=== PATIENT | female | born 1940 | race Caucasian/White ===

== ENCOUNTER 2017-10-05 14:47 | Emergency (ER) | payer MEDICARE, OTHER, SELFPAY ==
[2017-10-05 14:49] VITALS: BP 158/69; PULSE 89; PULSE 90; RESP 17; TEMP 36.7; O2SAT 95; O2SAT 97; BMI 35.1
--- NOTE | 2017-10-05 14:56 | RAD_ITS ---
STUDY: X-RAY CHEST REASON FOR EXAM: Female, 76 years old. Pain following a fall. TECHNIQUE: Single AP portable view of the chest. COMPARISON: Comparison is made with prior study dated July 02, 2010. FINDINGS: EKG electrodes are seen. Hyperinflation. The lungs are clear. There is no demonstrated pleural abnormality. Normal size heart. Normal mediastinum and wilfredo. Normal visualized pulmonary arteries. There is atherosclerotic tortuosity of the aortic arch and descending thoracic aorta. There are diffuse degenerative changes of the visualized thoracic spine. Normal visualized ribs, clavicles, and shoulders. There is no demonstrated abnormality of the visualized soft tissue structures of the upper abdomen. RAD/Chest 1 View (Portable) IMPRESSION: No acute abnormality is seen. Electronically Signed: Tigre Asif MD at 15:57 EDT Tel [phone], Service support ,
--- NOTE | 2017-10-05 14:56 | EKG12_ITS ---
Test Reason : FALL Blood Pressure : / mmHG Vent. Rate : 081 BPM Atrial Rate : 081 BPM P-R Int : 122 ms QRS Dur : 070 ms QT Int : 358 ms P-R-T Axes : 064 -27 041 degrees QTc Int : 415 ms Normal sinus rhythm Low voltage QRS Borderline ECG Confirmed by MEETA STOUT, LJ ([id number]), desk editor MERCEDEZ GREER ([id number]) on 10/07/2017 3:31:22 PM Referred By: AYANNA Confirmed By:LJ TIM MD
--- NOTE | 2017-10-05 14:56 | CT_ITS ---
STUDY: CT BRAIN WITHOUT CONTRAST REASON FOR EXAM: Female, 76 years old. Contusion overlying the right frontal bone following a fall. RADIATION DOSAGE (If Supplied By Facility): CTDIvol = ( 44.99 ) mGy, DLP = ( 812.98 ) mGycm TECHNIQUE: Transaxial CT imaging of the brain was performed without administration of intravenous contrast material. Individualized dose optimization techniques were used for this CT. COMPARISON: None. FINDINGS: Scalp hematoma overlying the right frontal bone. Normal calvarium. There is mild cerebral atrophy with widening of the extra-axial spaces and ventricular dilatation. There are areas of decreased attenuation within the white matter tracts of the supratentorial brain, consistent with microvascular disease changes. Focal area of decreased attenuation in the deep portion of the left parieto-occipital lobe adjacent to the left lateral ventricle. This may represent an area of prior ischemic change. Normal basal ganglia and thalami. Normal brainstem. Normal cerebellum. There is no intracranial hemorrhage. There are no findings of an acute ischemic infarction. Mucosal thickening of the ethmoid sinuses bilaterally. CT/Brain/Head without Contrast IMPRESSION: Chronic involutional changes of the brain. Scalp hematoma overlying the right frontal bone. Electronically Signed: Tigre Asif MD at 15:49 EDT Tel [phone], Service support ,
--- NOTE | 2017-10-05 14:57 | CT_ITS ---
STUDY: CT CERVICAL SPINE WITHOUT CONTRAST REASON FOR EXAM: Female, 76 years old. History of fall. Contusion to the [place]. RADIATION DOSAGE (If Supplied By Facility): CTDIvol = ( 19.34 ) mGy, DLP = ( 353.67 ) mGycm TECHNIQUE: High resolution transaxial imaging was performed without contrast material. Sagittal and coronal images were reconstructed. Individualized dose optimization techniques were used for this CT. COMPARISON: None FINDINGS: Normal craniovertebral junction. There are degenerative changes of the anterior atlantoaxial articulation. Normal odontoid process. Normal cervical lordosis. Normal vertebral bodies and posterior osseous elements. C2-3: Disc space narrowing. Facet joint osteoarthritis and hypertrophy worse on the right side with right neural foraminal stenosis. C3-4: Moderate degree of disc space narrowing. Minimal anterior listhesis of C3 on C4 most likely secondary to the facet joint osteoarthritis and hypertrophy with bilateral neural foraminal stenosis. C4-5: Mild degree of disc space narrowing. Minimal anterior listhesis of C4 on C5 most likely secondary to the facet joint osteoarthritis and hypertrophy. Uncovertebral arthrosis. Bilateral neural foraminal stenosis. C5-6: Moderate degree of disc space narrowing. Spondylosis. Facet joint osteoarthritis and hypertrophy. Narrowing of the left intervertebral foramen. C6-7: Moderate degree of disc space narrowing. Spondylosis. Facet joint osteoarthritis and hypertrophy. Normal visualized soft tissue structures. CT/Spine Cervical without Contras IMPRESSION: Multilevel degenerative changes, as described above. Electronically Signed: Tigre Asif MD at 15:52 EDT Tel [phone], Service support ,
[2017-10-05] MEDS: Diphth,Pertuss(Acell),Tet Vac 0.5 ML Vial IM (15:09)
[2017-10-05] MEDS: Acetaminophen 500 MG Tablet 1000 MG PO (15:10)
[2017-10-05 15:14] VITALS: O2SAT 96
[2017-10-05 15:15] LABS: Absolute Lymphocyte Count 0.75 X10^3/ul (0.83-4.51); Absolute Neutrophil Count 6.3 X10^3/uL (2.0-7.7); Hematocrit 41.3 % (37-47); Hemoglobin 13.5 g/dl (12.0-15.0); Lymphocyte # 0.75 X10^3/ul (4.0); Lymphocyte % 10.4 % (19-41); Mean Corp Hgb Conc 32.7 g/gl (32-36); Mean Corpuscular Hgb 29.9 pg (27.0-32.0); Mean Corpuscular Volume 91.6 fL (81-99); Monocyte# 0.13 X10^3/uL; Monocyte% 1.8 % (0-10); Neutrophil # 6.29 X10^3/uL (2.7-7.7); Neutrophil % 87.7 % (47-70); Platelet Count 225 K/mm3 (150-450); RBC Distribution Width CV 13.1 % (11.6-14.6); RBC Distribution Width SD 43.3 fl (35.1-43.9); Red Blood Count 4.51 M/mm3 (4.2-5.4); White Blood Count 7.2 K/mm3 (4.4-11.0)
[2017-10-05 15:16] LABS: POSITIVE COUNT NO; POSITIVE DIFFERENTIAL NO; POSITIVE MORPHOLOGY NO
--- NOTE | 2017-10-05 15:19 | ED.VISSUMM ---
- ER Visit Summary Date of Service: 10/05/17 Chief Complaint: Facial injury History of Present Illness: The patient is a 76 F presents to the emergency department after a fall. Patient was outside. Her grandson was cutting her grass. She states that she was lifting up a cable that needed to be buried. He states that the next thing she knew, she woke up on the ground. She did strike her face. She is amnestic to the event. She cannot recall tripping or falling. She was not syndrome prior to that. She denies any fevers or chills. She states that today she has been in normal state of health. Her only current current complaint is of a mild headache. She is on baby aspirin but no other anticoagulants. She is unsure of her last tetanus. She has no history of coronary vascular disease and prior syncope. Physical Examination: Vital signs reviewed General: Well-nourished, well-developed Head: Normocephalic, and hematoma above right eye Eyes: Pupils equal and reactive, extraocular muscles intact NT: Abrasion over nose. No nasal septal hematoma. No hemotympanum. Laceration in the upper right lip. Does not involve the vermilion border. Neck, supple, no lymphadenopathy Heart: Regular rate and rhythm Respiratory: No distress, clear bilaterally Abdomen: Soft, nontender, nondistended, no peritoneal signs Back: Nontender Extremities: Nontender, no edema, no cords Skin: Normal color no rash Neuro: Alert and oriented, no focal or lateralizing deficits Test Results: [] Emergency Department Course and Treatment: The patient only wanted Tylenol for pain. Her tetanus is updated. I did obtain images including head CT, CT C-spine, chest x-ray, and humerus x-ray. These are unremarkable. EKG is obtained which is unremarkable. There is no acute ischemic change. Screening labs are also unremarkable. My suspicion is that the patient likely fell and is amnestic because of her head injury. I really do not suspect cardiogenic syncope. Her lip laceration was irrigated and repaired with 3 gut suture. She will be placed on amoxicillin as this was caused by teeth. Patient also given a short course of analgesics and antiemetics. Patient is comfortable plan for discharge. She will be discharged home. Treatment Plan: [] Disposition: Discharge Impression:. Lip laceration status post fall 2. Facial contusion 3. Concussion This note was generated with Dragon dictation software. It may contain incorrect words, spelling, and punctuation that were not noted in review of the chart prior to signing ED Disposition - Plan for ED Patient: Chief Complaint: Fall Instructions: ED Mechanical Fall, ED Laceration All Prescriptions: Hydrocodone Bitart/Apap 5-325 [[place] 5MG-325MG] 1 tab PO Q6H PRN PRN 3 Days #10 tab PRN Reason: Pain Ondansetron [Zofran Odt] 4 mg PO Q8H PRN PRN #10 tab PRN Reason: Nausea Amoxicillin 500 mg PO TID #21 tab Referrals: Octaviano Dunham MD [Primary Care Provider] -
--- NOTE | 2017-10-05 15:26 | RAD_ITS ---
STUDY: X-RAY - RIGHT HUMERUS REASON FOR EXAM: Female, 76 years old. History of fall. Pain. TECHNIQUE: 2 view(s) of the humerus. COMPARISON: None. FINDINGS: Normal visualized humerus. There is no demonstrated fracture or osseous destructive process. There is no demonstrated soft tissue abnormality. RAD/Humerus min 2 Views IMPRESSION: Normal x-ray examination of the humerus. Electronically Signed: Tigre Asif MD at 15:57 EDT Tel [phone], Service support ,
[2017-10-05 15:35] LABS: ALB/GLOB Ratio 1.3 RATIO (0.9-2.4); AST(SGOT) 18 U/L (15-37); Alanine Aminotransfer ALT/SGPT 22 U/L (13-56); Albumin, Serum 3.8 g/dL (3.2-5.0); Alkaline Phosphatase 69 U/L (45-117); Anion Gap 6 (5-15); BUN 20 mg/dL (7-18); BUN/Creat Ratio 21.7 RATIO (10-20); Calcium,Total 8.7 mg/dL (8.5-10.1); Chloride 106 mmol/L (98-107); Creatinine, Serum 0.92 mg/dL (0.55-1.02); EST Glomerular Filtration Rate 63 mL/min (>60); Est Glom Filt Rate - Afr Amer 76 mL/min (>60); Estimated Creatinine Clearance 37.37 ml/min; Glucose 172 mg/dL (74-106); Protein, Total 6.8 g/dL (6.4-8.2); Sodium Level 139 mmol/L (136-145)
[2017-10-05] MEDS: Ondansetron ODT 4 MG Tablet PO (16:33)
[2017-10-05 16:34] VITALS: BP 130/69; PULSE 83; RESP 14; O2SAT 95
--- NOTE | 2017-10-05 16:36 | ED.VISSUMM ---
- ER Visit Summary Date of Service: 10/05/17 Chief Complaint: [] History of Present Illness: The patient is a 76 F [] Physical Examination: [] Test Results: [] Emergency Department Course and Treatment: [] Treatment Plan: [] Disposition: [] Impression: [] This note was generated with [employer] dictation software. It may contain incorrect words, spelling, and punctuation that were not noted in review of the chart prior to signing ED Disposition - Plan for ED Patient: Chief Complaint: Fall Instructions: ED Mechanical Fall, ED Laceration All Prescriptions: Hydrocodone Bitart/Apap 5-325 [[place] 5MG-325MG] 1 tab PO Q6H PRN PRN 3 Days #10 tab PRN Reason: Pain Ondansetron [Zofran Odt] 4 mg PO Q8H PRN PRN #10 tab PRN Reason: Nausea Ondansetron [Zofran Odt] 4 mg PO Q8H PRN PRN #10 tab PRN Reason: Nausea Amoxicillin 500 mg PO TID #21 tab Referrals: Octaviano Dunham MD [Primary Care Provider] -
== END 2017-10-05 16:41 | disposition home or self-care (01) ==
PROVIDERS: Emergency Provider Emergency Medicine; Family Provider Family Medicine; PCP Family Medicine
DX: S06.0X9A Concussion with loss of consciousness of unspecified duration, initial encounter (principal); S01.511A Laceration without foreign body of lip, initial encounter; S00.11XA Contusion of right eyelid and periocular area, initial encounter; I10 Essential (primary) hypertension; E78.00 Pure hypercholesterolemia, unspecified; M06.9 Rheumatoid arthritis, unspecified; Z79.52 Long term (current) use of systemic steroids; Z79.82 Long term (current) use of aspirin; Z79.899 Other long term (current) drug therapy; W18.30XA Fall on same level, unspecified, initial encounter; Y93.89 Activity, other specified; Y92.007 Garden or yard of unspecified non-institutional (private) residence as the place of occurrence of the external cause; Y99.8 Other external cause status
CPT/HCPCS: 12011; 70450; 71045; 72125; 73060; 80053; 85025; 90471; 90715; 93005; 99285

== ENCOUNTER → 2017-10-09 12:15 | Outpatient (CLI) | payer MEDICARE, OTHER, SELFPAY ==
--- NOTE | 2017-10-09 12:21 | RAD_ITS ---
STUDY: X-RAY - RIGHT SHOULDER REASON FOR EXAM: Female, 76 years old. Right shoulder pain following a recent fall. TECHNIQUE: 4 view(s) of the shoulder. COMPARISON: None. FINDINGS: Normal glenohumeral articulation. There is degenerative arthrosis of the acromioclavicular joint without inferior osseous spur formation. Normal acromion. Normal humeral head and visualized proximal humerus. There is periarticular soft tissue calcification consistent with a calcific tendinitis. Normal visualized pulmonary apex. RAD/Shoulder min 2 Views IMPRESSION: Degenerative changes of the right acromioclavicular joint. Findings suggestive of a calcific tendinitis. Electronically Signed: Tigre Asif MD at 12:47 EDT Tel [phone], Service support ,
== END ==
PROVIDERS: Family Provider Family Medicine; PCP Family Medicine; Visit Provider Family Medicine
DX: S40.011A Contusion of right shoulder, initial encounter (principal)
CPT/HCPCS: 73030

== ENCOUNTER → 2017-12-04 17:45 | Outpatient (CLI) | payer MEDICARE, OTHER, SELFPAY | PROVIDERS: Family Provider Family Medicine; PCP Family Medicine; Visit Provider Family Medicine | DX: S46.001S Unspecified injury of muscle(s) and tendon(s) of the rotator cuff of right shoulder, sequela (principal) | CPT/HCPCS: 73221 ==

== ENCOUNTER → 2018-08-20 | Outpatient (CLI) | payer MEDICARE, OTHER, SELFPAY ==
[2018-08-20 10:36] LABS: Absolute Lymphocyte Count 1.83 X10^3/ul (0.83-4.51); Absolute Neutrophil Count 4.9 X10^3/uL (2.0-7.7); Basophil# 0.02 X10^3/uL; Basophil% 0.3 % (0-1); Eosinophil# 0.19 X10^3/uL; Eosinophils% 2.6 % (0-5); Hematocrit 42.7 % (37-47); Hemoglobin 14.3 g/dl (12.0-15.0); Lymphocyte # 1.83 X10^3/ul (4.0); Lymphocyte % 25.1 % (19-41); Mean Corp Hgb Conc 33.5 g/gl (32-36); Mean Corpuscular Hgb 30.4 pg (27.0-32.0); Mean Corpuscular Volume 90.9 fL (81-99); Mean Platelet Vol. 9.3 fl (6.2-12.0); Monocyte# 0.32 X10^3/uL; Monocyte% 4.4 % (0-10); Neutrophil # 4.92 X10^3/uL (2.7-7.7); Neutrophil % 67.5 % (47-70); Platelet Count 302 K/mm3 (150-450); RBC Distribution Width CV 13.3 % (11.6-14.6); White Blood Count 7.3 K/mm3 (4.4-11.0)
[2018-08-20 10:37] LABS: POSITIVE COUNT NO; POSITIVE DIFFERENTIAL NO; POSITIVE MORPHOLOGY NO
[2018-08-20 11:14] LABS: Anion Gap 4 (5-15); BUN 18 mg/dL (7-18); BUN/Creat Ratio 23.7 RATIO (10-20); Calcium,Total 8.8 mg/dL (8.5-10.1); Chloride 103 mmol/L (98-107); Cholesterol 222 mg/dL (200); Creatinine, Serum 0.76 mg/dL (0.55-1.02); EST Glomerular Filtration Rate 78 mL/min (>60); Est Glom Filt Rate - Afr Amer 95 mL/min (>60); Glucose 100 mg/dL (74-106); High Density Lipoprotein 58 mg/dL; Sodium Level 137 mmol/L (136-145); Triglycerides 192 mg/dL; Very Low Density Lipoprotein 38 mg/dL (5-40)
[2018-08-21 08:39] LABS: Carcinoembryonic Antigen 1.5 ng/mL (0.0-4.7)
== END | disposition home or self-care (01) ==
LOC: MFPLAB 09:11
PROVIDERS: Family Provider Family Medicine; PCP Family Medicine; Referring Provider Family Medicine; Visit Provider Family Medicine
DX: E78.00 Pure hypercholesterolemia, unspecified (principal); C18.9 Malignant neoplasm of colon, unspecified; R53.83 Other fatigue; I10 Essential (primary) hypertension
CPT/HCPCS: 36415; 80048; 80061; 82306; 82378; 84443; 85025

== ENCOUNTER → 2018-11-23 | Outpatient (CLI) | payer MEDICARE, OTHER, SELFPAY | END | disposition home or self-care (01) | PROVIDERS: Family Provider Family Medicine; PCP Family Medicine; Referring Provider Nurse Practitioner Family; Visit Provider Nurse Practitioner Family | DX: N39.0 Urinary tract infection, site not specified (principal) | CPT/HCPCS: 87086; 87088; 87186 ==

== ENCOUNTER → 2019-02-02 | Outpatient (CLI) | payer MEDICARE, OTHER, SELFPAY ==
--- NOTE | 2019-02-02 11:42 | RAD_ITS ---
STUDY: X-RAY - LEFT SHOULDER REASON FOR EXAM: Left upper arm pain, reaching injury yesterday. TECHNIQUE: 4 view(s) of the shoulder. COMPARISON: None. FINDINGS: Normal glenohumeral articulation. There is calcification of the superior acromioclavicular joint capsule. Normal acromion. Normal humeral head and visualized proximal humerus. There is subtle calcific tendinitis. Normal visualized pulmonary apex. RAD/Shoulder min 2 Views IMPRESSION: Subtle calcific tendinitis. Calcification in the superior acromioclavicular joint capsule. Electronically Signed: Shahid Dhaliwal MD at 12:12 EDT Tel , Service support ,
== END | disposition home or self-care (01) ==
LOC: MTRAD 11:41
PROVIDERS: Family Provider Family Medicine; PCP Family Medicine; Referring Provider Family Medicine; Visit Provider Family Medicine
DX: M25.512 Pain in left shoulder (principal)
CPT/HCPCS: 73030

== ENCOUNTER → 2019-03-27 14:03 | Outpatient (CLI) | payer MEDICARE, OTHER, SELFPAY ==
[2019-03-27 10:05] VITALS: BMI 35.1
[2019-03-27 14:06] LABS: Mucous, Urine 0 SEEN /hpf (<or=2+); Squamous Epithelial Cells - UA 0 SEEN /hpf (5-10)
[2019-03-27 14:15] LABS: Color, Urine Yellow (Yellow); Glucose, Dipstick Normal (Normal); Ketone-Dipstick 5 mg/dl (Negative); Leukocyte Esterase-Dipstick 100 /ul (Negative); Nitrite-Dipstick Positive (Negative); Occult Blood-Urine 10 /ul (Negative); Protein-Dipstick 15 mg/dl (Negative); Urine Bilirubin Dipstick Negative (Negative); Urine Clarity Sl. Cloudy (Clear); Urine Urobilinogen Normal (Normal)
[2019-03-27 14:24] LABS: Bacteria 3+ /hpf (None Seen); Red Blood Cells-Urine 0-5 SEEN /hpf (0-5); White Blood Cells 10-25 SEEN /hpf (0-5)
== END ==
PROVIDERS: Family Provider Family Medicine; PCP Family Medicine; Referring Provider Physician Assistant; Visit Provider Physician Assistant
DX: R68.83 Chills (without fever) (principal)
CPT/HCPCS: 81001; 87086; 87088; 87186

== ENCOUNTER 2019-05-16 18:18 | Inpatient (IN) | payer MEDICARE, OTHER, SELFPAY ==
[2019-05-04 13:56] VITALS: BMI 35.1
[2019-05-16] VITALS (9 sets, daily range): BP systolic 122–139; BP diastolic 59–71; PULSE 98–117; RESP 14–17; TEMP 36.9–37.6; O2SAT 88–93; BMI 33.8; BMI 33.0; BMI 33.1
--- NOTE | 2019-05-16 18:40 | ED.DCSUM_ITS ---
- ER Visit Summary Date of Service: 05/16/19 Chief Complaint: Chills History of Present Illness: The patient is a 78 F with a history of colon cancer status post colon resection. History of shoulder surgery and hypertension. Presents with chills for the past hour. Patient had cold symptoms starting 3 days ago. She has congestion and a dry cough. She had one episode of vomiting which she attributes to coughing after eating an orange. No other GI symptoms. No urinary symptoms. She had similar symptoms in the past with a UTI. Denies any history of sepsis. Physical Examination: Afebrile and vital signs unremarkable except for heart rate of 117. Pulse ox 92% on room air. Patient appears nontoxic and in no acute distress. Alert and oriented. HEENT exam shows normal inspection. Heart tachycardic but regular. Lungs clear. Abdomen soft and nontender. Extremities nontender with no edema. Skin appears normal. Test Results: Influenza test, chest x-ray, and urinalysis pending. Emergency Department Course and Treatment: Patient likely has an upper respiratory infection with chills. Family is concerned for UTI. She does not meet sepsis criteria. She appears well. She had one episode of vomiting. There is no indication for IV fluids or blood testing after 1 hour of chills. Will check an x-ray, influenza test, and urinalysis and reassess. Influenza negative. Chest x-ray unremarkable. Urinalysis showed signs of UTI. Cultures pending. Patient was treated with Rocephin. Patient was hypoxic with ambulation. She has no history of this. No shortness of breath. No history of heart failure, DVT, or PE. I did obtain an EKG that showed sinus rhythm at a rate of 114. No sign of ischemia or infarction pattern. Troponin normal. D-dimer is negative when adjusted for age. Patient met criteria for sepsis. Lactate and blood cultures pending. Treated with Rocephin. Hospitalist was contacted for admission. Treatment Plan: As above Disposition: Admission Impression: 1. Sepsis 2. UTI 3. Hypoxia This note was generated with [employer] software. It may contain incorrect words, spelling, and punctuation that were not noted in review of the chart prior to signing ED Disposition - Plan for ED Patient: Referrals: Octaviano Almodovar MD [Primary Care Provider] -
--- NOTE | 2019-05-16 18:54 | EKG12_ITS ---
Test Reason : GEN ILL Blood Pressure : / mmHG Vent. Rate : 114 BPM Atrial Rate : 114 BPM P-R Int : 118 ms QRS Dur : 064 ms QT Int : 306 ms P-R-T Axes : 049 -38 047 degrees QTc Int : 421 ms Sinus tachycardia Left axis deviation Low voltage QRS Inferior infarct , age undetermined Abnormal ECG Confirmed by FRAN STOUT, ARUNA ([id number]), editor magazine [employer]ES ([id number]) on 05/20/2019 1:22:05 PM Referred By: DC Confirmed By:ROOSEVELT PETERS MD
[2019-05-16 19:27] LABS: Mucous, Urine 0 SEEN /hpf (<or=2+); Red Blood Cells-Urine 0 SEEN /hpf (0-5); Squamous Epithelial Cells - UA 0 SEEN /hpf (5-10)
--- NOTE | 2019-05-16 19:35 | RAD_ITS ---
STUDY: X-RAY CHEST REASON FOR EXAM: Female, 78 years old. PATIENT HAVING COLD SX, CHILLS, FEVER TECHNIQUE: PA and lateral COMPARISON: None. FINDINGS: Lungs are mildly hyperinflated but clear.. Tiny calcified granuloma in left lower lobe There is no demonstrated pleural abnormality. Normal size heart. Normal mediastinum and wilfredo. Normal visualized pulmonary arteries. Normal visualized aortic arch and descending thoracic aorta. Dorsal spine demonstrates degenerative changes. Normal visualized ribs, and clavicles. There are degenerative changes of left shoulder and prosthesis on the right There is no demonstrated abnormality of the visualized soft tissue structures of the upper abdomen. RAD/Chest PA and Lateral IMPRESSION: No acute cardiopulmonary pathology. Electronically Signed: Sharath Taylor MD at 20:03 EST , Service support ,
[2019-05-16 19:38] LABS: Color, Urine Yellow (Yellow); Glucose, Dipstick Normal (Normal); Ketone-Dipstick Negative (Negative); Leukocyte Esterase-Dipstick 500 /ul (Negative); Nitrite-Dipstick Positive (Negative); Occult Blood-Urine Negative /ul (Negative); Protein-Dipstick Negative (Negative); Urine Bilirubin Dipstick Negative (Negative); Urine Clarity Clear (Clear); Urine Urobilinogen Normal (Normal)
[2019-05-16 19:49] LABS: Anion Gap 6 (5-15); BUN 16 mg/dL (7-18); BUN/Creat Ratio 17.4 RATIO (10-20); Calcium,Total 8.5 mg/dL (8.5-10.1); Chloride 106 mmol/L (98-107); Creatinine, Serum 0.92 mg/dL (0.55-1.02); EST Glomerular Filtration Rate 63 mL/min (>60); Est Glom Filt Rate - Afr Amer 76 mL/min (>60); Glucose 117 mg/dL (74-106); Potassium 3.8 mmol/L (3.5-5.1); Sodium Level 139 mmol/L (136-145)
[2019-05-16 19:58] LABS: Absolute Lymphocyte Count 0.57 X10^3/uL (0.83-4.51); Absolute Neutrophil Count 13.9 X10^3/uL (2.0-7.7); Basophil# 0.03 X10^3/uL; Basophil% 0.2 % (0-1); Eosinophil# 0.19 X10^3/uL; Eosinophils% 1.3 % (0-5); Hematocrit 41.7 % (37-47); Hemoglobin 13.5 g/dL (12.0-15.0); Lymphocyte # 0.57 X10^3/ul (4.0); Lymphocyte % 3.8 % (19-41); Mean Corp Hgb Conc 32.4 g/dL (32-36); Mean Corpuscular Hgb 30.5 pg (27.0-32.0); Mean Corpuscular Volume 94.1 fL (81-99); Mean Platelet Vol. 9.4 fl (6.2-12.0); Monocyte# 0.25 X10^3/uL; Monocyte% 1.7 % (0-10); NRBC Flagged by Analyzer 0 % (0-5); Neutrophil % 92.6 % (47-70); POSITIVE DIFFERENTIAL YES; Platelet Count 197 K/mm3 (150-450); RBC Distribution Width SD 44.7 fl (35.1-43.9); Red Blood Count 4.43 M/mm3 (4.2-5.4)
[2019-05-16 20:26] LABS: Differential Indicated SCAN CRITERIA MET
[2019-05-16 20:38] LABS: D-Dimer Quantitative (DVT/PE) 0.59 FEU/ug/m (0.27-0.49)
[2019-05-16 20:40] LABS: Bacteria 1+ /hpf (None Seen); White Blood Cells 10-25 SEEN /hpf (0-5)
[2019-05-16 20:52] LABS: Anisocytosis RARE; Macrocytosis RARE; Platelet Estimate ADEQUATE (ADEQ); Red Cell Morphology N CHROM NORMAL (NORM C&C)
[2019-05-16] MEDS: 0.9% Normal Saline 1,000 ML 999 ML IV (21:12)
[2019-05-16] MEDS: Ceftriaxone 1 GM/50 ML BAG IV (21:12)
--- NOTE | 2019-05-16 21:13 | PCM.HP.STD ---
Problem List (1) Urinary tract infection Status: Acute (2) Hypoxia Status: Acute (3) Rash and nonspecific skin eruption Status: Chronic History of Present Illness Date of Admission: 05/16/19 Chief Complaint: fever and chills The patient is a 78 year old female patient with a past medical history of colon resection due to colon cancer she presents to the emergency room with fever and chills initially complaining of 3 days of upper respiratory symptoms. Her daughter ,a nurse realized that in the past when she presented this way she had also had a urinary tract infection. Coincidentally, the patient has an ongoing rash of unknown cause for which she has been receiving prednisone for the past several days. She acknowledges feeling more agitated over the past several days concomitant with her prednisone use and she does not feel dysuria or urgency. She presents with fever, tachycardia, increased white blood cell count of 15,000 and urinalysis is positive for leukocytes and nitrites. The patient is to receive Rocephin and IV hydration. Without oxygen her pulse ox drops to the high 80% range and therefore she will be admitted for further management of her urinary tract infection with sepsis and hypoxia. Past Medical History Past Medical History (Chronic Problems): Chronic Problems (Last Reviewed 05/04/19 @ 13:56 by Caesar Pulido) Rash and nonspecific skin eruption (Chronic) Medical History: Medical History (Last Reviewed 05/04/19 @ 13:56 by Caesar Pulido) Arthritis M19.90 Colon cancer C18.9 Incontinence R32 Limb weakness R29.898 Shoulder pain M25.519 HTN (hypertension) I10 Allergies codeine Adverse Reaction (Verified 05/16/19 18:20) Nausea Home Medications: Ambulatory Orders Medication Instructions Recorded Metoprolol(XL)Succ [Toprol Xl 25 mg PO DAILY 05/01/14 ([place] [place])] Multivit-Min/FA/Lycopene/Lut 1 ea PO DAILY 05/01/14 [Centrum Silver Tablet] Oxybutynin [Ditropan] 10 mg PO DAILY 05/01/14 diphenoxylate-atropine 2.5 1 tab PO BID PRN tab 03/27/19 mg-0.025 mg tablet fexofenadine 180 mg tablet 180 mg PO DAILY 03/27/19 Celecoxib 200 mg PO DAILY 05/16/19 Surgical History: Surgical History (Last Reviewed 05/04/19 @ 13:56 by Caesar Pulido) History of colon resection Z90.49 History of shoulder replacement Z96.619 Smoking Status: Never smoker - *Family History Maternal Family History: Family History (Last Reviewed 05/04/19 @ 13:56 by Caesar Pulido) Other Arthritis History Items: No pertinent history Review of Systems Constitutional: Reports: Chills, Fever, Fatigue. Denies: Weight Change HEENT: Denies: Head Aches, Sinus Congestion, Sinus Drainage Cardiovascular: Denies: Chest Pain, Palpitations Respiratory: Denies: Cough, Shortness of breath at rest, Sputum production Gastrointestinal: Denies: Abdominal Pain, Nausea, Vomiting Genitourinary: Denies: Dysuria Musculoskeletal: Denies: Joint Pain, Joint Tenderness Skin: Denies: Rash, Wounds Neurological: Denies: Numbness, Tingling, Focal weakness Psychiatric: Denies: Anxiety, Depression, Homicidal Ideations, Suicidal Ideations Hematologic/ Lymphatic: Denies: Easy Bruising, Easy Bleeding VTE Information - Inpt Only VTE Present on Admission: No VTE Mechan Device Prophylaxis: None VTE Pharm Prophylaxis ordered?: Yes Patient Problems: Active and Suspected Problems (Last Reviewed 05/04/19 @ 13:56 by Caesar Pulido) Urinary tract infection (Acute) Hypoxia (Acute) - Physical Exam Vitals/I&O's: Vital Signs Temp Pulse Resp BP Pulse Ox 99.6 F H 117 H 17 133/71 H 90 05/16/19 18:31 05/16/19 18:31 05/16/19 18:31 05/16/19 18:31 05/16/19 19:26 Oxygen Delivery Method Room Air Weight: 173 lb 8.061 oz Body Mass Index (BMI) 33.8 General: Alert, Oriented x3, Cooperative HEENT: Atraumatic, Normocephalic Neck: Supple Lungs: Clear to auscultation, Normal air movement Cardiovascular: Regular rate, Normal S1, Normal S2, No murmurs, Tachycardic Abdomen: Bowel Sounds Present, Soft, Non Tender, - - no cva tenderness Extremities: No edema Skin: No rashes, No breakdown Musculoskeletal: No Tenderness to Palpation of Joints or Extremities Neurological: Neuro grossly intact Psych/Mental Status: Normal Affect, Appropriate Microbiology Past 72 Hours 05/16/19 18:45 Mucosa - Nasopharyngeal Influenza Types A,B Direct FA (KAZ) - Final Laboratory Results 05/16/19 19:15: WBC 15.0 H, RBC 4.43, Hgb 13.5, Hct 41.7, MCV 94.1, MCH 30.5, MCHC 32.4, RDW Std Deviation 44.7 H, RDW Coeff of [place]ultana 13.0, Plt Count 197, MPV 9.4, Immature Gran % (Auto) 0.400, Neut % (Auto) 92.6 H, Lymph % (Auto) 3.8 L, Andrews % (Auto) 1.7, Eos % (Auto) 1.3, Baso % (Auto) 0.2, Absolute Neuts (auto) 13.9 H, Absolute Lymphs (auto) 0.57 L, Nucleated RBC % 0, Differential Comment SEE COMMENT, Platelet Estimate ADEQUATE, RBC Morphology N CHROM, Anisocytosis RARE, Macrocytosis RARE 05/16/19 19:15: D-Dimer Quant (PE/DVT) 0.59 H* 05/16/19 19:15: Sodium 139, Potassium 3.8, Chloride 106, Carbon Dioxide 27.0, Anion Gap 6, BUN 16, Creatinine 0.92, Estim Creat Clear Calc 36.20, Est GFR (MDRD) Af Amer 76, Est GFR (MDRD) Non-Af 63, BUN/Creatinine Ratio 17.4, Glucose 117 H, Calcium 8.5, Troponin I < 0.015 05/16/19 19:15: B-Natriuretic Peptide Pending 05/16/19 19:20: Urine Color Yellow, Urine Clarity Clear, Urine pH 5.0, Ur Specific [place] 1.020, Urine Protein Negative, Urine Glucose (UA) Normal, Urine Ketones Negative, Urine Occult Blood Negative, Urine Nitrite Positive H, Urine Bilirubin Negative, Urine Urobilinogen Normal, Ur Leukocyte Esterase 500 H, Urine RBC 0 SEEN, Urine WBC 10-25 SEEN, Ur Squamous Epith Cells 0 SEEN, Urine Bacteria 1+, Urine Mucus 0 SEEN Current Medications Sodium Chloride () 1,000 mls @ 999 mls/hr IV .Q1H1M ONE Stop: 05/16/19 21:50 Ceftriaxone Sodium (Rocephin) 1 gm in 50 mls @ 100 mls/hr IV X1 ONE Stop: 05/16/19 21:19 Assessment/Plan All Active Problems (Last Reviewed 05/04/19 @ 13:56 by Caesar Pulido) Urinary tract infection (Acute) Hypoxia (Acute) Chronic Problems (Last Reviewed 05/04/19 @ 13:56 by Caesar Pulido) Rash and nonspecific skin eruption (Chronic) Plan 1. Urinary tract infection?sepsis?initiate IV hydration therapy, IV Rocephin 1 g IV every 24 hours, CBC BMP in the morning 2. Hypoxia?continue O2 per protocol wean off as tolerated tomorrow 3. DVT prophylaxis?low molecular weight heparin 4. Rash?discontinue prednisone Code Visit Inpatient E&M: 01142 Init Hosp L3
[2019-05-16 22:15] LABS: Lactic Acid 1.3 mmol/L (0.4-1.9)
[2019-05-16] MEDS: Diphenoxylate/Atrop 1 Tablet PO (22:24)
[2019-05-16] MEDS: 0.9% Normal Saline 1,000 ML 150 ML IV (22:24)
[2019-05-16] MEDS: Diphenoxylate/Atrop 1 Tablet 2 TABLET PO (23:03)
[2019-05-17] VITALS (11 sets, daily range): BP systolic 106–127; BP diastolic 59–66; PULSE 77–97; RESP 17–18; TEMP 36.7–36.8; O2SAT 92–95
[2019-05-17] MEDS: 0.9% Normal Saline 1,000 ML 150 ML IV ×3 (04:22→17:24)
[2019-05-17 06:18] LABS: Absolute Lymphocyte Count 1.48 X10^3/uL (0.83-4.51); Absolute Neutrophil Count 5.1 X10^3/uL (2.0-7.7); Basophil# 0.03 X10^3/uL; Basophil% 0.4 % (0-1); Eosinophil# 0.25 X10^3/uL; Eosinophils% 3.4 % (0-5); Hematocrit 39.4 % (37-47); Hemoglobin 12.5 g/dL (12.0-15.0); Lymphocyte # 1.48 X10^3/ul (4.0); Lymphocyte % 19.9 % (19-41); Mean Corp Hgb Conc 31.7 g/dL (32-36); Mean Corpuscular Hgb 30.9 pg (27.0-32.0); Mean Corpuscular Volume 97.3 fL (81-99); Mean Platelet Vol. 9.2 fl (6.2-12.0); Monocyte# 0.53 X10^3/uL; Monocyte% 7.1 % (0-10); NRBC Flagged by Analyzer 0 % (0-5); Neutrophil # 5.11 X10^3/uL (2.7-7.7); Neutrophil % 68.9 % (47-70); Platelet Count 185 K/mm3 (150-450); RBC Distribution Width CV 13.1 % (11.6-14.6); Red Blood Count 4.05 M/mm3 (4.2-5.4); White Blood Count 7.4 K/mm3 (4.4-11.0)
[2019-05-17 06:41] LABS: Anion Gap 3 (5-15); BUN 10 mg/dL (7-18); Calcium,Total 7.9 mg/dL (8.5-10.1); Chloride 112 mmol/L (98-107); Creatinine, Serum 0.83 mg/dL (0.55-1.02); EST Glomerular Filtration Rate 70 mL/min (>60); Est Glom Filt Rate - Afr Amer 85 mL/min (>60); Estimated Creatinine Clearance 67.37 ml/min; Glucose 90 mg/dL (74-106); Potassium 3.7 mmol/L (3.5-5.1); Sodium Level 145 mmol/L (136-145)
[2019-05-17] MEDS: Acetaminophen 325 MG Tablet 650 MG PO ×2 (09:56→17:23)
[2019-05-17] MEDS: Loratadine 10 MG Tablet PO (10:02)
[2019-05-17] MEDS: Tolterodine Tartrate 2 MG CAP.SA PO (10:02)
[2019-05-17] MEDS: Celecoxib 200 MG Capsule PO (10:02)
[2019-05-17] MEDS: Metoprolol(XL)Succ 25 MG Tablet PO (10:02)
[2019-05-17] MEDS: Enoxaparin 40 MG/0.4 ML Syringe SC (10:03)
[2019-05-17] MEDS: Ceftriaxone 1 GM/50 ML BAG IV (10:04)
--- NOTE | 2019-05-17 12:19 | PCM.PN.HOSP ---
Patient Problems: Active and Suspected Problems (Last Reviewed 05/04/19 @ 13:56 by Caesar Pulido) Urinary tract infection (Acute) Hypoxia (Acute) Subjective: Patient seen and examined. She was admitted with a complaint of fever and chills and 3 days of upper respiratory symptoms. She did not have any dysuria or urgency. However on admission, she was febrile and tachycardic with increased white cell count of 15,000 and a UA was positive for leukocytes and nitrites. She was admitted to be managed for urinary tract infection and started on Rocephin and IV fluids. Her saturation was noted to drop to the high 80s on room air and so she required supplemental oxygen. Initial d-dimer was 0.59 but this was negative corrected for age and she had no risk factors for DVT or PE symptoms long distance travel or chest pain respiratory lifestyle. Patient has no complaints this morning. She denies any chills and fever has resolved. She denies any shortness of breath or chest pain but does admit to respiratory congestion as well as a nonproductive cough. Review of systems otherwise negative. Labs and vitals reviewed. Vitals are stable and chemistry was unremarkable. WBC has trended down to 7.4. Vitals/I&O's: Vital Signs Temp Pulse Resp BP Pulse Ox 98.3 F 80 17 106/59 L 93 05/17/19 09:53 05/17/19 10:02 05/17/19 09:53 05/17/19 10:02 05/17/19 09:53 Oxygen Flow Rate (L/min) 1 Oxygen Delivery Method Room Air Weight: 168 lb 6.931 oz Body Mass Index (BMI) 33.0 Intake and Output for Last 24 Hours 05/15/19 05/16/19 05/17/19 23:59 23:59 23:59 Intake Total 1410 / 1410 2565 / 2565 Balance 1410 / 1410 2565 / 2565 General: Alert, Oriented x3, Cooperative, No apparent distress HEENT: Atraumatic, PERRLA, EOMI, Normocephalic Oral: Moist Mucosa Neck: Supple, No JVD, Negative Carotid Bruits Lungs: Clear to auscultation, Normal air movement, No rhonchi, No wheeze, No rales Cardiovascular: Regular rate, Regular Rhythm, Normal S1, Normal S2, No murmurs Abdomen: Bowel Sounds Present, Soft, Non Tender Extremities: No clubbing, No cyanosis, No edema, Capillary Refill Less than 3 Seconds Skin: No rashes, No breakdown Musculoskeletal: No Tenderness to Palpation of Joints or Extremities Lymphatic: No Cervical, Supraclavicular, or Inguinal Adenopathy Neurological: Cranial nerves II-XII grossly intact, Neuro grossly intact, Motor Exam 5/5 strength throughout Psych/Mental Status: Normal Affect, Appropriate, Alert and oriented to time, place, person, mood and affect Microbiology Past 72 Hours 05/16/19 18:45 Mucosa - Nasopharyngeal Influenza Types A,B [place] [place] - Final Laboratory Results 05/16/19 19:15: WBC 15.0 H, RBC 4.43, Hgb 13.5, Hct 41.7, MCV 94.1, MCH 30.5, MCHC 32.4, RDW Std Deviation 44.7 H, RDW Coeff of Sultana 13.0, Plt Count 197, MPV 9.4, Immature Gran % (Auto) 0.400, Neut % (Auto) 92.6 H, Lymph % (Auto) 3.8 L, [place] % (Auto) 1.7, Eos % (Auto) 1.3, Baso % (Auto) 0.2, Absolute Neuts (auto) 13.9 H, Absolute Lymphs (auto) 0.57 L, Nucleated RBC % 0, Differential Comment SEE COMMENT, Platelet Estimate ADEQUATE, RBC Morphology N CHROM, Anisocytosis RARE, Macrocytosis RARE 05/16/19 19:15: D-Dimer Quant (PE/DVT) 0.59 H* 05/16/19 19:15: Sodium 139, Potassium 3.8, Chloride 106, Carbon Dioxide 27.0, Anion Gap 6, BUN 16, Creatinine 0.92, Estim Creat Clear Calc 36.20, Est GFR (MDRD) Af Amer 76, Est GFR (MDRD) Non-Af 63, BUN/Creatinine Ratio 17.4, Glucose 117 H, Calcium 8.5, Troponin I < 0.015 05/16/19 19:15: B-Natriuretic Peptide 14.0 05/16/19 19:20: Urine Color Yellow, Urine Clarity Clear, Urine pH 5.0, Ur Specific [place] 1.020, Urine Protein Negative, Urine Glucose (UA) Normal, Urine Ketones Negative, Urine Occult Blood Negative, Urine Nitrite Positive H, Urine Bilirubin Negative, Urine Urobilinogen Normal, Ur Leukocyte Esterase 500 H, Urine RBC 0 SEEN, Urine WBC 10-25 SEEN, Ur Squamous Epith Cells 0 SEEN, Urine Bacteria 1+, Urine Mucus 0 SEEN 05/16/19 21:40: Lactic Acid 1.3 05/17/19 06:00: WBC 7.4, RBC 4.05 L, Hgb 12.5, Hct 39.4, MCV 97.3, MCH 30.9, MCHC 31.7 L, RDW Std Deviation 47.0 H, RDW Coeff of Sultana 13.1, Plt Count 185, MPV 9.2, Immature Gran % (Auto) 0.300, Neut % (Auto) 68.9, Lymph % (Auto) 19.9, [place] % (Auto) 7.1, Eos % (Auto) 3.4, Baso % (Auto) 0.4, Absolute Neuts (auto) 5.1, Absolute Lymphs (auto) 1.48, Nucleated RBC % 0 05/17/19 06:00: Sodium 145, Potassium 3.7, Chloride 112 H, Carbon Dioxide 30.0, Anion Gap 3 L, BUN 10, Creatinine 0.83, Estim Creat Clear Calc 67.37, Est GFR (MDRD) Af Amer 85, Est GFR (MDRD) Non-Af 70, BUN/Creatinine Ratio 12.0, Glucose 90, Calcium 7.9 L Diagnostic Data Chest X-Ray 05/16/19 19:35 IMPRESSION: No acute cardiopulmonary pathology. Electronically Signed: Sharath Taylor MD at 20:03 EST , Service support , Current Medications Acetaminophen (Tylenol) 650 mg PO Q4H PRN PRN PRN Reason: Pain or Fever Last Admin: 05/17/19 09:56 Dose: 650 mg Documented by: Celecoxib (Celebrex) 200 mg PO DAILY [facility] Last Admin: 05/17/19 10:02 Dose: 200 mg Documented by: Diphenoxylate HCl/Atropine (Lomotil) 2 tablet PO TID PRN PRN PRN Reason: Diarrhea Last Admin: 05/16/19 23:03 Dose: 1 tablet Documented by: Enoxaparin Sodium (Lovenox) 40 mg SC DAILY [facility] Last Admin: 05/17/19 10:03 Dose: 40 mg Documented by: Sodium Chloride () 1,000 mls @ 150 mls/hr IV .Q6H40M [facility] Last Admin: 05/17/19 10:54 Dose: 150 mls/hr Documented by: Ceftriaxone Sodium (Rocephin) 1 gm in 50 mls @ 100 mls/hr IV Q24 [facility] Last Infusion: 05/17/19 10:37 Dose: Infused Documented by: Sodium Chloride () 250 mls @ 15 mls/hr IV .[id number] PRN PRN Reason: Saline Flush Sodium Chloride () 250 mls @ 15 mls/hr IV .[id number] PRN PRN Reason: Additional IVPB Infusion Loratadine (Claritin) 10 mg PO DAILY [facility] Last Admin: 05/17/19 10:02 Dose: 10 mg Documented by: Metoprolol Succinate (Toprol Xl (Beta Linda)) 25 mg PO DAILY [facility] Last Admin: 05/17/19 10:02 Dose: 25 mg Documented by: Sodium Chloride () 10 - 40 ml IV UD PRN PRN Reason: SALINE FLUSH Tolterodine Tartrate (Detrol La) 2 mg PO DAILY [facility] Last Admin: 05/17/19 10:02 Dose: 2 mg Documented by: STROKE Vital Signs/Narrative: Vital Signs Temp Pulse Resp BP Pulse Ox 05/17/19 10:02 80 106/59 L 05/17/19 09:53 98.3 F 80 17 106/59 L 93 Medical Necessity - Tobacco Use Smoking Status: Never smoker Assessment/Plan All Active Problems (Last Reviewed 05/04/19 @ 13:56 by Caesar Pulido) Urinary tract infection (Acute) Hypoxia (Acute) 1. Sepsis due to UTI SIRS criteria is now 0/4 wbc is down to 7.4, from 15 on admission blood and urine cultures pending on IV rocephin will adjust antibiotics as needed once urine culture results are back 2. Hypoxia Had mild hypoxia on admission which is now resolved. Patient still however has upper respiratory congestion. Rapid influenza screen was negative. Will check respiratory panel. breathing treatments with bronchodilators as needed 3. Hypertension: On metoprolol 25 mg daily. DVT prophylaxis: lovenox Code Visit Inpatient E&M: 21098 Subs Hosp L2
--- NOTE | 2019-05-17 12:22 | CASEMGMT ---
RN CM Assessment Introduced role of RN CM to patient.? Patient is alert, oriented and able?to participate in RN CM Assessment. ?Care providers, pharmacy, and demographics verified. Presentation: Fever, Chills, x3 days upper Resp symptoms. H/o Colon resection d/t Colon CA. Admit Dx: UTI, Sepsis, Hypoxia Re-Admit: No Barriers/Issues: None, has a good family and friends support system, Dtkay Williamson works here at [facility] PCP: Octaviano Almodovar Specialists: None Preferred Pharmacy: [facility] Insurance: [employer], [employer] Commercial Rx Benefit:?Yes, [employer] ?LNOK: Lukasz Brenner LW/HPOA: [facility] has both, aware this marine underwriter did not see on file and if brought in will place a copy on file. HPOA- Lukasz Brenner. Alt Agent Dtkay Williamson. Living Arrangements:? Lives with in a H, no steps to enter home. ADL?s: Independent with ambulation and ADLs Transportation: Patient drives and denies any transportation issues DME: None HHC: None SNF: None Goal: Home and does not think will have any needs. DME list provided and if Home O2 required at time of DC, patient preference is [employer]. Denies any questions, concerns, issues, or needs with DC planning at this time. Aware CM remains available for any emerging needs. DC PLAN: Home with possible Home O2. YAYA Velazquez
[2019-05-18] VITALS (7 sets, daily range): BP systolic 132–139; BP diastolic 64–71; PULSE 75–105; RESP 16–18; TEMP 36.9; O2SAT 90–95
[2019-05-18] MEDS: 0.9% Normal Saline 1,000 ML 150 ML IV ×2 (00:07→05:31)
[2019-05-18] MEDS: Acetaminophen 325 MG Tablet 650 MG PO (03:22)
[2019-05-18] MEDS: 0.9% Saline Lock 10 ML Syringe IV (07:50)
[2019-05-18] MEDS: Enoxaparin 40 MG/0.4 ML Syringe SC (09:15)
[2019-05-18] MEDS: Ceftriaxone 1 GM/50 ML BAG IV (09:15)
[2019-05-18] MEDS: Metoprolol(XL)Succ 25 MG Tablet PO (09:16)
[2019-05-18] MEDS: Tolterodine Tartrate 2 MG CAP.SA PO (09:16)
[2019-05-18] MEDS: Celecoxib 200 MG Capsule PO (09:16)
[2019-05-18] MEDS: Loratadine 10 MG Tablet PO (09:16)
--- NOTE | 2019-05-18 09:27 | DCINST_ITS ---
- Discharge Diagnoses Current Active Problems: Current Active and Chronic Problems (Last Reviewed 05/04/19 @ 13:56 by Caesar Pulido) Urinary tract infection (Acute) Hypoxia (Acute) You will use the following diet at home:: Cardiac Your food should be the consistency of: Regular Your liquids should be the consistency of: Regular/Thin Discharge Activity: Return to Normal Activity Weight Bearing Status: Weight bearing as tolerated Call your doctor if you observe: Fever of 101 or Higher, Shortness of breath, Dizziness, - - burning with urination and frequent urination Instructions: Understanding Urinary Tract Infections (UTIs) Allergies/Adverse Reactions: Allergies codeine Adverse Reaction (Verified 05/16/19 18:20) Nausea Medications to take at Discharge Metoprolol(XL)Succ [Toprol Xl (Beta Linda)] 25 mg PO DAILY 05/01/14 Multivit-Min/FA/Lycopene/Lut [Centrum Silver Tablet] 1 ea PO DAILY 05/01/14 Oxybutynin [Ditropan] 10 mg PO DAILY 05/01/14 diphenoxylate-atropine 2.5 mg-0.025 mg tablet 2 tab PO TID tab 03/27/19 fexofenadine 180 mg tablet 180 mg PO DAILY 03/27/19 Biotin 300 mcg PO DAILY 05/16/19 Celecoxib 200 mg PO DAILY 05/16/19 Cefdinir [Omnicef [equiv]] 300 mg PO Q12H #10 cap 05/18/19 The following prescriptions were given: Cefdinir [Omnicef [equiv]] 300 mg PO Q12H #10 cap Transmission Status: Pending to [facility] Primary Care Physician: Octaviano Almodovar MD [Primary Care Provider] - Please follow up with your Primary Care Physician in: one week Test Results: Test results from this visit will be discussed in further detail at your follow- up appointment, if applicable. Please Follow Up With: Octaviano Almodovar MD Proposed Discharge Date: 05/18/19
--- NOTE | 2019-05-18 09:29 | DS.PCM_ITS ---
Discharge Date and Diagnosis Date of Admission: 05/16/19 Date of Discharge: 05/18/19 - Primary Discharge Diagnosis Active and Suspected Problems (Last Reviewed 05/04/19 @ 13:56 by Caesar Pulido) Urinary tract infection (Acute) Hypoxia (Acute) sepsis due to UTI - Secondary Discharge Diagnosis Chronic Problems (Last Reviewed 05/04/19 @ 13:56 by Caesar Pulido) Rash and nonspecific skin eruption (Chronic) Hospital Course and Treatment Imaging Results: Diagnostic Data Chest X-Ray 05/16/19 19:35 IMPRESSION: No acute cardiopulmonary pathology. Electronically Signed: Sharath Taylor MD at 20:03 EST , Service support , Operations: None Procedures: None Summary of Care Provided: The patient is a 78 year old F with a PMH as listed who was admitted via the ED on 05/16/2019 with a complaint of fever and chills and 3 days of upper respiratory symptoms. She did not have any dysuria or urgency. However on admission, she was febrile and tachycardic with increased white cell count of 15,000 and a UA was positive for leukocytes and nitrites. She was admitted to be managed for sepsis due to urinary tract infection and started on Rocephin and IV fluids. Her saturation was noted to drop to the high 80s on room air and so she required supplemental oxygen. This hypoxia was thought to be due to the upper respiratory infection that she had in the subsequently resolved on admission with patient being transitioned to room air. She did not have any risk factors for PE. D-dimer was 0.59 which was negative corrected for her age. Patient's urine culture E. coli. White cell count trended down and patient remained stable. She was discharged home on 05/18/2019 with a prescription for p.o. Omnicef to complete a 5-day course. She is to follow-up with her primary care doctor within 1 week. Patient seen and examined prior to discharge. She felt well and denied any fever, chills, nausea vomiting, chest pain, shortness of breath, abdominal pain, diarrhea vomiting. Review of symptoms otherwise negative. Labs and vitals reviewed. Home medication reviewed and reconciled. o/e: Vital Signs Height 4 ft 11.84 in Weight: 168 lb 6.931 oz Weight in Pounds 168.4 lbs Pulse Ox [AMBULATING on Room 90 Air] Pulse Ox 95 Temperature 98.5 F Pulse Rate 95 Respiratory Rate 16 Blood Pressure 132/71 Blood Pressure Position Sitting General: Alert, Oriented x3, Cooperative, No apparent distress HEENT: Atraumatic, PERRLA, EOMI, Normocephalic Oral: Moist Mucosa Neck: Supple, No JVD, Negative Carotid Bruits Lungs: Clear to auscultation, Normal air movement, No rhonchi, No wheeze, No rales Cardiovascular: Regular rate, Regular Rhythm, Normal S1, Normal S2, No murmurs Abdomen: Bowel Sounds Present, Soft, Non Tender Extremities: No clubbing, No cyanosis, No edema, Capillary Refill Less than 3 Seconds Skin: No rashes, No breakdown Musculoskeletal: No Tenderness to Palpation of Joints or Extremities Lymphatic: No Cervical, Supraclavicular, or Inguinal Adenopathy Neurological: Cranial nerves II-XII grossly intact, Neuro grossly intact, Motor Exam 5/5 strength throughout Psych/Mental Status: Normal Affect, Appropriate, Alert and oriented to time, place, person, mood and affect Plan is to dc home on PO omnicef 300mg bid for 5 days. - Physical Exam Vitals/I&O's: Vital Signs Temp Pulse Resp BP Pulse Ox 98.5 F 95 16 132/71 H 95 05/18/19 09:15 05/18/19 09:16 05/18/19 09:15 05/18/19 09:15 05/18/19 09:15 Oxygen Flow Rate (L/min) 1 Oxygen Delivery Method Room Air Weight: 168 lb 6.931 oz Body Mass Index (BMI) 33.0 Intake and Output for Last 24 Hours 05/16/19 05/17/19 05/18/19 23:59 23:59 23:59 Intake Total 1410 / 1410 6287.5 / 6287.5 1487.5 / 1487.5 Balance 1410 / 1410 6287.5 / 6287.5 1487.5 / 1487.5 Microbiology Past 72 Hours 05/16/19 19:20 Urine, Clean Catch Urine Culture - Final Presumptive E. coli 05/17/19 13:30 Mucosa - Nasopharyngeal Respiratory Panel (PCR) - Final 01/27/20 18:45 Mucosa - Nasopharyngeal Influenza Types A,B Direct FA ([facility]) - Final Current Medications Acetaminophen (Tylenol) 650 mg PO Q4H PRN PRN PRN Reason: Pain or Fever Last Admin: 05/18/19 03:22 Dose: 650 mg Documented by: Celecoxib (Celebrex) 200 mg PO DAILY [facility] Last Admin: 05/18/19 09:16 Dose: 200 mg Documented by: Diphenoxylate HCl/Atropine (Lomotil) 2 tablet PO TID PRN PRN PRN Reason: Diarrhea Last Admin: 05/16/19 23:03 Dose: 1 tablet Documented by: Enoxaparin Sodium (Lovenox) 40 mg SC DAILY [facility] Last Admin: 05/18/19 09:15 Dose: 40 mg Documented by: Sodium Chloride () 1,000 mls @ 150 mls/hr IV .Q6H40M [facility] Last Infusion: 05/18/19 09:17 Dose: 0 mls/hr Documented by: Ceftriaxone Sodium (Rocephin) 1 gm in 50 mls @ 100 mls/hr IV Q24 [facility] Last Admin: 05/18/19 09:15 Dose: 100 mls/hr Documented by: Sodium Chloride () 250 mls @ 15 mls/hr IV .[id number] PRN PRN Reason: Saline Flush Sodium Chloride () 250 mls @ 15 mls/hr IV .[id number] PRN PRN Reason: Additional IVPB Infusion Loratadine (Claritin) 10 mg PO DAILY [facility] Last Admin: 05/18/19 09:16 Dose: 10 mg Documented by: Metoprolol Succinate (Toprol Xl (Beta Linda)) 25 mg PO DAILY [facility] Last Admin: 05/18/19 09:16 Dose: 25 mg Documented by: Sodium Chloride () 10 - 40 ml IV UD PRN PRN Reason: SALINE FLUSH Last Admin: 05/18/19 07:50 Dose: 10 ml Documented by: Tolterodine Tartrate (Detrol La) 2 mg PO DAILY [facility] Last Admin: 05/18/19 09:16 Dose: 2 mg Documented by: Discharge Diet: Low fat/ Low Cholesterol Discharge Activity: Return to Normal Activity Weight Bearing Status: Weight bearing as tolerated Call your doctor if you observe: Fever of 101 or Higher, Shortness of breath, Dizziness, - - burning with urination and frequent urination Home Medications: Medications to take at Discharge Metoprolol(XL)Succ [Toprol Xl (Beta Linda)] 25 mg PO DAILY 05/01/14 Multivit-Min/FA/Lycopene/Lut [Centrum Silver Tablet] 1 ea PO DAILY 05/01/14 Oxybutynin [Ditropan] 10 mg PO DAILY 05/01/14 diphenoxylate-atropine 2.5 mg-0.025 mg tablet 2 tab PO TID tab 03/27/19 fexofenadine 180 mg tablet 180 mg PO DAILY 03/27/19 Biotin 300 mcg PO DAILY 05/16/19 Celecoxib 200 mg PO DAILY 05/16/19 Cefdinir [Omnicef [equiv]] 300 mg PO Q12H #10 cap 05/18/19 Following Prescrptions Were Given to Patient: Cefdinir [Omnicef [equiv]] 300 mg PO Q12H #10 cap Transmission Status: Received by [facility] Primary Care Physician: Octaviano Almodovar MD [Primary Care Provider] - Please follow up with your Primary Care Physician in: one week Please Follow Up With: Octaviano Almodovar MD Patient Instructions: Understanding Urinary Tract Infections (UTIs) Disposition: Home Minutes spent on discharge:: 35 Patient Condition:: Stable Medical Necessity - Tobacco Use Smoking Status: Never smoker Meaningful Use Info Meaningful Use Diagnoses (Choose all that apply): None applicable Code Visit Inpatient E&M: 01017 Disch Hosp
--- NOTE | 2019-05-18 09:43 | PHA.DC.MC ---
Pharmacy Service has performed discharge medication reconciliation and counseling for this patient. 1. CEFDINIR 300MG PO Q12H X 5 DAYS The patient's discharge medication list was reviewed for discrepancies and discrepancies were resolved. Home Medications Metoprolol(XL)Succ [Toprol Xl (Beta Linda)] 25 mg PO DAILY 05/01/14 Multivit-Min/FA/Lycopene/Lut [Centrum Silver Tablet] 1 ea PO DAILY 05/01/14 Oxybutynin [Ditropan] 10 mg PO DAILY 05/01/14 diphenoxylate-atropine 2.5 mg-0.025 mg tablet 2 tab PO TID tab 03/27/19 fexofenadine 180 mg tablet 180 mg PO DAILY 03/27/19 Biotin 300 mcg PO DAILY 05/16/19 Celecoxib 200 mg PO DAILY 05/16/19 Cefdinir [Omnicef [equiv]] 300 mg PO Q12H #10 cap 05/18/19 The patient was counseled on the following discharge medications and changes in medications for homegoing were reviewed. The Reason for Use, instructions for use, and potential side effects were reviewed for all new medications. The patient's questions regarding all of their medications were answered. The patient was able to verbally demonstrate an understanding of their discharge medications.
--- NOTE | 2019-05-18 10:06 | CASEMGMT ---
Per Gilda COCHRAN, pt has been up independent in room with no concerns and pt does not qualify for home oxygen at this time. Pt ready for discharge at this time. Karley COCHRAN CM
--- NOTE | 2019-05-19 11:51 | CASEMGMT ---
SAMMIE WHITE DC PHONE CALL DC DATE: 05.19.2019 DC Disposition: Home Diagnosis on Discharge: UTI/Sepsis LACE/STRATA: 01/20 Intro role of CM to patient via phone. Pt states she is doing well, no questions re: f/u (appt on 05/24/2019 with PCP), medications (has antibiotic and is taking consistently) or instructions. No care improvement suggestions were given. SAMMIE WHITE thanked pt for using [facility]. Augustin TOMASN RN ACM
--- NOTE | 2019-05-19 12:03 | CASEMGMT ---
SAMMIE WHITE DC PHONE CALL DC DATE: 05.18.2019 DC Disposition: Home Diagnosis on Discharge: UTI/Sepsis LACE/STRATA: 01/20 Intro role of CM to patient via phone. Pt states she is doing well, no questions re: f/u (appt on 05/24/2019 with PCP), medications (has antibiotic and is taking consistently) or instructions. No care improvement suggestions were given. SAMMIE WHITE thanked pt for using [facility]. Augustin TOMASN RN ACM
== END 2019-05-18 10:18 | disposition home or self-care (01) | DRG 872 ==
LOC: ED 18:58 → PCU 21:28
PROVIDERS: Admitting Provider Family Medicine; Emergency Provider Emergency Medicine; PCP Family Medicine; Visit Provider Student in an Organized Health Care Education/Training Program
DX: A41.9 Sepsis, unspecified organism (principal); N39.0 Urinary tract infection, site not specified; R09.02 Hypoxemia; B96.20 Unspecified Escherichia coli [E. coli] as the cause of diseases classified elsewhere; Z90.49 Acquired absence of other specified parts of digestive tract; Z85.038 Personal history of other malignant neoplasm of large intestine; I10 Essential (primary) hypertension; R21 Rash and other nonspecific skin eruption; Z79.52 Long term (current) use of systemic steroids; M19.90 Unspecified osteoarthritis, unspecified site; Z79.899 Other long term (current) drug therapy
CPT/HCPCS: 36415; 71046; 80048; 81001; 83605; 83880; 84484; 85025; 85379; 87040; 87086; 87088; 87186; 87633; 87804; 93005; 99285; J7030; J7050; A4216

== ENCOUNTER → 2019-08-18 | Outpatient (CLI) | payer MEDICARE, OTHER, SELFPAY ==
[2019-05-16 21:57] VITALS: BMI 33.0
[2019-08-18 14:25] LABS: Absolute Lymphocyte Count 1.78 X10^3/uL (0.83-4.51); Absolute Neutrophil Count 6.4 X10^3/uL (2.0-7.7); Basophil# 0.04 X10^3/uL; Basophil% 0.4 % (0-1); Eosinophil# 0.36 X10^3/uL; Eosinophils% 3.9 % (0-5); Hematocrit 42.8 % (37-47); Hemoglobin 13.7 g/dL (12.0-15.0); Lymphocyte # 1.78 X10^3/ul (4.0); Lymphocyte % 19.5 % (19-41); Mean Corpuscular Hgb 29.7 pg (27.0-32.0); Mean Corpuscular Volume 92.6 fL (81-99); Monocyte# 0.55 X10^3/uL; NRBC Flagged by Analyzer 0 % (0-5); Neutrophil # 6.39 X10^3/uL (2.7-7.7); Platelet Count 244 K/mm3 (150-450); RBC Distribution Width SD 43.9 fl (35.1-43.9); Red Blood Count 4.62 M/mm3 (4.2-5.4); White Blood Count 9.1 K/mm3 (4.4-11.0)
[2019-08-18 14:45] LABS: ALB/GLOB Ratio 0.9 RATIO (0.9-2.4); AST(SGOT) 17 U/L (15-37); Alanine Aminotransfer ALT/SGPT 13 U/L (13-56); Albumin, Serum 3.5 g/dL (3.2-5.0); Alkaline Phosphatase 70 U/L (45-117); Anion Gap 7 (5-15); BUN 18 mg/dL (7-18); BUN/Creat Ratio 19.8 RATIO (10-20); Calcium,Total 8.8 mg/dL (8.5-10.1); Chloride 106 mmol/L (98-107); Cholesterol 191 mg/dL (200); Creatinine, Serum 0.91 mg/dL (0.55-1.02); EST Glomerular Filtration Rate 64 mL/min (>60); Est Glom Filt Rate - Afr Amer 77 mL/min (>60); Globulin 3.7 g/dL (2.2-4.2); Glucose 105 mg/dL (74-106); High Density Lipoprotein 55 mg/dL; Potassium 4.1 mmol/L (3.5-5.1); Protein, Total 7.2 g/dL (6.4-8.2); Sodium Level 139 mmol/L (136-145); Triglycerides 146 mg/dL; Very Low Density Lipoprotein 29 mg/dL (5-40)
== END | disposition home or self-care (01) ==
LOC: PAVLAB 13:52
PROVIDERS: PCP Family Medicine; Referring Provider Family Medicine; Visit Provider Family Medicine
DX: I10 Essential (primary) hypertension (principal); C18.9 Malignant neoplasm of colon, unspecified
CPT/HCPCS: 36415; 80053; 80061; 82378; 85025

== ENCOUNTER 2020-04-10 07:26 | Day surgery (SDC) | payer MEDICARE, OTHER, SELFPAY ==
[2020-03-27 13:26] VITALS: BMI 33.5
--- NOTE | 2020-04-10 06:13 | HP_ITS ---
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 Is patient in pain?: No Allergies codeine Adverse Reaction (Verified 03/27/20 13:26) Nausea Medications Metoprolol(XL)Succ [Toprol Xl (Beta [place])] 25 mg PO DAILY 05/01/14 [History Confirmed 03/27/20] Multivit-Min/FA/Lycopene/Lut [Centrum Silver Tablet] 1 ea PO DAILY 05/01/14 [History Confirmed 03/27/20] Oxybutynin [Ditropan] 10 mg PO DAILY 05/01/14 [History Confirmed 03/27/20] diphenoxylate-atropine 2.5 mg-0.025 mg tablet 2 tab PO TID tab 03/27/19 [History Confirmed 03/27/20] fexofenadine 180 mg tablet 180 mg PO DAILY 03/27/19 [History Confirmed 03/27/20] Celecoxib 200 mg PO DAILY 05/16/19 [History Confirmed 03/27/20] estradiol 1 mg tablet 1 mg PO DAILY 03/27/20 [History Confirmed 03/27/20] montelukast 10 mg tablet 10 mg PO DAILY 03/27/20 [History Confirmed 03/27/20] omeprazole 40 mg capsule,delayed release 40 mg PO DAILY 03/27/20 [History Confirmed 03/27/20] [facility] Medical History (Updated 05/16/19 @ 21:[address] Raul Lopez MD) Arthritis (Acute) Colon cancer (Acute) Incontinence (Acute) Limb weakness (Acute) Shoulder pain (Acute) HTN (hypertension) (Chronic) Surgical History (Updated 05/16/19 @ 21:[address] Raul Lopez MD) History of colon resection (Acute) History of shoulder replacement (Acute) Family History Other Arthritis Social History (Updated 03/27/20 @ 13:[address] Michael Corcoran MD) Smoking Status: Never smoker HPI HPI Chief Complaint: c-scope Details: Patient was informed that this visit will be billed to patient. This visit was conducted during - pandemic. KIARA ROJAS, is a 79 F who was contacted by phone today for history of colon cancer. The patient's last colonoscopy was 5 years ago and was normal. The patient had right colon cancer in 2006 and had right hemicolectomy. She had no polyps on her last colonoscopy. She is not having any abdominal pain or blood in her stool. She has no other abnormal bowel habits. ROS Const Constitutional: No anorexia, excessive sweating, headache(s) or abnormal sleep pattern ENT ENT: No headache(s) Cardio Cardiology: No chest pain at rest or excessive sweating Gastro GI: Positive for loose stools; no abdominal pain, constipation or cramping Musc Musculoskeletal: No abnormal walking or joint pain Skin Skin: No change in hair Neuro Neurology: No abnormal walking or headache(s) Psych Psychiatric: No abnormal sleep pattern Endo Endocrine: No excessive sweating Exam Const General: cooperative, comfortable Nutritional Appearance: average body habitus Orientation: alert, oriented x3 Chest Chest palpation & inspection: normal inspection of the chest Resp Effort & Inspection: normal respiratory effort Cardio Rate: regular rate Rhythm: regular rhythm GI Inspection: normal to inspection, non-distended Auscultation: normal bowel sounds Palpation: soft, nontender Details: Details:: Exam was limited due to phone visit with no video. Quality Reporting Medication Reconciliation ([facility] 68) celecoxib 200 mg PO DAILY diphenoxylate-atropine 2.5-0.025 mg (Lomotil) 2 tabs PO TID estradiol (Estrace) 1 mg PO DAILY fexofenadine 180 mg PO DAILY metoprolol succinate ER 25 mg PO DAILY montelukast (Singulair) 10 mg PO DAILY qznomgtq-hjo-XW-lycopen-lutein 0.4-300-250 mg-mcg-mcg 1 ea PO DAILY omeprazole 40 mg PO DAILY oxybutynin chloride 10 mg PO DAILY Tobacco Screening ([facility] 138) Smoking Status: Never smoker Assessment & Plan Problems 1. History of colon cancer Z85.038 Plan The patient has a history of colon cancer and requires surveillance colonoscopy. Her last colonoscopy was 5 years ago. I explained endoscopy in detail to the patient. I explained the risks including but not limited to stroke or heart attack with anesthesia, perforation of the GI tract, bleeding, infection. I explained that any of these could necessitate further emergency surgery. The patient understands and all questions were answered sufficiently. The patient wishes to proceed with procedure. Michael Corcoran MD Pager: [facility] [address] [place] [address], [address] [place] [address] Office: Orders Orders: Colonoscopy Today Z85.038 Diagnoses History of colon cancer Z85.038 I have re-examined the patient. There are no clinical changes since date of exam.
[2020-04-10 07:47] VITALS: BP 150/69; PULSE 94; RESP 14; TEMP 36.3; O2SAT 97; BMI 33.3
[2020-04-10] MEDS: Lactated Ringers 1,000 ML 100 ML IV (08:03)
--- NOTE | 2020-04-10 08:30 | COLBX_PTH ---
PATIENT: KIARA ROJAS LOC: EN U#:[id number] AGE/SX: 79/F ROOM: RE04/10/[address]: Dr. Michael Corcoran MD : 1940 BED: DIS: 04/10/2020 SPEC #: [id number] RECD: 04/10/20 10:59 STATUS: LOCO REAyaan #: [id number] REINA: 04/10/20 08:[address]: Michael Corcoran DEPT: SURGICAL PATHOLOGY RECD BY: Eva Lamar ENTERED: 04/10/20 11:52 SP TYPE: COLON BX OTHR DR: Dr. Octaviano Almodovar MD Tissues: Transverse colon Procedures: Surgery Specimen Level IV HEADER OPERATION: Colonoscopy (MAC) PRE-OP DIAGNOSIS: Colon cancer TISSUE SUBMITTED: Transverse colon polyp MICROSCOPIC DIAGNOSIS Transverse colon polyp, biopsy: Tubular adenoma. SJ:hi 04/11/20 MICROSCOPIC DESCRIPTION Slides are reviewed. GROSS DESCRIPTION Received in fixative is one container labeled with the patient's name and designated transverse colon polyp. The specimen consists of one irregular fragment of light larkin soft tissue that measures 0.3 x 0.3 x 0.1 cm. The specimen is totally submitted in one cassette. / SJ:hi 04/10/20 TC:1 CPT: 51352
--- NOTE | 2020-04-10 08:41 | OP.COLON_ITS ---
Patient Name: Gracia Brenner Procedure Date: 04/10/2020 8:16 AM Date of : 1940 Age: 79 Procedure: Colonoscopy Indications: High risk colon cancer surveillance: Personal history of colon cancer Providers: Michael Corcoran MD Referring MD: Michael Corcoran MD Medicines: Monitored Anesthesia Care Patient Profile: This is a 79 year old female. Refer to note in patient chart for documentation of history and physical. Last Colonoscopy: 5 years ago. Complications: No immediate complications. Procedure: Pre-Anesthesia Assessment: - Prior to the procedure, a History and Physical was performed, and patient medications and allergies were reviewed. The patient's tolerance of previous anesthesia was also reviewed. The risks and benefits of the procedure and the sedation options and risks were discussed with the patient. All questions were answered, and informed consent was obtained. Prior Anticoagulants: The patient has taken no previous anticoagulant or antiplatelet agents. After reviewing the risks and benefits, the patient was deemed in satisfactory condition to undergo the procedure. After I obtained informed consent, the scope was passed under direct vision. Throughout the procedure, the patient's blood pressure, pulse, and oxygen saturations were monitored continuously. The pediatric colonoscope was introduced through the anus and advanced to the ileocolonic anastomosis. The colonoscopy was performed without difficulty. The patient tolerated the procedure well. The quality of the bowel preparation was good. Scope In: 8:26:45 AM Scope Withdrawal Time 0 hours 5 minutes 41 seconds Scope Out: 8:37:23 AM Total Procedure Duration Time 0 hours 10 minutes 38 seconds Findings: A small polyp was found in the transverse colon. The polyp was removed with a hot snare. Resection and retrieval were complete. The exam was otherwise without abnormality on direct and retroflexion views. Anastomosis normal. Impression: - One small polyp in the transverse colon, removed with a hot snare. Resected and retrieved. - The examination was otherwise normal on direct and retroflexion views. Recommendation: - Discharge patient to home. - Resume previous diet. - Continue present medications. - Await pathology results. - Repeat colonoscopy in 5 years for surveillance. Procedure Code(s): --- Professional --- 51061, Colonoscopy, flexible; with removal of tumor(s), polyp(s), or other lesion(s) by snare technique Diagnosis Code(s): --- Professional --- Z85.038, Personal history of other malignant neoplasm of large intestine D12.3, Benign neoplasm of transverse colon (hepatic flexure or splenic flexure) CPT copyright 2017 [employer]. All rights reserved. The codes documented in this report are preliminary and upon manager reading review may be revised to meet current compliance requirements. Michael Corcoran MD 04/10/2020 8:41:23 AM This report has been signed electronically. Number of Addenda: 0 Note Initiated On: 04/10/2020 8:16 AM
[2020-04-10 08:42] VITALS: BP 117/58; BP 150/69; PULSE 95; RESP 18; TEMP 36.9; O2SAT 98
--- NOTE | 2020-04-10 08:42 | OP.CCLET_ITS ---
04/10/2020 Octaviano Almodovar Md Re : Colonoscopy procedure for Gracia Brenner Dear [place] This procedure was performed on Friday, April 10, 2020. My impressions and recommendations are as follows: Impressions : - One small polyp in the transverse colon, removed with a hot snare. Resected and retrieved. - The examination was otherwise normal on direct and retroflexion views. Recommendations : - Discharge patient to home. - Resume previous diet. - Continue present medications. - Await pathology results. - Repeat colonoscopy in 5 years for surveillance. My findings are described in the full procedure note, which is enclosed. If I can be of further assistance, please feel free to contact me at Doctor phone number(s): , Work: . Sincerely, Michael Corcoran MD 04/10/2020 8:41:23 AM This report has been signed electronically.
[2020-04-10 08:45] VITALS: BP 116/66; BP 150/69; PULSE 92; RESP 18; O2SAT 96
[2020-04-10 08:50] VITALS: BP 133/75; BP 150/69; PULSE 90; RESP 18; O2SAT 96
[2020-04-10 08:53] VITALS: BP 126/70; BP 150/69; PULSE 84; RESP 18; TEMP 36.9; O2SAT 96
[2020-04-10 09:06] VITALS: BP 150/69
== END 2020-04-10 09:21 | disposition home or self-care (01) ==
LOC: EN 07:26 → AC 07:27
PROVIDERS: PCP Family Medicine; Referring Provider Surgery; Visit Provider Surgery
PROC: 0DJD8ZZ Inspection of Lower Intestinal Tract, Via Natural or Artificial Opening Endoscopic (ICD-10-PCS; CPT 45378; principal; 2020-04-10 08:25)
DX: D12.3 Benign neoplasm of transverse colon (principal); Z85.038 Personal history of other malignant neoplasm of large intestine; M19.90 Unspecified osteoarthritis, unspecified site; I10 Essential (primary) hypertension; K21.9 Gastro-esophageal reflux disease without esophagitis; Z90.49 Acquired absence of other specified parts of digestive tract; Z20.828 Contact with and (suspected) exposure to other viral communicable diseases; Z79.899 Other long term (current) drug therapy
CPT/HCPCS: 45380; 87426; 88305; C9803; J7120; J2405

== ENCOUNTER 2020-05-10 09:00 | Outpatient (RCR) | payer MEDICARE, OTHER, SELFPAY | END 2020-05-10 23:59 | LOC: IMMUN 09:00 | PROVIDERS: PCP Family Medicine; Visit Provider Family Medicine | DX: Z23 Encounter for immunization (principal) | CPT/HCPCS: 0011A; 0012A; 91301 ==

== ENCOUNTER 2020-08-23 03:52 | Inpatient (IN) | payer MEDICARE, OTHER, SELFPAY ==
[2020-08-23] VITALS (13 sets, daily range): BP systolic 126–162; BP diastolic 63–88; PULSE 87–108; RESP 17–20; TEMP 36.1–37.6; O2SAT 93–97; BMI 34.9; BMI 32.9
--- NOTE | 2020-08-23 04:13 | EKG12_ITS ---
Test Reason : Blood Pressure : / mmHG Vent. Rate : 098 BPM Atrial Rate : 098 BPM P-R Int : 120 ms QRS Dur : 064 ms QT Int : 334 ms P-R-T Axes : 044 -39 042 degrees QTc Int : 426 ms Normal sinus rhythm Left axis deviation Low voltage QRS Abnormal ECG Confirmed by MEETA STOUT, LJ ([id number]), research editor EM SILVA ([id number]) on 08/27/2020 12:28:36 PM Referred By: BERTIN Confirmed By:LJ TIM MD
--- NOTE | 2020-08-23 04:14 | EX.ED.DYSGE1 ---
HPI History of Present Illness Chief Complaint: Complaint Informant: patient Narrative Narrative: Patient presents with chills, nausea and not feeling well. She states she woke up tonight with chills and could not get warm. She was also feeling nauseous. She tried to cover up with a blanket but still felt cold. She called her daughter who brought her in. She does have a history of UTIs and was concerned about this. She denies any significant cough. She did have a temperature of 99 ?F at home. She did have some nausea and had vomited once this evening. She denies any abdominal pain currently. No dysuria or hematuria. She denies any back pain. [facility] Medical History Arthritis Colon cancer HTN (hypertension) Incontinence Limb weakness Shoulder pain Home Medications metoprolol succinate 25 mg PO DAILY 05/01/14 [History Last Taken 04/10/20 06:30 25 MG] rtcjwsrs-hdn-TE-lycopen-lutein 1 ea PO DAILY 05/01/14 [History Last Taken 05/16/19] oxybutynin chloride 10 mg PO DAILY 05/01/14 [History Last Taken 05/16/19] fexofenadine 180 mg tablet 180 mg PO DAILY 03/27/19 [History Last Taken 05/16/19] celecoxib 200 mg PO DAILY 05/16/19 [History Last Taken 05/16/19] montelukast 10 mg tablet 10 mg PO DAILY 03/27/20 [History Last Taken Unknown] omeprazole 40 mg capsule,delayed release 40 mg PO DAILY 03/27/20 [History Last Taken 04/10/20 06:30 40 MG] estradiol 1 dose VAGINAL FR 04/06/20 [History Last Taken Unknown] Allergy/AdvReac Type Severity Reaction Status Date / Time codeine AdvReac Nausea Verified 08/23/20 03:58 Family History Other Arthritis Surgical History History of colon resection History of knee joint replacement History of shoulder replacement Social History Smoking Status: Never smoker ROS ROS ED Constitutional Constitutional ED: Reports chills Eyes Eyes: Denies blurry vision, change in vision, diplopia or loss of vision ENT ENT ED: Reports other; Denies ear pain, rhinorrhea or sore throat Cardiovascular Cardiovascular: Denies chest pain, palpitations or racing heartbeat Respiratory/Chest Respiratory/Chest: Denies cough, dyspnea, dyspnea on exertion or sputum Gastrointestinal Gastrointestinal: Reports nausea and vomiting Genitourinary Genitourinary ED: Denies dysuria, hematuria or urinary frequency Musculoskeletal Musculoskeletal: Denies back pain, myalgias or neck pain Integumentary Denies abscess or rash Neurologic Neurologic: Denies headache(s) or weakness Psychiatric Psychiatric: Denies anxiety or depression Endocrine Endocrinology: Denies polydipsia or polyuria Hematologic/Lymphatic Hematologic/Lymphatic: Denies easy bleeding or easy bruising Allergic/Immunologic Allergic/Immunologic ED: Denies urticaria EXAM Physical Exam Const Vital Signs: 08/23/20 03:53 08/23/20 04:37 Temperature 99.6 F H Temperature Source Oral Pulse Rate 108 H Respiratory Effort Normal Non-Labored Respiratory Pattern Normal Blood Pressure 162/88 H Blood Pressure Mean 112 Pulse Ox 97 Oxygen Delivery Method Room Air Positive well nourished and well developed General Appearance ED: well developed and NAD HEENT Reports normocephalic, head/scalp atraumatic and moist mucous membranes normocephalic and atraumatic; Negative for tenderness Eyes PERRL and EOMs intact bilaterally General Eye ED: Negative for scleral icterus Neck supple and no JVD Chest Wall palpation of chest normal Chest: Negative for tenderness Resp normal respiratory effort and clear to auscultation bilaterally Effort and Inspection: Negative for respiratory distress Cardio regular rhythm and no murmurs Rate: tachycardic GI soft to palpation, non-tender and non-distended Palpation: soft Back/Spine no CVA tenderness and no thoracic nor lumbar tenderness Cervical Spine: Negative for cervical spine tenderness Extremity normal to inspection General Extremety ED: Negative for tenderness Neuro oriented x3, CN's II-XII intact bilaterally and no sensory deficits noted Sensorium / Orientation: awake and alert Motor Exam: strength 5/5 throughout Psych mental status grossly normal Skin no rashes or lesions noted MDM MDM MDM Narrative Medical decision making narrative: Patient was given IV fluids. Her white blood cell count was 13,000. Hemoglobin is normal. Urinalysis does show evidence of infection. Electrolytes are unremarkable suffer a lactate of 2.4 and glucose of 127. Patient does meet severe sepsis criteria. She was given a dose of IV Rocephin. I discussed with hospitalist for admission to the hospital. We elected to admit her to PCU as she is stable even though she does meet severe sepsis criteria. Her repeat heart rate is now down to 90 and her blood pressure is 124 systolic. Lab Data Attestation: I reviewed the patient's lab results. Labs: Laboratory Results - last 24 hr 08/23/20 08/23/20 08/23/20 04:20 04:20 04:20 WBC 13.0 H RBC 4.37 Hgb 13.5 Hct 40.6 MCV 92.9 MCH 30.9 MCHC 33.3 RDW Std Deviation 42.5 RDW Coeff of [place] 12.4 Plt Count 174 MPV 9.2 Immature Gran % (Auto) 0.400 Neut % (Auto) 88.6 H Lymph % (Auto) 5.2 L [place] % (Auto) 4.5 Eos % (Auto) 1.1 Baso % (Auto) 0.2 Absolute Neuts (auto) 11.5 H Absolute Lymphs (auto) 0.67 L Nucleated RBC % 0 PT 12.3 INR 1.0 APTT 26.0 Sodium Potassium Chloride Carbon Dioxide Anion Gap BUN Creatinine Estim Creat Clear Calc Est GFR (MDRD) Af Amer Est GFR (MDRD) Non-Af BUN/Creatinine Ratio Glucose Lactic Acid Calcium Total Bilirubin AST ALT Alkaline Phosphatase Total Protein Albumin Globulin Albumin/Globulin Ratio Urine Color Yellow Urine Clarity Clear Urine pH 6.0 Ur Specific [place] 1.010 Urine Protein 30 H Urine Glucose (UA) Normal Urine Ketones Negative Urine Occult Blood 25 H Urine Nitrite Positive H Urine Bilirubin Negative Urine Urobilinogen Normal Ur Leukocyte Esterase 100 H Urine RBC 5-10 SEEN Urine WBC 10-25 SEEN Ur Squamous Epith Cells 0-5 SEEN Ur Transition Epith Cell 0-5 SEEN Urine Bacteria 2+ Urine Mucus 0 SEEN 08/23/20 08/23/20 04:20 04:20 WBC RBC Hgb Hct MCV MCH MCHC RDW Std Deviation RDW Coeff of [place] Plt Count MPV Immature Gran % (Auto) Neut % (Auto) Lymph % (Auto) [place] % (Auto) Eos % (Auto) Baso % (Auto) Absolute Neuts (auto) Absolute Lymphs (auto) Nucleated RBC % PT INR APTT Sodium 137 Potassium 3.9 Chloride 103 Carbon Dioxide 27.0 Anion Gap 7 BUN 14 Creatinine 0.93 Estim Creat Clear Calc 35.23 Est GFR (MDRD) Af Amer 75 Est GFR (MDRD) Non-Af 62 BUN/Creatinine Ratio 15.1 Glucose 127 H Lactic Acid 2.4 H* Calcium 8.5 Total Bilirubin 0.80 AST 13 L ALT 21 Alkaline Phosphatase 91 Total Protein 6.8 Albumin 3.6 Globulin 3.2 Albumin/Globulin Ratio 1.1 Urine Color Urine Clarity Urine pH Ur Specific [place] Urine Protein Urine Glucose (UA) Urine Ketones Urine Occult Blood Urine Nitrite Urine Bilirubin Urine Urobilinogen Ur Leukocyte Esterase Urine RBC Urine WBC Ur Squamous Epith Cells Ur Transition Epith Cell Urine Bacteria Urine Mucus Radiography Diagnostic Testing: Radiology Impression Chest X-Ray 08/23/20 04:33 IMPRESSION: No acute cardiopulmonary disease perceived. at 0449 Reported and signed by: Samm Sadler MD Electronically Signed: Samm Sadler MD at 4:48 EDT Tel , Service support , Discharge Plan Triage Chief Complaint: Complaint ED Provider: Harpal Watters Dx/Rx/DC Orders Clinical Impression: Severe sepsis, Urinary tract infection Prescriptions: No Action omeprazole 40 mg capsule,delayed release(DR/EC) 40 mg PO DAILY RF: 0 montelukast [Singulair] 10 mg tablet 10 mg PO DAILY RF: 0 metoprolol succinate 25 MG tablet 25 mg PO DAILY RF: 0 oxybutynin chloride 5 MG tablet 10 mg PO DAILY RF: 0 jbxwngry-igo-JY-lycopen-lutein 1 EACH tablet 1 ea PO DAILY RF: 0 fexofenadine 180 mg tablet 180 mg PO DAILY RF: 0 celecoxib 200 MG capsule 200 mg PO DAILY RF: 0 estradiol 42.5 GM cream 1 dose VAGINAL FR RF: 0 Primary Care Provider: Octaviano Almodovar Referrals: Octaviano Almodovar MD [Primary Care Provider] - Disposition Disposition: Acute Care [facility]
[2020-08-23 04:30] LABS: Mucous, Urine 0 SEEN /hpf (<or=2+)
[2020-08-23 04:32] LABS: Absolute Lymphocyte Count 0.67 X10^3/uL (0.83-4.51); Absolute Neutrophil Count 11.5 X10^3/uL (2.0-7.7); Basophil# 0.03 X10^3/uL; Basophil% 0.2 % (0-1); Eosinophil# 0.14 X10^3/uL; Eosinophils% 1.1 % (0-5); Hematocrit 40.6 % (37-47); Hemoglobin 13.5 g/dL (12.0-15.0); Lymphocyte # 0.67 X10^3/ul (0.83-4.51); Lymphocyte % 5.2 % (19-41); Mean Corp Hgb Conc 33.3 g/dL (32-36); Mean Corpuscular Hgb 30.9 pg (27.0-32.0); Mean Corpuscular Volume 92.9 fL (81-99); Mean Platelet Vol. 9.2 fl (6.2-12.0); Monocyte# 0.58 X10^3/uL; Monocyte% 4.5 % (0-10); NRBC Flagged by Analyzer 0 % (0-5); Neutrophil # 11.48 X10^3/uL (2.7-7.7); Neutrophil % 88.6 % (47-70); Platelet Count 174 K/mm3 (150-450); RBC Distribution Width CV 12.4 % (11.6-14.6); RBC Distribution Width SD 42.5 fl (35.1-43.9); Red Blood Count 4.37 M/mm3 (4.2-5.4)
--- NOTE | 2020-08-23 04:33 | RAD_ITS ---
HISTORY: cough and chills tonight. EXAM: XR Chest 1 View: COMPARISON: May 16, 2019 FINDINGS: # of images incl. paperwork: 1 Left lower lobe calcified benign granuloma persists. Lungs are clear. Heart is not enlarged. No acute osseous pathology perceived. No change right shoulder arthroplasty. Pulmonary vascularity is distinct. No effusions. RAD/Chest 1 View (Portable) IMPRESSION: No acute cardiopulmonary disease perceived. at 7108 Reported and signed by: Samm Sadler MD Electronically Signed: Samm Sadler MD at 4:48 EDT Tel , Service support ,
[2020-08-23 04:34] LABS: Color, Urine Yellow (Yellow); Glucose, Dipstick Normal (Normal); Ketone-Dipstick Negative (Negative); Leukocyte Esterase-Dipstick 100 /ul (Negative); Nitrite-Dipstick Positive (Negative); Occult Blood-Urine 25 /ul (Negative); Protein-Dipstick 30 mg/dl (Negative); Urine Bilirubin Dipstick Negative (Negative); Urine Clarity Clear (Clear); Urine Urobilinogen Normal (Normal)
[2020-08-23 04:43] LABS: Bacteria 2+ /hpf (None Seen); Red Blood Cells-Urine 5-10 SEEN /hpf (0-5); Squamous Epithelial Cells - UA 0-5 SEEN /hpf (5-10); Transitional Epithelial - Ur 0-5 SEEN /hpf (0-5); White Blood Cells 10-25 SEEN /hpf (0-5)
[2020-08-23 04:48] LABS: ALB/GLOB Ratio 1.1 RATIO (0.9-2.4); AST(SGOT) 13 U/L (15-37); Alanine Aminotransfer ALT/SGPT 21 U/L (13-56); Albumin, Serum 3.6 g/dL (3.2-5.0); Alkaline Phosphatase 91 U/L (45-117); Anion Gap 7 (5-15); BUN 14 mg/dL (7-18); BUN/Creat Ratio 15.1 RATIO (10-20); Calcium,Total 8.5 mg/dL (8.5-10.1); Chloride 103 mmol/L (98-107); Creatinine, Serum 0.93 mg/dL (0.55-1.02); EST Glomerular Filtration Rate 62 mL/min (>60); Est Glom Filt Rate - Afr Amer 75 mL/min (>60); Estimated Creatinine Clearance 35.23 ml/min; Globulin 3.2 g/dL (2.2-4.2); Glucose 127 mg/dL (74-106); Potassium 3.9 mmol/L (3.5-5.1); Protein, Total 6.8 g/dL (6.4-8.2); Sodium Level 137 mmol/L (136-145)
[2020-08-23 04:52] LABS: Prothrombin Time (Protime)PT. 12.3 SECONDS (11.7-14.9)
[2020-08-23 05:03] LABS: Lactic Acid 2.4 mmol/L (0.4-1.9)
--- NOTE | 2020-08-23 05:41 | HP.PCM.HOS_ITS ---
HPI - General General Date of Admission: 08/23/20 Chief Complaint: Chills HPI Narrative KIARA ROJAS, is a 79 F with a significant history of colon cancer status post colon resection; hypertension; urinary incontinence who presents with chills that started few hours before presentation. Associated with his symptoms is nausea and bilious vomiting. Reportedly she has had malaise for a few days. Further she has had a change in her taste sensation. The patient's her symptoms are reminiscent of previous UTI. She denies anorexia. Her daughter who is a nurse and works at the hospital took her temperature at home. Patient temperature at home was 99.2. [facility] Medical History (Updated 08/23/20 @ 06:[address] Logan Coburn MD) Arthritis Colon cancer HTN (hypertension) Incontinence Limb weakness Rash and nonspecific skin eruption Shoulder pain Home Medications metoprolol succinate 25 mg PO DAILY 05/01/14 [History Last Taken 04/10/20 06:30 25 MG] nxoqwlyb-xrn-FY-lycopen-lutein 1 ea PO DAILY 05/01/14 [History Last Taken 05/16/19] oxybutynin chloride 10 mg PO DAILY 05/01/14 [History Last Taken 05/16/19] fexofenadine 180 mg tablet 180 mg PO DAILY 03/27/19 [History Last Taken 05/16/19] celecoxib 200 mg PO DAILY 05/16/19 [History Last Taken 05/16/19] montelukast 10 mg tablet 10 mg PO DAILY 03/27/20 [History Last Taken Unknown] omeprazole 40 mg capsule,delayed release 40 mg PO DAILY 03/27/20 [History Last Taken 04/10/20 06:30 40 MG] estradiol 1 dose VAGINAL FR 04/06/20 [History Last Taken Unknown] Allergy/AdvReac Type Severity Reaction Status Date / Time codeine AdvReac Nausea Verified 08/23/20 03:58 Family History (Updated 08/23/20 @ 06:[address] Logan Coburn MD) Mother Arthritis Surgical History History of colon resection History of knee joint replacement History of shoulder replacement Social History Smoking Status: Never smoker ROS ROS Narrative 12 point review of system is negative except as stated in HPI. Vital Signs Vital Signs Vital Signs: 08/23/20 03:53 08/23/20 04:37 Temperature 99.6 F H Temperature Source Oral Pulse Rate 108 H Respiratory Effort Normal Non-Labored Respiratory Pattern Normal Blood Pressure 162/88 H Blood Pressure Mean 112 Pulse Ox 97 Oxygen Delivery Method Room Air Physical Exam Narrative Alert and oriented x3 Nontraumatic; normocephalic Lung clear to auscultate Heart sounds S1-S2. No murmur, gallop or rubs. Abdomen bowel sounds present soft, nontender nondistended Extremity without edema cyanosis or clubbing. Lab / Micro Data Result Diagrams: 08/23/20 04:20 08/23/20 04:20 Labs: Laboratory Results - last 24 hr 08/23/20 08/23/20 08/23/20 04:20 04:20 04:20 WBC 13.0 H RBC 4.37 Hgb 13.5 Hct 40.6 MCV 92.9 MCH 30.9 MCHC 33.3 RDW Std Deviation 42.5 RDW Coeff of Sultana 12.4 Plt Count 174 MPV 9.2 Immature Gran % (Auto) 0.400 Neut % (Auto) 88.6 H Lymph % (Auto) 5.2 L Lucas % (Auto) 4.5 Eos % (Auto) 1.1 Baso % (Auto) 0.2 Absolute Neuts (auto) 11.5 H Absolute Lymphs (auto) 0.67 L Nucleated RBC % 0 PT 12.3 INR 1.0 APTT 26.0 Sodium Potassium Chloride Carbon Dioxide Anion Gap BUN Creatinine Estim Creat Clear Calc Est GFR (MDRD) Af Amer Est GFR (MDRD) Non-Af BUN/Creatinine Ratio Glucose Lactic Acid Calcium Total Bilirubin AST ALT Alkaline Phosphatase Total Protein Albumin Globulin Albumin/Globulin Ratio Urine Color Yellow Urine Clarity Clear Urine pH 6.0 Ur Specific Homer 1.010 Urine Protein 30 H Urine Glucose (UA) Normal Urine Ketones Negative Urine Occult Blood 25 H Urine Nitrite Positive H Urine Bilirubin Negative Urine Urobilinogen Normal Ur Leukocyte Esterase 100 H Urine RBC 5-10 SEEN Urine WBC 10-25 SEEN Ur Squamous Epith Cells 0-5 SEEN Ur Transition Epith Cell 0-5 SEEN Urine Bacteria 2+ Urine Mucus 0 SEEN 08/23/20 08/23/20 04:20 04:20 WBC RBC Hgb Hct MCV MCH MCHC RDW Std Deviation RDW Coeff of Sultana Plt Count MPV Immature Gran % (Auto) Neut % (Auto) Lymph % (Auto) Lucas % (Auto) Eos % (Auto) Baso % (Auto) Absolute Neuts (auto) Absolute Lymphs (auto) Nucleated RBC % PT INR APTT Sodium 137 Potassium 3.9 Chloride 103 Carbon Dioxide 27.0 Anion Gap 7 BUN 14 Creatinine 0.93 Estim Creat Clear Calc 35.23 Est GFR (MDRD) Af Amer 75 Est GFR (MDRD) Non-Af 62 BUN/Creatinine Ratio 15.1 Glucose 127 H Lactic Acid 2.4 H* Calcium 8.5 Total Bilirubin 0.80 AST 13 L ALT 21 Alkaline Phosphatase 91 Total Protein 6.8 Albumin 3.6 Globulin 3.2 Albumin/Globulin Ratio 1.1 Urine Color Urine Clarity Urine pH Ur Specific Homer Urine Protein Urine Glucose (UA) Urine Ketones Urine Occult Blood Urine Nitrite Urine Bilirubin Urine Urobilinogen Ur Leukocyte Esterase Urine RBC Urine WBC Ur Squamous Epith Cells Ur Transition Epith Cell Urine Bacteria Urine Mucus Micro: Microbiology 08/23/20 04:45 SARS-CoV-2 Antigen (Rapid) - Final Nasal Secretion Radiology Impression Chest X-Ray 08/23/20 04:33 IMPRESSION: No acute cardiopulmonary disease perceived. at 0449 Reported and signed by: Samm Sadler MD Electronically Signed: Samm Sadler MD at 4:48 EDT Tel , Service support , Assessment & Plan Assessment/Plan (1) Severe sepsis: PLAN: SIRS criteria: Tachycardia with leukocytosis. Emergency department labs were reviewed. Emergency department labs showed abnormal urinalysis. Rapid Covid antigen negative. Impression of chest x-ray by radiologist: No acute cardiopulmonary disease perceived. Acute chest x-ray image was independently interpreted. I agree with radiologist interpretation. Urine culture and blood culture were ordered emergency department; follow. Lactic acid was more than 2; trended Trend CBC and BMP. (2) Pyonephrosis: PLAN: Same as above (3) HTN (hypertension): QUALIFIERS: Hypertension type: essential hypertension Qualified Code(s): I10 - Essential (primary) hypertension PLAN: Blood pressure is stable in regard to her age. Metoprolol continued. Blood pressure parameters placed in the setting of severe sepsis. Trend blood pressure and adjust blood pressure medications. Visit Charges Inpatient E&M: 78296 Init Hosp L3
[2020-08-23] MEDS: 0.9% Normal Saline 1,000 ML 999 ML IV (06:05)
[2020-08-23] MEDS: Ceftriaxone 1 GM/50 ML BAG IV ×2 (06:05→17:20)
[2020-08-23] MEDS: 0.9% Normal Saline 1,000 ML 100 ML IV ×2 (07:41→17:20)
[2020-08-23 08:28] LABS: Reflex Lactate? Y
[2020-08-23] MEDS: Multivitamins,Ther W-Minerals Tablet 1 TABLET PO (09:01)
[2020-08-23] MEDS: Pantoprazole Sodium 40 MG Tablet PO (09:02)
[2020-08-23] MEDS: Tolterodine Tartrate 2 MG CAP.SA PO (09:02)
[2020-08-23] MEDS: Metoprolol(XL)Succ 25 MG Tablet PO (09:02)
[2020-08-23] MEDS: Enoxaparin 40 MG/0.4 ML Syringe SC (09:02)
[2020-08-23] MEDS: Loratadine 10 MG Tablet PO (09:02)
[2020-08-23] MEDS: Celecoxib 200 MG Capsule PO (09:02)
[2020-08-23] MEDS: Montelukast 10 MG Tablet PO (09:02)
[2020-08-23 09:42] LABS: Lactic Acid 1.1 mmol/L (0.4-1.9)
--- NOTE | 2020-08-23 11:40 | CASEMGMT ---
SAMMIE WHITE assessment: Face to Face with patient for initial transition planning/care coordination assessment. SAMMIE WHITE introduced self and role at [facility], pt voices understanding and consents to assessment. Pt is sitting up in chair in no distress. Pt is A/Ox4 and answers all questions appropriately. Care providers, pharmacy, and demographics verified. Presentation: Pt awoke this am with chills/nausea and bile emesis x1 Admitting dx: Severe sepsis PCP: [facility] Specialists: Jacques automobile upholsterer Preferred Pharmacy: [facility] Insurance: MCR A/B, [employer] Prescription Benefit: [employer] Living Will/HPOA: Pt has LW/HPOA and is aware that it's on file at [facility]. Pt's daughters, Tamar Paris and Teri Jones, are HPOA's. LNOK: Teri Jones, daughter/HPOA; Tamar Paris, daughter/HPOA Living Arrangements: Pt lives alone in 1 story home with no steps in and states no concerns at home. Pt states is independent with ADL's. Transportation: Pt states drives self and states no transportation concerns. DME/HHC: Pt states has the following DME but does not use: W/C, walker, multiple grab bars in bathroom, and tub bench. Pt states no hx of HHC or SNF. Pt states no concerns with going home at time of discharge. Pt is retired. Pt does not smoke cigarettes or drink ETOH. Pt states no further concerns/needs. CM to follow for any further discharge planning/needs. Advised pt to ask for CM if any further questions/concerns/needs arise, voices understanding. Pt Goal: Home Plan: [place] SAMMIE WHITE
--- NOTE | 2020-08-23 14:34 | CHAPLAIN ---
Type of Pastoral Visit _x__ Initial Visit ___ Follow-up Visit ___ On-call Visit ___ General Patient Visit ___ Spiritual Assessment ___ Family Conference ___ Bereavement ___ Rapid Response ___ Code Blue ___ Other (describe below) Pastoral Care Referral From _x__ Patient ___ Family ___ Nurse ___ Physician ___ Doll Wigs Hackler ___ Lbd Teacher ___ Other (describe below) Sacrament/Intervention _x__ Active listening ___ Anointing ___ Yarsani ___ Bereavement ___ Communion ___ Jocelynn exploration ___ _x__ Life review _x__ Prayer ___ Reconciliation ___ Sacrament of Sick ___ Supportive presence ___ Wedding ___ Other (describe below) Pastoral Comments patient gave review of why she was admitted and she reports that she is feeling better and relieved that they are pretty sure she will recover quickly; pt speaks of of her last September and bereavement care is given to access how pt is coping; prayer welcomed
--- NOTE | 2020-08-23 14:54 | PCM.HOSP.N ---
Hospitalist Note No fever or chills. T-max was 99.6. Patient has history of colon cancer status post colectomy and as per patient's history she has short bowel syndrome and normally has loose bowel movement and takes Imodium. She also denies burning micturition, increased frequency or urgency or retention but has chronic urinary incontinence. UA is positive of pyuria and nitrite positive. Empirically patient started on IV ceftriaxone IV fluid rehydration. Patient's vomiting and nausea has almost resolved. Follow urine culture. Possible discharge tomorrow.
[2020-08-23] MEDS: Acetaminophen 325 MG Tablet 650 MG PO (17:25)
[2020-08-24] VITALS (8 sets, daily range): BP systolic 147–153; BP diastolic 73–99; PULSE 80–97; RESP 18; TEMP 36.4–36.7; O2SAT 95–96
[2020-08-24] MEDS: 0.9% Normal Saline 1,000 ML 100 ML IV (03:56)
[2020-08-24] MEDS: Acetaminophen 325 MG Tablet 650 MG PO (04:03)
[2020-08-24] MEDS: Loperamide 2 MG Capsule PO (06:00)
[2020-08-24 06:55] LABS: Absolute Neutrophil Count 4.6 X10^3/uL (2.0-7.7); Basophil# 0.01 X10^3/uL; Basophil% 0.2 % (0-1); Eosinophils% 1.6 % (0-5); Hematocrit 37.7 % (37-47); Hemoglobin 12.4 g/dL (12.0-15.0); Lymphocyte % 16.2 % (19-41); Mean Corp Hgb Conc 32.9 g/dL (32-36); Mean Corpuscular Hgb 31.2 pg (27.0-32.0); Mean Corpuscular Volume 94.7 fL (81-99); Mean Platelet Vol. 9.6 fl (6.2-12.0); Monocyte# 0.47 X10^3/uL; Monocyte% 7.6 % (0-10); NRBC Flagged by Analyzer 0 % (0-5); Neutrophil # 4.58 X10^3/uL (2.7-7.7); Neutrophil % 74.2 % (47-70); Platelet Count 165 K/mm3 (150-450); RBC Distribution Width CV 12.5 % (11.6-14.6); RBC Distribution Width SD 43.6 fl (35.1-43.9); Red Blood Count 3.98 M/mm3 (4.2-5.4); White Blood Count 6.2 K/mm3 (4.4-11.0)
[2020-08-24 07:20] LABS: Anion Gap 6 (5-15); BUN 11 mg/dL (7-18); BUN/Creat Ratio 13.6 RATIO (10-20); Calcium,Total 8.2 mg/dL (8.5-10.1); Chloride 110 mmol/L (98-107); Creatinine, Serum 0.81 mg/dL (0.55-1.02); EST Glomerular Filtration Rate 73 mL/min (>60); Est Glom Filt Rate - Afr Amer 88 mL/min (>60); Estimated Creatinine Clearance 40.45 ml/min; Glucose 108 mg/dL (74-106); Potassium 3.8 mmol/L (3.5-5.1); Sodium Level 143 mmol/L (136-145)
[2020-08-24] MEDS: Multivitamins,Ther W-Minerals Tablet 1 TABLET PO (09:15)
[2020-08-24] MEDS: Tolterodine Tartrate 2 MG CAP.SA PO (09:15)
[2020-08-24] MEDS: Celecoxib 200 MG Capsule PO (09:15)
[2020-08-24] MEDS: Enoxaparin 40 MG/0.4 ML Syringe SC (09:15)
[2020-08-24] MEDS: Loratadine 10 MG Tablet PO (09:15)
[2020-08-24] MEDS: Montelukast 10 MG Tablet PO (09:16)
[2020-08-24] MEDS: Metoprolol(XL)Succ 25 MG Tablet PO (09:16)
[2020-08-24] MEDS: Pantoprazole Sodium 40 MG Tablet PO (09:16)
--- NOTE | 2020-08-24 13:31 | PCM.DC ---
Discharge Instructions Diet Discharge Diet: 2000 mg Sodium Diet Activity Discharge Activity: Return to Normal Activity and May Not Drive (For 2 to 3 days) Dressing / Incision Call your doctor if you observe: Fever of 101 or Higher, Coldness, Increased Pain, Numbness or Tingling, Change in Color, Inability to urinate, Inability to have a bowel movement, Using more than one pad per hour, Shortness of breath, Dizziness, Fainting spells, Swelling in the ankles, Chest pain, Prolonged hiccupping, Increased palpitations (irregular heartbeat), Calf discomfort and Uncontrolled pain Follow Up Care Test Results: Test results from this visit will be discussed in further detail at your follow-up appointment, if applicable. Discharge Plan Admission Admit Date/Time: 08/23/20 05:40 Primary Reason for Your Visit: Dehydration, lactic acidosis, UTI Attending Provider: Doc Carranza Primary Care Provider: Octaviano Almodovar Instructions Patient Instructions: When to Use Antibiotics Additional Instructions / Restrictions: Advised adequate oral intake and perineal hygiene, regular bladder emptying to prevent UTI Discharge Orders/Prescriptions Prescriptions: New nitrofurantoin monohyd/m-cryst [Macrobid] 100 mg capsule 100 mg PO BID Qty: 8 RF: 0 Continued omeprazole 40 mg capsule,delayed release(DR/EC) 40 mg PO DAILY RF: 0 montelukast [Singulair] 10 mg tablet 10 mg PO DAILY RF: 0 metoprolol succinate 25 MG tablet 25 mg PO DAILY RF: 0 oxybutynin chloride 5 MG tablet 10 mg PO DAILY RF: 0 hfeymdge-epi-UK-lycopen-lutein 1 EACH tablet 1 ea PO DAILY RF: 0 fexofenadine 180 mg tablet 180 mg PO DAILY RF: 0 celecoxib 200 MG capsule 200 mg PO DAILY RF: 0 estradiol 42.5 GM cream 1 dose VAGINAL FR RF: 0 Referrals / Follow Up: Octaviano Almodovar MD [Primary Care Provider] - Disposition Disposition (needs filled in before D/C Order can be placed): Home, self care
--- NOTE | 2020-08-24 13:44 | DS.PCM_ITS ---
Providers Date of Admission: 08/23/20 Primary Care Physician: Dr. Octaviano Almodovar MD Reason For Visit: SEVERE SEPSIS Diagnosis Discharge Diagnosis (1) Severe sepsis: Status: Acute Code(s): A41.9 - Sepsis, unspecified organism; R65.20 - Severe sepsis without septic shoc k (2) Pyonephrosis: Status: Acute Code(s): N13.6 - Pyonephrosis (3) HTN (hypertension): Status: Chronic Code(s): I10 - Essential (primary) hypertension Qualifiers: Hypertension type: essential hypertension Qualified Code(s): I10 - Essential (primary) hypertension Medications at Discharge Home Medications metoprolol succinate 25 mg PO DAILY 05/01/14 gbonvise-myd-CN-lycopen-lutein 1 ea PO DAILY 05/01/14 oxybutynin chloride 10 mg PO DAILY 05/01/14 fexofenadine 180 mg tablet 180 mg PO DAILY 03/27/19 celecoxib 200 mg PO DAILY 05/16/19 montelukast 10 mg tablet 10 mg PO DAILY 03/27/20 omeprazole 40 mg capsule,delayed release 40 mg PO DAILY 03/27/20 estradiol 1 dose VAGINAL FR 04/06/20 nitrofurantoin monohyd/m-cryst [Macrobid] 100 mg PO BID #8 cap 08/24/20 Hospital Course Summary of Care Provided Hospital Course: This 29-year-old female with history of colon cancer status post colectomy with history of short bowel syndrome and urine incontinence came to ER with nausea and bilious vomiting and malaise. UA was positive of nitrite and pyuria suggestive of UTI. Temperature at home was 99.2 Fahrenheit. Patient was admitted on PCU. Lactic acidosis due to hypovolemia therefore patient was vigorously hydrated. Chest x-ray did not show acute cardiopulmonary disease. Patient diagnosis severe sepsis due to complicated cystitis/UTI. Leukocytosis and lactic acidosis resolved. Blood cultures x2 are negative so far. Urine culture is growing gram-negative lactose full time staff interpreter initially most likely E. coli after discussion with advanced manufacturing technician. Based on the previous urine culture in April 2020, patient is sent on 4 more days of nitrofurantoin after 2 days of ceftriaxone. Her other comorbidities hypertension and short-bowel syndrome taken care of and is stable. Discharge medication reconciliation done. Discharge follow-up instructions comp leted. Discharge process discussed with the patient and all questions were answered to patient's satisfaction. Discharge plan discussed with the patient's daughter, Teri RobertSAMMIE and she agrees. Total time spent, exact 35 minutes on discharge meds reconciliation, examination, coordination of care with nurses and ancillary staff, review of imaging and blood test and discussion with the patient on follow-up instructions Diagnosis severe sepsis due to acute on recurrent E. coli UTI/cystitis Physical Exam Narrative Patient does not have shortness of breath or chest pain. Denies any burning micturition or increased frequency. Patient is well hydrated Physical exam. General: Alert, Oriented x3, Cooperative HEENT: Atraumatic, PERRLA, EOMI, Normocephalic Oral: No Gingival or Mucosal Lesions/ Ulcerations Neck: Supple, No JVD, Negative Carotid Bruits Lungs: Air entry diminished in bilateral lung bases. No crepitation/rhonchi Cardiovascular: Regular rate, Regular Rhythm, Normal S1, Normal S2, No murmurs Abdomen: Bowel Sounds Present, Soft, Non Tender, Non-Distended : No renal angle tenderness. No suprapubic tenderness. Extremities: No edema, Capillary Refill Less than 3 Seconds Skin: No rashes, No breakdown Musculoskeletal: No Tenderness to Palpation of Joints or Extremities Neurological: Cranial nerves II-XII grossly intact, Deep Tendon Reflexes 2+/4 and Symmetrical, Neuro grossly intact Psych/Mental Status: Normal Affect, Appropriate. ABG / Lab / Microbiology Data Result Diagrams: 08/24/20 06:26 08/24/20 06:26 Laboratory: Laboratory Results - last 24 hr 08/23/20 08/24/20 08/24/20 04:20 06:26 06:26 WBC 6.2 RBC 3.98 L Hgb 12.4 Hct 37.7 MCV 94.7 MCH 31.2 MCHC 32.9 RDW Std Deviation 43.6 RDW Coeff of Sultana 12.5 Plt Count 165 MPV 9.6 Immature Gran % (Auto) 0.200 Neut % (Auto) 74.2 H Lymph % (Auto) 16.2 L [place] % (Auto) 7.6 Eos % (Auto) 1.6 Baso % (Auto) 0.2 Absolute Neuts (auto) 4.6 Absolute Lymphs (auto) 1.00 Nucleated RBC % 0 Sodium 143 Potassium 3.8 Chloride 110 H Carbon Dioxide 27.0 Anion Gap 6 BUN 11 Creatinine 0.81 Estim Creat Clear Calc 40.45 Est GFR (MDRD) Af Amer 88 Est GFR (MDRD) Non-Af 73 BUN/Creatinine Ratio 13.6 Glucose 108 H Lactic Acid 2.4 H* Calcium 8.2 L Microbiology: Microbiology 08/23/20 04:20 Urine Culture - Preliminary Urine, Clean Catch GNR lactose full time staff interpreter Microbiology 08/23/20 04:20 Urine, Clean Catch Urine Culture - Preliminary GNR lactose full time staff interpreter 08/23/20 04:45 Nasal Secretion SARS-CoV-2 Antigen (Rapid) - Final D/C Instructions Discharge Diet: 2000 mg Sodium Diet Discharge Activity: Return to Normal Activity and May Not Drive (For 2 to 3 days) Call your doctor if you observe: Fever of 101 or Higher, Coldness, Increased Pain, Numbness or Tingling, Change in Color, Inability to urinate, Inability to have a bowel movement, Using more than one pad per hour, Shortness of breath, Dizziness, Fainting spells, Swelling in the ankles, Chest pain, Prolonged hiccu pping, Increased palpitations (irregular heartbeat), Calf discomfort and Uncontrolled pain Meaningful Use Info Meaningful Use Diagnoses (Choose all that apply): None applicable Discharge Plan Admission Admit Date/Time: 08/23/20 05:40 Primary Reason for Your Visit: Dehydration, lactic acidosis, UTI Attending Provider: Doc Carranza Primary Care Provider: Octaviano Almodovar Instructions Patient Instructions: When to Use Antibiotics Additional Instructions / Restrictions: Advised adequate oral intake and perineal hygiene, regular bladder emptying to prevent UTI Discharge Orders/Prescriptions Prescriptions: New nitrofurantoin monohyd/m-cryst [Macrobid] 100 mg capsule 100 mg PO BID Qty: 8 RF: 0 Continued omeprazole 40 mg capsule,delayed release(DR/EC) 40 mg PO DAILY RF: 0 montelukast [Singulair] 10 mg tablet 10 mg PO DAILY RF: 0 metoprolol succinate 25 MG tablet 25 mg PO DAILY RF: 0 oxybutynin chloride 5 MG tablet 10 mg PO DAILY RF: 0 jvdfzqbq-osl-HO-lycopen-lutein 1 EACH tablet 1 ea PO DAILY RF: 0 fexofenadine 180 mg tablet 180 mg PO DAILY RF: 0 celecoxib 200 MG capsule 200 mg PO DAILY RF: 0 estradiol 42.5 GM cream 1 dose VAGINAL FR RF: 0 Referrals / Follow Up: Octaviano Almodovar MD [Primary Care Provider] - Disposition Disposition (needs filled in before D/C Order can be placed): Home, self care Visit Charges Inpatient E&M: 44858 Disch Hosp
[2020-08-24] MEDS: Ceftriaxone 1 GM/50 ML BAG IV (14:58)
--- NOTE | 2020-08-24 15:06 | PHA.DC.MC ---
Pharmacy Service has performed discharge medication reconciliation and counseling for this patient. The patient was counseled on the following discharge medications and changes in medications for homegoing were reviewed. 1. MACROBID The Reason for Use, instructions for use, and potential side effects were reviewed for all new medications. The patient's questions regarding all of their medications were answered. The patient was able to verbally demonstrate an understanding of their discharge medications. Home Medications metoprolol succinate 25 mg PO DAILY 05/01/14 yytwwcib-fqc-YR-lycopen-lutein 1 ea PO DAILY 05/01/14 oxybutynin chloride 10 mg PO DAILY 05/01/14 fexofenadine 180 mg tablet 180 mg PO DAILY 03/27/19 celecoxib 200 mg PO DAILY 05/16/19 montelukast 10 mg tablet 10 mg PO DAILY 03/27/20 omeprazole 40 mg capsule,delayed release 40 mg PO DAILY 03/27/20 estradiol 1 dose VAGINAL FR 04/06/20 nitrofurantoin monohyd/m-cryst [Macrobid] 100 mg PO BID #8 cap 08/24/20 The patient's discharge medication list was reviewed for discrepancies and discrepancies were resolved.
== END 2020-08-24 15:48 | disposition home or self-care (01) | DRG 872 ==
LOC: ED 05:40 → PCU 06:04
PROVIDERS: Admitting Provider Hospitalist; Emergency Provider Emergency Medicine; PCP Family Medicine; Visit Provider Internal Medicine
DX: A41.9 Sepsis, unspecified organism (principal); N30.90 Cystitis, unspecified without hematuria; B96.20 Unspecified Escherichia coli [E. coli] as the cause of diseases classified elsewhere; R65.20 Severe sepsis without septic shock; Z85.038 Personal history of other malignant neoplasm of large intestine; Z90.49 Acquired absence of other specified parts of digestive tract; I10 Essential (primary) hypertension; Z79.899 Other long term (current) drug therapy
CPT/HCPCS: 36415; 71045; 80048; 80053; 81001; 83605; 85025; 85610; 85730; 87040; 87077; 87086; 87088; 87186; 87426; 93005; 94762; 99285; J7030; J7040; A4216

== ENCOUNTER → 2020-10-01 10:20 | Outpatient (CLI) | payer MEDICARE, OTHER, SELFPAY ==
[2020-08-23 06:23] VITALS: BMI 32.9
--- NOTE | 2020-10-01 10:35 | US_ITS ---
STUDY: RENAL ULTRASOUND - COMPLETE REASON FOR EXAM: Female, 79 years old. UTIs TECHNIQUE: Ultrasound evaluation of the kidneys was performed with real-time and static zamora-scale imaging. COMPARISON: None. FINDINGS: RIGHT KIDNEY: Normal location of the right kidney, which is normal in size. The right kidney measures 11.1 cm x 5.2cm x 4.4 cm. There is a normal cortex of the right kidney. The renal cortex measures 1.2 cm. There is no right renal mass or cyst. There are no right renal calculi. There is no right hydronephrosis. DISTAL RIGHT URETER: There is non-visualization of the distal right ureter. There is no demonstrated right ureterovesical junction calculus. There is a visualized right ureteral jet. LEFT KIDNEY: Normal location of the left kidney, which is normal in size. The left kidney measures 10.8 cm x 4.3 cm x 5.4 cm. There is a normal cortex of the left kidney. The renal cortex measures 1.2 cm. There is no left renal mass or cyst. There are no left renal calculi. There is no left hydronephrosis. DISTAL LEFT URETER: There is non-visualization of the distal left ureter. There is no demonstrated left ureterovesical junction calculus. There is a visualized left ureteral jet. BLADDER: The distended urinary bladder has a volume of 394.3 ml. The empty urinary bladder has a volume of 53.2 ml. There is a normal wall thickness of the distended urinary bladder. There is no demonstrated mass within the urinary bladder. There are no demonstrated bladder calculi. US/Kidney and Bladder IMPRESSION: Normal ultrasound of the kidneys and urinary bladder. Electronically Signed: Tigre Asif MD at 13:31 EDT , Service support ,
== END ==
PROVIDERS: PCP Family Medicine; Referring Provider Urology; Visit Provider Urology
DX: N39.0 Urinary tract infection, site not specified (principal)
CPT/HCPCS: 76770

== ENCOUNTER → 2020-11-23 14:10 | Outpatient (CLI) | payer MEDICARE, OTHER, SELFPAY ==
[2020-08-23 06:23] VITALS: BMI 32.9
[2020-11-23 16:41] LABS: Absolute Lymphocyte Count 2.62 X10^3/uL (0.83-4.51); Absolute Neutrophil Count 5.6 X10^3/uL (2.0-7.7); Basophil# 0.04 X10^3/uL; Basophil% 0.4 % (0-1); Eosinophil# 0.17 X10^3/uL; Eosinophils% 1.9 % (0-5); Hematocrit 41.4 % (37-47); Hemoglobin 13.6 g/dL (12.0-15.0); Lymphocyte # 2.62 X10^3/ul (0.83-4.51); Lymphocyte % 29.4 % (19-41); Mean Corp Hgb Conc 32.9 g/dL (32-36); Mean Corpuscular Hgb 30.5 pg (27.0-32.0); Mean Corpuscular Volume 92.8 fL (81-99); Mean Platelet Vol. 9.1 fl (6.2-12.0); Monocyte# 0.42 X10^3/uL; Monocyte% 4.7 % (0-10); NRBC Flagged by Analyzer 0 % (0-5); Neutrophil # 5.64 X10^3/uL (2.7-7.7); Neutrophil % 63.4 % (47-70); Platelet Count 356 K/mm3 (150-450); RBC Distribution Width CV 12.3 % (11.6-14.6); RBC Distribution Width SD 42.1 fl (35.1-43.9); Red Blood Count 4.46 M/mm3 (4.2-5.4); White Blood Count 8.9 K/mm3 (4.4-11.0)
[2020-11-23 17:32] LABS: ALB/GLOB Ratio 1.1 RATIO (0.9-2.4); AST(SGOT) 18 U/L (15-37); Alanine Aminotransfer ALT/SGPT 27 U/L (13-56); Albumin, Serum 3.8 g/dL (3.2-5.0); Alkaline Phosphatase 89 U/L (45-117); Anion Gap 9 (5-15); BUN 17 mg/dL (7-18); BUN/Creat Ratio 16.8 RATIO (10-20); Calcium,Total 8.9 mg/dL (8.5-10.1); Chloride 102 mmol/L (98-107); Cholesterol 195 mg/dL (200); Creatinine, Serum 1.01 mg/dL (0.55-1.02); EST Glomerular Filtration Rate 56 mL/min (>60); Est Glom Filt Rate - Afr Amer 68 mL/min (>60); Globulin 3.4 g/dL (2.2-4.2); Glucose 137 mg/dL (74-106); High Density Lipoprotein 55 mg/dL; Potassium 4.3 mmol/L (3.5-5.1); Protein, Total 7.2 g/dL (6.4-8.2); Sodium Level 138 mmol/L (136-145); Triglycerides 220 mg/dL; Very Low Density Lipoprotein 44 mg/dL (5-40)
[2020-11-25 08:56] LABS: Carcinoembryonic Antigen 0.8 ng/mL (0.0-4.7)
== END ==
PROVIDERS: PCP Family Medicine; Visit Provider Family Medicine
DX: I10 Essential (primary) hypertension (principal); Z85.038 Personal history of other malignant neoplasm of large intestine
CPT/HCPCS: 36415; 80053; 80061; 82378; 85025

== ENCOUNTER 2021-04-05 14:26 | Emergency (ER) | payer MEDICARE, OTHER, SELFPAY ==
[2021-04-05 14:27] VITALS: BP 183/86; PULSE 90; RESP 18; TEMP 36.2; O2SAT 97; BMI 33.2
--- NOTE | 2021-04-05 15:03 | CT_ITS ---
STUDY: CT BRAIN WITHOUT CONTRAST REASON FOR EXAM: Female, 80 years old. Head injury due to a fall. RADIATION DOSAGE (If Supplied By Facility): CTDIvol = ( 44.99 ) mGy, DLP = ( 829.85 ) mGycm TECHNIQUE: Transaxial CT imaging of the brain was performed without administration of intravenous contrast material. Individualized dose optimization techniques were used for this CT. COMPARISON: No relevant priors. FINDINGS: Normal soft tissue structures. Normal calvarium. There is mild cerebral atrophy with widening of the extra-axial spaces and ventricular dilatation. There are areas of decreased attenuation within the white matter tracts of the supratentorial brain, consistent with microvascular disease changes. Normal basal ganglia and thalami. Normal brainstem. Normal cerebellum. There is thickening of the cerebral falx suggestive of subdural hematoma of the cerebral falx. There are no findings of an acute ischemic infarction. Normal visualized paranasal sinuses. CT/Brain/Head without Contrast IMPRESSION: Chronic involutional changes of the brain. Findings suggestive of a subdural hematoma of the cerebral falx. N.B. : The above Results were Read Back by Tigre Asif MD to Bacilio Hodge DO, and understanding confirmed on 04/05/2021 15:44:49 (ET). Electronically Signed: Tigre Asif MD at 15:46 EST , Service support ,
--- NOTE | 2021-04-05 15:03 | CT_ITS ---
STUDY: CT CERVICAL SPINE WITHOUT CONTRAST REASON FOR EXAM: Female, 80 years old. Fall injury RADIATION DOSAGE (If Supplied By Facility): CTDIvol = ( 18.65 ) mGy, DLP = ( 417.94 ) mGycm TECHNIQUE: High resolution transaxial imaging was performed without contrast material. Sagittal and coronal images were reconstructed. Individualized dose optimization techniques were used for this CT. COMPARISON: CT of the cervical spine dated OCTOBER 05, 2017 FINDINGS: Normal craniovertebral junction. There are degenerative changes of the anterior atlantoaxial articulation. There are erosions of the tip of the odontoid process. There is straightening of the normal cervical lordosis. Mild to moderate multilevel degenerative changes are present. No significant central canal stenosis is seen. No visualized acute fracture or compression deformity. Normal visualized soft tissue structures. CT/Spine Cervical without Contras IMPRESSION: Multilevel degenerative changes, as described above. Electronically Signed: Olvin Conley MD at 17:09 EST , Service support ,
--- NOTE | 2021-04-05 15:05 | RAD_ITS ---
STUDY: X-RAY - RIGHT HAND REASON FOR EXAM: Female, 80 years old. 5th mcp PT FELL IN THE PARKING LOT INJURING HER FOREHEAD LIP AND NOSE. NO LOC TECHNIQUE: 3 view(s) of the hand. COMPARISON: None. FINDINGS: Moderate MCP and severe IP joint space narrowing noted throughout the hand. Mild soft tissue swelling is present throughout the hand. The bony structures are demineralized. Additional scattered degenerative changes are present. No visualized acute fracture. Normal radiocarpal articulation. Normal distal radioulnar joint. Normal visualized carpal bones. Normal carpal articulations Normal carpometacarpal articulation of the thumb. Normal second through fifth carpometacarpal joints. Normal metacarpi. The soft tissue structures are unremarkable. RAD/Hand Min 3 Views IMPRESSION: Degenerative joint disease of the hand, as described above. Electronically Signed: Olvin Conley MD at 17:02 EST , Service support ,
--- NOTE | 2021-04-05 15:05 | ED.VIS.FALL ---
HPI HPI - Fall History of Present Illness Chief Complaint: Fall Narrative Narrative: 80-year-old female presenting for evaluation after she had a mechanical fall in the parking lot. 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 She does not believe she hurt her knees. He does have some pain in the right hand adjacent to her right fifth MCP. He states he did not get knocked out. She is able to stand and walk. She has a superficial abrasion to the left side of her lip and an internal laceration to her lip as well. She has bruising and abrasion on her nose. She states she initially had some epistaxis but this resolved. She complains of a headache which is mild. No dizziness, lightheadedness, unstable gait. No nausea or vomiting. [facility] Medical History Arthritis Asthma Cancer Colon cancer GERD (gastroesophageal reflux disease) HTN (hypertension) Incontinence Limb weakness Rash and nonspecific skin eruption Shoulder pain Sleep apnea Home Medications metoprolol succinate 25 mg PO DAILY 05/01/14 [History Last Taken 04/10/20 06:30 25 MG] fnlhrgum-fkv-PX-lycopen-lutein 1 ea PO DAILY 05/01/14 [History Last Taken 05/16/19] fexofenadine 180 mg tablet 180 mg PO DAILY 03/27/19 [History Last Taken 05/16/19] celecoxib 200 mg PO DAILY 05/16/19 [History Last Taken 05/16/19] montelukast 10 mg tablet 10 mg PO DAILY 03/27/20 [History Last Taken Unknown] omeprazole 40 mg capsule,delayed release 40 mg PO DAILY 03/27/20 [History Last Taken 04/10/20 06:30 40 MG] estradiol 1 dose VAGINAL FR 04/06/20 [History Last Taken Unknown] Probiotic 1 tab PO/SL DAILY 04/05/21 [History Last Taken Unknown] solifenacin 10 mg PO DAILY 04/05/21 [History Last Taken Unknown] Allergy/AdvReac Type Severity Reaction Status Date / Time codeine AdvReac Nausea Verified 04/05/21 14:29 Family History Mother Arthritis Surgical History History of colon resection History of knee joint replacement History of shoulder replacement Social History Smoking Status: Never smoker ROS ROS ED Constitutional Constitutional ED: Denies chills or fever(s) Eyes Eyes: Denies blurry vision or change in vision ENT ENT ED: Reports other Details: Epistaxis resolved ; Denies rhinorrhea or sore throat Cardiovascular Cardiovascular: Denies chest pain or palpitations Respiratory/Chest Respiratory/Chest: Denies cough or dyspnea Gastrointestinal Gastrointestinal: Denies abdominal pain or nausea Genitourinary Genitourinary ED: Denies dysuria or hematuria Musculoskeletal Musculoskeletal: Reports other Details: Right hand pain Integumentary Reports Abrasions and other Details: Internal lip laceration ; Denies rash Neurologic Neurologic: Reports headache(s); Denies paresthesias or weakness EXAM Physical Exam Const Vital Signs: 04/05/21 14:27 04/05/21 14:47 04/05/21 16:28 Temperature 97.2 F L Temperature Source Temporal Pulse Rate 90 80 Respiratory Rate 18 16 Respiratory Effort Normal Respiratory Depth Normal Respiratory Pattern Normal Blood Pressure 183/86 H 156/98 H Blood Pressure Mean 118 117 Pulse Ox 97 99 Oxygen Delivery Method Room Air Room Air Room Air Positive well nourished General Appearance ED: NAD HEENT Reports normocephalic and TM's clear HEENT Narrative: Superficial abrasion over the bridge of the nose. Nasal bone is midline. Nasal septum is midline. No nasal septal hematoma. No epistaxis. Patient does have pain over the forehead and the bridge of her nose. No pain in the cheeks. No jaw malocclusion. No tongue injury. Dentition intact. Negative for hematoma Tympanic Membrane ED: Yes TM's clear Eyes PERRL and EOMs intact bilaterally Resp normal respiratory effort and clear to auscultation bilaterally Cardio regular rate and regular rhythm Back/Spine Back/Spine Narrative: No midline cervical spinal tenderness, deformity, step-off. Extremity Extremity Narrative: Tenderness to palpation right fifth MCP with some localized swelling. No deformity. Right hand neurovascular intact prescription for all 5 fingers. Neuro oriented x3, CN's II-XII intact bilaterally, moves all extremities and no focal motor deficits Sensorium / Orientation: alert Psych mental status grossly normal and thought process normal Skin Skin Narrative: Superficial abrasion to the left side of the chin. Internal lip laceration approximately 1 cm. MDM MDM MDM Narrative Medical decision making narrative: Patient presenting after clinical fall. She tripped and fell from some steps after missing a step. She is not on blood thinners and she has no LOC. She has a mild headache. She has a facial contusion and a lip laceration on the internal side of the left lip. I obtained a CT of the brain which showed concern for subdural hematoma in the cerebral falx. CT cervical spine showed degenerative changes without acute fracture. Facial bones were normal. Right hand x-ray is negative for acute fracture on my interpretation. Radiologist does agree. Attempted to call [employer] however they are on diversion. I then called [employer] and they are also on diversion. At this point I called [facility] who accepted the patient. Patient has remained medically stable here. She is transported in stable condition. Impression: 1. Mechanical fall 2. Subdural hematoma 3. Patient contusions 4. Facial abrasions 5. Internal lip laceration Lab Data Attestation: I reviewed the patient's lab results. Radiography Diagnostic Testing: Clinical Impression(s) from Imaging Studies Brain CT 04/05/21 15:03 IMPRESSION: Chronic involutional changes of the brain. Findings suggestive of a subdural hematoma of the cerebral falx. N.B. : The above Results were Read Back by Tigre Asif MD to Bacilio Hodge DO, and understanding confirmed on 04/05/2021 15:44:49 (ET). Electronically Signed: Tigre Asif MD at 15:46 EST , Service support , ADDENDUM: 04/05/21 1552 IMPRESSION: Chronic involutional changes of the brain. Findings suggestive of a subdural hematoma of the cerebral falx. N.B. : The above Results were Read Back by Tigre Asif MD to Bacilio Hodge DO, and understanding confirmed on 04/05/2021 15:44:49 (ET). Electronically Signed: Tigre Asif MD at 15:46 EST , Service support , Cervical Spine CT 04/05/21 15:03 IMPRESSION: Multilevel degenerative changes, as described above. Electronically Signed: Olvin Conley MD at 17:09 EST , Service support , Hand X-Ray 04/05/21 15:05 IMPRESSION: Degenerative joint disease of the hand, as described above. Electronically Signed: Olvin Conley MD at 17:02 EST , Service support , Facial Bones X-Ray 04/05/21 15:36 IMPRESSION: No visualized acute process Electronically Signed: Olvin Conley MD at 16:58 EST , Service support , Discharge Plan Triage Chief Complaint: Fall ED Provider: Bacilio Hodge Dx/Rx/DC Orders Prescriptions: No Action omeprazole 40 mg capsule,delayed release(DR/EC) 40 mg PO DAILY RF: 0 montelukast [Singulair] 10 mg tablet 10 mg PO DAILY RF: 0 metoprolol succinate 25 MG tablet 25 mg PO DAILY RF: 0 qkkcddmv-lbx-RB-lycopen-lutein 1 EACH tablet 1 ea PO DAILY RF: 0 fexofenadine 180 mg tablet 180 mg PO DAILY RF: 0 celecoxib 200 MG capsule 200 mg PO DAILY RF: 0 estradiol 42.5 GM cream 1 dose VAGINAL FR RF: 0 solifenacin 10 mg tablet 10 mg PO DAILY RF: 0 Probiotic 1 tab PO/SL DAILY RF: 0 Primary Care Provider: Care Physician,No Primary
--- NOTE | 2021-04-05 15:36 | RAD_ITS ---
STUDY: X-RAY - FACIAL BONES REASON FOR STUDY: Female, 80 years old. facial injury TECHNIQUE: 4 view(s) of the facial bones. COMPARISON: None. FINDINGS: Normal bilateral frontozygomatic and zygomatic-temporal arches. Normal bilateral medial and inferior orbital bañuelos. Normal bilateral orbits. Normal visualized nasal bones. Normal anterior nasal spine. The remaining visualized osseous structures are normal. There is no demonstrated fracture. Normal visualized paranasal sinuses. Dental hardware is present. RAD/Facial Bones min 3 Views IMPRESSION: No visualized acute process Electronically Signed: Olvin Conley MD at 16:58 EST , Service support ,
--- NOTE | 2021-04-05 15:50 | ED.RN ---
[facility] is not accepting transfers
--- NOTE | 2021-04-05 15:51 | ED.RN ---
[facility] NOT ACCEPTING TRANSFERS
[2021-04-05 16:28] VITALS: BP 156/98; PULSE 80; RESP 16; O2SAT 99
== END 2021-04-05 17:18 | disposition short-term general hospital (02) ==
PROVIDERS: Emergency Provider Student in an Organized Health Care Education/Training Program
DX: S06.5X0A Traumatic subdural hemorrhage without loss of consciousness, initial encounter (principal); S00.31XA Abrasion of nose, initial encounter; S01.511A Laceration without foreign body of lip, initial encounter; M79.641 Pain in right hand; W10.9XXA Fall (on) (from) unspecified stairs and steps, initial encounter; Y93.9 Activity, unspecified; Y92.481 Parking lot as the place of occurrence of the external cause; I10 Essential (primary) hypertension; M19.041 Primary osteoarthritis, right hand; G47.30 Sleep apnea, unspecified; J45.909 Unspecified asthma, uncomplicated; K21.9 Gastro-esophageal reflux disease without esophagitis; Z85.038 Personal history of other malignant neoplasm of large intestine; Z79.899 Other long term (current) drug therapy
CPT/HCPCS: 70150; 70450; 72125; 73130; 99285

== ENCOUNTER → 2021-04-17 08:43 | Outpatient (CLI) | payer MEDICARE, OTHER, SELFPAY ==
--- NOTE | 2021-04-17 08:47 | ECHOCS_ITS ---
Reason For Study: Abnormal EKG Procedure This was a 2D Doppler, Color Flow transthoracic echocardiogram. The study was technically difficult. Contrast injection was performed. Exam performed in department. Left Ventricle Normal LV size. Left ventricular systolic function is normal. The estimated ejection fraction is 75 %. Stage 1 diastolic dysfunction. No regional wall motion abnormalities noted. Right Ventricle Normal RV size. Normal systolic function. Atria Normal left atrium. Normal right atrium. Mitral Valve Normal mitral valve. Tricuspid Valve Normal tricuspid valve. Mild (1+) tricuspid valve insufficiency. Pulmonary artery systolic pressure is 30 mmHg. Aortic Valve The aortic valve is not well visualized. Pulmonic Valve The pulmonic valve is not well visualized. Great Vessels Normal aortic root. Pericardium/Pleural No pericardial effusion. Medication 22 gauge I.V. with prn adaptor inserted into right arm. Diluted definity 2.5ml given slow IV push to enhance endocardial definition. MMode/2D Measurements & Calculations LVIDd: 4.1 cm IVSd: 1.1 cm LA dimension: 3.0 cm LVIDs: 2.3 cm LVPWd: 0.89 cm FS: 42.9 % LAV(MOD-bp): 23.0 ml LA A4 area: 10.9 cm2 RA A4 area: 10.6 cm2 LAV(MOD-bp) Indexed: 13.2 ml/m2 LAV(MOD-sp2): 25.6 ml LAV(MOD-sp4): 20.5 ml Time Measurements MV dec time: 0.17 sec Doppler Measurements & Calculations MV E max preston: 68.4 cm/sec Lat Peak E' Preston: 5.9 cm/sec Med Peak E' Preston: 7.4 cm/sec MV A max preston: 137.9 cm/sec E/E' lat: 11.6 E/E' med: 9.3 MV E/A: 0.50 MV V2 max: 137.1 cm/sec MV P1/2t max preston: 68.2 cm/sec Ao V2 max: 122.1 cm/sec MV max P.5 mmHg MV P1/2t: 62.4 msec Ao max P.0 mmHg MV V2 mean: 72.5 cm/sec MV dec slope: 320.1 cm/sec2 MV mean P.5 mmHg MV V2 VTI: 19.1 cm MVA(P1/2t): 3.5 cm2 LV V1 max: 104.8 cm/sec PA V2 max: 92.1 cm/sec TR max preston: 253.0 cm/sec LV V1 max P.4 mmHg TR max P.6 mmHg ECHO/Echo Complete W/ Contrast Interpretation Summary Normal LV size. Left ventricular systolic function is normal. The estimated ejection fraction is 75 %. Stage 1 diastolic dysfunction. Pulmonary artery systolic pressure is 30 mmHg. Contrast injection was performed. Ordering Physician: Karthikeyan Chavez Referring Physician: Raul Lopez Performed By: Abhinav Magana RCS
--- NOTE | 2021-04-17 08:47 | CDU_ITS ---
Reason For Study: DIZZINESS Rt. Velocities/BP Lt. Velocities/BP Prox CCA 62.5/15.5 cm/sec. Prox CCA 72.1/18.2 cm/sec. Mid CCA 59.9/15.5 cm/sec. Mid CCA 70.2/20.1 cm/sec. Dist CCA 59.9/18.1 cm/sec. Dist CCA 74.0/17.3 cm/sec. Prox ICA 36.1/7.7 cm/sec. Prox ICA 50.5/11.3 cm/sec. Mid ICA 53.1/14.4 cm/sec. Mid ICA 74.7/24.1 cm/sec. Dist ICA 106.9/25.6 cm/sec. Dist ICA 72.9/18.8 cm/sec. Rt. ICA/CCA = 106.9/59.9=1.8. Lt. ICA/CCA = 74.7/70.2=1.1. Prox ECA 93.8/12.9 cm/sec. Prox ECA 86.3/11.6 cm/sec. Rt. Vert. 41.7/9.7 cm/sec. Lt. Vert. 33.2/8.5 cm/sec. Right Extracranial There is intimal thickening but no significant atherosclerotic plaque noted in the right common carotid artery. There is heterogeneous, smooth atherosclerotic plaque noted in the right internal carotid artery. The tortuous nature of the right internal carotid artery may result in flow velocities overestimating the degree of stenosis. There is heterogeneous, irregular atherosclerotic plaque noted in the right external carotid artery. Antegrade flow is noted in the right vertebral artery. Left Extracranial There is heterogeneous, smooth atherosclerotic plaque noted in the left common carotid artery. There is heterogeneous, smooth atherosclerotic plaque noted in the left internal carotid artery. There is intimal thickening but no significant atherosclerotic plaque noted in the left external carotid artery. Antegrade flow is noted in the left vertebral artery. VL/Carotid Duplex Ultrasound Interpretation Summary Smooth plaque at the proximal right internal carotid artery with significant to rtuosity noted. Less than 50% stenosis right internal carotid artery Less than 50% stenosis right external carotid artery Smooth plaque at the proximal left internal carotid artery with less than 50% s tenosis Less than 50% stenosis left external carotid artery Patent and antegrade vertebral arteries bilaterally Ordering Physician: Karthikeyan Chavez Referring Physician: Raul Lopez Performed By: Milly Greer RDCS, RVT
== END ==
PROVIDERS: PCP Family Medicine; Referring Provider Internal Medicine Cardiovascular Disease; Visit Provider Internal Medicine Cardiovascular Disease
DX: R42 Dizziness and giddiness (principal); R94.31 Abnormal electrocardiogram [ECG] [EKG]; I10 Essential (primary) hypertension; S06.5X9A Traumatic subdural hemorrhage with loss of consciousness of unspecified duration, initial encounter
CPT/HCPCS: 93306; 93880; Q9957; A4216; C8929

== ENCOUNTER → 2021-05-03 13:15 | Outpatient (CLI) | payer MEDICARE, OTHER, SELFPAY ==
--- NOTE | 2021-05-03 13:24 | CT_ITS ---
STUDY: CT BRAIN WITHOUT CONTRAST REASON FOR EXAM: Female, 80 years old. Follow-up of a subdural hematoma. RADIATION DOSAGE (If Supplied By Facility): CTDIvol = ( 47.06 ) mGy, DLP = ( 872.68 ) mGycm TECHNIQUE: Transaxial CT imaging of the brain was performed without administration of intravenous contrast material. Individualized dose optimization techniques were used for this CT. COMPARISON: Comparison is made with prior study dated 04/05/2021. FINDINGS: Normal soft tissue structures. Normal calvarium. There is mild cerebral atrophy with widening of the extra-axial spaces and ventricular dilatation. There are areas of decreased attenuation within the white matter tracts of the supratentorial brain, consistent with microvascular disease changes. Normal basal ganglia and thalami. Normal brainstem. Normal cerebellum. There is no intracranial hemorrhage. There are no findings of an acute ischemic infarction. Atherosclerotic calcification of the vertebral arteries and cavernous portions of the internal carotid arteries bilaterally. Normal visualized paranasal sinuses. CT/Brain/Head without Contrast IMPRESSION: Chronic involutional changes of the brain. Electronically Signed: Tigre Asif MD at 13:50 EST , Service support ,
== END ==
PROVIDERS: PCP Family Medicine
DX: S06.5X9A Traumatic subdural hemorrhage with loss of consciousness of unspecified duration, initial encounter (principal)
CPT/HCPCS: 70450

== ENCOUNTER → 2021-05-17 11:38 | Outpatient (CLI) | payer MEDICARE, OTHER, SELFPAY | PROVIDERS: PCP Family Medicine | DX: N39.0 Urinary tract infection, site not specified (principal) | CPT/HCPCS: 87077; 87086; 87088; 87186 ==

== ENCOUNTER 2021-06-10 10:50 | Outpatient (CLI) | payer MEDICARE, OTHER, SELFPAY ==
--- NOTE | 2021-06-10 10:57 | RAD_ITS ---
STUDY: XR Knee Complete 4 Views or More 06/11/2021 3:21 PM REASON FOR EXAM: Female, 80 years old. PAIN TECHNIQUE: XR Knee Complete 4 Views or More COMPARISON: None. FINDINGS: Normal visualized distal femur. Normal visualized proximal tibia and fibula. Normal proximal tibiofibular articulation. There are atherosclerotic vascular calcifications. There is mild degenerative arthrosis of the medial femorotibial compartment. There is mild degenerative arthrosis of the lateral femorotibial compartment. There is mild degenerative arthrosis of the patellofemoral articulation. There is a soft tissue prominence in the suprapatellar region suggesting a small volume joint effusion. 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 RAD/Knee 4 or More Views IMPRESSION: Degenerative arthrosis. There is a soft tissue prominence in the suprapatellar region suggesting a small volume joint effusion. Electronically Signed: Selvin Luz MD at 15:22 EST ,
== END 2021-06-10 23:59 | disposition home or self-care (01) ==
LOC: MTRAD 10:54
PROVIDERS: PCP Family Medicine; Referring Provider Nurse Practitioner Family; Visit Provider Nurse Practitioner Family
DX: M25.562 Pain in left knee (principal)
CPT/HCPCS: 73564

== ENCOUNTER → 2021-10-13 | Outpatient (CLI) | payer MEDICARE, OTHER, SELFPAY ==
[2021-10-13 14:29] LABS: Bacteria 0 SEEN /hpf (None Seen); Mucous, Urine 0 SEEN /hpf (<or=2+); Red Blood Cells-Urine 0 SEEN /hpf (0-5); Squamous Epithelial Cells - UA 0 SEEN /hpf (5-10)
[2021-10-13 14:36] LABS: Color, Urine Yellow (Yellow); Glucose, Dipstick Normal (Normal); Ketone-Dipstick Negative (Negative); Leukocyte Esterase-Dipstick 500 /ul (Negative); Nitrite-Dipstick Negative (Negative); Occult Blood-Urine Negative /ul (Negative); Protein-Dipstick Negative (Negative); Urine Bilirubin Dipstick Negative (Negative); Urine Clarity Clear (Clear); Urine Urobilinogen Normal (Normal)
[2021-10-13 14:47] LABS: White Blood Cells 5-10 SEEN /hpf (0-5)
== END | disposition home or self-care (01) ==
PROVIDERS: PCP Family Medicine; Visit Provider Physician Assistant
DX: R30.9 Painful micturition, unspecified (principal)
CPT/HCPCS: 81001; 87086; 87088; 87186

== ENCOUNTER → 2021-12-30 | Outpatient (CLI) | payer MEDICARE, OTHER, SELFPAY ==
--- NOTE | 2021-12-30 10:35 | RAD_ITS ---
STUDY: X-RAY - CERVICAL SPINE REASON FOR EXAM: Female, 81 years old. NECK PAIN TECHNIQUE: XR Spine Cervical 4 or 5 Views COMPARISON: 07/04/2013 FINDINGS: Normal anterior atlantoaxial articulation. The odontoid process is obscured by the overlying hard palate on the open mouth view. Therefore, it is not fully evaluated by plain film. There is straightening of the normal cervical lordosis. There is multi-level endplate spondylosis. There is multi-level degenerative disc disease with multilevel disc space narrowing. There is multi-level osseous foraminal stenosis. The soft tissue structures are unremarkable. RAD/Cerv Spine 4 or 5 Views IMPRESSION: There are degenerative changes as noted above. The odontoid process is obscured by the overlying hard palate on the open mouth view. Therefore, it is not fully evaluated by plain film. Electronically Signed: Selvin Luz MD at 14:07 EDT ,
== END | disposition home or self-care (01) ==
LOC: MTRAD 10:34
PROVIDERS: PCP Family Medicine; Referring Provider Family Medicine; Visit Provider Family Medicine
DX: M54.2 Cervicalgia (principal)
CPT/HCPCS: 72050

== ENCOUNTER → 2022-02-18 | Outpatient (CLI) | payer MEDICARE, OTHER, SELFPAY ==
[2022-02-18 10:20] LABS: Absolute Lymphocyte Count 1.67 X10^3/uL (0.83-4.51); Absolute Neutrophil Count 4.6 X10^3/uL (2.0-7.7); Basophil# 0.04 X10^3/uL; Basophil% 0.6 % (0-1); Eosinophil# 0.22 X10^3/uL; Eosinophils% 3.2 % (0-5); Hematocrit 42.5 % (37-47); Hemoglobin 14.3 g/dL (12.0-15.0); Lymphocyte # 1.67 X10^3/ul (0.83-4.51); Lymphocyte % 24.3 % (19-41); Mean Corp Hgb Conc 33.6 g/dL (32-36); Mean Corpuscular Hgb 31.2 pg (27.0-32.0); Mean Corpuscular Volume 92.6 fL (81-99); Mean Platelet Vol. 9.4 fl (6.2-12.0); Monocyte# 0.31 X10^3/uL; Monocyte% 4.5 % (0-10); NRBC Flagged by Analyzer 0 % (0-5); Neutrophil # 4.61 X10^3/uL (2.7-7.7); Neutrophil % 67.1 % (47-70); Platelet Count 226 K/mm3 (150-450); RBC Distribution Width CV 12.7 % (11.6-14.6); Red Blood Count 4.59 M/mm3 (4.2-5.4); White Blood Count 6.9 K/mm3 (4.4-11.0)
[2022-02-18 10:37] LABS: Hemoglobin A1c 6.2 % (3.8-5.6)
[2022-02-18 10:47] LABS: ALB/GLOB Ratio 1.2 RATIO (0.9-2.4); AST(SGOT) 17 U/L (15-37); Alanine Aminotransfer ALT/SGPT 22 U/L (13-56); Albumin, Serum 3.8 g/dL (3.2-5.0); Alkaline Phosphatase 64 U/L (45-117); Anion Gap 7 (5-15); BUN 17 mg/dL (7-18); BUN/Creat Ratio 20.4 RATIO (10-20); Calcium,Total 9.1 mg/dL (8.5-10.1); Chloride 106 mmol/L (98-107); Cholesterol 220 mg/dL (200); Creatinine, Serum 0.84 mg/dL (0.55-1.02); EST Glomerular Filtration Rate 70 mL/min (>60); Est Glom Filt Rate - Afr Amer 84 mL/min (>60); Globulin 3.3 g/dL (2.2-4.2); Glucose 117 mg/dL (74-106); High Density Lipoprotein 62 mg/dL; Potassium 4.2 mmol/L (3.5-5.1); Protein, Total 7.1 g/dL (6.4-8.2); Sodium Level 140 mmol/L (136-145); Triglycerides 128 mg/dL; Very Low Density Lipoprotein 26 mg/dL (5-40)
[2022-02-18 11:11] LABS: Microalbumin,Random Urine < 5.0 mg/L (NO RANGE EST.)
== END | disposition home or self-care (01) ==
LOC: MTLAB 08:43
PROVIDERS: PCP Family Medicine; Referring Provider Family Medicine; Visit Provider Family Medicine
DX: I10 Essential (primary) hypertension (principal); R73.01 Impaired fasting glucose; E78.00 Pure hypercholesterolemia, unspecified
CPT/HCPCS: 36415; 80053; 80061; 82043; 82570; 83036; 85025

== ENCOUNTER → 2023-05-19 | Outpatient (CLI) | payer MEDICARE, OTHER, SELFPAY ==
--- NOTE | 2023-05-19 12:49 | RAD_ITS ---
STUDY: X-RAY - LEFT ANKLE REASON FOR EXAM: Female, 82 years old. Left ankle injury. Pain. TECHNIQUE: 3 view(s) of the ankle. COMPARISON: None. FINDINGS: Osteopenia. Moderate arthrosis of the tibiotalar joint. Mild arthrosis of the subtalar joint. Inferior calcaneal spur. Mild arthrosis of the midfoot. Mild arthrosis of the TMT joints. Ossification of the distal Achilles tendon. RAD/Ankle min 3 Views IMPRESSION: Osteopenia with osteoarthritic changes, inferior calcaneal spur and ossification of the distal Achilles tendon. Electronically Signed: Chun Woods MD at 15:22 EST ,
--- NOTE | 2023-05-19 12:50 | RAD_ITS ---
STUDY: X-RAY - LEFT FOOT CLINICAL: Female, 82 years old. Left foot injury. Pain. TECHNIQUE: 3 view(s) of the foot. COMPARISON: None. FINDINGS: Osteopenia. Moderate arthrosis of the tibiotalar joint. Inferior calcaneal spur. Mild arthrosis of the midfoot. Mild arthrosis of the TMT joints. Moderate to marked arthrosis of the first MTP joint. Mild arthrosis of the second through fifth MTP joints, IP joint of the first digit and IP joints of the second through fifth digits. Ossification of the distal Achilles tendon.. RAD/Foot min 3 Views IMPRESSION: Osteopenia with calcaneal spur, osteoarthrosis and ossification of the distal Achilles tendon. Electronically Signed: Chun Woods MD at 15:21 EST ,
== END | disposition home or self-care (01) ==
LOC: MTRAD 12:42
PROVIDERS: PCP Family Medicine; Referring Provider Family Medicine; Visit Provider Family Medicine
DX: M25.572 Pain in left ankle and joints of left foot (principal)
CPT/HCPCS: 73610; 73630

== ENCOUNTER 2023-08-11 15:06 | Outpatient (CLI) | payer MEDICARE, OTHER, SELFPAY ==
--- NOTE | 2023-08-11 15:07 | RAD_ITS ---
STUDY: X-RAY - LEFT KNEE REASON FOR EXAM: Female, 82 years old. Left knee pain. TECHNIQUE: 4 views of the left knee. COMPARISON: None. FINDINGS: Normal visualized distal femur. Normal visualized proximal tibia and fibula. Normal proximal tibiofibular articulation. There is no demonstrated fracture. There is moderate degenerative arthrosis of the medial femorotibial compartment with moderate joint space narrowing. There is moderate degenerative arthrosis of the lateral femorotibial compartment with moderate joint space narrowing. There is mild degenerative arthrosis of the patellofemoral articulation. There is a small joint effusion. There are atherosclerotic calcifications. RAD/Knee 4 or More Views IMPRESSION: Tricompartment degenerative arthrosis, most pronounced in the medial and lateral femorotibial compartments. Small joint effusion. No demonstrated fracture. Electronically Signed: Jermaine Prescott MD at 15:57 EDT ,
[2023-08-11 17:35] LABS: Absolute Lymphocyte Count 2.74 X10^3/uL (0.83-4.51); Absolute Neutrophil Count 4.3 X10^3/uL (2.0-7.7); Basophil# 0.03 X10^3/uL; Basophil% 0.4 % (0-1); Eosinophil# 0.22 X10^3/uL; Eosinophils% 2.8 % (0-5); Hematocrit 42.3 % (37-47); Hemoglobin 14.2 g/dL (12.0-15.0); Lymphocyte # 2.74 X10^3/ul (0.83-4.51); Lymphocyte % 35.3 % (19-41); Mean Corp Hgb Conc 33.6 g/dL (32-36); Mean Corpuscular Hgb 31.5 pg (27.0-32.0); Mean Corpuscular Volume 93.8 fL (81-99); Mean Platelet Vol. 9.5 fl (6.2-12.0); Monocyte# 0.46 X10^3/uL; Monocyte% 5.9 % (0-10); NRBC Flagged by Analyzer 0 % (0-5); Neutrophil # 4.31 X10^3/uL (2.7-7.7); Neutrophil % 55.5 % (47-70); Platelet Count 233 K/mm3 (150-450); RBC Distribution Width CV 12.9 % (11.6-14.6); RBC Distribution Width SD 44.5 fl (35.1-43.9); Red Blood Count 4.51 M/mm3 (4.2-5.4); White Blood Count 7.8 K/mm3 (4.4-11.0)
[2023-08-11 18:09] LABS: Vitamin D,25 Hydroxy 41.3 ng/mL
[2023-08-11 19:19] LABS: ALB/GLOB Ratio 1.3 RATIO (0.9-2.4); AST(SGOT) 15 U/L (15-37); Alanine Aminotransfer ALT/SGPT 21 U/L (13-56); Albumin, Serum 3.7 g/dL (3.2-5.0); Alkaline Phosphatase 61 U/L (45-117); Anion Gap 6 (5-15); BUN 25 mg/dL (7-18); BUN/Creat Ratio 16.4 RATIO (10-20); Calcium,Total 8.7 mg/dL (8.5-10.1); Chloride 108 mmol/L (98-107); Cholesterol 205 mg/dL (200); Creatinine, Serum 1.52 mg/dL (0.55-1.02); EST Glomerular Filtration Rate 35 mL/min (>60); Est Glom Filt Rate - Afr Amer 42 mL/min (>60); Globulin 2.9 g/dL (2.2-4.2); Glucose 129 mg/dL (74-106); High Density Lipoprotein 49 mg/dL; Potassium 4.5 mmol/L (3.5-5.1); Protein, Total 6.6 g/dL (6.4-8.2); Sodium Level 140 mmol/L (136-145); Thyroid Stim Hormone (TSH) 1.34 uIU/mL (0.358-3.74); Triglycerides 204 mg/dL; Very Low Density Lipoprotein 41 mg/dL (5-40)
[2023-08-11 20:02] LABS: Hemoglobin A1c 5.9 % (3.8-5.6)
== END 2023-08-11 23:59 | disposition home or self-care (01) ==
LOC: MTLAB 15:07
PROVIDERS: PCP Family Medicine; Referring Provider Family Medicine; Visit Provider Family Medicine
DX: I10 Essential (primary) hypertension (principal); E78.00 Pure hypercholesterolemia, unspecified; R73.01 Impaired fasting glucose; M19.90 Unspecified osteoarthritis, unspecified site; M25.562 Pain in left knee
CPT/HCPCS: 36415; 73564; 80053; 80061; 82306; 83036; 84443; 85025

== ENCOUNTER → 2024-01-04 | Outpatient (CLI) | payer MEDICARE, OTHER, SELFPAY ==
--- NOTE | 2024-01-04 10:58 | RAD_ITS ---
STUDY: X-RAY - LEFT KNEE REASON FOR EXAM: Female, 83 years old. Pain and swelling. TECHNIQUE: 4 views of the left knee. COMPARISON: None. FINDINGS: Normal visualized distal femur. Normal visualized proximal tibia and fibula. Normal proximal tibiofibular articulation. There is no demonstrated fracture. There is moderate degenerative arthrosis of the medial femorotibial compartment with moderate joint space narrowing. There is severe degenerative arthrosis of the lateral femorotibial compartment with severe joint space narrowing. There is mild degenerative arthrosis of the patellofemoral articulation. There is a moderate volume joint effusion. There are mild atherosclerotic calcifications. RAD/Knee 4 or More Views IMPRESSION: Tricompartment degenerative arthrosis, most severe in the lateral femorotibial compartment. Moderate joint effusion. No demonstrated fracture. Electronically Signed: Jermaine Prescott MD at 13:34 EDT ,
== END | disposition home or self-care (01) ==
PROVIDERS: PCP Family Medicine; Referring Provider Family Medicine; Visit Provider Family Medicine
DX: M25.562 Pain in left knee (principal)
CPT/HCPCS: 73564

== ENCOUNTER → 2024-08-25 | Outpatient (CLI) | payer MEDICARE, OTHER, SELFPAY ==
[2024-08-25 11:16] LABS: Absolute Lymphocyte Count 2.03 X10^3/uL (0.83-4.51); Absolute Neutrophil Count 4.1 X10^3/uL (2.0-7.7); Basophil# 0.04 X10^3/uL; Basophil% 0.6 % (0-1); Hemoglobin 14.3 g/dL (12.0-15.0); Lymphocyte # 2.03 X10^3/ul (0.83-4.51); Lymphocyte % 30.1 % (19-41); Mean Corp Hgb Conc 33.3 g/dL (32-36); Mean Corpuscular Hgb 31.5 pg (27.0-32.0); Mean Corpuscular Volume 94.7 fL (81-99); Mean Platelet Vol. 9.6 fl (6.2-12.0); Monocyte# 0.35 X10^3/uL; Monocyte% 5.2 % (0-10); NRBC Flagged by Analyzer 0 % (0-5); Neutrophil # 4.11 X10^3/uL (2.7-7.7); Platelet Count 201 K/mm3 (150-450); RBC Distribution Width CV 12.5 % (11.6-14.6); RBC Distribution Width SD 43.3 fl (35.1-43.9); Red Blood Count 4.54 M/mm3 (4.2-5.4); White Blood Count 6.7 K/mm3 (4.4-11.0)
[2024-08-25 12:17] LABS: ALB/GLOB Ratio 1.7 RATIO (0.9-2.4); AST(SGOT) 21 U/L (<=31); Alanine Aminotransfer ALT/SGPT 14 U/L (<=34); Albumin, Serum 4.2 g/dL (3.4-4.8); Alkaline Phosphatase 60 U/L (35-104); BUN 16 mg/dL (4-19); BUN/Creat Ratio 18.2 RATIO (10-20); Calcium,Total 9.1 mg/dL (7.6-11.0); Creatinine, Serum 0.86 mg/dL (0.70-1.20); EST Glomerular Filtration Rate 67 (>60); Globulin 2.5 g/dL (2.2-4.2); Glucose 110 mg/dL (70-99); Protein, Total 6.7 g/dL (5.9-8.4); Total Bilirubin 0.47 mg/dL (0.00-1.30)
[2024-08-25 12:18] LABS: Anion Gap 12 (5-15); Carbon Dioxide 25.6 mmol/L (21.0-32.0); Chloride 103 mmol/L (98-108); Cholesterol 212 mg/dL (<=200); High Density Lipoprotein 55 mg/dL; Low Density Lipoprotein Calc. 134 mg/dL; Potassium 4.9 mmol/L (3.3-5.1); Sodium Level 140 mmol/L (133-145); Triglycerides 115 mg/dL; Very Low Density Lipoprotein 23 mg/dL (5-40); Vitamin D,25 Hydroxy 39.8 ng/mL (30-100); cholesterol:hdl ratio screen 3.83
== END | disposition home or self-care (01) ==
LOC: MTLAB 07:39
PROVIDERS: PCP Family Medicine; Referring Provider Family Medicine; Visit Provider Family Medicine
DX: E78.00 Pure hypercholesterolemia, unspecified (principal)
CPT/HCPCS: 36415; 80053; 80061; 82306; 84443; 85025

== ENCOUNTER → 2024-08-30 | Outpatient (CLI) | payer MEDICARE, OTHER, SELFPAY ==
[2024-08-30 12:46] LABS: Hemoglobin A1c 6.3 % (<=5.6)
== END | disposition home or self-care (01) ==
LOC: MTLAB 10:45
PROVIDERS: PCP Family Medicine; Referring Provider Family Medicine; Visit Provider Family Medicine
DX: R73.01 Impaired fasting glucose (principal)
CPT/HCPCS: 36415; 83036

== ENCOUNTER → 2024-09-27 | Outpatient (CLI) | payer MEDICARE, OTHER, SELFPAY ==
--- OUTSIDE RECORDS SUMMARY | 2024-09-27 07:11 | XMS RPT_ITS | CCD ---
Author Organization [facility] Care Team Providers Care Office Machine Inspector Name Role Phone Octaviano Almodovar DO Primary Care Provider Talya Brown MD Primary Care Provider POLY RED Admitting Unavailable POLY RED Attending Unavailable CONSULT, SURGERY - NEURO Consulting Unavail JOSÉ MANUEL Gonzalez JR. Referring UnavailLOI Ochoa Attending Unavailable ROGE COON Referring Unavailable Dr. Raul Lopez Primary Care Provider Dr. Raul Lopez Referring Provider CELESTE Dias Attending Provider Talya Brown MD Primary Care Provider Talya Brown MD Primary Care Provider Talya Brown MD Primary Care Provider Talya Brown MD Primary Care Provider Talya Brown MD Primary Care Provider ANA LAURA BANKS Attending Unavailable TALYA BROWN Referring UnavailTALYA Bhat Primary Care UnavailANA LAURA Lock Attending Unavailable TALYA BROWN Primary Care UnavailANA LAURA Lock Attending Unavailable TALYA BROWN Referring Unavailabl TALYA Cortes Primary Care UnavailTalya Bhat MD Primary Care Provider ANA LAURA BANKS Attending Unavailable TALYA BROWN Primary Care UnavailANA LAURA Lock Referring Unavailable TALYA BROWN Primary Care UnavailANA LAURA Lock Referring Unavailable TALYA BROWN Primary Care Unavailabl e Armin STOUT, Lety Primary Care Provider Armin STOUT, Lety Referring Provider Dr. Logan Wright DO Attending Provider Kathy STOUT, Dr. Napier Attending Provider Armin STOUT, Lety Attending Provider [phone] Shaila Albrecht Attending Provider Armin, Chalon Primary Care Unavailable Shaila Cruz Attending Unavailable Armin, Chalon Referring Unavailable Armin, Chalon Primary Care Unavailable Kathy, Karthikeyan Attending Unavailable Armin, Chalon Referring Unavailable Borruso, Logan Attending Unavailable Armin, Chalon Primary Care Unavailable Kathy, Karthikeyan Attending Unavailable Armin, Chalon Primary Care Unavailable Borruchely, Logan Attending Unavailable Armin, Chalon Primary Care Unavailable Armin, Chalon Referring Unavailable Armin, Chalon Primary Care Unavailable Kathy, Karthikeyan Attending Unavailable Jolliff, Keli S Attending Unavailable Jolliff, Keli S Referring Unavailable Armin, Chalon Primary Care Unavailable Armin, Chalon Primary Care Unavailable Armin, Chalon Attending Unavailable Armin, Chalon Referring Unavailable Armin, Chalon Primary Care Unavailable Nancy, Shaila Attending Unavailable Anncy, Shaila Referring Unavailable Armin, Chalon Primary Care Unavailable Armin, Chalon Attending Unavailable Armin, Chalon Referring Unavailable Allergies Allergy Classification Reported Allergen(s) Allergy Type Date of Onset Reaction(s) Facility (20 sources) Codeine; Translations: [CODEINE] Drug Allergy 04-30-2005 GI Upset [facility] (1 source) Codeine Drug Allergy 04-05-2021 [facility] Medications Current Medications Medication Drug Class(es) Dates Sig (Normalized) Sig (Original) acetaminophen 325 mg oral capsule (4 sources) Start: 01-18-2024 take 1 capsule by mouth once as needed Acetaminophen (Tylenol) 325 mg capsule Active 325 mg PO ONCE as needed January 18, 2024 12:00am ascorbic acid 1000 mg oral tablet (20 sources) Vitamin C Start: 01-18-2024 take 2 g by mouth every six hours Ascorbic Acid (Vitamin C) 1,000 mg tablet Active 2 g PO EVERY 6 HOURS January 18, 2024 12:00am take 1 capsule by mouth once gucci ly Ascorbic Acid 500 mg cpER Take 1 capsule by mouth once daily. Active Comment on above: Take 1 capsule by [facility] once daily. Biotin (20 sources) Start: 01-18-2024 Biotin 10,000 mcg tablet,chewable Active ug PO January 18, 2024 12:00am Start: 05-16-2019 End: 03-27-2020 take 1 tablet by mouth once daily Biotin 300 MCG tablet Discontinued 300 ug PO DAILY May 16, 2019 1:00am March 27, 2020 2:27pm Start: 05-16-2019 End: 03-27-2020 take 300 ug by mouth once daily Biotin Discontinued 30 0 MCG PO DAILY May 16, 2019 1:00am March 27, 2020 2:27pm Start: 05-16-2019 End: 03-27-2020 take 300 ug by mouth once daily Biotin Discontinued 30 0 MCG PO DAILY May 16, 2019 12:00am March 27, 2020 1:27pm Start: 05-16-2019 End: 03-27-2020 take 300 ug by mouth once daily Biotin Discontinued 30 0 MCG PO DAILY May 16, 2019 1:00am March 27, 2020 2:27pm take 1 capsule by [facility] once daily Biotin 10,000 mcg cap Take 1 capsule by mouth once daily. Active Comment on above: Take 1 capsule by [facility] once daily. celecoxib 200 mg oral capsule (20 sources) Nonsteroidal Anti-inflammatory Drug Start: 05-16-2019 take 1 capsule by mouth once daily Celecoxib 200 MG capsule Active 200 mg PO DAILY May 16, 2019 1:00am Start: 10-05-2017 End: 03-27-2019 take 1 capsule by mouth once daily Celecoxib 200 MG capsule Discontinued 200 mg PO DAILY October 05, 2017 12:00am March 27, 2019 10:58am Comment on above: Take 200 mg by mouth once daily. cephalexin 500 mg oral capsule (7 sources) Cephalosporin Antibacterial Start: 2 End: 2 take 1 capsule by mouth three times daily cephALEXin (KEFLEX) 500 mg capsule Take 1 capsule by mouth three times daily for 7 days. 21 capsule 0 01/02/2022 01/09/2022 Active Start: 12-14-2021 End: 12-19-2021 take 1 capsule by mouth three times daily cephALEXin (KEFLEX) 500 mg capsule Take 1 capsule by mouth three times daily for 5 days. 15 capsule 0 12/14/2021 12/19/2021 Active Start: 08-22-2021 End: 08-29-2021 take 1 capsule by mouth three times daily cephALEXin (KEFLEX) 500 mg capsule Take 1 capsule by mouth three times daily for 7 days. 21 capsule 0 08/22/2021 08/29/2021 Active Start: 08-09-2021 End: 08-09-2021 cephALEXin 500 mg cap(s) (KE FLEX) Comment on above: Take 1 capsule by mo uth three times daily for 7 days. Take 1 capsule by mo uth three times daily for 5 days. cholecalciferol 0.025 mg oral capsule (20 sources) Vitamin D Start: 01-18-20 take 1 capsule by mouth once daily Cholecalciferol (Vitamin D3) 25 mcg (1,000 unit) capsule Active 25 ug PO daily January 18, 2024 12:00am take 1 tablet by mouth once patsy y cholecalciferol (VITAMIN D3) 5,000 unit tab Take 5,000 Units by mouth once daily. Active Comment on above: Take 5,000 Units by mouth once daily. ciprofloxacin 500 mg oral tablet (1 source) Quinolone Antimicrobial Start: 01-31-20 End: 02-07-20 22 take 1 tablet by mouth twice daily ciprofloxacin HCl (CIPRO) 500 mg tablet Take 1 tablet by mouth twice daily for 7 days. 14 tablet 0 01/30/2022 02/06/2022 Active Comment on above: Take 1 tablet by jovanny th twice daily for 7 days. estrogens, conjugated (correction) 0.625 mg/ml vaginal cream (20 sources) Estrogen Start: 04-01-20 End: 04-28-19 23 conjugated estrogens (PREMARIN) vaginal cream Use 1 g vaginally three times a week. 30 g 3 04/28/2022 Active Comment on above: Use 1 g vaginally th ree times a week. fexofenadine hydrochloride 180 mg oral tablet (20 sources) Histamine-1 Receptor Antagonist Start: 08-02-19 take 1 tablet by mouth every twenty-four hours Fexofenadine 180 mg tablet Active 180 mg PO Q24H August 01, 2024 12:00am Start: 01-11-2021 fexofenadine 6 0 mg ORAL tablet Take by mouth once daily. 0 01/11/2021 Active Start: 05-01-2014 End: 01-18-2024 take 1 tablet by mouth once daily Fexofenadine 180 mg tablet Discontinued 180 mg PO DAILY March 27, 2019 10:58am January 18, 2024 10:18am Comment on above: Take by mouth once d aily. folic acid 1 mg / vitamin b12 0.5 mg oral tablet (4 sources) Vitamin B12 Start: 08-01-2024 Vitamin V15-Bivcd Acid 0.5-1 mg tablet Active 1 {tbl} PO daily August 01, 2024 12:00am Lactobac no.41/Bifidobact no.7 (PROBIOTIC-10 ORAL) (20 sources) take 1 tablet by mouth once daily Lactobac no.41/Bifidobact no.7 (PROBIOTIC-10 ORAL) Take 1 tablet by mouth once daily. Active take 1 tablet by mouth once patsy y Lactobac no.41/Bifidobact no.7 (PROBIOTIC-10 ORAL) Take 1 tablet by mouth once daily. 0 Active Comment on above: Take 1 tablet by jovanny once daily. methocarbamol 500 mg oral tablet (1 source) Muscle Relaxant Start: 09-14-19 25 take 1 tablet by mouth three times daily as needed for pain Methocarbamol 500 mg tablet Active 500 mg PO THREE TIMES A DAY as needed for pain/spasms September 13, 2024 12:00am 24 hr metoprolol succinate 25 mg extended release oral tablet (20 sources) beta-Adrenergic Linda Start: 05-01-19 15 take 1 tablet by mouth once daily Metoprolol Succinate 25 MG tablet Active 25 mg PO DAILY May 01, 2014 1:00am Comment on above: Take 25 mg by mouth once daily. montelukast 10 mg oral tablet (20 sources) Leukotriene Receptor Antagonist Start: 03-27-20 20 take 1 tablet by mouth once daily Montelukast (Singulair) 10 mg tablet Active 10 mg PO DAILY March 27, 2020 1:00am Comment on above: Take 10 mg by mouth once daily. Eaywpvjs-Obo-Gn-Lycope n-Lutein (3 sources) Start: 05-01-19 15 Hridhbnx-Abs-Yr-Lycop en-Lutein Active 1 EACH PO DAILY May 01, 2014 12:00am Start: 05-01-2014 Inoskyph-Fgi-C q-Dkmwraz-Qwnkhf Active 1 EACH PO DAILY May 01, 2014 1:00am Umbotcfr-Cfu-Qx-Lycopen-Lute in 1 EACH tablet (4 sources) Start: 05-01-2014 Szjwaifo-Gji-Fg-Lycopen-Lute in 1 EACH tablet Active 1 NMA PO DAILY May 01, 2014 1:00am wx-un-LW-vit F-xxvgy-ktn-coQ 10 (DAILY MULTIVITAMIN) 200-100-500 mcg cap (20 sources) Start: 12-08-2017 il-uo-OS-vit N-rxczi-yhl-coQ 10 (DAILY MULTIVITAMIN) 200-100-500 mcg cap Take by mouth. 12/08/2017 Active Start: 12-08-2017 fv-cv-ON-vit K -piuni-vvq-ozQ50 (DAILY MULTIVITAMIN) 200-100-500 mcg cap Take by mouth. 0 12/08/2017 Active Comment on above: Take by mouth. omeprazole 40 mg delayed release oral capsule (20 sources) Proton Pump Inhibitor Start: 03-27-2020 take 1 capsule by mouth once daily Omeprazole 40 mg capsule,delayed release(DR/EC) Active 40 mg PO DAILY March 27, 2020 1:00am Comment on above: Take by mouth once d aily. Probiotic (7 sources) Start: 04-05-2021 Probiotic Active 1 {tbl} SL/PO DAILY April 05, 2021 1:00am Start: 04-05-2021 take 1 tablet by jovanny th once daily Probiotic Active 1 TABLET SL/PO DAILY April 05, 2021 12:00am Start: 04-05-2021 take 1 tablet by jovanny th once daily Probiotic Active 1 TABLET SL/PO DAILY April 05, 2021 1:00am solifenacin succinate 10 mg oral tablet (20 sources) Cholinergic Muscarinic Antagonist Start: 03-19-2021 End: 07-05-2024 take 1 tablet by mouth once daily Solifenacin 10 mg tablet Active 10 mg PO DAILY April 05, 2021 1:00am Comment on above: Take 1 tablet by jovanny th once daily. traMADol hydrochloride 50 mg oral tablet (4 sources) Opioid Agonist Start: 01-18-2024 take 1 tablet by mouth twice daily as needed Tramadol 50 mg tablet Active 50 mg PO TWICE A DAY as needed January 18, 2024 12:00am vibegron (GEMTESA) 75 mg tablet (4 sources) Start: 07-19-2024 take 1 tablet by mouth once daily vibegron (GEMTESA) 75 mg tablet Take 1 tablet by mouth once daily. 30 tablet 11 07/19/2024 Active Start: 07-05-2024 End: 07-19-2024 take 1 tablet by mouth once daily vibegron (GEMTESA) 75 mg tablet Take 1 tablet by mouth once daily. 30 tablet 11 07/05/2024 07/19/2024 Discontinued Start: 07-05-2024 take 1 tablet by jovanny th once daily vibegron (GEMTESA) 75 mg tablet Take 1 tablet by mouth once daily. 30 tablet 11 07/05/2024 Active Completed/Discontinued Medications Medication Drug Class(es) Dates Sig (Normalized) Sig (Original) acetaminophen 325 mg / HYDROcodone bitartrate 5 mg oral tablet (7 sources) Opioid Agonist Start: 10-05-2017 End: 03-27-2019 Hydrocodone-Acetami nophen 1 TABLET tablet Discontinued 1 {tbl} PO EVERY 6 HOURS NEEDED as needed for Pain 10 October 05, 2017 12:00am March 27, 2019 10:58am Start: 10-05-2017 End: 03-27-2019 take 1 tablet by mouth every six hours as needed Hydrocodone-Acetaminophen Discontinued 1 TABLET PO EVERY 6 HOURS NEEDED 10 October 05, 2017 12:00am March 27, 2019 10:58am amoxicillin 500 mg oral tablet (7 sources) Penicillin-class Antibacterial Start: 10-05-2017 End: 03-27-2019 take 1 tablet by mouth three times daily Amoxicillin 500 MG tablet Discontinued 500 mg PO THREE TIMES A DAY October 05, 2017 12:00am March 27, 2019 10:58am aspirin 81 mg chewable tablet (7 sources) Platelet Aggregation Inhibitor, Nonsteroidal Anti-inflammatory Drug Start: 05-01-2014 End: 03-27-2019 take 1 tablet by mouth once daily Aspirin 81 MG tablet,chewable Discontinued 81 mg PO DAILY@0800 May 01, 2014 1:00am March 27, 2019 10:58am onabotulinumtoxina 100 unt injection (1 source) Acetylcholine Release Inhibitor Start: 08-09-2021 End: 08-09-2021 onabotulinum toxin type A 100 Units injection (BOTOX) Start: 08-09-2021 End: 08-09-2021 onabotulinum toxin type A 10 0 Units injection (BOTOX) calcium carbonate 1500 mg / cholecalciferol 800 unt oral tablet (7 sources) Vitamin D Start: 05-01-2014 End: 03-27-2019 Calcium Carbonate-Vitamin D3 1 TAB tablet Discontinued 1 {tbl} DAILY May 01, 2014 1:00am March 27, 2019 10:58am Start: 05-01-2014 End: 03-27-2019 Calcium Carbonate-Vitamin D3 Discontinued 1 TABLET DAILY May 01, 2014 1:00am March 27, 2019 10:58am cefdinir 300 mg oral capsule (7 sources) Cephalosporin Antibacterial Start: 05-18-2019 End: 03-27-2020 take 1 capsule by mouth every twelve hours Cefdinir 300 MG capsule Discontinued 300 mg PO Q12H May 18, 2019 1:00am March 27, 2020 2:27pm D-MANNOSE ORAL (20 sources) End: 07-05-2024 D-MANNOSE ORAL Take by mouth. 07/05/2024 Discontinued (Course of therapy completed) D-MANNOSE ORAL T lenora by mouth. Active D-MANNOSE ORAL T lenora by mouth. 0 Active Comment on above: Take by mouth. estradiol 0.1 mg/ml vaginal cream (7 sources) Estrogen Start: 04-06-2020 End: 01-18-2024 Estradiol 42.5 GM cream Discontinued 1 NMA VAGINAL FR April 06, 2020 1:00am January 18, 2024 10:18am Start: 04-06-2020 Estradiol Acti ve 1 DOSE VAGINAL FR April 06, 2020 1:00am fosfomycin 3000 mg powder for oral solution (15 sources) Start: 10-12-2021 End: 01-18-2024 take 3 g by mouth once Fosfomycin Tromethamine 3 gram packet Discontinued 3 g PO ONCE 1 October 12, 2021 12:00am January 18, 2024 10:18am Start: 09-02-2021 fosfomycin (MO NUROL) 3 g pack Take 1 Packet by mouth every 72 hours. 3 Packet 0 09/02/2021 Active Comment on above: Take 1 Packet by jovanny th every 72 hours. lidocaine hydrochloride 0.02 mg/mg topical gel (2 sources) Antiarrhythmic, Amide Local Anesthetic Start: 08-09-2021 End: 08-09-2021 lidocaine urojet 2 % 11 mL topical gel (XYLOCAINE, GLYDO) Start: 08-09-2021 End: 08-09-2021 lidocaine 20 mg/mL (2 %) 2,0 00 mg injection (XYLOCAINE) methenamine hippurate 1000 mg oral tablet (13 sources) Start: 01-09-2022 End: 07-05-2024 take 1 tablet by mouth twice daily Methenamine Hippurate (HIPREX) 1 gram tablet Take 1 tablet by mouth two times a day. 60 tablet 11 02/26/2023 07/05/2024 Discontinued (Course of therapy completed) Comment on above: Take 1 tablet by [facility] twice daily. Take 1 tablet by [facility] two times a day. 24 hr mirabegron 50 mg extended release oral tablet (20 sources) beta3-Adrenergic Agonist Start: 05-07-2021 End: 04-28-2022 take 1 tablet by mouth once daily mirabegron (MYRBETRIQ) 50 mg Tb24 Take 1 tablet by mouth once daily. 30 tablet 11 04/28/2022 Active Comment on above: Take 1 tablet by [facility] once daily. nitrofurantoin, macrocrystals 25 mg / nitrofurantoin, monohydrate 75 mg oral capsule (20 sources) Nitrofuran Antibacterial Start: 07-26-2021 End: 10-21-2021 take 1 capsule by mouth twice daily nitrofurantoin monohydrate and macrocrystal (MACROBID) 100 mg capsule Take 1 capsule by mouth twice daily. 14 capsule 0 07/26/2021 Active Start: 03-27-2019 End: 04-04-2019 take 1 capsule by mouth every twelve hours at mealtime Nitrofurantoin Monohyd/M-Cryst 100 mg capsule Discontinued 1 NMA PO Q12H 14 7 March 27, 2019 1:00am April 02, 2019 1:00am April 04, 2019 1:09am administer with a meal/food; swallow whole; do not open, crush, dissolve , or chew Comment on above: Take 1 capsule by [facility] twice daily. Take 1 capsule by [facility] twice daily for 7 days. FOR 7 DAYS. ondansetron 4 mg disintegrating oral tablet (14 sources) Serotonin-3 Receptor Antagonist Start: 8 End: 9 take 1 tablet by mouth every eight hours as needed for nausea Ondansetron 4 MG tablet Discontinued 4 mg PO EVERY 8 HOURS NEEDED as needed for Nausea October 05, 2017 12:00am March 27, 2019 10:57am predniSONE 10 mg oral tablet (14 sources) Start: 0 End: 0 Prednisone 10 mg tablet Discontinued 10 mg PO daily 30 May 04, 2019 1:00am May 15, 2019 1:00am May 16, 2019 1:07am Take 4 tabs once daily days 1-3 3 tabs once daily days 4-6 2 tabs once daily days 7-9 and 1 tab once daily days 10-12. Start: 10-05-2017 End: 03-27-2019 take 1 tablet by mouth once daily Prednisone 20 MG tablet Discontinued 20 mg PO DAILY October 05, 2017 12:00am March 27, 2019 10:57am simvastatin 40 mg oral tablet (7 sources) HMG-CoA Reductase Inhibitor Start: 10-05-2017 End: 03-27-2019 take 1 tablet by mouth once daily Simvastatin 40 MG tablet Discontinued 40 mg PO DAILY October 05, 2017 12:00am March 27, 2019 10:57am Problems Active Problems Problem Classification Problem Date Documented Date Episodic/Chronic Cancer of colon (20 sources) Malignant tumor of colon; Translations: [Malignant neoplasm of colon, unspecified] Onset: 09-25-2005 09-25-2005 Chronic Conditions associated with dizziness or vertigo (7 sources) Dizziness; Translations: [Dizziness and giddiness] 04-08-2021 Episodic Diabetes mellitus without complication (1 source) Impaired fasting glucose; Translations: [Impaired fasting glucose] Onset: 09-06-2024 Episodic Disorders of lipid metabolism (1 source) Pure hypercholesterolemia, unspecified; Translations: [Pure hypercholesterolemia, unspecified] Onset: 08-30-2024 Chronic Diverticulosis and diverticulitis (20 sources) Diverticulosis of colon; Translations: [Diverticulosis of large intestine without perforation or abscess without bleeding] Onset: 09-25-2005 09-25-2005 Chronic Essential hypertension (7 sources) Essential hypertension; Translations: [Essential (primary) hypertension] 04-08-2021 Chronic Genitourinary symptoms and ill-defined conditions (20 sources) Female stress incontinence; Translations: [Stress incontinence (female) (male)] Onset: 08-11-2005 08-11-2005 Chronic Osteoarthritis (4 sources) Osteoarthritis of left knee joint; Translations: [Unilateral primary osteoarthritis, left knee] 01-18-2024 Chronic Other acquired deformities (1 source) Lumbar spondylolisthesis; Translations: [Spondylolisthesis, lumbar region] 09-13-2024 Episodic Other acquired deformities (1 source) Spondylolisthesis, lumbar region; Translations: [Spondylolisthesis, lumbar region] Onset: 09-26-2024 Episodic Other connective tissue disease (8 sources) Trochanteric bursitis; Translations: [Trochanteric bursitis, right hip] 08-01-2024 Episodic Other non-traumatic joint disorders (1 source) Pain in right hip; Translations: [Pain in right hip] Onset: 08-01-2024 Episodic Other skin disorders (7 sources) Eruption; Translations: [Rash and other nonspecific skin eruption] 08-23-2020 Episodic Septicemia (except in labor) (7 sources) Sepsis; Translations: [Sepsis, unspecified organism] 04-08-2021 Episodic Spondylosis; intervertebral disc disorders; other back problems (9 sources) Degeneration of lumbar intervertebral disc; Translations: [Degeneration of intervertebral disc of lumbar region] 08-01-2024 Chronic Spondylosis; intervertebral disc disorders; other back problems (2 sources) Spinal stenosis of lumbar region; Translations: [Spinal stenosis, lumbar region without neurogenic claudication] Onset: 09-26-2024 09-13-2024 Episodic Unclassified (7 sources) Greater trochanteric bursitis of right hip; Translations: [M70.61 - Trochanteric bursitis, right hip] Unclassified (1 source) M51.369 - Other intervertebral disc degeneration, lumbar region without mention of lumbar back pain or lower extremity pain Unclassified (1 source) M51.362 - Other intervertebral disc degeneration, lumbar region with discogenic back pain and lower extremity pain,M48.061 - Spinal stenosis, lumbar region without neurogenic claudication,M43.16 - Spondylolisthesis, lumbar region Unclassified (1 source) Other intervertebral disc degeneration, lumbar region with discogenic back pain and lower extremity pain; Translations: [Other intervertebral disc degeneration, lumbar region with discogenic back pain and lower extremity pain] Onset: 09-26-2024 Unclassified (1 source) Other intervertebral disc degeneration, lumbar region without mention of lumbar back pain or lower extremity pain; Translations: [Other intervertebral disc degeneration, lumbar region without mention of lumbar back pain or lower extremity pain] Onset: 09-13-2024 Unclassified (1 source) Low back pain, unspecified; Translations: [Low back pain, unspecified] Onset: 04-22-2024 Urinary tract infections (20 sources) Urinary tract infectious disease; Translations: [Urinary tract infection, site not specified] Onset: 05-07-2021 05-07-2021 Episodic Past or Other Problems Problem Classification Problem Date Documented Date Episodic/Chronic Biliary tract disease (20 sources) Chronic cholecystitis; Translations: [Chronic cholecystitis] Onset: 06-04-2010 06-04-2010 Episodic Cancer of colon (20 sources) History of malignant neoplasm of colon; Translations: [Personal history of other malignant neoplasm of large intestine] Onset: 09-03-2007 09-03-2007 Episodic Gastritis and duodenitis (20 sources) Acute gastritis; Translations: [Acute gastritis without bleeding] Onset: 08-27-2010 08-27-2010 Episodic Genitourinary symptoms and ill-defined conditions (20 sources) Urgent desire to urinate; Translations: [Urgency of urination] Onset: 03-19-2021 03-19-2021 Episodic Intracranial injury (7 sources) Traumatic hematoma of subdural space of neuraxis; Translations: [Traumatic subdural hemorrhage with loss of consciousness of unspecified duration, initial encounter] Onset: 04-05-2021 04-08-2021 Episodic Comment on above: Stable subdural rosemary perla along the falx cerebri. No mass effect or midline shift.Sequela of chronic microvascular ischemic disease. No acute fractures CT 04/05/21 Other non-traumatic joint disorders (1 source) Pain in left knee; Translations: [Pain in left knee] Onset: 02-01-2024 Episodic Results Test Name Value Interpretation Reference Range Facility L/S Spine Bending Flex/[place] 09-13-2024 L/S Spine Bending Flex/Ext [facility] [address] [place] [address] [id number] L/S Spine Bending Flex/Ext MR#: [id number] Acct: [id number] Name: KIARA BRENNER Rep #: [id number] : 1940 F 83 From: Reinaldo Olivas MD PCP: Dr. Lety Funez MD Status: DEP AMB Study: L/S Spine Bending Flex/Ext Date of Exam: 09/13 Exam# [id number] Ordering Dr: Shaila Cruz PROCEDURE: L/S SPINE BENDING FLEX/EXT 09/13/2024 REASON FOR EXAM: CHRONIC PAIN, PAIN IN RIGHT HIP TECHNIQUE: Two views, flexion-extension COMPARISON: None available FINDINGS: No neutral images for baseline. There appears to be 5 xvs-kih-qkbcvwr lumbar vertebral type bodies. No fracture identified. L1-2 severe disc space narrowing with gulo-sd-glaz appearing contact and degenerative endplate changes. L2-3 mild retrolisthesis L2 on L3 with severe disc space narrowing, oqwn-zw-pyho contact and degenerative endplate changes with anterior osteophyte formation. Likely bilateral foraminal narrowing L3-4 mild retrolisthesis L3 on 4 with severe disc space narrowing, diffuse apgh-ax-jquz contact possible osseous fusion and degenerative endplate changes. Likely bilateral foraminal narrowing. L4-5 moderate disc space narrowing with degenerative endplate changes and mild anterolisthesis L4 on 5 L5-S1 spondylosis/discogenic change with likely bilateral foraminal narrowing No definite instability identified. RAD/L/S Spine Bending Flex/Ext IMPRESSION: No neutral image for baseline. No evidence of instability between the flexion and extension views. Multilevel spondylosis/discogenic change and spondylolisthesis as above. Reading Location: [id number] CC: CELESTE Gonzalez; Dr. Lety Funez MD Geography Instructor: Signed Normal [facility] Orthopedic Visit Reporton Orthopedic Visit Report [facility] [address] [place] [address] [place], [place] [address] OFFICE VISIT Date of Service: 09/13/24 MR#: [id number] Acct: [id number] Name: KIARA BRENNER Rep #: [id number] 1 : 1940 Provider: CELESTE Gonzalez Age/Sex: 83/F [place] [facility] [place] Status: Signed Intake Vital Signs 08/01/24 14:55 09/13/24 13:50 Height 5 ft 5 ft Weight: 171 lb BMI 33.4 Intake Visit Reasons: LUMBAR SPINE Chief Complaint: Lumbar Spine Pain Accompanied by: Daughter Is patient in pain?: Yes Pain scale (1-10): 4 Allergies No Known Allergies Allergy (Unverified 09/13/24 13:50) Medications ???Medication ???Instructions ???Recorded ???Confirmed ???Type metoprolol succinate 25 mg 25 mg PO DAILY bp 05/01/14 5 History tablet,extended release 24 hr ybtxvstw-cor-przaa acid 0.4 1 ea PO DAILY vitamin 05/01/14 History mg-lycopene 300 mcg-lutein 250 mcg tablet celecoxib 200 mg capsule 200 mg PO DAILY arthritis 05/16/19 09/13/24 History montelukast 10 mg tablet 10 mg PO DAILY allergies 03/27/20 09/13/24 History (Singulair) omeprazole 40 mg capsule,delayed 40 mg PO DAILY reflux 03/27/20 History release Probiotic 1 tab PO/SL DAILY 04/05/21 5 History solifenacin 10 mg tablet 10 mg PO DAILY 04/05/21 09/13/24 H istory acetaminophen 325 mg capsule 325 mg PO ONCE PRN 01/18/24 History (Tylenol) ascorbic acid (vitamin C) 1,000 mg 2 g PO Q6H 01/18/24 09/13/24 His tory tablet biotin 10,000 mcg chewable tablet mcg PO 01/18/24 09/13/24 History cholecalciferol (vitamin D3) 25 25 mcg PO QDAY 01/18/24 09/13/24 H istory mcg (1,000 unit) capsule tramadol 50 mg tablet 50 mg PO BID PRN 01/18/24 09/13/24 History fexofenadine 180 mg tablet 180 mg PO Q24H 08/01/24 09/13/24 H istory vitamin B12 0.5 mg-folic acid 1 mg 1 tab PO QDAY 08/01/24 09/13/24 History tablet methocarbamol 500 mg tablet 500 mg PO TID PRN pain/spasms #30 09/13/24 09/13/24 Rx tabs Have you fallen in the past year?: No PFSH Medical History Essential hypertension Cancer GERD (gastroesophageal reflux disease) Sleep apnea Asthma Pyonephrosis Rash and nonspecific skin eruption Incontinence Limb weakness Shoulder pain Colon cancer Arthritis Surgical History History of knee joint replacement History of shoulder replacement History of colon resection Family History Mother Arthritis Social History Smoking Status: Never smoker HPI LUMBAR SPINE Details: This documentation accurately reflects the service provided and the decisions made by me, CELESTE Gonzalez 09/13/24 0102. Part of today???s visit was documented by Neeru Tian [employer], acting as scribe. KIARA BRENNER is a 83 year old F here today for lumbar spine pain. Patient states the back has been bothering her off and on for quite a while but in the last 6 weeks the back has worsened. She was seen here in the office by Dr. Wright for her right hip 08/01/2024 and she got an injection and it has gotten better but thinks the back has worsened. She states the pain is mostly across the whole lumbar spine but the last couple of days it has mainly been bothering her on the left lumbar spine. The patient says that her low back pain worsens when she is standing or walking for greater than 15 to 30 minutes. Says that after standing this length of time she has to sit down and her back pain improves. She denies any worsening pain in her legs while standing. Says that she relies on leaning on a cart when at the grocery store. She denies any radiating pain in the legs. She states she gets some numbness/tingling in the lower right leg occasionally in the front of her sesay. She did physical therapy in the past for the back and she has continued to do exercises and stretches on her own. She is currently in PT right now for the hip and they have added on some basic back exercises for now until she was evaluated with plans for further physical therapy. She denies any injections to the lumbar spine. She denies any surgery. She does take Tylenol and Aleve for the pain which only give her some mild relief. She also has used some ice and says that it feels like she is constantly sitting on an ice pack to give her temporary relief. No diabetes, no heart or lung issues, no blood thinners. History of abdominal colectomy surgery, a laparoscopic gall bladder surgery, and a hysterectomy. Ortho Exam General General: Yes no acute distress Neurologic: Yes alert and Yes oriented x3 Spine SPINE TESTING CERVICAL THORACIC LUMBAR (more content not included)... Normal [facility] Hemoglobin A1con 08-30-2024 HbA1c (Bld) [Mass fraction] 6.3 % High <=5.6 [facility] Comment on above: Result Comment: Norm al < 5.7 % Prediabetic 5.7 - 6.4 % Diabetic >or= 6.5 % Please note range changes. Performed By: #### L 501.9985 ####[facility] [address] [place], [address] Hemoglobin A1c percentageOrd ered By: Lety Funez on 08-30-2024 HbA1c (Bld) [Mass fraction] 6.3 % High <5.7 [facility] Comment on above: Normal < 5.7 % Predi abetic 5.7 - 6.4 % Diabetic >or= 6.5 % Please note range changes. Absolute lymphocyte countOrd ered By: Lety Funez on 08-25-2024 Lymphocytes Auto (Unsp spec) [#/Vol] 2.03 10*3/uL 0.83-4.51 [facility] Absolute neutrophil countOrd ered By: Lety Funez on 08-25-2024 Neutrophils (Bld) [#/Vol] 4.1 10*3/uL 2.0-7.7 [facility] Anion gap in Serum or Plasma Ordered By: Lety Funez on 08-25-2024 Anion gap [Moles/Vol] 12 mmol/L 5-15 [facility] Automated lymphocyte count a s percentage of total leukocytesOrdered By: Lety Funez on 08-25-2024 Lymphocytes/100 WBC Auto (Unsp spec) 30.1 % - [facility] BUN/creatinine ratioOrdered By: Lety Funez on 08-25-2024 Urea nitrogen/Creatinine [Mass ratio] 18.2 mg/mg 10-20 [facility] Basophil percentageOrdered B y: Lety Funez on 08-25-2024 Basophils/100 WBC (Bld) 0.6 % 0-1 [facility] Bilirubin, totalOrdered By: Lety Funez on 08-25-2024 Bilirubin [Mass/Vol] 0.47 mg/dL 0.00-1.30 [facility] CBC W/Diff, Automatedon Absolute Lymph 2.03 X10 3/uL Normal 0.83-4.51 [facility] Comment on above: Performed By: #### L 506.1001, L501.9520, L100.0100, L500.4100 #### [facility] [address] [place], [address] Absolute Neut 4.1 X10 3/uL Normal 2.0-7.7 [facility] Comment on above: Performed By: #### L 506.1001, L501.9520, L100.0100, L500.4100 #### [facility] [address] [place], [address] Basophils/100 WBC (Bld) 0.6 % Normal 0-1 [facility] Comment on above: Performed By: #### L 506.1001, L501.9520, L100.0100, L500.4100 #### [facility] [address] [place], [address] Eosinophils/100 WBC (Bld) 3.0 % Normal 0-5 [facility] Comment on above: Performed By: #### L 506.1001, L501.9520, L100.0100, L500.4100 #### [facility] [address] [place], [address] Erythrocyte distribution width (RBC) [Ratio] 12.5 % Normal 11.6-14.6 [facility] Comment on above: Performed By: #### L 506.1001, L501.9520, L100.0100, L500.4100 #### [facility] [address] [place], [address] Hematocrit (Bld) [Volume fraction] 43.0 % Normal 37-47 [facility] Comment on above: Performed By: #### L 506.1001, L501.9520, L100.0100, L500.4100 #### [facility] [address] [place], [address] Hemoglobin (Bld) [Mass/Vol] 14.3 g/dL Normal 12.0-15.0 [facility] Comment on above: Performed By: #### L 506.1001, L501.9520, L100.0100, L500.4100 #### [facility] [address] [place], [address] IG% 0.100 Normal 0.0-0.9 [facility] Comment on above: Result Comment: IG% - Immature Granulocytes (promyelocytes, myelocytes and metamyelocytes) > 1% indicates that a LEFT SHIFT is Present. Performed By: #### L 506.1001, L501.9520, L100.0100, L500.4100 #### [facility] [address] [place], [address] Lymphocytes/100 WBC (Bld) 30.1 % Normal 19-41 [facility] Comment on above: Performed By: #### L 506.1001, L501.9520, L100.0100, L500.4100 #### [facility] [address] [place], [address] MCH (RBC) [Entitic mass] 31.5 pg Normal 27.0-32.0 [facility] Comment on above: Performed By: #### L 506.1001, L501.9520, L100.0100, L500.4100 #### [facility] [address] [place], [address] MCHC (RBC) [Mass/Vol] 33.3 g/dL Normal 32-36 [facility] Comment on above: Performed By: #### L 506.1001, L501.9520, L100.0100, L500.4100 #### [facility] [address] [place], [address] MCV (RBC) [Entitic vol] 94.7 fL Normal 81-99 [facility] Comment on above: Performed By: #### L 506.1001, L501.9520, L100.0100, L500.4100 #### [facility] [address] [place], [address] Monocytes/100 WBC (Bld) 5.2 % Normal 0-10 [facility] Comment on above: Performed By: #### L 506.1001, L501.9520, L100.0100, L500.4100 #### [facility] [address] [place], [address] Neutrophils/100 WBC (Bld) 61.0 % Normal 47-70 [facility] Comment on above: Performed By: #### L 506.1001, L501.9520, L100.0100, L500.4100 #### [facility] [address] [place], [address] Nucleated RBC (Bld) [#/Vol] 0 10*3/uL Normal 0-5 [facility] Comment on above: Performed By: #### L 506.1001, L501.9520, L100.0100, L500.4100 #### [facility] [address] [place], [address] Platelet mean volume (Bld) [Entitic vol] 9.6 fL Normal 6.2-12.0 [facility] Comment on above: Performed By: #### L 506.1001, L501.9520, L100.0100, L500.4100 #### [facility] [address] [place], [address] Platelets (Bld) [#/Vol] 201 10*3/uL Normal 150-450 [facility] Comment on above: Performed By: #### L 506.1001, L501.9520, L100.0100, L500.4100 #### [facility] [address] [place], [address] RBC (Bld) [#/Vol] 4.54 10*6/uL Normal 4.2-5.4 [facility] Comment on above: Performed By: #### L 506.1001, L501.9520, L100.0100, L500.4100 #### [facility] [address] [place], [address] RDW SD 43.3 fl Normal 35.1-43.9 [facility] Comment on above: Performed By: #### L 506.1001, L501.9520, L100.0100, L500.4100 #### [facility] [address] [place], [address] WBC (Bld) [#/Vol] 6.7 10*3/uL Normal 4.4-11.0 [facility] Comment on above: Performed By: #### L 506.1001, L501.9520, L100.0100, L500.4100 #### [facility] [address] [place], [address] Calculated very low density lipoprotein (VLDL) cholesterol measurementOrdered By: Lety Funez on 08-25-2024 Calculated very low density lipoprotein (VLDL) cholesterol measurement 23 mg/dL 5-40 [facility] Carbon dioxide, total [Moles /volume] in Central venous bloodOrdered By: Lety Funez on 08-25-2024 CO2 [Moles/Vol] 25.6 mmol/L 21.0-32.0 [facility] Chloride assayOrdered By: Kimmy Funez on 08-25-2024 Chloride [Moles/Vol] 103 mmol/L 98-108 [facility] Comprehensive Metabolic Prof ilon 08-25-2024 Chloride [Moles/Vol] 103 mmol/L Normal 98-108 [facility] Comment on above: Order Comment: Order Date: 08/18/24Order Info: 0786-1 - CMPScreening, Impaired fasting glucose Performed By: #### L 500.4050 ####[facility] [address] [place], [address] CO2 [Moles/Vol] 25.6 mmol/L Normal 21.0-32.0 [facility] Comment on above: Order Comment: Order Date: 08/18/24Order Info: 0786-1 - CMPScreening, Impaired fasting glucose Performed By: #### L 500.4050 ####[facility] [address] [place], [place], [phone] Normal 5-15 [facility] Comment on above: Order Comment: Order Date: 08/18/24Order Info: 0786-1 - CMPScreening, Impaired fasting glucose Performed By: #### L 500.4050 ####[facility] [address] [place], [address] Potassium [Moles/Vol] 4.9 mmol/L Normal 3.3-5.1 [facility] Comment on above: Order Comment: Order Date: 08/18/24Order Info: 0786-1 - CMPScreening, Impaired fasting glucose Performed By: #### L 500.4050 ####[facility] [address] [place], [address] Sodium [Moles/Vol] 140 mmol/L Normal 133-145 [facility] Comment on above: Order Comment: Order Date: 08/18/24Order Info: 0786-1 - CMPScreening, Impaired fasting glucose Performed By: #### L 500.4050 ####[facility] [address] [place], [address] Albumin [Mass/Vol] 4.2 g/dL Normal 3.4-4.8 [facility] Comment on above: Order Comment: Order Date: 08/18/24Order Info: 0786-1 - CMPScreening, Impaired fasting glucose Performed By: #### L 500.4050 ####[facility] [address] [place], [address] Albumin/Globulin [Mass ratio] 1.7 {ratio} Normal 0.9-2.4 [facility] Comment on above: Order Comment: Order Date: 08/18/24Order Info: 0786-1 - CMPScreening, Impaired fasting glucose Performed By: #### L 500.4050 ####[facility] [address] [place], [address] ALK PHOS 60 U/L Normal 35-104 [facility] Comment on above: Order Comment: Order Date: 08/18/24Order Info: 0786-1 - CMPScreening, Impaired fasting glucose Performed By: #### L 500.4050 ####[facility] [address] [place], [address] ALT [Catalytic activity/Vol] 14 U/L Normal <=34 [facility] Comment on above: Order Comment: Order Date: 08/18/24Order Info: 0786-1 - CMPScreening, Impaired fasting glucose Performed By: #### L 500.4050 ####[facility] [address] [place], [address] AST [Catalytic activity/Vol] 21 U/L Normal <=31 [facility] Comment on above: Order Comment: Order Date: 08/18/24Order Info: 0786-1 - CMPScreening, Impaired fasting glucose Performed By: #### L 500.4050 ####[facility] [address] [place], [address] Bilirubin [Mass/Vol] 0.47 mg/dL Normal 0.00-1.30 [facility] Comment on above: Order Comment: Order Date: 08/18/24Order Info: 0786-1 - CMPScreening, Impaired fasting glucose Performed By: #### L 500.4050 ####[facility] [address] [place], [address] BUN/CRE 18.2 RATIO Normal 10-20 [facility] Comment on above: Order Comment: Order Date: 08/18/24Order Info: 0786-1 - CMPScreening, Impaired fasting glucose Performed By: #### L 500.4050 ####[facility] [address] [place], [address] Calcium [Mass/Vol] 9.1 mg/dL Normal 7.6-11.0 [facility] Comment on above: Order Comment: Order Date: 08/18/24Order Info: 0786-1 - CMPScreening, Impaired fasting glucose Performed By: #### L 500.4050 ####[facility] [address] [place], [address] Creatinine [Mass/Vol] 0.86 mg/dL Normal 0.70-1.20 [facility] Comment on above: Order Comment: Order Date: 08/18/24Order Info: 0786-1 - CMPScreening, Impaired fasting glucose Performed By: #### L 500.4050 ####[facility] [address] [place], [address] GFR/1.73 sq M.predicted among non-blacks MDRD (S/P/Bld) [Vol rate/Area] 67 mL/min/{1.73_m2} Normal >60 [facility] Comment on above: Order Comment: Order Date: 08/18/24Order Info: 0786-1 - CMPScreening, Impaired fasting glucose Result Comment: mL/m in/1.73m2 CKD-EPI Creatinine Equation (2020) Performed By: #### L 500.4050 ####[facility] [address] [place], [address] Globulin (S) [Mass/Vol] 2.5 g/dL Normal 2.2-4.2 [facility] Comment on above: Order Comment: Order Date: 08/18/24Order Info: 0786-1 - CMPScreening, Impaired fasting glucose Performed By: #### L 500.4050 ####[facility] [address] [place], [address] Glucose [Mass/Vol] 110 mg/dL High 70-99 [facility] Comment on above: Order Comment: Order Date: 08/18/24Order Info: 0786-1 - CMPScreening, Impaired fasting glucose Performed By: #### L 500.4050 ####[facility] [address] [place], [address] T PROT 6.7 g/dL Normal 5.9-8.4 [facility] Comment on above: Order Comment: Order Date: 08/18/24Order Info: 0786-1 - CMPScreening, Impaired fasting glucose Performed By: #### L 500.4050 ####[facility] [address] [place], [address] Urea nitrogen [Mass/Vol] 16 mg/dL Normal 4-19 [facility] Comment on above: Order Comment: Order Date: 08/18/24Order Info: 0786-1 - CMPScreening, Impaired fasting glucose Performed By: #### L 500.4050 ####[facility] [address] [place], [address] Eosinophil percentageOrdered By: Lety Funez on 08-25-2024 Eosinophils/100 WBC (Bld) 3.0 % 0-5 [facility] Erythrocyte distribution wid th ratioOrdered By: Lety Funez on 08-25-2024 Erythrocyte distribution width (RBC) [Ratio] 12.5 % 11.6-14.6 [facility] Erythrocyte distribution wid th standard deviationOrdered By: Lety Funez on 08-25-2024 Erythrocyte distribution width (RBC) [Ratio] 43.3 fl 35.1-43.9 [facility] Glomerular filtration rate ( GFR) estimation/1.73 sq m using serum, plasma, or whole bOrdered By: Lety Funez on 08-25-2024 GFR/1.73 sq M.predicted among non-blacks MDRD (S/P/Bld) [Vol rate/Area] 67 mL/min/{1.73_m2} >60 [facility] Comment on above: mL/min/1.73m2 CKD-EP I Creatinine Equation (2020) Hematocrit Auto (Bld) [Volum e fraction]Ordered By: Lety Funez on 08-25-2024 Hematocrit (Bld) [Volume fraction] 43.0 % 37-47 [facility] Hemoglobin measurementOrdere d By: Lety Funez on 08-25-2024 Hemoglobin (Bld) [Mass/Vol] 14.3 g/dL 12.0-15.0 [facility] Immature granulocytes/100 WB C Auto (Bld)Ordered By: Lety Funez on 08-25-2024 Immature granulocytes/100 WBC (Bld) 0.100 % 0.0-0.9 [facility] Comment on above: IG% - Immature Granu locytes (promyelocytes, myelocytes and metamyelocytes) > 1% indicates that a LEFT SHIFT is Present. LDL calc ser/plasOrdered By: Lety Funez on 08-25-2024 Cholesterol in LDL [Mass/Vol] 134 mg/dL [facility] Comment on above: Iftiooeqwk=355-465 m g/dL & Higher Yrks=659 mg/dL or greater Laboratory - Chemistry and C hemistry - challengeOrdered By: Lety Funez on 08-25-2024 AST [Catalytic activity/Vol] 21 U/L <32 [facility] Lipid Profileon 08-25-2024 CHOL:HDL 3.83 Normal [facility] Comment on above: Order Comment: Order Date: 08/18/24 Order Info: 0786-1 - CMP Performed By: #### L 506.1001, L501.9520, L100.0100, L500.4100 #### [facility] [address] [place], [address] Cholesterol [Mass/Vol] 212 mg/dL High <=200 [facility] Comment on above: Order Comment: Order Date: 08/18/24 Order Info: 0786-1 - CMP Result Comment: Chol esterol level, Desirable <200 mg/dL Borderline high cholesterol 200-239 mg/dL High cholesterol >=240 mg/dL Recommendations of the NCEP Adult Treatment Panel for the following risk-cutoff thresholds for the [place] population. Performed By: #### L 506.1001, L501.9520, L100.0100, L500.4100 #### [facility] [address] [place], [address] Cholesterol in HDL [Mass/Vol] 55 mg/dL Normal [facility] Comment on above: Order Comment: Order Date: 08/18/24 Order Info: 0786-1 - CMP Result Comment: Doris onal Cholesterol Education Program (NCEP) guidelines: <40 mg/dL: Low HDL-cholesterol (major risk factor for CHD) >= 60 mg/dL: High HDL-cholesterol (negative risk factor for CHD) HDL-cholesterol is affected by a number of factors, e.g. smoking, exercise, hormones, sex and age. Performed By: #### L 506.1001, L501.9520, L100.0100, L500.4100 #### [facility] [address] [place], [address] Cholesterol in LDL [Mass/Vol] 134 mg/dL Normal [facility] Comment on above: Order Comment: Order Date: 08/18/24 Order Info: 0786-1 - CMP Result Comment: Bord mchlue=927-404 mg/dL Higher Ynby=171 mg/dL or greater Performed By: #### L 506.1001, L501.9520, L100.0100, L500.4100 #### [facility] [address] [place], [address] Cholesterol in VLDL [Mass/Vol] 23 mg/dL Normal 5-40 [facility] Comment on above: Order Comment: Order Date: 08/18/24 Order Info: 0786-1 - CMP Performed By: #### L 506.1001, L501.9520, L100.0100, L500.4100 #### [facility] [address] [place], [address] Triglyceride [Mass/Vol] 115 mg/dL Normal [facility] Comment on above: Order Comment: Order Date: 08/18/24 Order Info: 0786-1 - CMP Result Comment: The drugs N-Acetylcysteine and Metamizole may falsely depress this assay. Normal range: <150 mg/dL Borderline High: 150-199 mg/dL High: 200-499 mg/dL Very High: >500 mg/dL Performed By: #### L 506.1001, L501.9520, L100.0100, L500.4100 #### [facility] [address] [place], [address] MCV (mean corpuscular volume ) determinationOrdered By: Lety Funez on 08-25-2024 MCV (RBC) [Entitic vol] 94.7 fL 81-99 [facility] Mean corpuscular hemoglobin (MCH) determinationOrdered By: Lety Funez on 08-25-2024 MCH (RBC) [Entitic mass] 31.5 pg 27.0-32.0 [facility] Mean corpuscular hemoglobin concentration (MCHC) determinationOrdered By: Lety Funez on 08-25-2024 MCHC (RBC) [Mass/Vol] 33.3 g/dL 32-36 [facility] Mean platelet volume determi nationOrdered By: Lety Funez on 08-25-2024 Platelet mean volume (Bld) [Entitic vol] 9.6 fL 6.2-12.0 [facility] Monocyte percentageOrdered B y: Lety Funez on 08-25-2024 Monocytes/100 WBC (Bld) 5.2 % 0-10 [facility] Neutrophil percentageOrdered By: Lety Funez on 08-25-2024 Neutrophils/100 WBC (Bld) 61.0 % 47-70 [facility] Nucleated red blood cell per centageOrdered By: Lety Funez on 08-25-2024 Nucleated RBC/100 WBC (Bld) [Ratio] 0 % 0-5 [facility] Platelet countOrdered By: Kimmy Funez on 08-25-2024 Platelets (Bld) [#/Vol] 201 10*3/uL 150-450 [facility] Potassium measurement (mass/ volume)Ordered By: Lety Funez on 08-25-2024 Potassium (Unsp spec) [Mass/Vol] 4.9 mmol/L 3.3-5.1 [facility] RBC Auto (Bld) [#/Vol]Ordere d By: Lety Funez on 08-25-2024 RBC (Bld) [#/Vol] 4.54 10*6/uL 4.2-5.4 [facility] Screening total cholesterol/ high density lipoprotein (HDL) cholesterol ratioOrdered By: Lety Funez on 08-25-2024 Cholesterol.total/Nikole sterol in HDL [Mass ratio] 3.83 {ratio} [facility] Serum creatinine measurement (mass/volume)Ordered By: Lety Funez on 08-25-2024 Creatinine [Mass/Vol] 0.86 mg/dL 0.70-1.20 [facility] Serum globulin measurementOr dered By: Lety Funez on 08-25-2024 Globulin (S) [Mass/Vol] 2.5 g/dL 2.2-4.2 [facility] Serum glucose measurement (m ass/volume)Ordered By: Lety Funez on 08-25-2024 Glucose [Mass/Vol] 110 mg/dL High 70-99 [facility] Serum or plasma alanine aguirre otransferase (ALT) measurementOrdered By: Lety Funez on 08-25-2024 ALT [Catalytic activity/Vol] 14 U/L <35 [facility] Serum or plasma albumin nestor urement (mass/volume)Ordered By: Lety Funez on 08-25-2024 Albumin [Mass/Vol] 4.2 g/dL 3.4-4.8 [facility] Serum or plasma albumin/glob ulin mass ratioOrdered By: Lety Funez on 08-25-2024 Albumin/Globulin [Mass ratio] 1.7 {ratio} 0.9-2.4 [facility] Serum or plasma alkaline chong sphatase measurementOrdered By: Lety Funez on 08-25-2024 ALP [Catalytic activity/Vol] 60 U/L 35-104 [facility] Serum or plasma calcium nestor urement (mass/volume)Ordered By: Lety Funez on 08-25-2024 Calcium [Mass/Vol] 9.1 mg/dL 7.6-11.0 [facility] Serum or plasma cholesterol in HDL measurement (mass/volume)Ordered By: Lety Funez on 08-25-2024 Cholesterol in HDL [Mass/Vol] 55 mg/dL >40 [facility] Comment on above: National Cholesterol Education Program (NCEP) guidelines:<40 mg/dL: Low HDL-cholesterol (major risk factor for CHD)>= 60 mg/dL: High HDL-cholesterol (negative risk factor for CHD)HDL-cholesterol is affected by a number of factors, e.g. smoking, exercise, hormones, sex and age. Serum or plasma cholesterol measurement (mass/volume)Ordered By: Lety Funez on 08-25-2024 Cholesterol [Mass/Vol] 212 mg/dL High <201 [facility] Comment on above: Cholesterol level, D esirable <200 mg/dLBorderline high cholesterol 200-239 mg/dLHigh cholesterol >=240 mg/dLRecommendations of the NCEP Adult Treatment Panel for the following risk-cutoff thresholds for the [place] population. Serum or plasma urea nitroge n measurement (mass/volume)Ordered By: Lety Funez on 08-25-2024 Urea nitrogen [Mass/Vol] 16 mg/dL 4-19 [facility] Sodium levelOrdered By: Demario Funez on 08-25-2024 Sodium [Moles/Vol] 140 mmol/L 133-145 [facility] TSH DL <= 0.005 mIU/L QnOrde red By: Lety Funez on 08-25-2024 TSH Qn 1.530 uIU/mL 0.300-4.200 [facility] Thyroid Stim Hormone (TSH)on 08-25-2024 TSH 1.530 uIU/mL Normal 0.300-4.200 [facility] Comment on above: Order Comment: Order Date: 08/18/24 Order Info: 0786-1 - CMP Performed By: #### L 506.1001, L501.9520, L100.0100, L500.4100 #### [facility] [address] [place], [place], [id number] Total proteinOrdered By: Lawanda Funez on 08-25-2024 Protein [Mass/Vol] 6.7 g/dL 5.9-8.4 [facility] Triglycerides measurementOrd ered By: Lety Funez on 08-25-2024 Triglyceride [Mass/Vol] 115 mg/dL <199 [facility] Comment on above: The drugs N-Acetylcy steine and Metamizole may falsely depress this assay. Normal range: <150 mg/dLBorderline High: 150-199 mg/dLHigh: 200-499 mg/dLVery High: >500 mg/dL Vitamin D,25 Hydroxyon 08-25 Vitamin D 25-OH 39.8 ng/mL Normal 30-100 [facility] Comment on above: Order Comment: Order Date: 08/18/24Order Info: 0786-1 - CMP Result Comment: [place] min D Status Deficiency: <20 ng/mL (50nmol/L) Insufficiency: 20-30 ng/mL (50-75 nmol/L) Sufficiency: 30-100 ng/mL (75-250 nmol/L) Toxicity: >100 ng/mL (>250 nmol/L) Performed By: #### L 506.1001, L501.9520, L100.0100, L500.4100 ####[facility] [address] [place], [place], [id number] White blood cell (WBC) count Ordered By: Lety Funez on 08-25-2024 WBC (Bld) [#/Vol] 6.7 10*3/uL 4.4-11.0 [facility] Telephone (UROLSF) KIARA BRENNER ([id number]) 1940 F Date Time Provider Department 08/01/24 [address] [facility] During your visit today, we recorded the following information about you: Brittany Ivan LPN 08/01/2024 2:44 PM Signed Received forms from [employer] prescription services to PA becki Gemtesa. At providers desk for review and signature. Brittany Ivan LPN 08/01/2024 3:40 PM Signed Completed form faxed to [phone]. Fax confirmation received. Scanned to chart from onbase. Scan on 08/01/2024 3:17 PM by ProviderMars PA-C: [facility] Gemtesa form Brittany Ivan LPN 08/04/2024 3:59 PM Signed Received prior authorization denial for Gemtesa. Preferred drugs include: Scan on 08/04/2024 8:31 AM by ProviderMars PA-C: Insurance Fesoterodine ER tab Tolterodine tab Ana Laura Banks APRN.[facility] 08/09/2024 11:35 AM Signed Please let patient know I sent in toviaz. Ana Laura Banks APRN.MEDICINE TECH 08/09/2024 11:35 AM Signed Addended by: ANA LAURA BANKS on: 08/09/2024 11:35 AM Modules accepted: Katherine Boland 08/19/2024 10:15 AM Addendum Carmela @ [employer] [phone] Sent over a letter of appeal on 08/04/24. Did you receive it? Will resend today 08/19/24 to fax [employer] [phone] Brittany Ivan LPN 08/19/2024 1:45 PM Addendum Contacted [employer]. Letter of medical necessity is for Gemtesa. Patient was switched to Fesoterodine as of August 12. If Toviaz is ineffective, she will try Gemtesa and pay OOP per chart messages. LMN scanned to chart. Scan on 08/19/2024 10:18 AM by Provider, External, SUSANNE: [employer] medical necessity template Allergies As of Date: 08/01/2024 Noted Allergy Reaction CODEINE 04/30/2005 8 - GI Upset Comments: Nausea Date Reviewed: 07/05/2024 Reviewed by: Ana Laura Banks APRN.MEDICINE TECH - Fully Assessed Reason for Visit: Insurance Authorization [[id number]] Order(s):Fesoterodine (TOVIAZ) 8 mg [id number] 1 tablet by mouth once daily.Disp: 30 tabletRfl: 11 Prescriptions as of 08/19/2024 - Fesoterodine (TOVIAZ) 8 mg Tb24 Take 1 tablet by mouth once daily. - solifenacin 10 mg tablet Take 1 tablet by mouth once daily. - conjugated estrogens (PREMARIN) vaginal cream Use 1 g vaginally three times a week. - Lactobac no.41/Bifidobact no.7 (PROBIOTIC-10 ORAL) Take 1 tablet by mouth once daily. - Biotin 10,000 mcg cap Take 1 capsule by mouth once daily. - Ascorbic Acid 500 mg cpER Take 1 capsule by mouth once daily. - cholecalciferol (VITAMIN D3) 5,000 unit tab Take 5,000 Units by mouth once daily. - metoprolol succinate ER (TOPROL XL) 25 mg 24 hr tablet Take 25 mg by mouth once daily. - celecoxib (CELEBREX) 200 mg capsule Take 200 mg by mouth once daily. - montelukast (SINGULAIR) 10 mg tablet Take 10 mg by mouth once daily. - omeprazole (PRILOSEC) 40 mg capsule Take by mouth once daily. - dq-fa-YK-vit O-odnzd-ckb-coQ10 (DAILY MULTIVITAMIN) 200-100-500 mcg cap Take by mouth. - fexofenadine 60 mg ORAL tablet Take by mouth once daily. Problem List As Of Date 08/01/2024 Noted Resolved FEMALE STRESS INCONTINENCE [N39.3] 08/11/2005 MALIGNANT NEOPLASM COLON NOS [C18.9] 09/25/2005 DIVERTICULOSIS OF COLON W/O BLEED [K57.30] 09/25/2005 PERS HX OF COLONIC MALIGNANCY [Z85.038] 09/03/2007 Chronic cholecystitis [K81.1] 06/04/2010 Acute gastritis without mention of hemorrhage [*08/27/2010 Urgency of urination [R39.15] 03/19/2021 Urge incontinence [N39.41] 03/19/2021 UTI (urinary tract infection) [N39.0] 05/07/2021 Recurrent UTI [N39.0] 01/10/2022 Prescriptions ordered this encounter Disp Refills Start End FESOTERODINE ER 8 MG TABLET,EXTENDED* 30 t* 11 08/09/2024 Route: ORAL Sig: Take 1 tablet by mouth once daily. Medications Discontinued During This Encounter Prescriptions - vibegron (GEMTESA) 75 mg tablet (Discontinued) Take 1 tablet by mouth once daily. Encounter Status:Closed by BRITTANY IVAN on 08/01/24 [facility] HIP, UNI W/ Pelvis 2-3 Views on 08-01-2024 HIP, UNI W/ Pelvis 2-3 Views [facility] [address] [place] [id number] HIP, UNI W/ Pelvis 2-3 Views MR#: [id number] Acct: [id number] Name: KIARA BRENNER Rep #: [id number] : 1940 F 83 From: Chucho Coffey DO PCP: Dr. Lety Funez MD Status: DEP AMB Study: HIP, UNI W/ Pelvis 2-3 Views Date of Exam: Exam# [id number] Ordering Dr: Logan Wright DO PROCEDURE: HIP, UNI W/ PELVIS 2-3 VIEWS 08/01/2024 REASON FOR EXAM: PAIN TECHNIQUE: 3 view(s) of the right hip including the pelvis. COMPARISON: None FINDINGS: Bones: No acute fracture or dislocation. Joints: Mild narrowing of the bilateral hip joints. Soft tissues: Unremarkable Other: RAD/HIP, UNI W/ Pelvis 2-3 Views IMPRESSION: No acute fracture or dislocation. Mild degenerative changes. Reading Location: [facility] CC: Dr. Lety Funez MD; Dr. Logan Wright DO Geography Instructor: Signed Normal [facility] Orthopedic Visit Reporton Orthopedic Visit Report [facility] [address] [place] [address] OFFICE VISIT Date of Service: 08/01/24 MR#: [id number] Acct: [id number] Name: KIARA BRENNER Rep #: [id number] : 1940 Provider: Dr. Logan mo DO Age/Sex: 83/F [place] [facility] [place] Status: Signed with Addenda ADDENDUM by Archana Guerrero on 08/01/24 at 1601 Office Procedure Documentation entered by Archana Guerrero 08/01/24 16:01: Ortho Injections Injections Yes Greater Trochanteric Bursa Injection Right Is this a patient provided medication?: No Details: Obtained consent for injection. Under sterile conditions, injected the patients right greater trochanteric bursa with 4cc bupivacaine 4cc lidocaine 1cc depo medrol. The patient tolerated the injection well without any noted complication. Patient should call our office if redness develops, pain worsens or if they have any concerns. Office Meds Depo-Medrol 40 mg/mL suspension for injection Performing Provider: Logan Wright DO Performing Location: [facility] Administered by: Logan Wright DO on 08/01/24 15:59 Dose Route Admin Location Dispensed Lot Number Expiration Date NDC Man ufacturer 40 mg intra-articular right greater troch bursa 1 mL [id number] 11/18/25 000 [id number] [place] [facility] Date cc: * Signed Intake Vital Signs 01/18/24 10:14 08/01/24 14:55 Height 5 ft 5 ft Weight: 171 lb 172 lb 4 oz BMI 33.4 33.6 Intake Visit Reasons: RIGHT HIP Allergies No Known Allergies Allergy (Unverified 08/01/24 15:00) Medications ???Medication ???Instructions ???Recorded ???Confirmed ???Type metoprolol succinate 25 mg 25 mg PO DAILY bp 05/01/14 5 History tablet,extended release 24 hr mnscjdhm-bqh-scuho acid 0.4 1 ea PO DAILY vitamin 05/01/14 History mg-lycopene 300 mcg-lutein 250 mcg tablet celecoxib 200 mg capsule 200 mg PO DAILY arthritis 05/16/19 08/01/24 History montelukast 10 mg tablet 10 mg PO DAILY allergies 03/27/20 08/01/24 History (Singulair) omeprazole 40 mg capsule,delayed 40 mg PO DAILY reflux 03/27/20 History release Probiotic 1 tab PO/SL DAILY 04/05/21 5 History solifenacin 10 mg tablet 10 mg PO DAILY 04/05/21 08/01/24 H istory acetaminophen 325 mg capsule 325 mg PO ONCE PRN 01/18/24 History (Tylenol) ascorbic acid (vitamin C) 1,000 mg 2 g PO Q6H 01/18/24 08/01/24 His tory tablet biotin 10,000 mcg chewable tablet mcg PO 01/18/24 08/01/24 History cholecalciferol (vitamin D3) 25 25 mcg PO QDAY 01/18/24 08/01/24 H istory mcg (1,000 unit) capsule tramadol 50 mg tablet 50 mg PO BID PRN 01/18/24 08/01/24 History fexofenadine 180 mg tablet 180 mg PO Q24H 08/01/24 08/01/24 H istory vitamin B12 0.5 mg-folic acid 1 mg 1 tab PO QDAY 08/01/24 08/01/24 History tablet Have you fallen in the past year?: No PFSH Medical History Essential hypertension Cancer GERD (gastroesophageal reflux disease) Sleep apnea Asthma Pyonephrosis Rash and nonspecific skin eruption Incontinence Limb weakness Shoulder pain Colon cancer Arthritis Surgical History History of knee joint replacement History of shoulder replacement History of colon resection Family History Mother Arthritis Social History Smoking Status: Never smoker HPI RIGHT HIP Details: This documentation accurately reflects the service provided and the decisions made by me, Dr. Logan Wright, DO 08/01/24 0851. Part of today???s visit was documented by Antonia OVIEDO, acting as scribe. KIARA BRENNER is a 83 year old F here today for right hip pain that she has had intermittently for 4-5 months that has progressively gotten worse. Patient denies any known injury or event. Her hip is over her lateral hip. She does have some low back pain. She is on tramadol due to her hip and low back pain. She also takes Celebrex for her arthritis pain. Denies numbness, tingling or other associated symptoms. She denies previous surgery on the right hip. She denies having groin pain. She denies PT and injections. 01/18/2020 for visit:83 year old F here today for Left knee pain. Patient states about 2 weeks ago she was outside with her kids and she went to get up and move seats and she had pain in her left knee. She was not having any significant issues prior to this although she did have an injection 6 months prior she does not recall this. Patient states she took some Tylenol and it was better. 2 days later she saw her P (more content not included)... Normal [facility] 07-19-2024 [facility] Telephone (ALLI) KIARA BRENNER ([id number]) 1940 F Date Time Provider Department 07/19/24 ANA LAURA BANKS During your visit today, we recorded the following information about you: Reny Pastrana 07/19/2024 12:27 PM Signed Per daughter, Stepha needs sent to correct [facility], fax number: [phone] Rafaela Gutierres RN 07/19/2024 12:51 PM Signed Please resend Gemtesa to new saved pharmacy (updated to [facility], was previously sent to the [facility] per pt) thanks. Rafaela Gutierres RN Prescription Refill Information The patient has been identified by name and date of : Yes Caregiver verified no other encounters exist for this prescription request: Yes The last office visit in the department: 07/05/24 Does the patient have a future office visit with this provider/department: Yes 07/06/25 Requested Prescriptions Pending Prescriptions Disp Refills vibegron (GEMTESA) 75 mg tablet 30 tablet 11 Sig: Take 1 tablet by mouth once daily. Rafaela Gutierres RN July 19, 2024 12:50 PM Ana Laura Banks APRN.CNP 07/19/2024 1:02 PM Signed Rx sent Allergies As of Date: 07/19/2024 Noted Allergy Reaction CODEINE 04/30/2005 8 - GI Upset Comments: Nausea Date Reviewed: 07/05/2024 Reviewed by: Ana Laura Banks APRN.MEDICINE TECH - Fully Assessed Reason for Visit: Medication Problem [65] Order(s):vibegron (GEMTESA) 75 mg tabletTake 1 tablet by mouth once daily.Disp: 30 tabletRfl: 11 Prescriptions as of 07/19/2024 - vibegron (GEMTESA) 75 mg tablet Take 1 tablet by mouth once daily. - solifenacin 10 mg tablet Take 1 tablet by mouth once daily. - conjugated estrogens (PREMARIN) vaginal cream Use 1 g vaginally three times a week. - Lactobac no.41/Bifidobact no.7 (PROBIOTIC-10 ORAL) Take 1 tablet by mouth once daily. - Biotin 10,000 mcg cap Take 1 capsule by mouth once daily. - Ascorbic Acid 500 mg cpER Take 1 capsule by mouth once daily. - cholecalciferol (VITAMIN D3) 5,000 unit tab Take 5,000 Units by mouth once daily. - metoprolol succinate ER (TOPROL XL) 25 mg 24 hr tablet Take 25 mg by mouth once daily. - celecoxib (CELEBREX) 200 mg capsule Take 200 mg by mouth once daily. - montelukast (SINGULAIR) 10 mg tablet Take 10 mg by mouth once daily. - omeprazole (PRILOSEC) 40 mg capsule Take by mouth once daily. - vd-fc-PG-vit J-uiwbz-axt-coQ10 (DAILY MULTIVITAMIN) 200-100-500 mcg cap Take by mouth. - fexofenadine 60 mg ORAL tablet Take by mouth once daily. Problem List As Of Date 07/19/2024 Noted Resolved FEMALE STRESS INCONTINENCE [N39.3] 08/11/2005 MALIGNANT NEOPLASM COLON NOS [C18.9] 09/25/2005 DIVERTICULOSIS OF COLON W/O BLEED [K57.30] 09/25/2005 PERS HX OF COLONIC MALIGNANCY [Z85.038] 09/03/2007 Chronic cholecystitis [K81.1] 06/04/2010 Acute gastritis without mention of hemorrhage [*08/27/2010 Urgency of urination [R39.15] 03/19/2021 Urge incontinence [N39.41] 03/19/2021 UTI (urinary tract infection) [N39.0] 05/07/2021 Recurrent UTI [N39.0] 01/10/2022 Prescriptions ordered this encounter Disp Refills Start End GEMTESA 75 MG TABLET 30 t* 11 07/19/2024 Route: ORAL Sig: Take 1 tablet by mouth once daily. Medications Discontinued During This Encounter Prescriptions - vibegron (GEMTESA) 75 mg tablet (Discontinued) Take 1 tablet by mouth once daily. Encounter Status:Closed by ANA LAURA BANKS on 07/19/24 [facility]REGORIO[facility]sr[facility] 07-05-2024 CNOV Office Visit (UROLSF ) KIARA BRENNER ([id number]) 1940 F Date Time Provider Department 07/05/24 10:45 AM ANA LAURA BANKS During your visit today, we recorded the following information about you: Height 1.524 m Ana Laura Banks APRN.[facility]JAL 07/05/2024 12:11 PM Signed ESTABLISHED PATIENT OFFICE VISIT HISTORY OF PRESENT ILLNESS Kiara Brenner is a 83 year old female who presents today in follow-up. Patient with a history of recurrent bladder infections, overactive bladder. Has been doing well from a UTI standpoint. Her last urinary tract infection was 2 years ago. Using Premarin cream 3 times per week. She is no longer taking methenamine. She does take a probiotic daily. Denies any UTI symptoms today. No gross hematuria. No dysuria. No fever or chills. Patient continues to have overactive bladder issues. She is currently taking Vesicare 10 mg daily with minimal improvement, causing dry mouth and dry eyes. Previously on oxybutynin and Myrbetriq. We discussed trying Gemtesa. Patient continues to have urgency and frequency during the day. She continues to have urge incontinence several times per day. LAB RESULTS No results found for: CREAT No results found for: PSA No results found for: COLOR, CLARITY, UGLUC, UBILI, UKET, SPGR, UHB, UPH, UPROT, UROBILINOGEN, NITRITES, LEUKEST MEDICATIONS: solifenacin 10 mg tablet TAKE 1 TABLET BY MOUTH ONCE DAILY Methenamine Hippurate (HIPREX) 1 gram tablet Take 1 tablet by mouth two times a day. conjugated estrogens (PREMARIN) vaginal cream Use 1 g vaginally three times a week. D-MANNOSE ORAL Take by mouth. Lactobac no.41/Bifidobact no.7 (PROBIOTIC-10 ORAL) Take 1 tablet by mouth once daily. Biotin 10,000 mcg cap Take 1 capsule by mouth once daily. Ascorbic Acid 500 mg cpER Take 1 capsule by mouth once daily. cholecalciferol (VITAMIN D3) 5,000 unit tab Take 5,000 Units by mouth once daily. metoprolol succinate ER (TOPROL XL) 25 mg 24 hr tablet Take 25 mg by mouth once daily. celecoxib (CELEBREX) 200 mg capsule Take 200 mg by mouth once daily. montelukast (SINGULAIR) 10 mg tablet Take 10 mg by mouth once daily. omeprazole (PRILOSEC) 40 mg capsule Take by mouth once daily. xt-dz-QG-vit E-ikwzw-xkw-coQ10 (DAILY MULTIVITAMIN) 200-100-500 mcg cap Take by mouth. fexofenadine 60 mg ORAL tablet Take by mouth once daily. REVIEW OF SYSTEMS CONSTITUTIONAL: Patient reports no recent fever or weight loss CARDIOVASCULAR: No chest pain, palpitations or ankle edema. RESPIRATORY: No wheezing, frequent cough or shortness of breath GENITOURINARY: See HPI HISTORIES PAST MEDICAL HISTORY Diagnosis Date Acute gastritis without mention of hemorrhage Arthritis Bladder infection Diaphragmatic hernia without mention of obstruction or gangrene Diverticulosis of colon (without mention of hemorrhage) colon cancer Essential hypertension, benign GERD (gastroesophageal reflux disease) High cholesterol Internal hemorrhoids without mention of complication Migraine, unspecified, without mention of intractable migraine without mention of status migrainosus Osteoarthrosis, unspecified whether generalized or localized, unspecified site Peripheral vertigo, unspecified Personal history of malignant neoplasm of large intestine Pure hypercholesterolemia Recurrent UTI Sacroiliitis, not elsewhere classified (HCC) Urge incontinence Urinary tract infection without hematuria FAMILY HISTORY Problem Relation Age of Onset Prostate Cancer Brother PAST SURGICAL HISTORY Procedure Laterality Date APPENDECTOMY 04/20/1956 COLONOSCOPY FLX DX W/COLLJ SPEC WHEN PFRMD 09/25/2005 Colonoscopy COLONOSCOPY FLX DX W/COLLJ SPEC WHEN PFRMD 10/28/2006 COLONOSCOPY FLX DX W/COLLJ SPEC WHEN PFRMD 11/08/2007 COLONOSCOPY FLX DX W/COLLJ SPEC WHEN PFRMD 11/09/2009 EGD TRANSORAL BIOPSY SINGLE/MULTIPLE 10/28/2006 ESOPHAGOGASTRODUODENOSC OPY TRANSORAL DIAGNOSTIC 08/27/2010 EGD LAPS SURG CHOLECYSTECTOMY W/CHOLANGIOGRAPHY 06/05/2010 LEFT HEART CATH,PERCUTANEOUS 06/03/2010 Cardiac cath, L heart no stents PAST SURGICAL HISTORY OF 07/20/2003 arthroscopic right knee PAST SURGICAL HISTORY OF 04/20/1946 T AND A PAST SURGICAL HISTORY OF 04/20/1998 uvulectomy PAST SURGICAL HISTORY OF bladdar suspension PAST SURGICAL HISTORY OF 03/20/2007 bunionectomy S SLING BLADDER 2004 TOTAL ABDOMINAL HYSTERECT W/WO RMVL TUBE OVARY 04/20/1985 TOTAL KNEE REPLACEMENT Right 2010 URETHROPLASTY 01/21/2021 SOCIAL HISTORY Social History Tobacco Use Smoking status: Never Smokeless tobacco: Never Vaping Use Vaping status: Never Used Substance Use Topics Alcohol use: Yes Comment: rare occassion Drug use: No PHYSICAL EXAMINATION General appearance: Well appearing, alert, in no acute distress, well-hydrated, well nourished.. BACK: not examine (more content not included)... [facility] Bacteria Ur Culton 5 Bacteria identified Cx Nom (U) ORGANISM ID: 1 <10,000 CFU/ml Mixed microbiota No further workup Normal [facility] Comment on above: Performed By: #### 6 30-4 #### [facility] CLIA [id number] [address] [place] [address] [place] [facility] Lumbar Spine 2 or 3 Viewson 01-18-2024 Lumbar Spine 2 or 3 Views [facility] [address] [place] [address] Lumbar Spine 2 or 3 Views MR#: [id number] Acct: [id number] Name: KIARA BRENNER Rep #: [id number] : 1940 F 83 From: Chun Woods MD PCP: Dr. Lety Funez MD Status: DEP AMB Study: Lumbar Spine 2 or 3 Views Date of Exam: Exam# [id number] Ordering [place]: [place] [id number] STUDY: X-RAY - LUMBAR SPINE REASON FOR EXAM: Female, 83 years old. Pain. TECHNIQUE: 2 view(s) of the lumbar spine were obtained. COMPARISON: None FINDINGS: Osteopenia. Slight accentuation of lumbar lordosis. Mild dextroscoliosis. 9 mm of anterolisthesis of L4 on L3 and 9.5 mm of anterolisthesis of L4 on L3 and 4 mm of retrolisthesis of L5 on L4. Diffuse moderate lower thoracic and lumbosacral facet sclerosis. Diffuse intervertebral disc space narrowing with osteophytes most marked in the lower thoracic region, L2-3, L3-4, L4-5 and L5-S1 with vacuum phenomenon at L5-S1. Vascular calcification. RAD/Lumbar Spine 2 or 3 Views IMPRESSION: Osteopenia with moderate lower thoracic and lumbosacral spondylosis as described above. Electronically Signed: Chun Woods MD at 12:39 EDT Reading Location ID and State: [address] [place] [address] , Service support , CC: Dr. Lety Funez MD; Dr. Logan Wright DO Geography Instructor: Signed [facility] Orthopedic Visit Reporton Orthopedic Visit Report [facility] [address] [place] [address] OFFICE VISIT Date of Service: 01/18/24 MR#: [id number] Acct: [id number] Name: KIARA BRENNER Rep #: [id number] : 1940 Provider: Dr. Logan mo DO Age/Sex: 83/F [place] [facility] [place] Status: Signed Intake Vital Signs 10/12/21 08:26 01/18/24 10:14 Height 5 ft 5 ft Weight: 171 lb BMI 33.4 Intake Visit Reasons: LEFT KNEE Accompanied by: Self Is patient in pain?: Yes Pain scale (1-10): 2 Allergies No Known Allergies Allergy (Unverified 01/18/24 10:15) Medications ???Medication ???Instructions ???Recorded ???Confirmed ???Type metoprolol succinate 25 mg 25 mg PO DAILY bp 05/01/14 01/18/24 History tablet,extended release 24 hr allqfbkn-oqr-oasxo acid 0.4 1 ea PO DAILY vitamin 05/01/14 01/18/24 History mg-lycopene 300 mcg-lutein 250 mcg tablet celecoxib 200 mg capsule 200 mg PO DAILY arthritis 05/16/19 01/18/24 History montelukast 10 mg tablet 10 mg PO DAILY allergies 03/27/20 01/18/24 History (Singulair) omeprazole 40 mg capsule,delayed 40 mg PO DAILY reflux 03/27/20 01/18/24 History release Probiotic 1 tab PO/SL DAILY 04/05/21 01/18/24 History solifenacin 10 mg tablet 10 mg PO DAILY 04/05/21 01/18/24 History acetaminophen 325 mg capsule 325 mg PO ONCE PRN 01/18/24 01/18/24 History (Tylenol) ascorbic acid (vitamin C) 1,000 mg 2 g PO Q6H 01/18/24 01/18/24 History tablet biotin 10,000 mcg chewable tablet mcg PO 01/18/24 01/18/24 History cholecalciferol (vitamin D3) 25 25 mcg PO QDAY 01/18/24 01/18/24 History mcg (1,000 unit) capsule tramadol 50 mg tablet 50 mg PO BID PRN 01/18/24 01/18/24 History Have you fallen in the past year?: No PFSH Medical History Essential hypertension Cancer GERD (gastroesophageal reflux disease) Sleep apnea Asthma Pyonephrosis Rash and nonspecific skin eruption Incontinence Limb weakness Shoulder pain Colon cancer Arthritis Surgical History History of knee joint replacement History of shoulder replacement History of colon resection Family History Mother Arthritis Social History Smoking Status: Never smoker HPI LEFT KNEE Details: This documentation accurately reflects the service provided and the decisions made by me, Dr. Logan Wrigth, DO 01/18/24 0803. Part of today???s visit was documented by Antonia OVIEDO, acting as scribe. KIARA BRENNER is a 83 year old F here today for Left knee pain. Patient states about 2 weeks ago she was outside with her kids and she went to get up and move seats and she had pain in her left knee. She was not having any significant issues prior to this although she did have an injection 6 months prior she does not recall this. Patient states she took some Tylenol and it was better. 2 days later she saw her PCP and she did a X-ray and told her that she needed to see a specialist. Patient was also put on Tramadol and she said that helped her. Patient states her left knee pain is the back of her knee. She admits to clicking in her knee even prior to the injury. It is dramatically improved since the event. She is taking 200 mg of Celebrex daily even prior to for her back. patient had a injection in her left knee about [address] Funez. Patient states that injection lasted about a good 3 months. No recent PT. Patient does states she has back pain for a while for which she has not done physical therapy for and that is worse then her knee pain right now. Patient has a h/x sciatic pain in the past on the right side. She does take Tylenol and celebrex for her pain. Ortho Exam General General: Yes no acute distress Neurologic: Yes alert and Yes oriented x3 Psychologic: Yes reasonable and appropriate Right Knee Patella Translation: 1 Left Knee Skin/Wound: No ecchymosis, No erythema and No swelling Homans Sign: No Knee ROM: Yes ROM-Extension -20 to 0 and No ROM-Flexion 0-140 (110) Examination: No med jt line tenderness, No Lat jt line tenderness, No Crepitus, Yes Pain with flexion, No Go's Test and No TTP Pes Anserine Stability: NML: Anterior Drawer, NML: Posterior Drawer, NML: Valgus 0, NML: Valgus 30, NML: Varus 0 and NML: Varus 30 Patella Translation: 1 Patella Grind: Yes KNEE: no effusion mild patellar grind no instability Right Hip HIP: tender over right hip bursa Spine Neuro: Yes Light Touch Sensation; No Straight Leg Raise SPINE TESTING CERVICAL THORACIC LUMBAR Musculoskeletal Strength 0=absent - 5=normal Details: Negative seated root she is tender to palpati (more content not included)... Normal [facility] Knee 4 or More Viewson 01-03 Knee 4 or More Views [facility] Imaging Services [address] [place] [address] Knee 4 or More Views MR#: [id number] Acct: [id number] Name: KIARA BRENNER Rep #: [id number] : 1940 F 83 From: Jermaine Prescott MD PCP: Dr. Lety Funez MD Status: REG CLI Study: Knee 4 or More Views Date of Exam: 01/04/24 Exam# [id number] Ordering Dr: [place] [id number] STUDY: X-RAY - LEFT KNEE REASON FOR EXAM: Female, 83 years old. Pain and swelling. TECHNIQUE: 4 views of the left knee. COMPARISON: None. FINDINGS: Normal visualized distal femur. Normal visualized proximal tibia and fibula. Normal proximal tibiofibular articulation. There is no demonstrated fracture. There is moderate degenerative arthrosis of the medial femorotibial compartment with moderate joint space narrowing. There is severe degenerative arthrosis of the lateral femorotibial compartment with severe joint space narrowing. There is mild degenerative arthrosis of the patellofemoral articulation. There is a moderate volume joint effusion. There are mild atherosclerotic calcifications. RAD/Knee 4 or More Views IMPRESSION: Tricompartment degenerative arthrosis, most severe in the lateral femorotibial compartment. Moderate joint effusion. No demonstrated fracture. Electronically Signed: Jermaine Prescott MD at 13:34 EDT Reading Location ID and State: [address] [place] [address] , Service support , CC: Dr. Keli Chu MD; Dr. Lety Funez MD Geography Instructor: Signed Normal [facility] Bacteria Ur Culton Bacteria identified Cx Nom (U) CULTURE, URINE: No growth (<1,000 CFU/ml) Normal [facility] Comment on above: Performed By: #### 6 30-4 #### [facility] CLIA [id number] [address] [place] [address] [place] Absolute lymphocyte countOrd ered By: Lety Funez on 08-11-2023 Lymphocytes Auto (Unsp spec) [#/Vol] 2.74 10*3/uL 0.83-4.51 [facility] Automated lymphocyte count a s percentage of total leukocytesOrdered By: Lety Funez on 08-11-2023 Lymphocytes/100 WBC Auto (Unsp spec) 35.3 % 19-41 [facility] Basophil percentageOrdered B y: Lety Funez on 08-11-2023 Basophils/100 WBC (Bld) 0.4 % 0-1 [facility] Bilirubin [Mass/Vol] 0.40 mg/dL 0.20-1.00 [facility] Comment on above: For patients on eltr ombopag therapy, use of Dimension [place] TBIL is not recommended. Chloride [Moles/Vol] 108 mmol/L 98-107 [facility] Cholesterol [Mass/Vol] 205 mg/dL <200 [facility] Comment on above: <200 mg/dL Desirable 200-240 mg/dL Borderline >240 mg/dL High Risk Eosinophils/100 WBC (Bld) 2.8 % 0-5 [facility] Glucose [Mass/Vol] 129 mg/dL 74-106 [facility] Comment on above: Fasting Glucose resu lt greater than or equal to 126 mg/dL suggests DIABETES MELLITUS per A.D.A. criteria. Hemoglobin (Bld) [Mass/Vol] 14.2 g/dL 12.0-15.0 [facility] Monocytes/100 WBC (Bld) 5.9 % 0-10 [facility] Neutrophils (Bld) [#/Vol] 4.3 10*3/uL 2.0-7.7 [facility] Neutrophils/100 WBC (Bld) 55.5 % 47-70 [facility] Potassium [Moles/Vol] 4.5 mmol/L 3.5-5.1 [facility] Protein [Mass/Vol] 6.6 g/dL 6.4-8.2 [facility] Sodium [Moles/Vol] 140 mmol/L 136-145 [facility] Triglyceride [Mass/Vol] 204 mg/dL <199 [facility] Comment on above: The drugs N-Acetylcy steine and Metamizole may falsely depress this assay.Serum Triglycerides Reference Interval Normal <150 mg/dL Borderline high 150 - 199 mg/dL High 200 - 499 mg/dL Very High > or = 500 mg/dL WBC (Bld) [#/Vol] 7.8 10*3/uL 4.4-11.0 [facility] Determination of erythrocyte mean corpuscular volume (MCV)Ordered By: Demariosrini Funez on 08-11-2023 MCV (RBC) [Entitic vol] 93.8 fL 81-99 [facility] Erythrocyte distribution wid th ratioOrdered By: [facility] on 08-11-2023 Erythrocyte distribution width (RBC) [Ratio] 12.9 % 11.6-14.6 [facility] Erythrocyte distribution wid th standard deviationOrdered By: [facility] on 08-11-2023 Erythrocyte distribution width (RBC) [Entitic vol] 44.5 fL 35.1-43.9 [facility] Hematocrit Auto (Bld) [Volum e fraction]Ordered By: [facility] on 08-11-2023 Hematocrit (Bld) [Volume fraction] 42.3 % 37-47 [facility] Immature granulocytes/100 WB C Auto (Bld)Ordered By: [facility] on 08-11-2023 Immature granulocytes/100 WBC (Bld) 0.100 % 0.0-0.9 [facility] Comment on above: IG% - Immature Granu locytes (promyelocytes, myelocytes and metamyelocytes) > 1% indicates that a LEFT SHIFT is Present. Laboratory - Chemistry and C hemistry - challengeOrdered By: [facility] on 08-11-2023 Albumin/Globulin [Mass ratio] 1.3 {ratio} 0.9-2.4 [facility] ALP [Catalytic activity/Vol] 61 U/L 45-117 [facility] ALT [Catalytic activity/Vol] 21 U/L 13-56 [facility] Cholesterol in HDL [Mass/Vol] 49 mg/dL >40 [facility] Comment on above: The drugs N-Acetylcy steine and Metamizole may falsely depress this assay. Reference Range HDL <40 mg/dL Low HDL Cholesterol HDL >or= 60 mg/dL High HDL Cholesterol Cholesterol in LDL [Mass/Vol] 115 mg/dL 0-130 [facility] CO2 [Moles/Vol] 26.0 mmol/L 21.0-32.0 [facility] Globulin (S) [Mass/Vol] 2.9 g/dL 2.2-4.2 [facility] Urea nitrogen/Creatinine [Mass ratio] 16.4 mg/mg 10-20 [facility] Laboratory - Hematology and Cell countsOrdered By: Lety Funez on 08-11-2023 MCH (RBC) [Entitic mass] 31.5 pg 27.0-32.0 [facility] MCHC (RBC) [Mass/Vol] 33.6 g/dL 32-36 [facility] Nucleated RBC/100 WBC (Bld) [Ratio] 0 % 0-5 [facility] Platelet mean volume (Bld) [Entitic vol] 9.5 fL 6.2-12.0 [facility] Platelets (Bld) [#/Vol] 233 10*3/uL 150-450 [facility] No Panel InformationOrdered By: Lety Funez on 08-11-2023 Estimated GFR (MDRD) Amer 42 mL/min >60 [facility] Comment on above: GFR Calc Estimated GFR (MDRD) Non-Af Amer 35 mL/min >60 [facility] Comment on above: Non- GFR Calc Vitamin D 25-Hydroxy 41.3 ng/mL [facility] Comment on above: Vitamin D 25(OH) Sta tus Range Deficiency <20 ng/mL (50nmol/L) Insufficiency 20 - 30 ng/mL (50 - 75 nmol/L) Sufficiency 30 - 100 ng/mL (75 - 250 nmol/L) Toxicity >100 ng/mL (>250 nmol/L) VLDL Cholesterol 41 mg/dL 5-40 [facility] RBC Auto (Bld) [#/Vol]Ordere d By: Lety Funez on 08-11-2023 RBC (Bld) [#/Vol] 4.51 10*6/uL 4.2-5.4 [facility] Serum or plasma calcium nestor urement (mass/volume)Ordered By: Lety Funez on 08-11-2023 Calcium [Mass/Vol] 8.7 mg/dL 8.5-10.1 [facility] Serum or plasma creatinine m easurement (mass/volume)Ordered By: Lety Funez on 08-11-2023 Creatinine [Mass/Vol] 1.52 mg/dL 0.55-1.02 [facility] Comment on above: The validity of the calculated GFR & GFRAA in patients over 70 years has not been determined. Clinical correlation is essential. Serum or plasma thyroid stim ulating hormone (TSH) measurement (units/volume)Ordered By: Lety Funez on 08-11-2023 TSH Qn 1.34 uIU/mL 0.358-3.74 [facility] Serum or plasma urea nitroge n measurement (mass/volume)Ordered By: Lety Funez on 08-11-2023 Urea nitrogen [Mass/Vol] 25 mg/dL 7-18 [facility] Thin prep Papanicolaou smear with manual screeningOrdered By: [facility] on 08-11-2023 Thin prep Papanicolaou smear with manual screening 3.7 g/dL 3.2-5.0 [facility] Thin prep Papanicolaou smear with manual screening 15 U/L 15-37 [facility] Thin prep Papanicolaou smear with manual screening 6 5-15 [facility] Whole blood hemoglobin A1c/t otal hemoglobin ratio (mass fraction)Ordered By: Lety Funez on 08-11-2023 HbA1c (Bld) [Mass fraction] 5.9 % 3.8-5.6 [facility] Comment on above: Normal < 5.7 % Predi abetic 5.7 - 6.4 % Diabetic >or= 6.5 % Please note range changes. CNOVon 07-07-2023 [facility] KIARA BRENNER ([id number]) 1940 F Date Time Provider Department 07/07/23 2:00 PM ANA LAURA BANKS [facility] During your visit today, we recorded the following information about you: Height 1.524 m Ana Laura Banks, ANYA.MEDICINE TECH 07/07/2023 2:40 PM Signed ESTABLISHED PATIENT OFFICE VISIT HISTORY OF PRESENT ILLNESS Kiara Brenner is a 82 year old female who presents today in f/u. 05/14/23: Patient with a history of overactive bladder, urge incontinence, recurrent bladder infections. She presents today for follow-up. No UTIs in the past year. Patient is taking methenamine 2 times per day, probiotics, vitamin C. She is using Premarin cream 3 times per week. She denies any UTI symptoms today. No gross hematuria. No dysuria. No fever or chills. She continues to have urgency and frequency. Urge incontinence several times per day. Wearing 4 pads per day. Nocturnal enuresis nightly. Oxybutynin in the past caused severe dry mouth. Currently taking Myrbetriq. We discussed a trial of Gemtesa, cost prohibitive. Will restart her Vesicare 10 mg daily. Today's note: Patient presents today in follow-up of her overactive bladder, recurrent bladder infections. Previously taking Myrbetriq and oxybutynin. Patient was started on Vesicare 10 mg daily at her last visit, symptoms are improved. She states that her urgency is improved during the day. She continues to have occasional urge incontinence, leaking a small amount. Changing her pad 3 times per day usually. She states that she has better control with the Vesicare. No UTI symptoms. Denies gross hematuria. Using Premarin cream. Has decrease methenamine to 1 time per day. LAB RESULTS No results found for: CREAT No results found for: PSA No results found for: COLOR, CLARITY, UGLUC, UBILI, UKET, SPGR, UHB, UPH, UPROT, UROBILINOGEN, NITRITES, LEUKEST MEDICATIONS: solifenacin (VESICARE) 10 mg tablet Take 1 tablet by mouth once daily. Methenamine Hippurate (HIPREX) 1 gram tablet Take 1 tablet by mouth two times a day. conjugated estrogens (PREMARIN) vaginal cream Use 1 g vaginally three times a week. D-MANNOSE ORAL Take by mouth. Lactobac no.41/Bifidobact no.7 (PROBIOTIC-10 ORAL) Take 1 tablet by mouth once daily. Biotin 10,000 mcg cap Take 1 capsule by mouth once daily. Ascorbic Acid 500 mg cpER Take 1 capsule by mouth once daily. cholecalciferol (VITAMIN D3) 5,000 unit tab Take 5,000 Units by mouth once daily. metoprolol succinate ER (TOPROL XL) 25 mg 24 hr tablet Take 25 mg by mouth once daily. celecoxib (CELEBREX) 200 mg capsule Take 200 mg by mouth once daily. montelukast (SINGULAIR) 10 mg tablet Take 10 mg by mouth once daily. omeprazole (PRILOSEC) 40 mg capsule Take by mouth once daily. vf-un-ZL-vit A-uwtli-rpb-coQ10 (DAILY MULTIVITAMIN) 200-100-500 mcg cap Take by mouth. fexofenadine 60 mg ORAL tablet Take by mouth once daily. REVIEW OF SYSTEMS CONSTITUTIONAL: Patient reports no recent fever or weight loss CARDIOVASCULAR: No chest pain, palpitations or ankle edema. RESPIRATORY: No wheezing, frequent cough or shortness of breath GENITOURINARY: See HPI HISTORIES PAST MEDICAL HISTORY Diagnosis Date Acute gastritis without mention of hemorrhage Arthritis Bladder infection Diaphragmatic hernia without mention of obstruction or gangrene Diverticulosis of colon (without mention of hemorrhage) colon cancer Essential hypertension, benign GERD (gastroesophageal reflux disease) High cholesterol Internal hemorrhoids without mention of complication Migraine, unspecified, without mention of intractable migraine without mention of status migrainosus Osteoarthrosis, unspecified whether generalized or localized, unspecified site Peripheral vertigo, unspecified Personal history of malignant neoplasm of large intestine Pure hypercholesterolemia Recurrent UTI Sacroiliitis, not elsewhere classified (HCC) Urge incontinence Urinary tract infection without hematuria FAMILY HISTORY Problem Relation Age of Onset Prostate Cancer Brother PAST SURGICAL HISTORY Procedure Laterality Date APPENDECTOMY 04/20/1956 COLONOSCOPY FLX DX W/COLLJ SPEC WHEN PFRMD 09/25/2005 Colonoscopy COLONOSCOPY FLX DX W/COLLJ SPEC WHEN PFRMD 10/28/2006 COLONOSCOPY FLX DX W/COLLJ SPEC WHEN PFRMD 11/08/2007 COLONOSCOPY FLX DX W/COLLJ SPEC WHEN PFRMD 11/09/2009 EGD TRANSORAL BIOPSY SINGLE/MULTIPLE 10/28/2006 ESOPHAGOGASTRODUODENOSC OPY TRANSORAL DIAGNOSTIC 08/27/2010 EGD LAPS SURG CHOLECYSTECTOMY W/CHOLANGIOGRAPHY 06/05/2010 LEFT HEART CATH,PERCUTANEOUS 06/03/2010 Cardiac cath, L heart no stents PAST SURGICAL HISTORY OF 07/20/2003 arthroscopic right knee PAST SURGICAL HISTORY OF 04/20/1946 T AND A PAST SURGICAL HISTORY OF 04/20/1998 uvulectomy PAST SURGICAL HISTORY OF bladdar suspension PAST SURGICA (more content not included)... Normal [facility] UA DIP, URINE (POC)on 2023 BILIRUBIN UA (POCT) Negative Negative [facility] CLARITY UA (POCT) Clear [facility] COLOR UA (POCT) Yellow [facility] GLUCOSE UA (POCT) Negative Negative mg/dL [facility] Hem[facility] Ql (U) [facility] KETONE UA (POCT) Negative Negative mg/dL [facility] LEUKOCYTES UA (POCT) Negative Negative [facility] NITRITE UA (POCT) Negative Negative [facility] PH UA (POCT) 6.0 4.5 - 8.0 [facility] Protein Ql (U) Negative Negative mg/dL [facility] SPECIFIC GRAVITY UA (POCT) 1.020 1.005 - 1.030 [facility] UROBILINOGEN UA (POCT) 0.2 E.U./dL Devi l E.U./dL [facility] CNOVon 05-14-2023 CNOV Office Visit ([facility] ) CRYSTALKIARA John ([id number]) 1940 F Date Time Provider Department 05/14/23 2:00 PM [facility] During your visit today, we recorded the following information about you: Height 1.524 m Ana Laura Banks, ANYA.MEDICINE TECH 05/14/2023 3:05 PM Signed ESTABLISHED PATIENT OFFICE VISIT HISTORY OF PRESENT ILLNESS Kiara Brenner is a 82 year old female who presents today in f/u. 10/30/22: Patient with a history of recurrent bladder infections, overactive bladder. She presents today in follow-up. Patient has not had any urinary tract infections in the past 9 months. She is currently using Premarin cream. Taking methenamine, probiotics. D-mannose and vitamin C as well. She denies any UTI symptoms today. No gross hematuria. No dysuria. No fever or chills. She continues to have urinary incontinence. She has been taking Myrbetriq for a year. Vesicare previously. She does not feel that the Myrbetriq is helping. Wearing 3-4 pads per day. She has rare urgency. Leaking on the way to the bathroom. Nocturnal enuresis nightly. We discussed Gemtesa. Discussed stopping Myrbetriq as well to see if her symptoms change. Today's note: Patient with a history of overactive bladder, urge incontinence, recurrent bladder infections. She presents today for follow-up. No UTIs in the past year. Patient is taking methenamine 2 times per day, probiotics, vitamin C. She is using Premarin cream 3 times per week. She denies any UTI symptoms today. No gross hematuria. No dysuria. No fever or chills. She continues to have urgency and frequency. Urge incontinence several times per day. Wearing 4 pads per day. Nocturnal enuresis nightly. Oxybutynin in the past caused severe dry mouth. Currently taking Myrbetriq. We discussed a trial of Gemtesa, cost prohibitive. Will restart her Vesicare 10 mg daily. LAB RESULTS No results found for: CREAT No results found for: PSA No results found for: COLOR, CLARITY, UGLUC, UBILI, UKET, SPGR, UHB, UPH, UPROT, UROBILINOGEN, NITRITES, LEUKEST MEDICATIONS: Methenamine Hippurate (HIPREX) 1 gram tablet Take 1 tablet by mouth two times a day. mirabegron (MYRBETRIQ) 50 mg Tb24 Take 1 tablet by mouth once daily. conjugated estrogens (PREMARIN) vaginal cream Use 1 g vaginally three times a week. D-MANNOSE ORAL Take by mouth. Lactobac no.41/Bifidobact no.7 (PROBIOTIC-10 ORAL) Take 1 tablet by mouth once daily. Biotin 10,000 mcg cap Take 1 capsule by mouth once daily. Ascorbic Acid 500 mg cpER Take 1 capsule by mouth once daily. cholecalciferol (VITAMIN D3) 5,000 unit tab Take 5,000 Units by mouth once daily. metoprolol succinate ER (TOPROL XL) 25 mg 24 hr tablet Take 25 mg by mouth once daily. celecoxib (CELEBREX) 200 mg capsule Take 200 mg by mouth once daily. montelukast (SINGULAIR) 10 mg tablet Take 10 mg by mouth once daily. omeprazole (PRILOSEC) 40 mg capsule Take by mouth once daily. tl-sv-YZ-vit P-qucdj-sfn-coQ10 (DAILY MULTIVITAMIN) 200-100-500 mcg cap Take by mouth. fexofenadine 60 mg ORAL tablet Take by mouth once daily. REVIEW OF SYSTEMS CONSTITUTIONAL: Patient reports no recent fever or weight loss CARDIOVASCULAR: No chest pain, palpitations or ankle edema. RESPIRATORY: No wheezing, frequent cough or shortness of breath GENITOURINARY: See HPI HISTORIES PAST MEDICAL HISTORY Diagnosis Date Acute gastritis without mention of hemorrhage Arthritis Bladder infection Diaphragmatic hernia without mention of obstruction or gangrene Diverticulosis of colon (without mention of hemorrhage) colon cancer Essential hypertension, benign GERD (gastroesophageal reflux disease) High cholesterol Internal hemorrhoids without mention of complication Migraine, unspecified, without mention of intractable migraine without mention of status migrainosus Osteoarthrosis, unspecified whether generalized or localized, unspecified site Peripheral vertigo, unspecified Personal history of malignant neoplasm of large intestine Pure hypercholesterolemia Recurrent UTI Sacroiliitis, not elsewhere classified (HCC) Urge incontinence Urinary tract infection without hematuria FAMILY HISTORY Problem Relation Age of Onset Prostate Cancer Brother PAST SURGICAL HISTORY Procedure Laterality Date APPENDECTOMY 04/20/1956 COLONOSCOPY FLX DX W/COLLJ SPEC WHEN PFRMD 09/25/2005 Colonoscopy COLONOSCOPY FLX DX W/COLLJ SPEC WHEN PFRMD 10/28/2006 COLONOSCOPY FLX DX W/COLLJ SPEC WHEN PFRMD 11/08/2007 COLONOSCOPY FLX DX W/COLLJ SPEC WHEN PFRMD 11/09/2009 EGD TRANSORAL BIOPSY SINGLE/MULTIPLE 10/28/2006 ESOPHAGOGASTRODUODENOSC OPY TRANSORAL DIAGNOSTIC 08/27/2010 EGD LAPS SURG CHOLECYSTECTOMY W/CHOLANGIOGRAPHY 06/05/2010 LEFT HEART CATH,PERCUTANEOUS 06/03/2010 Cardiac cath, L heart no stents PAST SURGICAL HISTORY OF 07/20/2003 arthroscopic rig (more content not included)... Normal [facility] CNOVon 10-30-2022 CNOV Office Visit ([facility] ) KIARA BRENNER ([id number]) 1940 F Date Time Provider Department 10/30/22 10:45 AM ANA LAURA BANKS During your visit today, we recorded the following information about you: Blood pressure Height 115/80 1.524 m Ana Laura Banks, RN ORTHOPAEDICS.MEDICINE TECH 10/30/2022 11:43 AM Addendum ESTABLISHED PATIENT OFFICE VISIT HISTORY OF PRESENT ILLNESS Kiara Brenner is a 81 year old female who presents today in f/u. Patient with a history of recurrent bladder infections, overactive bladder. She presents today in follow-up. Patient has not had any urinary tract infections in the past 9 months. She is currently using Premarin cream. Taking methenamine, probiotics. D-mannose and vitamin C as well. She denies any UTI symptoms today. No gross hematuria. No dysuria. No fever or chills. She continues to have urinary incontinence. She has been taking Myrbetriq for a year. Vesicare previously. She does not feel that the Myrbetriq is helping. Wearing 3-4 pads per day. She has rare urgency. Leaking on the way to the bathroom. Nocturnal enuresis nightly. We discussed Gemtesa. Discussed stopping Myrbetriq as well to see if her symptoms change. LAB RESULTS No results found for: CREAT No results found for: PSA No results found for: COLOR, CLARITY, UGLUC, UBILI, UKET, SPGR, UHB, UPH, UPROT, UROBILINOGEN, NITRITES, LEUKEST MEDICATIONS: mirabegron (MYRBETRIQ) 50 mg Tb24 Take 1 tablet by mouth once daily. conjugated estrogens (PREMARIN) vaginal cream Use 1 g vaginally three times a week. Methenamine Hippurate (HIPREX) 1 gram tablet Take 1 tablet by mouth twice daily. D-MANNOSE ORAL Take by mouth. Lactobac no.41/Bifidobact no.7 (PROBIOTIC-10 ORAL) Take 1 tablet by mouth once daily. Biotin 10,000 mcg cap Take 1 capsule by mouth once daily. Ascorbic Acid 500 mg cpER Take 1 capsule by mouth once daily. cholecalciferol (VITAMIN D3) 5,000 unit tab Take 5,000 Units by mouth once daily. metoprolol succinate ER (TOPROL XL) 25 mg 24 hr tablet Take 25 mg by mouth once daily. celecoxib (CELEBREX) 200 mg capsule Take 200 mg by mouth once daily. montelukast (SINGULAIR) 10 mg tablet Take 10 mg by mouth once daily. omeprazole (PRILOSEC) 40 mg capsule Take by mouth once daily. tq-ps-KC-vit X-cjkey-fee-coQ10 (DAILY MULTIVITAMIN) 200-100-500 mcg cap Take by mouth. fexofenadine 60 mg ORAL tablet Take by mouth once daily. REVIEW OF SYSTEMS CONSTITUTIONAL: Patient reports no recent fever or weight loss CARDIOVASCULAR: No chest pain, palpitations or ankle edema. RESPIRATORY: No wheezing, frequent cough or shortness of breath GENITOURINARY: See HPI HISTORIES PAST MEDICAL HISTORY Diagnosis Date Acute gastritis without mention of hemorrhage Arthritis Bladder infection Diaphragmatic hernia without mention of obstruction or gangrene Diverticulosis of colon (without mention of hemorrhage) colon cancer Essential hypertension, benign GERD (gastroesophageal reflux disease) High cholesterol Internal hemorrhoids without mention of complication Migraine, unspecified, without mention of intractable migraine without mention of status migrainosus Osteoarthrosis, unspecified whether generalized or localized, unspecified site Peripheral vertigo, unspecified Personal history of malignant neoplasm of large intestine Pure hypercholesterolemia Recurrent UTI Sacroiliitis, not elsewhere classified (HCC) Urge incontinence Urinary tract infection without hematuria FAMILY HISTORY Problem Relation Age of Onset Prostate Cancer Brother PAST SURGICAL HISTORY Procedure Laterality Date APPENDECTOMY 04/20/1956 COLONOSCOPY FLX DX W/COLLJ SPEC WHEN PFRMD 09/25/2005 Colonoscopy COLONOSCOPY FLX DX W/COLLJ SPEC WHEN PFRMD 10/28/2006 COLONOSCOPY FLX DX W/COLLJ SPEC WHEN PFRMD 11/08/2007 COLONOSCOPY FLX DX W/COLLJ SPEC WHEN PFRMD 11/09/2009 EGD TRANSORAL BIOPSY SINGLE/MULTIPLE 10/28/2006 ESOPHAGOGASTRODUODENOSC OPY TRANSORAL DIAGNOSTIC 08/27/2010 EGD LAPS SURG CHOLECYSTECTOMY W/CHOLANGIOGRAPHY 06/05/2010 LEFT HEART CATH,PERCUTANEOUS 06/03/2010 Cardiac cath, L heart no stents PAST SURGICAL HISTORY OF 07/20/2003 arthroscopic right knee PAST SURGICAL HISTORY OF 04/20/1946 T AND A PAST SURGICAL HISTORY OF 04/20/1998 uvulectomy PAST SURGICAL HISTORY OF bladdar suspension PAST SURGICAL HISTORY OF 03/20/2007 bunionectomy S SLING BLADDER 2004 TOTAL ABDOMINAL HYSTERECT W/WO RMVL TUBE OVARY 04/20/1985 TOTAL KNEE REPLACEMENT Right 2010 URETHROPLASTY 01/21/2021 SOCIAL HISTORY Social History Tobacco Use Smoking status: Never Smokeless tobacco: Never Vaping Use Vaping Use: Never used Substance Use Topics Alcohol use: Yes Comment: rare occassion Drug use: No PHYSICAL EXAMINATION General appearance: Well appearing, alert, in no acute distress, well-hydrated, w (more content not included)... Normal [facility] UA DIP, URINE (POC)on 2022 BILIRUBIN UA (POCT) Negative Negative [facility] CLARITY UA (POCT) Clear [facility] COLOR UA (POCT) Yellow [facility] GLUCOSE UA (POCT) Negative Negative mg/dL [facility] HEMOGLOBIN/BLOOD UA (POCT) Negative Negative [facility] KETONE UA (POCT) Negative Negative mg/dL [facility] LEUKOCYTES UA (POCT) Negative Negative [facility] NITRITE UA (POCT) Negative Negative [facility] PH UA (POCT) 5.5 4.5 - 8.0 [facility] Protein Ql (U) Negative Negative mg/dL [facility] SPECIFIC GRAVITY UA (POCT) 1.010 1.005 - 1.030 [facility] UROBILINOGEN UA (POCT) 0.2 E.U./dL Devi l E.U./dL [facility] Basophil percentageon 2021 Basophil percentage 5-10 SEEN /hpf 0-5 [facility] Work Phone: Bilirubin Test strip Ql (U)o n 10-13-2021 Bilirubin Ql (U) Negative Negative [facility] Work Phone: Ketones Test strip Ql (U)on 10-13-2021 Ketones Ql (U) Negative Negative [facility] Work Phone: Mucus LM Ql (Urine sed)on Mucus Ql (Urine sed) 0 SEEN /hpf [facility]: Nitrite Test strip Ql (U)on 10-13-2021 Nitrite Ql (U) Negative Negative [facility] Work Phone: Protein Test strip Ql (U)on 10-13-2021 Protein Ql (U) Negative Negative [facility] Work Phone: Squamous epithelial cells de tection in urine sediment by light microscopyon 10-13-2021 Epithelial cells.squamous LM Ql (Urine sed) 0 SEEN /hpf 5-10 [facility] Work Phone: Urine blood detectionon 09-19 RBC Ql (U) Negative Negative [facility] Work Phone: RBC Ql (U) 0 SEEN /hpf 0-5 [facility] Work Phone: Urine clarityon 10-13-2021 Clarity (U) Clear Clear [facility] Work Phone: Urine color determinationon 10-13-2021 Color (U) Yellow Yellow [facility] Work Phone: Urine glucose detectionon Glucose Ql (U) Normal mg/dl Normal [facility] Work Phone: Urine leukocyte esterase det ection by dipstickon 10-13-2021 Leukocyte esterase Test strip Ql (U) 500 /ul Negative [facility] Work Phone: Urine pHon 10-13-2021 pH (U) 6.0 [pH] 5.0 - 8.0 [facility] Work Phone: Urine sediment bacteria coun t by microscopy (number/high power field)on 10-13-2021 Bacteria LM.HPF (Urine sed) [#/Area] 0 /[HPF] None Seen [facility] Work Phone: Urine specific gravity measu rementon 10-13-2021 Specific gravity (U) [Rel density] 1.010 1.002-1.030 [facility] Work Phone: Urobilinogen Auto test strip Ql (U)on 10-13-2021 Urobilinogen Ql (U) Normal mg/dl Normal [facility] Work Phone: Laboratory - Chemistry and C hemistry - challengeon 10-12-2021 Bilirubin Ql (U) Negative [facility] Work Phone: Glucose Ql (U) Negative [facility] Work Phone: Ketones Ql (U) Trace (5) [facility] Work Phone: pH (U) 5.0 [pH] [facility] Work Phone: Specific gravity (U) [Rel density] 1.005 [facility] Work Phone: Urobilinogen (U) [Mass/Vol] Negative [facility] Work Phone: Laboratory - Hematology and Cell countson 10-12-2021 Hemoglobin Ql (U) Negative [facility] Work Phone: Laboratory - Specimen inform ationon 10-12-2021 Clarity (U) Hazy [facility] Work Phone: Color (U) STRAW [facility] Work Phone: Laboratory - Urinalysison Nitrite Ql (U) Negative [facility] Work Phone: Protein Ql (U) Negative [facility] Work Phone: No Panel Informationon 10-12 Urine Leukocytes Positive [facility] Work Phone: Urine Non-Hemolyzed Blood Negative [facility] Work Phone: UA DIP, URINE (POC)on 2021 BILIRUBIN UA (POCT) Negative Negative [facility] CLARITY UA (POCT) Cloudy [facility] COLOR UA (POCT) Yellow [facility] GLUCOSE UA (POCT) Negative Negative mg/dL [facility] HEMOGLOBIN/BLOOD UA (POCT) Moderate Abnormal Negative [facility] KETONE UA (POCT) Negative Negative mg/dL [facility] LEUKOCYTES UA (POCT) Large Abnormal Negative [facility] NITRITE UA (POCT) Positive Abnormal Negative [facility] PH UA (POCT) 5.5 4.5 - 8.0 [facility] Protein Ql (U) Trace Abnormal Negative mg/dL [facility] SPECIFIC GRAVITY UA (POCT) 1.010 1.005 - 1.[address] [facility] UROBILINOGEN UA (POCT) 0.2 E.U./dL Devi l E.U./[facility] UA DIP, URINE (POC)on 2021 BILIRUBIN UA (POCT) Negative Negative [facility] CLARITY UA (POCT) Clear [facility] COLOR UA (POCT) Yellow [facility] GLUCOSE UA (POCT) Negative Negative mg/dL [facility] HEMOGLOBIN/BLOOD UA (POCT) Negative Negative [facility] KETONE UA (POCT) Negative Negative mg/dL [facility] LEUKOCYTES UA (POCT) Negative Negative [facility] NITRITE UA (POCT) Negative Negative [facility] PH UA (POCT) 5.5 4.5 - 8.0 [facility] Protein Ql (U) Negative Negative mg/dL [facility] SPECIFIC GRAVITY UA (POCT) <=1.005 Abnormal 1.005 - 1.030 [facility] UROBILINOGEN UA (POCT) 0.2 E.U./dL Devi l E.U./dL [facility] CALCIUMon 04-06-2021 Calcium [Mass/Vol] 9.0 mg/dL Normal 8.6-10.5 [facility] Comment on above: Performed By: #### B 12B, FOLSB #### [facility] (DEFAULT) [address] [address] CBC,PLATELETSon 04-06-2021 Hematocrit (Bld) [Volume fraction] 42.0 % Normal 34.9-44.3 [facility] Comment on above: Performed By: #### H [facility] #### [facility] (DEFAULT) [address] [address] Hemoglobin (Bld) [Mass/Vol] 14.0 g/dL Normal 11.4-15.2 [facility] Comment on above: Performed By: #### H [facility] #### [facility] (DEFAULT) [address] [address] MCV (RBC) [Entitic vol] 92.3 fL Normal 79.6-97.7 [facility] Comment on above: Performed By: #### H EMOGC #### [facility] (DEFAULT) [address] [address] Mean Cell Hgb 30.8 pg Normal 25.9-33.9 [facility] Comment on above: Performed By: #### H EMOGC #### [facility] (DEFAULT) [address] [address] Mean Cell Hgb Conc 33.3 g/dL Normal 31.4-35.9 [facility] Comment on above: Performed By: #### H EMOGC #### [facility] (DEFAULT) [address] [address] Platelet mean volume (Bld) [Entitic vol] 9.2 fL Normal 8.5-12.2 [facility] Comment on above: Performed By: #### H EMOGC #### [facility] (DEFAULT) [address] [address] Platelets (Bld) [#/Vol] 245 10*3/uL Normal 150-393 [facility] Comment on above: Performed By: #### H EMOGC #### [facility] (DEFAULT) [address] [address] RBC (Bld) [#/Vol] 4.55 10*6/uL Normal 3.91-5.04 [facility] Comment on above: Performed By: #### H EMOGC #### [facility] (DEFAULT) [address] [address] RBC Distribution 12.7 % Normal 10.8-14.9 [facility] Comment on above: Performed By: #### H EMOGC #### [facility] (DEFAULT) [address] [address] WBC (Bld) [#/Vol] 9.06 10*3/uL Normal 3.99-11.19 [facility] Comment on above: Performed By: #### H EMO #### U [facility] (DEFAULT) [address] [place] [address] CHEM 7 (LYTES,BUN,CREA,GLUC) on 04-06-2021 Anion gap [Moles/Vol] 15 mmol/L Normal 7-17 [facility] Comment on above: Performed By: #### Caro Floyd, BENY #### [facility] (DEFAULT) [address] [place] [address] Chloride [Moles/Vol] 104 mmol/L Normal 98-108 [facility] Comment on above: Performed By: #### Caro 12Caro, BENY #### [facility] (DEFAULT) [address] [place] [address] CO2 [Moles/Vol] 25 mmol/L Normal 22-30 [facility] Comment on above: Performed By: #### Caro Floyd, BENY #### [facility] (DEFAULT) [address] [place] [address] Creatinine [Mass/Vol] 0.88 mg/dL Normal 0.50-1.20 [facility] Comment on above: Performed By: #### Caro 12Caro, CARMINEB #### [facility] (DEFAULT) [address] [place] [address] EST GFR, >=60 Normal >=60 [facility] Comment on above: Performed By: #### Caro 12Caro, CARMINEB #### [facility] (DEFAULT) [address] [place] [address] EST GFR,Non >=60 Normal >=60 [facility] Comment on above: Performed By: #### Caro 12B, CARMINEB #### [facility] (DEFAULT) [address] [place] [address] Glucose [Mass/Vol] 114 mg/dL High 70-99 [facility] Comment on above: Performed By: #### ASHLIE QuintanaSB #### [facility] (DEFAULT) [address] [place] [address] Osmolality [Osmolality] 296 mosm/kg Normal 278-305 [facility] Comment on above: Performed By: #### B 12B, FOLSB #### [facility] (DEFAULT) [address] [place] [address] Potassium [Moles/Vol] 4.1 mmol/L Normal 3.5-5.0 [facility] Comment on above: Performed By: #### B 12B, FOLSB #### [facility] (DEFAULT) [address] [place] [address] Sodium [Moles/Vol] 140 mmol/L Normal 133-143 [facility] Comment on above: Performed By: #### B 12B, FOLSB #### [facility] (DEFAULT) [address] [place] [address] Urea nitrogen [Mass/Vol] 19 mg/dL Normal 7-22 [facility] Comment on above: Performed By: #### B 12B, FOLSB #### [facility] (DEFAULT) [address] [place] [address] Urea nitrogen/Creatinine [Mass ratio] 22 mg/mg Normal [facility] Comment on above: Performed By: #### B 12B, FOLSB #### [facility] (DEFAULT) [address] [place] [address] FACIAL WITHOUT CONTRASTon 04-06-2021 CT FACIAL WITHOUT CONTRAST EXAM: CT FACIAL WITHOUT CONTRAST, 04/05/2021 21:32 PM COMPARISON: No previous study is available for comparison. CLINICAL INDICATIONS: 80 years Female [facility] ground level fall. Hematoma to face around left eye.; TECHNIQUE: A series of thin section transaxial tomographic images of the facial region are obtained without contrast. Coronal, sagittal, and axial reformats are provided. FINDINGS: Minimally displaced left nasal bone fracture near the apex. Irregular contour of the medial left globe seen only on axial imaging (series 2, image 38) likely related to trapped fluid in between the globe and eyelids soft tissues related to trauma given some medial. No loss of anterior chamber depth to suggest globe rupture. Sinuses are well-developed and clear. Left periorbital soft tissue swelling. Partially visualized degenerative changes of the cervical spine. Degenerative changes at the right temporomandibular joint. IMPRESSION: Left nasal bone irregularity likely nondisplaced fracture. I personally viewed and interpreted these images and I have reviewed and approved this report. Normal [facility] CT HEAD WITHOUT CONTRASTon 1 06-07-2020 CT HEAD WITHOUT CONTRAST EXAM: CT HEAD WITHOUT CONTRAST, 04/05/2021 9:30 PM COMPARISON: Same day CT had from outside facility CLINICAL INDICATIONS: 80 years Female Subdural hematoma; 6 hour follow up exam post fall with sdh; TECHNIQUE: A series of transaxial computerized tomographic images are obtained from base of skull to vertex without intravenous contrast. Axial whole-head and thin section posterior fossa slices are provided. Reformats: Sagittal and coronal. FINDINGS: Stable subdural blood along the falx cerebri, compared to outside Hospital CT. Extensive patchy periventricular and subcortical hypodensities, or nonspecific but likely relate to chronic microvascular ischemic disease. No acute infarct although difficult to exclude entirely. Ventricles prominent related to volume loss. White matter changes in the posterior fossa. Vascular calcifications. Calvarium and skull base appear intact. Visualized sinuses show no air fluid levels. Visualized orbits are unremarkable. Right-sided lens replacement. Left frontal scalp swelling with left supraorbital/medial nasoorbital soft tissue swelling. Degenerative C1-C2 and right TMJ changes. IMPRESSION: 1. Stable subdural hematoma along the falx cerebri. No mass effect or midline shift. 2. Sequela of chronic microvascular ischemic disease. 3. No acute fractures . I personally viewed and interpreted these images and I have reviewed and approved this report. Normal [facility] DRUGS OF ABUSE SCREEN 10, UR INEon 04-06-2021 Amphetamine/Methampheta mine Negative Normal Cutoff: 500 ng/mL [facility] Comment on above: Order Comment: For m edical purposes only. Positive results are unconfirmed unless otherwise noted. Performed By: #### 1 0DRUG #### [facility] (DEFAULT) [address] [address] Barbiturates Negative Normal Cutoff: 200 ng/mL [facility] Comment on above: Order Comment: For m edical purposes only. Positive results are unconfirmed unless otherwise noted. Performed By: #### 1 0DRUG #### [facility] (DEFAULT) [address] [address] Benzodiazepines Negative Normal Cutoff: 200 ng/mL [facility] Comment on above: Order Comment: For m edical purposes only. Positive results are unconfirmed unless otherwise noted. Performed By: #### 1 0DRUG #### [facility] (DEFAULT) [address] [address] Buprenorphine Negative Normal Cutoff: 5 ng/mL [facility] Comment on above: Order Comment: For edical purposes only. Positive results are unconfirmed unless otherwise noted. Performed By: #### 1 0DRUG #### [facility] (DEFAULT) [address] [address] Cannabinoids Screen Ql (U) Negative Normal Cutoff: 50 ng/mL [facility] Comment on above: Order Comment: For edical purposes only. Positive results are unconfirmed unless otherwise noted. Performed By: #### 1 0DRUG #### [facility] (DEFAULT) [address] [address] Cocaine Negative Normal Cutoff: 150 ng/mL [facility] Comment on above: Order Comment: For edical purposes only. Positive results are unconfirmed unless otherwise noted. Performed By: #### 1 0DRUG #### [facility] (DEFAULT) [address] [address] Fentanyl Negative Normal Cutoff: 1 ng/mL [facility] Comment on above: Order Comment: For edical purposes only. Positive results are unconfirmed unless otherwise noted. Performed By: #### 1 0DRUG #### [facility] (DEFAULT) [address] [address] Methadone Negative Normal Cutoff: 300 ng/mL [facility] Comment on above: Order Comment: For m edical purposes only. Positive results are unconfirmed unless otherwise noted. Performed By: #### 1 0DRUG #### [facility] (DEFAULT) [address] [place] [address] Opiates Negative Normal Cutoff: 300 ng/mL [facility] Comment on above: Order Comment: For m edical purposes only. Positive results are unconfirmed unless otherwise noted. Performed By: #### 1 0DRUG #### [facility] (DEFAULT) [address] [place] [address] Oxycodone Negative Normal Cutoff: 100 ng/mL [facility] Comment on above: Order Comment: For m edical purposes only. Positive results are unconfirmed unless otherwise noted. Performed By: #### 1 0DRUG #### [facility] (DEFAULT) [address] [address] MAGNESIUMon 04-06-2021 Magnesium [Mass/Vol] 2.0 mg/dL Normal 1.6-2.6 [facility] Comment on above: Performed By: #### B 12B FOLSB #### [facility] (DEFAULT) [address] [address] NOVEL CORONAVIRUS PCRon - SARS-CoV-2 (COVID-19) RNA GILDARDO+probe Ql (Unsp spec) Not detected Normal NOT DETECTED [facility] Comment on above: Order Comment: Viral transport media or BAL specimen - Collection must be done while wearing N-95 mask, eye protection, gown and gloves. Please label ALL specimens as 2019-nCoV rule out and deliver by hand.This test was performed using real time PCR and has been approved for the qualitative detection of SARS-CoV-2 nucleic acid. The test has been authorized by the FDA under an emergency use authorization for use by authorized laboratories. Result Comment: [facility] Negative results do not preclude SARS-CoV-2 infection and should not be used as the sole basis for treatment or other patient management decisions. Optimum specimen types and timing for peak viral levels during infections caused by SARS-CoV-2 has not been determined. The possibility of a false negative result should especially be considered if the patient's recent exposures or clinical presentation suggest that SARS-CoV-2 infection is probable, and diagnostic tests for other causes of illness (e.g., other respiratory illness) are negative. Collection of a new specimen and re-testing may be necessary if the patient is critically ill or clinically deteriorating. Performed By: #### B 12B, FOLSB #### [facility] (DEFAULT) [address] [place] [address] PHOSPHATE, INORGANICon 04-06 Phosphorous 4.7 mg/dL High 2.2-4.6 [facility] Comment on above: Performed By: #### B 12B, FOLSB #### [facility] (DEFAULT) [address] [address] URINALYSIS REFLEX TO CULTURE PERFORMABLEon 04-06-2021 Appearance (U) Cloudy Abnormal Clear [facility] Comment on above: Order Comment: For i ndwelling catheters, specimen collection is acceptable on catheter day 1 and 2 only. ? Performed By: #### U [id number] #### [facility] (DEFAULT) [address] [place] [address] Bacteria PRESENT Abnormal ABSENT [facility] Comment on above: Order Comment: For i ndwelling catheters, specimen collection is acceptable on catheter day 1 and 2 only. ? Performed By: #### U [id number] #### [facility] (DEFAULT) [address] [place] [address] Blood Urine Negative Normal Negative [facility] Comment on above: Order Comment: For i ndwelling catheters, specimen collection is acceptable on catheter day 1 and 2 only. ? Performed By: #### U [id number] #### [facility] (DEFAULT) [address] [place] [address] Color (U) Yellow Normal Yellow [facility] Comment on above: Order Comment: For i ndwelling catheters, specimen collection is acceptable on catheter day 1 and 2 only. ? Performed By: #### U [id number] #### [facility] (DEFAULT) [address] [place] [address] Glucose Ql (U) Negative Normal Negative [facility] Comment on above: Order Comment: For i ndwelling catheters, specimen collection is acceptable on catheter day 1 and 2 only. ? Performed By: #### U [id number] #### [facility] (DEFAULT) [address] [place] [address] Ketones Ql (U) Negative Normal Negative [facility] Comment on above: Order Comment: For i ndwelling catheters, specimen collection is acceptable on catheter day 1 and 2 only. ? Performed By: #### U [id number] #### [facility] (DEFAULT) [address] [place] [address] Leukocyte esterase Test strip Ql (U) Large Abnormal Negative [facility] Comment on above: Order Comment: For i ndwelling catheters, specimen collection is acceptable on catheter day 1 and 2 only. ? Performed By: #### U [id number] #### [facility] (DEFAULT) [address] [place] [address] Nitrites Urine Positive Abnormal Negative [facility] Comment on above: Order Comment: For i ndwelling catheters, specimen collection is acceptable on catheter day 1 and 2 only. ? Performed By: #### U [id number] #### [facility] (DEFAULT) [address] [place] [address] pH (U) 7.0 [pH] Normal 5.0-7.0 [facility] Comment on above: Order Comment: For i ndwelling catheters, specimen collection is acceptable on catheter day 1 and 2 only. ? Performed By: #### U [id number] #### [facility] (DEFAULT) [address] [place] [address] Protein Urine Negative Normal Negative [facility] Comment on above: Order Comment: For i ndwelling catheters, specimen collection is acceptable on catheter day 1 and 2 only. ? Performed By: #### U [id number] #### [facility] (DEFAULT) [address] [address] RBC Urine 0-2 Normal 0-2 [facility] Comment on above: Order Comment: For i ndwelling catheters, specimen collection is acceptable on catheter day 1 and 2 only. ? Performed By: #### U [id number] #### [facility] (DEFAULT) [address] [address] Specific [place] Urine 1.016 Normal 1.001-1.035 [facility] Comment on above: Order Comment: For i ndwelling catheters, specimen collection is acceptable on catheter day 1 and 2 only. ? Performed By: #### U [id number] #### [facility] (DEFAULT) [address] [address] Squamous/Epithelial Cells ABSENT Normal 1/hpf = 1+, 2-5/hpf = 2+, 0/hpf = 0+, ABSENT [facility] Comment on above: Order Comment: For i ndwelling catheters, specimen collection is acceptable on catheter day 1 and 2 only. ? Performed By: #### U [id number] #### [facility] (DEFAULT) [address] [address] Urobilinogen Urine 0.2 E.U./dL Normal 0.2 E.U/d L, 1.0 E.U/dL [facility] Comment on above: Order Comment: For i ndwelling catheters, specimen collection is acceptable on catheter day 1 and 2 only. ? Performed By: #### U [id number] #### [facility] (DEFAULT) [address] [address] WBC LM.HPF (Urine sed) [#/Area] /[HPF] Abnormal 0-5 [facility] Comment on above: Order Comment: For i ndwelling catheters, specimen collection is acceptable on catheter day 1 and 2 only. ? Performed By: #### U [id number] #### [facility] [facility] [address] [address] URINE CULTUREon 04-06-2021 Amikacin [Susceptibility] <=2 Invalid Interpretation Code [facility] Comment on above: Order Comment: For i ndwelling catheters, specimen collection is acceptable on catheter day 1 and 2 only. Alcocer top vacutainer. Urine must be to the fill line to process (4mls). If minimum volume, send urine in a yellow top vacutainer tube. For indwelling catheters, specimen collection is acceptable on catheter day 1 and 2 only. ? Disregard previously reported Enterococcus faecalis. After additional incubation, uropathogen was mixed with skin/urogenital ozzie. Suggest re-collection if clinically indicated. Performed By: #### U R #### [facility] (DEFAULT) [address] [address] Ampicillin [Susceptibility] >=32 Resistant [facility] Comment on above: Order Comment: For i ndwelling catheters, specimen collection is acceptable on catheter day 1 and 2 only. Alcocer top vacutainer. Urine must be to the fill line to process (4mls). If minimum volume, send urine in a yellow top vacutainer tube. For indwelling catheters, specimen collection is acceptable on catheter day 1 and 2 only. ? Disregard previously reported Enterococcus faecalis. After additional incubation, uropathogen was mixed with skin/urogenital ozzie. Suggest re-collection if clinically indicated. Performed By: #### U R #### [facility] (DEFAULT) [address] [address] Ampicillin+Sulbactam [Susceptibility] >=32 Resistant [facility] Comment on above: Order Comment: For i ndwelling catheters, specimen collection is acceptable on catheter day 1 and 2 only. Alcocer top vacutainer. Urine must be to the fill line to process (4mls). If minimum volume, send urine in a yellow top vacutainer tube. For indwelling catheters, specimen collection is acceptable on catheter day 1 and 2 only. ? Disregard previously reported Enterococcus faecalis. After additional incubation, uropathogen was mixed with skin/urogenital ozzie. Suggest re-collection if clinically indicated. Performed By: #### U R #### [facility] (DEFAULT) [address] [address] Cefazolin [Susceptibility] 8 ug/mL Invalid Interpretation Code [facility] Comment on above: Order Comment: For i ndwelling catheters, specimen collection is acceptable on catheter day 1 and 2 only. Alcocer top vacutainer. Urine must be to the fill line to process (4mls). If minimum volume, send urine in a yellow top vacutainer tube. For indwelling catheters, specimen collection is acceptable on catheter day 1 and 2 only. ? Disregard previously reported Enterococcus faecalis. After additional incubation, uropathogen was mixed with skin/urogenital ozzie. Suggest re-collection if clinically indicated. Performed By: #### U R #### [facility] [address] [address] Cefepime [Susceptibility] <=1 Invalid Interpretation Code [facility] Comment on above: Order Comment: For i ndwelling catheters, specimen collection is acceptable on catheter day 1 and 2 only. Alcocer top vacutainer. Urine must be to the fill line to process (4mls). If minimum volume, send urine in a yellow top vacutainer tube. For indwelling catheters, specimen collection is acceptable on catheter day 1 and 2 only. ? Disregard previously reported Enterococcus faecalis. After additional incubation, uropathogen was mixed with skin/urogenital ozzie. Suggest re-collection if clinically indicated. Performed By: #### U R #### [facility] (DEFAULT) [address] [address] Ceftriaxone [Susceptibility] <=1 Invalid Interpretation Code [facility] Comment on above: Order Comment: For i ndwelling catheters, specimen collection is acceptable on catheter day 1 and 2 only. Alcocer top vacutainer. Urine must be to the fill line to process (4mls). If minimum volume, send urine in a yellow top vacutainer tube. For indwelling catheters, specimen collection is acceptable on catheter day 1 and 2 only. ? Disregard previously reported Enterococcus faecalis. After additional incubation, uropathogen was mixed with skin/urogenital ozzie. Suggest re-collection if clinically indicated. Performed By: #### U R #### [facility] (DEFAULT) [address] [place] [address] Ciprofloxacin [Susceptibility] <=0.25 Invalid Interpretation Code [facility] Comment on above: Order Comment: For i ndwelling catheters, specimen collection is acceptable on catheter day 1 and 2 only. Alcocer top vacutainer. Urine must be to the fill line to process (4mls). If minimum volume, send urine in a yellow top vacutainer tube. For indwelling catheters, specimen collection is acceptable on catheter day 1 and 2 only. ? Disregard previously reported Enterococcus faecalis. After additional incubation, uropathogen was mixed with skin/urogenital ozzie. Suggest re-collection if clinically indicated. Performed By: #### U R #### [facility] (DEFAULT) [address] [address] Ertapenem [Susceptibility] <=0.5 Invalid Interpretation Code [facility] Comment on above: Order Comment: For i ndwelling catheters, specimen collection is acceptable on catheter day 1 and 2 only. Alcocer top vacutainer. Urine must be to the fill line to process (4mls). If minimum volume, send urine in a yellow top vacutainer tube. For indwelling catheters, specimen collection is acceptable on catheter day 1 and 2 only. ? Disregard previously reported Enterococcus faecalis. After additional incubation, uropathogen was mixed with skin/urogenital ozzie. Suggest re-collection if clinically indicated. Performed By: #### U R #### [facility] (DEFAULT) [address] [address] Gentamicin [Susceptibility] <=1 Invalid Interpretation Code [facility] Comment on above: Order Comment: For i ndwelling catheters, specimen collection is acceptable on catheter day 1 and 2 only. Alcocer top vacutainer. Urine must be to the fill line to process (4mls). If minimum volume, send urine in a yellow top vacutainer tube. For indwelling catheters, specimen collection is acceptable on catheter day 1 and 2 only. ? Disregard previously reported Enterococcus faecalis. After additional incubation, uropathogen was mixed with skin/urogenital ozzie. Suggest re-collection if clinically indicated. Performed By: #### U R #### [facility] (DEFAULT) [address] [place] [address] Nitrofurantoin [Susceptibility] <=16 Invalid Interpretation Code [facility] Comment on above: Order Comment: For i ndwelling catheters, specimen collection is acceptable on catheter day 1 and 2 only. Alcocer top vacutainer. Urine must be to the fill line to process (4mls). If minimum volume, send urine in a yellow top vacutainer tube. For indwelling catheters, specimen collection is acceptable on catheter day 1 and 2 only. ? Disregard previously reported Enterococcus faecalis. After additional incubation, uropathogen was mixed with skin/urogenital ozzie. Suggest re-collection if clinically indicated. Performed By: #### U R #### [facility] (DEFAULT) [address] [address] Piperacillin+Tazobactam [Susceptibility] <=4 Invalid Interpretation Code [facility] Comment on above: Order Comment: For i ndwelling catheters, specimen collection is acceptable on catheter day 1 and 2 only. Alcocer top vacutainer. Urine must be to the fill line to process (4mls). If minimum volume, send urine in a yellow top vacutainer tube. For indwelling catheters, specimen collection is acceptable on catheter day 1 and 2 only. ? Disregard previously reported Enterococcus faecalis. After additional incubation, uropathogen was mixed with skin/urogenital ozzie. Suggest re-collection if clinically indicated. Performed By: #### U R #### [facility] (DEFAULT) [address] [address] Tobramycin [Susceptibility] <=1 Invalid Interpretation Code [facility] Comment on above: Order Comment: For i ndwelling catheters, specimen collection is acceptable on catheter day 1 and 2 only. Alcocer top vacutainer. Urine must be to the fill line to process (4mls). If minimum volume, send urine in a yellow top vacutainer tube. For indwelling catheters, specimen collection is acceptable on catheter day 1 and 2 only. ? Disregard previously reported Enterococcus faecalis. After additional incubation, uropathogen was mixed with skin/urogenital ozzie. Suggest re-collection if clinically indicated. Performed By: #### U R #### [facility] (DEFAULT) [address] [address] Trimethoprim+Sulfametho xazole [Susceptibility] >=320 Resistant [facility] Comment on above: Order Comment: For i ndwelling catheters, specimen collection is acceptable on catheter day 1 and 2 only. Alcocer top vacutainer. Urine must be to the fill line to process (4mls). If minimum volume, send urine in a yellow top vacutainer tube. For indwelling catheters, specimen collection is acceptable on catheter day 1 and 2 only. ? Disregard previously reported Enterococcus faecalis. After additional incubation, uropathogen was mixed with skin/urogenital ozzie. Suggest re-collection if clinically indicated. Performed By: #### U R #### [facility] (DEFAULT) [address] [place] [address] ABORH TYPE RECONFIRMATIONon 04-05-2021 ABO/RH(D) TYPE Positive Normal [facility] Comment on above: Performed By: #### T YPEC #### [facility] (DEFAULT) [address] [place] [address] ALCOHOL (ETHANOL),BLOODon Alcohol, Serum <10 Normal <10 [facility] Comment on above: Order Comment: Non-f orensic. Performed By: #### B 12B, FOLSB #### [facility] (DEFAULT) [address] [place] [address] Ethanol [Mass/Vol] Not detected Normal [facility] Comment on above: Order Comment: Non-f orensic. Performed By: #### B 12B, FOLSB #### [facility] (DEFAULT) [address] [place] [address] CBC AND ELECTRONIC DIFFon Basophils (Bld) [#/Vol] 10*3/uL Normal 0.00-0.15 [facility] Comment on above: Performed By: #### L [id number] #### [facility] (DEFAULT) [address] [place] [address] Basophils/100 WBC (Bld) 0.2 % Normal [facility] Comment on above: Performed By: #### L [id number] #### [facility] (DEFAULT) [address] [place] [address] DIFF STATUS Electronic Differential Normal [facility] Comment on above: Performed By: #### L [id number] #### [facility] (DEFAULT) [address] [address] Eosinophils (Bld) [#/Vol] 0.14 10*3/uL Normal 0.00-0.42 [facility] Comment on above: Performed By: #### L [id number] #### [facility] (DEFAULT) [address] [address] Eosinophils/100 WBC (Bld) 1.0 % Normal [facility] Comment on above: Performed By: #### L [id number] #### [facility] (DEFAULT) [address] [address] Hematocrit (Bld) [Volume fraction] 42.0 % Normal 34.9-44.3 [facility] Comment on above: Performed By: #### L [id number] #### [facility] (DEFAULT) [address] [address] Hemoglobin (Bld) [Mass/Vol] 14.2 g/dL Normal 11.4-15.2 [facility] Comment on above: Performed By: #### L [id number] #### [facility] (DEFAULT) [address] [address] Immature Grans % 0.4 % Normal [facility] Comment on above: Performed By: #### L [id number] #### [facility] (DEFAULT) [address] [address] Immature Grans Absolute 0.05 K/uL Normal <=0.09 [facility] Comment on above: Performed By: #### L [id number] #### [facility] (DEFAULT) [address] [address] Lymphocytes (Bld) [#/Vol] 2.70 10*3/uL Normal 1.16-3.51 [facility] Comment on above: Performed By: #### L [id number] #### [facility] (DEFAULT) [address] [place] [address] Lymphocytes/100 WBC (Bld) 20.0 % Normal [facility] Comment on above: Performed By: #### L [id number] #### [facility] (DEFAULT) [address] [place] [address] MCV (RBC) [Entitic vol] 91.5 fL Normal 79.6-97.7 [facility] Comment on above: Performed By: #### L [id number] #### [facility] (DEFAULT) [address] [place] [address] Mean Cell Hgb 30.9 pg Normal 25.9-33.9 [facility] Comment on above: Performed By: #### L [id number] #### [facility] (DEFAULT) [address] [place] [address] Mean Cell Hgb Conc 33.8 g/dL Normal 31.4-35.9 [facility] Comment on above: Performed By: #### L [id number] #### [facility] (DEFAULT) [address] [place] [address] Monocytes (Bld) [#/Vol] 0.61 10*3/uL Normal 0.22-0.87 [facility] Comment on above: Performed By: #### L [id number] #### [facility] (DEFAULT) [address] [place] [address] Monocytes/100 WBC (Bld) 4.5 % Normal [facility] Comment on above: Performed By: #### L [id number] #### [facility] (DEFAULT) [address] [place] [address] Nucleated RBC 0.0 /100 WBC Normal <=0.2 [facility] Comment on above: Performed By: #### L [id number] #### [facility] (DEFAULT) [address] [place] [address] Platelet mean volume (Bld) [Entitic vol] 9.3 fL Normal 8.5-12.2 [facility] Comment on above: Performed By: #### L [id number] #### [facility] (DEFAULT) [address] [place] [address] Platelets (Bld) [#/Vol] 275 10*3/uL Normal 150-393 [facility] Comment on above: Performed By: #### L [id number] #### [facility] (DEFAULT) [address] [place] [address] RBC (Bld) [#/Vol] 4.59 10*6/uL Normal 3.91-5.04 [facility] Comment on above: Performed By: #### L [id number] #### [facility] (DEFAULT) [address] [place] [address] RBC Distribution 12.6 % Normal 10.8-14.9 [facility] Comment on above: Performed By: #### L [id number] #### [facility] (DEFAULT) [address] [place] [address] Segs + Bands Auto 73.9 % Normal [facility] Comment on above: Performed By: #### L [id number] #### [facility] (DEFAULT) [address] [place] [address] Segs + Bands,Absolute Auto 10.00 K/uL High 1.64-7.28 [facility] Comment on above: Performed By: #### L [id number] #### [facility] (DEFAULT) [address] [place] [address] WBC (Bld) [#/Vol] 13.53 10*3/uL High 3.99-11.19 [facility] Comment on above: Performed By: #### L [id number] #### [facility] (DEFAULT) [address] [address] CHM 7 - EDon 04-05-2021 Anion gap [Moles/Vol] 11 mmol/L Normal 7- [facility] Comment on above: Performed By: #### B 12B, FOLSB #### [facility] (DEFAULT) [address] [place] [address] Chloride [Moles/Vol] 103 mmol/L Normal 98-108 [facility] Comment on above: Performed By: #### B 12B, FOLSB #### [facility] (DEFAULT) [address] [place] [address] CO2 [Moles/Vol] 30 mmol/L Normal 22-30 [facility] Comment on above: Performed By: #### B 12B, FOLSB #### [facility] (DEFAULT) [address] [place] [address] Creatinine [Mass/Vol] 1.05 mg/dL Normal 0.50-1.20 [facility] Comment on above: Performed By: #### B 12B, FOLSB #### [facility] (DEFAULT) [address] [place] [address] EST GFR, >=60 Normal >=60 [facility] Comment on above: Performed By: #### Caro 12B, FOLSB #### [facility] (DEFAULT) [address] [place] [address] EST GFR,Non 50 mL/min/1.73sqM Low >=60 [facility] Comment on above: Performed By: #### B 12B, FOLSB #### [facility] (DEFAULT) [address] [place] [address] Glucose [Mass/Vol] 131 mg/dL High 70-99 [facility] Comment on above: Performed By: #### B 12B, FOLSB #### [facility] (DEFAULT) [address] [place] [address] Osmolality [Osmolality] 298 mosm/kg Normal 278-305 [facility] Comment on above: Performed By: #### B 12B, FOLSB #### [facility] (DEFAULT) [address] [place] [address] Potassium [Moles/Vol] 4.2 mmol/L Normal 3.5-5.0 [facility] Comment on above: Performed By: #### Caro 12B, FOLSB #### [facility] (DEFAULT) [address] [place] [address] Sodium [Moles/Vol] 140 mmol/L Normal 133-143 [facility] Comment on above: Performed By: #### Caro 12B, FOLSB #### [facility] (DEFAULT) [address] [place] [address] Urea nitrogen [Mass/Vol] 22 mg/dL Normal 7-22 [facility] Comment on above: Performed By: #### Caro 12B, FOLSB #### [facility] (DEFAULT) [address] [place] [address] Urea nitrogen/Creatinine [Mass ratio] 21 mg/mg Normal [facility] Comment on above: Performed By: #### Caro 12B, FOLSB #### [facility] (DEFAULT) [address] [place] [address] FOLATE, SERUMon 04-05-2021 Folate >24.00 Normal >5.38 [facility] Comment on above: Performed By: #### Caro 12B, FOLSB #### [facility] (DEFAULT) [address] [place] [address] HIGH SENSITIVITY TROPONIN I - SINGLE ORDERon 04-05-2021 hs-Troponin I 3 ng/L Normal <34 [facility] Comment on above: Order Comment: Acute Coronary Syndrome (ACS): Initial Evaluation and Management:[email or web address] Performed By: #### B 12B, FOLSB #### [facility] (DEFAULT) [address] [place] [address] PROTIME-INRon 04-05-2021 INR Coag (PPP) [Relative time] 1.0 {INR} Normal 0.9-1.1 [facility] Comment on above: Performed By: #### Caro 12B, BENY #### [facility] (DEFAULT) [address] [place] [address] PT Coag (PPP) [Time] 12.6 s Normal 11.9-14.2 [facility] Comment on above: Performed By: #### Caro 12B, CARMINEB #### [facility] [address] [place] [address] TSH W/FT4 REFLEXon TSH 1.598 uIU/mL Normal 0.550-4.780 [facility] Comment on above: Performed By: #### Caro 12B, CARMINEB #### [facility] (DEFAULT) [address] [place] [address] TYPE AND SCREENon 04-05-2021 ABO/RH(D) TYPE Positive Normal [facility] Comment on above: Performed By: #### X M #### [facility] (DEFAULT) [address] [place] [address] VITAMIN B12on 04-05-2021 Cobalamin (Vitamin B12) [Mass/Vol] 753 pg/mL Normal 211-911 [facility] Comment on above: Performed By: #### Caro 12B, BENY #### [facility] (DEFAULT) [address] [place] [address] XR CHEST AP PORTABLE EDon XR CHEST AP PORTABLE ED EXAM: XR CHEST A P PORTABLE ED, 04/05/2021 19:09 PM COMPARISON: No prior studies available for comparison. CLINICAL INDICATIONS: Trauma FINDINGS: (Adequate technique) Implanted Devices: None Thorax: Status post reverse shoulder arthroplasty. Normal cardiomediastinal silhouette. Lungs are clear. No definite pleural effusion or pneumothorax. IMPRESSION: No acute cardiopulmonary disease Normal [facility] XR PELVIS AP ONLYon 04-05-20 XR PELVIS AP ONLY EXAM: XR PELVIS AP ONLY, 04/05/2021 19:09 PM COMPARISON: No prior studies available for comparison. CLINICAL INDICATIONS: , Trauma FINDINGS: 1 image obtained. Bone: No acute osseous abnormality is identified. The innominate bones appear symmetric. SI Joint: The sacroiliac joints are anatomically aligned. Hip: The hip joints are anatomically aligned. Moderate osteoarthritic changes bilaterally. Degenerative changes lower lumbar spine. IMPRESSION: No acute osseous abnormality. Normal [facility] BLADDER SCAN [facility] Culture, urine Bacteria identified Cx Nom (U) Presumptive E. coli [facility] Work Phone: Vital Signs Date Time Vital Sign Value Performing Clinician Alvaro villatoro 09-13-2024 13:50-0400 Body height 152.4 cm Lety Funez MD Work Phone: [facility] 09-13-2024 13:50-0400 Body mass index (BMI) [Ratio] 33.4 kg/m2 Lety Funez MD Work Phone: [facility] 09-13-2024 13:50-0400 Body weight 77.56 kg Lety Funez MD Work Phone: [facility] 08-01-2024 14:55-0400 Body height 152.4 cm Lety Funez MD Work Phone: [facility] 08-01-2024 14:55-0400 Body mass index (BMI) [Ratio] 33.6 kg/m2 Lety Funez MD Work Phone: [facility] 08-01-2024 14:55-0400 Body weight 78.13 kg Lety Funez MD Work Phone: [facility] 07-05-2024 10:54-0400 Body height 152.4 cm Ana Laura Bernjolene RN ORTHOPAEDICS.MEDICINE TECH Work Phone: [facility] 07-07-2023 13:52-0400 Body height 152.4 cm Ana Laura Bernjolene RN ORTHOPAEDICS.MEDICINE TECH Work Phone: [facility] 10-30-2022 10:45-0400 Body height 152.4 cm Ana Laura Harshhart RN ORTHOPAEDICS.MEDICINE TECH Work Phone: [facility] 10-30-2022 10:45-0400 Diastolic blood pressure 80 mm[Hg] Ana Laura Harshhart RN ORTHOPAEDICS.MEDICINE TECH Work Phone: [facility] 10-30-2022 10:45-0400 Systolic blood pressure 115 mm[Hg] Ana Laura Bernhart RN ORTHOPAEDICS.MEDICINE TECH Work Phone: [facility] 10-12-2021 08:26-0400 Body height 152.[address] Raul Lopez Work Phone: [facility] Work Phone: 10-12-2021 08:26-0400 Body mass index (BMI) [Ratio] 34.3 kg/m2 Dr. Raul Lopez Work Phone: [facility] Work Phone: 10-12-2021 08:26-0400 Body temperature 98.2 [degF] Dr. Raul Lopez Work Phone: [facility] Work Phone: 10-12-2021 08:26-0400 Body weight 79.[address] Raul Lopez Work Phone: [facility] Work Phone: 10-12-2021 08:26-0400 Diastolic blood pressure 74 mm[Hg] Dr. Raul Lopez Work Phone: [facility] Work Phone: 10-12-2021 08:26-0400 Heart rate 63 /min Dr. Raul Lopez Work Phone: [facility] Work Phone: 10-12-2021 08:26-0400 Respiratory rate 14 /min Dr. Raul Lopez Work Phone: [facility] Work Phone: 10-12-2021 08:26-0400 SaO2% (BldA) [Mass fraction] 99 % Dr. Raul Lopez Work Phone: [facility] Work Phone: 10-12-2021 08:26-0400 Systolic blood pressure 128 mm[Hg] Dr. Raul Lopez Work Phone: [facility] Work Phone: 09-02-2021 09:27-0400 Body height 152.4 cm Esmebrad Lyons RN ORTHOPAEDICS.MEDICINE TECH Work Phone: [facility] 09-02-2021 09:27-0400 Body weight 77.11 kg Esme Eloy RN ORTHOPAEDICS.MEDICINE TECH Work Phone: [facility] 09-02-2021 09:27-0400 Diastolic blood pressure 76 mm[Hg] Esme Joseon RN ORTHOPAEDICS.MEDICINE TECH Work Phone: [facility] 09-02-2021 09:27-0400 Systolic blood pressure 120 mm[Hg] Esme Joseon RN ORTHOPAEDICS.MEDICINE TECH Work Phone: [facility] 08-09-2021 10:54-0400 Body height 152.4 cm Mustapha Hagan MD Work Phone: [facility] 08-09-2021 10:54-0400 Body weight 77.11 kg Mustapha Hagan MD Work Phone: [facility] 08-09-2021 10:54-0400 Diastolic blood pressure 86 mm[Hg] Mustapha Hagan MD Work Phone: [facility] 08-09-2021 10:54-0400 Systolic blood pressure 144 mm[Hg] Mustapha Hagan MD Work Phone: [facility] Encounters Encounter Date Encounter Type Care Provider Facility Start: 09-27-2024 ambulatory [facility] Facility:[facility] Start: 09-13-2024 End: 09-13-[address] Karthikeyan Chavez MD -[facility] Start: 09-13-2024 End: 09-13-2024 ambulatory Lety Funez MD Work Phone: [facility] Work Phone: Start: 08-30-2024 End: 08-30-2024 ambulatory Lety Funez MD Work Phone: [facility] Work Phone: Start: 08-30-2024 End: 08-30-[address] [facility] Start: 08-30-2024 End: 08-30-2024 ambulatory Lety Funez Facility:[facility] Start: 08-25-2024 End: 08-25-2024 ambulatory Lety Funez MD Work Phone: [facility] Work Phone: Start: 08-25-2024 End: 08-25-[address] Lety Funez MD -Laboratory, [place] Work Phone: Start: 08-25-2024 End: 08-25-2024 ambulatory Lety Funez Facility:[facility] Start: 08-01-2024 End: 08-01-[address] Logan Wright DO -[facility] Work Phone: Start: 08-01-2024 End: 08-01-2024 ambulatory Logan Wright Facility:[facility] Start: 08-01-2024 End: 08-01-2024 Telephone encounter Ana Laura Banks APRN.MEDICINE TECH Work Phone: Urology Comment on above: Insurance Authorizat ion Start: 07-19-2024 End: 07-19-2024 Telephone encounter Ana Laura Banks APRN.MEDICINE TECH Work Phone: Urology Comment on above: Medication Problem Start: 07-05-2024 End: 07-05-2024 ambulatory ANA LAURA BANKS Facility:[facility] Start: 07-05-2024 End: 07-05-2024 Patient encounter procedure Ana Laura Banks APRN.MEDICINE TECH Work Phone: Urology Comment on above: Recurrent UTI (Prima ry Dx); Urge incontinence Start: 06-02-2024 End: 08-02-2024 Follow-up encounter Ana Laura Banks RN ORTHOPAEDICS.MEDICINE TECH Work Phone: Urology Start: 06-01-2024 End: 06-01-2024 ambulatory ANA LAURA BANKS Facility:[facility] Start: 05-23-2024 End: 05-23-2024 Refill Ana Laurarebeca Whipplet RN ORTHOPAEDICS.MEDICINE TECH Work Phone: Urology Comment on above: Refill Request Start: 03-23-2024 End: 03-23-2024 Refill Ana Laura Solet RN ORTHOPAEDICS.MEDICINE TECH Work Phone: Urology Comment on above: Refill Request Start: 01-18-2024 End: 01-18-2024 ambulatory Karthikeyan Chavez Facility:[facility] Start: 01-04-2024 End: 01-04-2024 ambulatory Keli S Jolliff Facility:[facility] Start: 10-12-2023 End: 10-12-2023 ambulatory ANA LAURA [place] Facility:[facility] Start: 08-11-2023 End: 08-11-2023 ambulatory [facility] Work Phone: Start: 08-11-2023 End: 08-11-2023 Patient encounter procedure [facility] Work Phone: Start: 07-07-2023 End: 07-07-2023 ambulatory ANA LAURA HARSHMERIDIAN Facility:[facility] Start: 07-07-2023 End: 07-07-2023 Patient encounter procedure Ana Laura Solet RN ORTHOPAEDICS.MEDICINE TECH Work Phone: Urology Comment on above: Recurrent UTI (Prima ry Dx); Urge incontinence; Urgency of urination Start: 05-19-2023 End: 05-19-2023 ambulatory [facility] Work Phone: Start: 05-19-2023 End: 05-19-2023 Patient encounter procedure [facility] Work Phone: Start: 05-14-2023 End: 05-14-2023 ambulatory ANA LAURA BANKS [facility] Start: 02-25-2023 Refill Ana Laura Thomas rt RN ORTHOPAEDICS.MEDICINE TECH Work Phone: Urology Comment on above: Refill Request Start: 10-30-2022 End: 10-30-2022 ambulatory ANA LAURA BANKS [facility] Start: 10-30-2022 End: 10-30-2022 Patient encounter procedure Ana Laura Banks RN ORTHOPAEDICS.MEDICINE TECH Work Phone: Urology Comment on above: Recurrent UTI (Prima ry Dx); Urge incontinence Start: 04-28-2022 Telephone encounter Ana Laura Be rnhart RN ORTHOPAEDICS.MEDICINE TECH Work Phone: Urology Comment on above: Orders Start: 03-31-2022 Telephone encounter Ana Laura Be rnhart RN ORTHOPAEDICS.MEDICINE TECH Work Phone: Urology Comment on above: Results Start: 03-24-2022 Telephone encounter Ana Laura Be rnhart RN ORTHOPAEDICS.MEDICINE TECH Work Phone: Urology Comment on above: Results Start: 02-21-2022 Telephone encounter Ana Laura Be rnhart RN ORTHOPAEDICS.MEDICINE TECH Work Phone: Urology Comment on above: Results Start: 01-30-2022 Telephone encounter Ana Laura Be rnhart RN ORTHOPAEDICS.MEDICINE TECH Work Phone: Urology Comment on above: Results Start: 01-16-2022 Telephone encounter Ana Laura Be rnhart RN ORTHOPAEDICS.MEDICINE TECH Work Phone: Urology Comment on above: Results Start: 01-02-2022 Telephone encounter Ana Laura Be rnhart RN ORTHOPAEDICS.MEDICINE TECH Work Phone: Urology Comment on above: Results Start: 12-16-2021 Telephone encounter Ana Laura Be rnhart RN ORTHOPAEDICS.MEDICINE TECH Work Phone: [facility] Comment on above: Patient Question Start: 12-14-2021 ambulatory Gilda lu RN NURSE CORONARY CARE UNIT NURSE Comment on above: UTI Start: 11-01-2021 Telephone encounter Ana Laura Allen nhan RN ORTHOPAEDICS.MEDICINE TECH Work Phone: Urology Comment on above: Results Start: 10-30-2021 ambulatory Ana Laura Thomas rt RN ORTHOPAEDICS.MEDICINE TECH Work Phone: Urology Comment on above: Urinary culture of J joel 12 Start: 10-13-2021 End: 10-13-[address] Raul Lopez Work Phone: [facility] Start: 10-12-2021 End: 10-12-[address] Raul Lopez Work Phone: [facility] Start: 10-11-2021 ambulatory Ana Laura Thomas rt RN ORTHOPAEDICS.MEDICINE TECH Work Phone: Urology Comment on above: uti Start: 09-06-2021 Telephone encounter Esme miranda RN ORTHOPAEDICS.MEDICINE TECH Work Phone: Urology Comment on above: Results Start: 09-02-2021 End: 09-02-2021 Patient encounter procedure Esme Lyons RN ORTHOPAEDICS.MEDICINE TECH Work Phone: Urology Comment on above: Urge incontinence (P rimary Dx); Urinary tract infection without hematuria, site unspecified Start: 08-27-2021 End: 08-27-2021 Telemedicine consultation with patient Ana Laura Banks RN ORTHOPAEDICS.MEDICINE TECH Work Phone: [facility] Start: 08-27-2021 End: 08-27-2021 ambulatory Ana Laura Banks RN ORTHOPAEDICS.MEDICINE TECH Work Phone: Urology Comment on above: Urgency of urination (Primary Dx) Start: 08-27-2021 Patient encounter procedure Ana Laura Banks RN ORTHOPAEDICS.MEDICINE TECH Work Phone: Urology Comment on above: Appointment Start: 08-22-2021 Telephone encounter Ana Laura Allen nhan RN ORTHOPAEDICS.MEDICINE TECH Work Phone: Urology Comment on above: Results Start: 08-09-2021 End: 08-09-2021 Patient encounter procedure Mustapha Hagan MD Work Phone: Urology Comment on above: Urge incontinence (P rimary Dx) Start: 07-26-2021 Telephone encounter Ana Laura justin RN ORTHOPAEDICS.MEDICINE TECH Work Phone: Urology Comment on above: Results Start: 05-09-2021 ambulatory LOI Maldonado ity:[facility] Start: 04-05-2021 End: 04-06-2021 ambulatory POLY RED Facility:[facility] Procedures Date Procedure Procedure Detail Performing Clinician Start: 08-25-2024 Vitamin D, 25-hydrox y measurement Lety Funez MD Work Phone: Comment on above: Vitamin D StatusDefi ciency: <20 ng/mL (50nmol/L)Insufficiency: 20-30 ng/mL (50-75 nmol/L)Sufficiency: 30-100 ng/mL (75-250 nmol/L)Toxicity: >100 ng/mL (>250 nmol/L) Start: 08-01-2024 Plain x-ray of pelvi s and lower extremity Lety Funez MD Work Phone: Start: 08-11-2023 Radiologic examinati on of knee Start: 07-07-2023 Urnls dip stick/tabl et rgnt auto w/o microscopy Ana Laura Banks APRN.MEDICINE TECH Work Phone: Start: 05-19-2023 X-ray of both feet Start: 05-19-2023 Radiography of ankle Start: 10-30-2022 Urnls dip stick/tabl et rgnt auto w/o microscopy Ana Laura Banks RN ORTHOPAEDICS.MEDICINE TECH Work Phone: Start: 09-02-2021 BLADDER SCAN Esme miranda RN ORTHOPAEDICS.MEDICINE TECH Work Phone: Start: 09-02-2021 Urnls dip stick/tabl et rgnt auto w/o microscopy Esme yLons RN ORTHOPAEDICS.MEDICINE TECH Work Phone: Start: 08-09-2021 Urnls dip stick/tabl et rgnt auto w/o microscopy Mustapha Hagan MD Work Phone: Start: 04-05-2021 Antibody screen [facility] [place] Comment on above: Performed By: #### X M #### [facility] (DEFAULT) [address] [place] [address] Raul Dominguez en Work Phone: Plan of Treatment Date Care Activity Detail Author Start: 04-05-2031 Urine microalbumin profile DTaP,Tdap,Td Vaccine (4 - Td or Tdap) [facility] Start: 10-06-2027 Urine microalbumin profile DTaP,Tdap,Td Vaccine (3 - Td or Tdap) [facility] Start: 07-06-2025 End: 07-06-2025 Patient encounter procedure 07/06/2025 10:45 AM EDT Office Visit Urology [address] [place] [address] Ana Laura Banks APRN.MEDICINE TECH [address] [place] [address] 1 year f/u Urology Comment on above: 1 year f/u Start: 09-13-2024 Patient referral [facility] Work Phone: Start: 09-13-2024 X-ray of lumbosacral spine L/S Spine Bending Flex/Ext [facility] Start: 09-13-2024 XR Spine Lumbar and Sacrum Views [facility] Start: 08-09-2024 Covid-19 Vaccine () Covid-19 Vaccine () [facility] Start: 08-01-2024 Patient referral [facility] Work Phone: Start: 07-05-2024 End: 07-05-2024 Patient encounter procedure Urology Comment on above: 1 year follow up Start: 04-20-2024 Advance Directive Discussion Advance Directive Discussion [facility] Start: 04-06-2024 Diabetes Screening Diabetes Screenin g [facility] Start: 12-20-2023 Covid-19 Vaccine () Covid-19 Vaccine () [facility] Start: 12-20-2023 Influenza vaccination Influenza Vacc ine (#1) [facility] Start: 04-20-2023 Advance Directive Discussion Advance Directive Discussion [facility] Start: 04-20-2023 Depression Assessment Depression Ass essment [facility] Start: 12-19-2022 Covid-19 Vaccine ( season) Covid-19 Vaccine ( season) [facility] Start: 12-19-2022 Influenza vaccination C [facility] Start: 05-31-2022 COVID-19 VACCINE (6 - Moderna series) COVID-19 VACCINE (6 - Moderna series) [facility] Start: 04-20-2022 ADVANCE DIRECTIVE DISCUSSION ADVANCE DIRECTIVE DISCUSSION [facility] Start: 04-20-2022 DEPRESSION ASSESSMENT DEPRESSION ASS ESSMENT [facility] Start: 12-19-2021 Influenza vaccination INFLUENZA (#1) [facility] Start: 11-01-2021 End: 01-01-2022 Bacteria identified in Urine by Culture URINE CULTURE Microbiology Routine Urinary tract infection without hematuria, site unspecified Expected: 11/01/2021, Expires: 01/01/2022 [facility] Work Phone: Comment on above: Expected: 11/01/2021 , Expires: 01/01/2022 Start: 10-07-2021 COVID-19 VACCINE (5 - Booster for Moderna series) COVID-19 VACCINE (5 - Booster for Moderna series) [facility] Start: 04-20-2021 ADVANCE DIRECTIVE DISCUSSION ADVANCE DIRECTIVE DISCUSSION [facility] Start: 04-20-2021 DEPRESSION ASSESSMENT DEPRESSION ASS ESSMENT [facility] Start: 11-03-2015 Pneumococcal Vaccine : 50+ (2 of 2 - PPSV23) Pneumococcal Vaccine: 50+ (2 of 2 - PPSV23) [facility] Start: 11-03-2015 Pneumococcal Vaccine : 65+ (2 - PPSV23 or PCV20) Pneumococcal Vaccine: 65+ (2 - PPSV23 or PCV20) [facility] Start: 11-03-2015 Pneumococcal Vaccine : 65+ (2 of 2 - PPSV23 or PCV20) Pneumococcal Vaccine: 65+ (2 of 2 - PPSV23 or PCV20) [facility] Start: 09-26-2008 DIABETES SCREEN DIABETES SCREEN [facility] Start: 09-26-2008 Diabetes Screening Diabetes Screenin g [facility] Start: 2005 BONE DENSITY BONE DENSITY [facility] Start: 2005 Bone Density Screening Bone Density Screening [facility] Start: 2005 PNEUMOCOCCAL: 65+ (1 - PCV) PNEUMOCOCCAL: 65+ (1 - PCV) [facility] Start: 2005 PNEUMOVAX AGE 65 AND OVER WITH 5YR LOOKBACK (#1) PNEUMOVAX AGE 65 AND OVER WITH 5YR LOOKBACK (#1) [facility] Start: 2005 Screening for osteoporosis Bone Density Screening [facility] Start: 2000 RSV Vaccine (1 - 1-d ose 60+ series) RSV Vaccine (1 - 1-dose 60+ series) [facility] Start: 1990 SHINGRIX VACCINE (1 of 2) SHINGRIX VACCINE (1 of 2) [facility] Start: 11-01-1959 SHINGRIX VACCINE (1 of 2) SHINGRIX VACCINE (1 of 2) [facility] Start: 11-01-1959 Urine microalbumin profile DTAP,TDAP,TD (1 - Tdap) [facility] Start: 1958 Anxiety Screening Anxiety Screening [facility] Start: 1958 Depression Screening Depression Scre ening [facility] Start: 1952 Adult depression screening assessment DEPRESSION SCREENING [facility] Start: 1946 PNEUMOCOCCAL: 65+ (1 - PCV) PNEUMOCOCCAL: 65+ (1 - PCV) [facility] Bacteria identified in Urine by Culture URINE CULTURE Microbiology Routine Urge incontinence Ordered: 09/02/2021 [facility] Work Phone: Comment on above: Ordered: 09/02/2021 End: 10-30-2023 Bacteria identified in Urine by Culture URINE CULTURE Microbiology Routine Recurrent UTI Every other week for 26 Occurrences starting 10/30/2022 until 10/30/2023 [facility] Work Phone: Comment on above: Every other week for 26 Occurrences starting 10/30/2022 until 10/30/2023 End: 07-06-2024 Bacteria identified in Urine by Culture URINE CULTURE Microbiology Routine Recurrent UTI Every other week for 26 Occurrences starting 07/07/2023 until 07/06/2024 [facility] Work Phone: Comment on above: Every other week for 26 Occurrences starting 07/07/2023 until 07/06/2024 End: 07-05-2025 Bacteria identified in Urine by Culture BACTERIAL CULTURE, URINE Microbiology Routine Recurrent UTI Once per month for 12 Occurrences starting 07/05/2024 until 07/05/2025 [facility] Work Phone: Comment on above: Once per month for 1 2 Occurrences starting 07/05/2024 until 07/05/2025 Patient referral [facility] Work Phone: [facility] Immunizations Immunization Date Immunization Notes Care Provider Brayden darnell 01-05-2023 influenza virus vaccine, unspecified formulation Ana Laurarebeca Whipplet RN ORTHOPAEDICS.MEDICINE TECH Work Phone: [facility] 01-13-2022 influenza virus vaccine, unspecified formulation Ana Laura Whipplet RN ORTHOPAEDICS.MEDICINE TECH Work Phone: [facility] 02-20-2021 Covid (Moderna) Dr. Raul rabago Work Phone: [facility] 06-07-2020 Covid (Moderna) Dr. aRul rabago Work Phone: [facility] 05-10-2020 Covid (Moderna) Dr. Raul rabago Work Phone: [facility] 01-31-[address] Raul Lopez Work Phone: [facility] 10-05-2017 tetanus toxoid, redu maira diphtheria toxoid, and acellular pertussis vaccine, adsorbed Dr. Raul Lopez Work Phone: [facility] Payers Date Payer Category Payer Self-pay [id number] 2015 Private Health Insurance HUMANA HUMANA MEDICARE SUPPLEMENT [id number] 2015-Present [id number] [place] [id number] Indemnity [id number] 2015 Private Health Insurance [id number] 2015 Medicare [id number] 2005 Medicare MEDICARE MEDICAR E A AND B [id number] 2005-Present [phone] [address] [address] [place] [address] Medicare [id number] 2005 Medicare [id number] 2005 Medicare [id number] 1940 Unknown [id number] 1940 Unknown [id number] Unknown [id number] Unknown [id number] Unknown [id number] Unknown [id number] Unknown [id number] Unknown [id number] Unknown [id number] Unknown [id number] Unknown [id number] Unknown [id number] Social History Date Type Detail Facility Start: 10-23-2020 End: 10-12-2021 Tobacco smoking status NHIS Never smoked tobacco [facility] Work Phone: Start: 05-07-2021 End: 07-07-2023 Alcohol intake Current drinker of alcohol (finding) [facility] Start: 01-11-2021 History SDOH Alcohol Comment rare occassion [facility] Start: 1940 Sex Assigned At Not on file C [facility] Start: 10-12-2021 End: 10-12-2021 Tobacco smoking status NHIS Unknown if ever smoked [facility] Start: 08-23-2020 Non-smoker [facility] Start: 1940 Sex Assigned At Female W [facility] Start: 10-23-2020 End: 01-09-2022 Tobacco use and exposure Smokeless tobacco non-user [facility] Start: 12-04-2021 End: 12-31-2021 Exposure to SARS-CoV-2 (event) Not sure [facility] Start: 10-30-2022 End: 07-05-2024 History of Social function [facility] Start: 10-30-2022 End: 07-05-2024 Tobacco use panel [facility] National Score (1-100), lower number is lower risk 72 [facility] Clinical Notes 07-26-2021 to 08-15-2024 Note Date & Type Note Facility 08-15-2024 Note HNO ID: [id number] Author: NATHALIE WOMACK MA Service: ? Author Type: Clinic Specialist Type: Progress Notes Filed: 08/15/2024 12:13 Note Text: Fesoterodibe Fumarate 8MG does not need Prior auth. Nathalie Womack MA [facility] 08-01-2024 Evaluation note Diagnosis Onset Date Resolution Greater trochanteric bursitis of right hip acute July 2:52pm Lumbar degenerative disc disease acute August 01, 2024 2:52pm [facility] Work Phone: 1(387) 449-695804-14-2025 Telephone encounter Note* Telephone Encounter - Brittany Ivan LPN - 08/01/2024 3:36 PM EDT Completed form faxed to [phone]. Fax confirmation received. Scanned to chart from onbase. Scan on 08/01/2024 3:17 PM by ProviderMars PA-C: [facility] form [facility]04-14-2025 Miscellaneous Notes* Telephone Encounter - Brittany Ivan LPN - 08/01/2024 3:36 PM EDT Completed form faxed to [phone]. Fax confirmation received. Scanned to chart from onbase. Scan on 08/01/2024 3:17 PM by Provider, HOMER CrewsC: [facility] form * Telephone Encounter - Brittany Ivan LPN - 08/01/2024 2:41 PM EDT Received forms from [facility] prescription services to [place] patients [facility]. At providers desk for review and signature. [facility] Telephone encounter Note * Telephone Encounter - Brittany Ivan LPN - 08/01/2024 2:41 PM EDT Received forms from [facility] prescription services to [place] patients [facility]. At providers desk for review and signature. [facility]04-01-2025 Telephone encounter Note* Telephone Encounter - Ana Laura Banks APRN.MEDICINE TECH - 07/19/2024 1:02 PM EDT Rx sent [facility]04-01-2025 Miscellaneous Notes* Telephone Encounter - Ana Laura Banks APRN.CNP - 07/19/2024 1:02 PM EDT Rx sent * Telephone Encounter - Rafaela Gutierres RN - 07/19/2024 12:48 PM EDT Please resend Gemtesa to new saved pharmacy (updated to correct [facility], was previously sent to the incorrect [facility] per pt) thanks. Rafaela Gutierres RN Prescription Refill Information The patient has been identified by name and date of : Yes Caregiver verified no other encounters exist for this prescription request: Yes The last office visit in the department: 07/05/24 Does the patient have a future office visit with this provider/department: Yes 07/06/25 Requested Prescriptions Pending Prescriptions Disp Refills vibegron (GEMTESA) 75 mg tablet 30 tablet 11 Sig: Take 1 tablet by mouth once daily. Rafaela Gutierres RN July 19, 2024 12:50 PM * Telephone Encounter - Reny Pastrana - 07/19/2024 12:26 PM EDT Per daughter, Gemtesa needs sent to [facility], fax number: [phone] [facility] Telephone encounter Note * Telephone Encounter - Rafaela Gutierres RN - 07/19/2024 12:48 PM EDT Please resend Gemtesa to new saved pharmacy (updated to correct [facility], was previously sent to the incorrect [facility] per pt) thanks. Rafaela Gutierres RN Prescription Refill Information The patient has been identified by name and date of : Yes Caregiver verified no other encounters exist for this prescription request: Yes The last office visit in the department: 07/05/24 Does the patient have a future office visit with this provider/department: Yes 07/06/25 Requested Prescriptions Pending Prescriptions Disp Refills vibegron (GEMTESA) 75 mg tablet 30 tablet 11 Sig: Take 1 tablet by mouth once daily. Rafaela Gutierres RN July 19, 2024 12:50 PM [facility]04-01-2025 Telephone encounter Note* Telephone Encounter - Reny Pastrana - 07/19/2024 12:26 PM EDT Per daughter, Gemtesa needs sent to correct [facility], fax number: [phone] [facility]03-18-2025 History of Present illness Narrative* Ana Laura Banks APRN.KAJAL - 07/05/2024 11:00 AM EDT ESTABLISHED PATIENT OFFICE VISIT HISTORY OF PRESENT ILLNESS Kiara Brenner is a 83 year old female who presents today in follow-up. Patient with a history of recurrent bladder infections, overactive bladder. Has been doing well from a UTI standpoint. Her last urinary tract infection was 2 years ago. Using Premarin cream 3 times per week. She is no longer taking methenamine. She does take a probiotic daily. Denies any UTI symptoms today. No gross hematuria. No dysuria. No fever or chills. Patient continues to have overactive bladder issues. She is currently taking Vesicare 10 mg daily with minimal improvement, causing dry mouth and dry eyes. Previously on oxybutynin and Myrbetriq. We discussed trying Gemtesa. Patient continues to have urgency and frequency during the day. She continues to have urge incontinence several times per day. LAB RESULTS No results found for: CREAT No results found for: PSA No results found for: COLOR, CLARITY, UGLUC, UBILI, UKET, SPGR, UHB, UPH, UPROT, UROBILINOGEN, NITRITES, LEUKEST MEDICATIONS: solifenacin 10 mg tablet TAKE 1 TABLET BY MOUTH ONCE DAILY Methenamine Hippurate (HIPREX) 1 gram tablet Take 1 tablet by mouth two times a day. conjugated estrogens (PREMARIN) vaginal cream Use 1 g vaginally three times a week. D-MANNOSE ORAL Take by mouth. Lactobac no.41/Bifidobact no.7 (PROBIOTIC-10 ORAL) Take 1 tablet by mouth once daily. Biotin 10,000 mcg cap Take 1 capsule by mouth once daily. Ascorbic Acid 500 mg cpER Take 1 capsule by mouth once daily. cholecalciferol (VITAMIN D3) 5,000 unit tab Take 5,000 Units by mouth once daily. metoprolol succinate ER (TOPROL XL) 25 mg 24 hr tablet Take 25 mg by mouth once daily. celecoxib (CELEBREX) 200 mg capsule Take 200 mg by mouth once daily. montelukast (SINGULAIR) 10 mg tablet Take 10 mg by mouth once daily. omeprazole (PRILOSEC) 40 mg capsule Take by mouth once daily. qs-jl-GH-vit Q-wnqmr-zsv-coQ10 (DAILY MULTIVITAMIN) 200-100-500 mcg cap Take by mouth. fexofenadine 60 mg ORAL tablet Take by mouth once daily. REVIEW OF SYSTEMS CONSTITUTIONAL: Patient reports no recent fever or weight loss CARDIOVASCULAR: No chest pain, palpitations or ankle edema. RESPIRATORY: No wheezing, frequent cough or shortness of breath GENITOURINARY: See HPI HISTORIES PAST MEDICAL HISTORY Diagnosis Date Acute gastritis without mention of hemorrhage Arthritis Bladder infection Diaphragmatic hernia without mention of obstruction or gangrene Diverticulosis of colon (without mention of hemorrhage) colon cancer Essential hypertension, benign GERD (gastroesophageal reflux disease) High cholesterol Internal hemorrhoids without mention of complication Migraine, unspecified, without mention of intractable migraine without mention of status migrainosus Osteoarthrosis, unspecified whether generalized or localized, unspecified site Peripheral vertigo, unspecified Personal history of malignant neoplasm of large intestine Pure hypercholesterolemia Recurrent UTI Sacroiliitis, not elsewhere classified (HCC) Urge incontinence Urinary tract infection without hematuria FAMILY HISTORY Problem Relation Age of Onset Prostate Cancer Brother PAST SURGICAL HISTORY Procedure Laterality Date APPENDECTOMY 04/20/1956 COLONOSCOPY FLX DX W/COLLJ SPEC WHEN PFRMD 09/25/2005 Colonoscopy COLONOSCOPY FLX DX W/COLLJ SPEC WHEN PFRMD 10/28/2006 COLONOSCOPY FLX DX W/COLLJ SPEC WHEN PFRMD 11/08/2007 COLONOSCOPY FLX DX W/COLLJ SPEC WHEN PFRMD 11/09/2009 EGD TRANSORAL BIOPSY SINGLE/MULTIPLE 10/28/2006 ESOPHAGOGASTRODUODENOSCOPY TRANSORAL DIAGNOSTIC 08/27/2010 EGD LAPS SURG CHOLECYSTECTOMY W/CHOLANGIOGRAPHY 06/05/2010 LEFT HEART CATH,PERCUTANEOUS 06/03/2010 Cardiac cath, L heart no stents PAST SURGICAL HISTORY OF 07/20/2003 arthroscopic right knee PAST SURGICAL HISTORY OF 04/20/1946 T & A PAST SURGICAL HISTORY OF 04/20/1998 uvulectomy PAST SURGICAL HISTORY OF bladdar suspension PAST SURGICAL HISTORY OF 03/20/2007 bunionectomy S SLING BLADDER 2004 TOTAL ABDOMINAL HYSTERECT W/WO RMVL TUBE OVARY 04/20/1985 TOTAL KNEE REPLACEMENT Right 2010 URETHROPLASTY 01/21/2021 SOCIAL HISTORY Social History Tobacco Use Smoking status: Never Smokeless tobacco: Never Vaping Use Vaping status: Never Used Substance Use Topics Alcohol use: Yes Comment: rare occassion Drug use: No PHYSICAL EXAMINATION General appearance: Well appearing, alert, in no acute distress, well-hydrated, well nourished.. BACK: not examined. MUSCULOSKELETAL: Negative for joint pain or swelling. RESPIRATORY: Normal respiratory effort. SKIN: Normal color, no rash, no lesions.. ASSESSMENT/PLAN: 1. Recurrent UTI - ICD9: 599.0, ICD10: N39.0 -Continue Premarin cream 3 times per week. -Continue probiotics. -Standing order for urine cultures. 2. Urge incontinence - ICD9: 788.31, ICD10: N39.41 -Will stop Vesicare, trial of Gemtesa 75 mg daily. -Follow-up in 1 year. Ana Laura Banks APRN.CNP documented [facility]25 NoteHNO ID: [id number] Author: ANA LAURA BANKS APRN.CNP Service: ? Author Type: Nurse Practitioner Type: Progress Notes Filed: 07/05/2024 12:11 Note Text: ESTABLISHED PATIENT OFFICE VISIT HISTORY OF PRESENT ILLNESS Kiara Brenner is a 83 year old female who presents today in follow-up. Patient with a history of recurrent bladder infections, overactive bladder. Has been doing well from a UTI standpoint. Her last urinary tract infection was 2 years ago. Using Premarin cream 3 times per week. She is no longer taking methenamine. She does take a probiotic daily. Denies any UTI symptoms today. No gross hematuria. No dysuria. No fever or chills. Patient continues to have overactive bladder issues. She is currently taking Vesicare 10 mg daily with minimal improvement, causing dry mouth and dry eyes. Previously on oxybutynin and Myrbetriq. We discussed trying Gemtesa. Patient continues to have urgency and frequency during the day. She continues to have urge incontinence several times per day. LAB RESULTS No results found for: CREAT No results found for: PSA No results found for: COLOR, CLARITY, UGLUC, UBILI, UKET, SPGR, UHB, UPH, UPROT, UROBILINOGEN, NITRITES, LEUKEST MEDICATIONS: solifenacin 10 mg tablet TAKE 1 TABLET BY MOUTH ONCE DAILY Methenamine Hippurate (HIPREX) 1 gram tablet Take 1 tablet by mouth two times a day. conjugated estrogens (PREMARIN) vaginal cream Use 1 g vaginally three times a week. D-MANNOSE ORAL Take by mouth. Lactobac no.41/Bifidobact no.7 (PROBIOTIC-10 ORAL) Take 1 tablet by mouth once daily. Biotin 10,000 mcg cap Take 1 capsule by mouth once daily. Ascorbic Acid 500 mg cpER Take 1 capsule by mouth once daily. cholecalciferol (VITAMIN D3) 5,000 unit tab Take 5,000 Units by mouth once daily. metoprolol succinate ER (TOPROL XL) 25 mg 24 hr tablet Take 25 mg by mouth once daily. celecoxib (CELEBREX) 200 mg capsule Take 200 mg by mouth once daily. montelukast (SINGULAIR) 10 mg tablet Take 10 mg by mouth once daily. omeprazole (PRILOSEC) 40 mg capsule Take by mouth once daily. fg-fg-BZ-vit Q-ytskg-arx-coQ10 (DAILY MULTIVITAMIN) 200-100-500 mcg cap Take by mouth. fexofenadine 60 mg ORAL tablet Take by mouth once daily. REVIEW OF SYSTEMS CONSTITUTIONAL: Patient reports no recent fever or weight loss CARDIOVASCULAR: No chest pain, palpitations or ankle edema. RESPIRATORY: No wheezing, frequent cough or shortness of breath GENITOURINARY: See HPI HISTORIES PAST MEDICAL HISTORY Diagnosis Date Acute gastritis without mention of hemorrhage Arthritis Bladder infection Diaphragmatic hernia without mention of obstruction or gangrene Diverticulosis of colon (without mention of hemorrhage) colon cancer Essential hypertension, benign GERD (gastroesophageal reflux disease) High cholesterol Internal hemorrhoids without mention of complication Migraine, unspecified, without mention of intractable migraine without mention of status migrainosus Osteoarthrosis, unspecified whether generalized or localized, unspecified site Peripheral vertigo, unspecified Personal history of malignant neoplasm of large intestine Pure hypercholesterolemia Recurrent UTI Sacroiliitis, not elsewhere classified (HCC) Urge incontinence Urinary tract infection without hematuria FAMILY HISTORY Problem Relation Age of Onset Prostate Cancer Brother PAST SURGICAL HISTORY Procedure Laterality Date APPENDECTOMY 04/20/1956 COLONOSCOPY FLX DX W/COLLJ SPEC WHEN PFRMD 09/25/2005 Colonoscopy COLONOSCOPY FLX DX W/COLLJ SPEC WHEN PFRMD 10/28/2006 COLONOSCOPY FLX DX W/COLLJ SPEC WHEN PFRMD 11/08/2007 COLONOSCOPY FLX DX W/COLLJ SPEC WHEN PFRMD 11/09/2009 EGD TRANSORAL BIOPSY SINGLE/MULTIPLE 10/28/2006 ESOPHAGOGASTRODUODENOSCOPY TRANSORAL DIAGNOSTIC 08/27/2010 EGD LAPS SURG CHOLECYSTECTOMY W/CHOLANGIOGRAPHY 06/05/2010 LEFT HEART CATH,PERCUTANEOUS 06/03/2010 Cardiac cath, L heart no stents PAST SURGICAL HISTORY OF 07/20/2003 arthroscopic right knee PAST SURGICAL HISTORY OF 04/20/1946 T AND A PAST SURGICAL HISTORY OF 04/20/1998 uvulectomy PAST SURGICAL HISTORY OF bladdar suspension PAST SURGICAL HISTORY OF 03/20/2007 bunionectomy S SLING BLADDER 2005 TOTAL ABDOMINAL HYSTERECT W/WO RMVL TUBE OVARY 04/20/1985 TOTAL KNEE REPLACEMENT Right 2010 URETHROPLASTY 01/21/2021 SOCIAL HISTORY Social History Tobacco Use Smoking status: Never Smokeless tobacco: Never Vaping Use Vaping status: Never Used Substance Use Topics Alcohol use: Yes Comment: rare occassion Drug use: No PHYSICAL EXAMINATION General appearance: Well appearing, alert, in no acute distress, well-hydrated, well nourished.. BACK: not examined. MUSCULOSKELETAL: Negative for joint pain or swelling. RESPIRATORY: Normal respiratory effort. SKIN: Normal color, no rash, no lesions.. ASSESSMENT/PLAN: 1. Recurrent UTI - ICD9: 599.0, ICD10: (more content not included)...[facility]02-03-2025 Telephone encounter Note* Telephone Encounter - Essie Marquez RN - 05/23/2024 9:14 AM EST Prescription Refill Information The last office visit in the department: 07/07/23 Does the patient have a future office visit with this provider/department: Yes 07/05/24 Requested Prescriptions Pending Prescriptions Disp Refills solifenacin 10 mg tablet [Pharmacy Med Name: SOLIFENACIN 10 MG TABLET] 30 tablet 0 Sig: TAKE 1 TABLET BY MOUTH ONCE DAILY Essie Marquez RN May 23, 2024 9:14 AM [facility]02-03-2025 Miscellaneous Notes* Telephone Encounter - Essie Marquez RN - 05/23/2024 9:14 AM EST Prescription Refill Information The last office visit in the department: 07/07/23 Does the patient have a future office visit with this provider/department: Yes 07/05/24 Requested Prescriptions Pending Prescriptions Disp Refills solifenacin 10 mg tablet [Pharmacy Med Name: SOLIFENACIN 10 MG TABLET] 30 tablet 0 Sig: TAKE 1 TABLET BY MOUTH ONCE DAILY Essie Marquez RN May 23, 2024 9:14 AM documented in this encounter[facility]24 NoteHNO ID: [id number] Author: STEFANIE MILLS MA Service: ? Author Type: Clinic Specialist Type: Progress Notes Filed: 10/13/2023 11:33 Note Text: Advised Patients voice [facility]03-19-2024 NoteHNO ID: [id number] Author: ANA LAURA BANKS APRN.CNP Service: ? Author Type: Nurse Practitioner Type: Progress Notes Filed: 07/07/2023 14:40 Note Text: ESTABLISHED PATIENT OFFICE VISIT HISTORY OF PRESENT ILLNESS Kiara Brenner is a 82 year old female who presents today in f/u. 05/14/23: Patient with a history of overactive bladder, urge incontinence, recurrent bladder infections. She presents today for follow-up. No UTIs in the past year. Patient is taking methenamine 2 times per day, probiotics, vitamin C. She is using Premarin cream 3 times per week. She denies any UTI symptoms today. No gross hematuria. No dysuria. No fever or chills. She continues to have urgency and frequency. Urge incontinence several times per day. Wearing 4 pads per day. Nocturnal enuresis nightly. Oxybutynin in the past caused severe dry mouth. Currently taking Myrbetriq. We discussed a trial of Gemtesa, cost prohibitive. Will restart her Vesicare 10 mg daily. Today's note: Patient presents today in follow-up of her overactive bladder, recurrent bladder infections. Previously taking Myrbetriq and oxybutynin. Patient was started on Vesicare 10 mg daily at her last visit, symptoms are improved. She states that her urgency is improved during the day. She continues to have occasional urge incontinence, leaking a small amount. Changing her pad 3 times per day usually. She states that she has better control with the Vesicare. No UTI symptoms. Denies gross hematuria. Using Premarin cream. Has decrease methenamine to 1 time per day. LAB RESULTS No results found for: CREAT No results found for: PSA No results found for: COLOR, CLARITY, UGLUC, UBILI, UKET, SPGR, UHB, UPH, UPROT, UROBILINOGEN, NITRITES, LEUKEST MEDICATIONS: solifenacin (VESICARE) 10 mg tablet Take 1 tablet by mouth once daily. Methenamine Hippurate (HIPREX) 1 gram tablet Take 1 tablet by mouth two times a day. conjugated estrogens (PREMARIN) vaginal cream Use 1 g vaginally three times a week. D-MANNOSE ORAL Take by mouth. Lactobac no.41/Bifidobact no.7 (PROBIOTIC-10 ORAL) Take 1 tablet by mouth once daily. Biotin 10,000 mcg cap Take 1 capsule by mouth once daily. Ascorbic Acid 500 mg cpER Take 1 capsule by mouth once daily. cholecalciferol (VITAMIN D3) 5,000 unit tab Take 5,000 Units by mouth once daily. metoprolol succinate ER (TOPROL XL) 25 mg 24 hr tablet Take 25 mg by mouth once daily. celecoxib (CELEBREX) 200 mg capsule Take 200 mg by mouth once daily. montelukast (SINGULAIR) 10 mg tablet Take 10 mg by mouth once daily. omeprazole (PRILOSEC) 40 mg capsule Take by mouth once daily. fb-rv-CE-vit M-xdibn-jeh-coQ10 (DAILY MULTIVITAMIN) 200-100-500 mcg cap Take by mouth. fexofenadine 60 mg ORAL tablet Take by mouth once daily. REVIEW OF SYSTEMS CONSTITUTIONAL: Patient reports no recent fever or weight loss CARDIOVASCULAR: No chest pain, palpitations or ankle edema. RESPIRATORY: No wheezing, frequent cough or shortness of breath GENITOURINARY: See HPI HISTORIES PAST MEDICAL HISTORY Diagnosis Date Acute gastritis without mention of hemorrhage Arthritis Bladder infection Diaphragmatic hernia without mention of obstruction or gangrene Diverticulosis of colon (without mention of hemorrhage) colon cancer Essential hypertension, benign GERD (gastroesophageal reflux disease) High cholesterol Internal hemorrhoids without mention of complication Migraine, unspecified, without mention of intractable migraine without mention of status migrainosus Osteoarthrosis, unspecified whether generalized or localized, unspecified site Peripheral vertigo, unspecified Personal history of malignant neoplasm of large intestine Pure hypercholesterolemia Recurrent UTI Sacroiliitis, not elsewhere classified (HCC) Urge incontinence Urinary tract infection without hematuria FAMILY HISTORY Problem Relation Age of Onset Prostate Cancer Brother PAST SURGICAL HISTORY Procedure Laterality Date APPENDECTOMY 04/20/1956 COLONOSCOPY FLX DX W/COLLJ SPEC WHEN PFRMD 09/25/2005 Colonoscopy COLONOSCOPY FLX DX W/COLLJ SPEC WHEN PFRMD 10/28/2006 COLONOSCOPY FLX DX W/COLLJ SPEC WHEN PFRMD 11/08/2007 COLONOSCOPY FLX DX W/COLLJ SPEC WHEN PFRMD 11/09/2009 EGD TRANSORAL BIOPSY SINGLE/MULTIPLE 10/28/2006 ESOPHAGOGASTRODUODENOSCOPY TRANSORAL DIAGNOSTIC 08/27/2010 EGD LAPS SURG CHOLECYSTECTOMY W/CHOLANGIOGRAPHY 06/05/2010 LEFT HEART CATH,PERCUTANEOUS 06/03/2010 Cardiac cath, L heart no stents PAST SURGICAL HISTORY OF 07/20/2003 arthroscopic right knee PAST SURGICAL HISTORY OF 04/20/1946 T AND A PAST SURGICAL HISTORY OF 04/20/1998 uvulectomy PAST SURGICAL HISTORY OF bladdar suspension PAST SURGICAL HISTORY OF 03/20/2007 bunionectomy S SLING BLADDER 2004 TOTAL ABDOMINAL HYSTERECT W/WO RMVL TUBE OVARY 04/20/1985 TOTAL KNEE REPLACEMENT Right 2010 URETHROPLASTY 01/21/2021 SOCIAL HISTORY (more content not included)...[facility] 07-07-2023 History of Present illness Narrative* Ana Laura Banks APRN.MEDICINE TECH - 07/07/2023 2:20 PM EDT ESTABLISHED PATIENT OFFICE VISIT HISTORY OF PRESENT ILLNESS Kiara Brenner is a 82 year old female who presents today in f/u. 05/14/23: Patient with a history of overactive bladder, urge incontinence, recurrent bladder infections. She presents today for follow-up. No UTIs in the past year. Patient is taking methenamine 2 times per day, probiotics, vitamin C. She is using Premarin cream 3 times per week. She denies any UTI symptoms today. No gross hematuria. No dysuria. No fever or chills. She continues to have urgency and frequency. Urge incontinence several times per day. Wearing 4 pads per day. Nocturnal enuresis nightly. Oxybutynin in the past caused severe dry mouth. Currently taking Myrbetriq. We discussed a trial of Gemtesa, cost prohibitive. Will restart her Vesicare 10 mg daily. Today's note: Patient presents today in follow-up of her overactive bladder, recurrent bladder infections. Previously taking Myrbetriq and oxybutynin. Patient was started on Vesicare 10 mg daily at her last visit, symptoms are improved. She states that her urgency is improved during the day. She continues to have occasional urge incontinence, leaking a small amount. Changing her pad 3 times per day usually. She states that she has better control with the Vesicare. No UTI symptoms. Denies gross hematuria. Using Premarin cream. Has decrease methenamine to 1 time per day. LAB RESULTS No results found for: CREAT No results found for: PSA No results found for: COLOR, CLARITY, UGLUC, UBILI, UKET, SPGR, UHB, UPH, UPROT, UROBILINOGEN, NITRITES, LEUKEST MEDICATIONS: solifenacin (VESICARE) 10 mg tablet Take 1 tablet by mouth once daily. Methenamine Hippurate (HIPREX) 1 gram tablet Take 1 tablet by mouth two times a day. conjugated estrogens (PREMARIN) vaginal cream Use 1 g vaginally three times a week. D-MANNOSE ORAL Take by mouth. Lactobac no.41/Bifidobact no.7 (PROBIOTIC-10 ORAL) Take 1 tablet by mouth once daily. Biotin 10,000 mcg cap Take 1 capsule by mouth once daily. Ascorbic Acid 500 mg cpER Take 1 capsule by mouth once daily. cholecalciferol (VITAMIN D3) 5,000 unit tab Take 5,000 Units by mouth once daily. metoprolol succinate ER (TOPROL XL) 25 mg 24 hr tablet Take 25 mg by mouth once daily. celecoxib (CELEBREX) 200 mg capsule Take 200 mg by mouth once daily. montelukast (SINGULAIR) 10 mg tablet Take 10 mg by mouth once daily. omeprazole (PRILOSEC) 40 mg capsule Take by mouth once daily. hq-gp-ZN-vit J-exlwq-tuj-coQ10 (DAILY MULTIVITAMIN) 200-100-500 mcg cap Take by mouth. fexofenadine 60 mg ORAL tablet Take by mouth once daily. REVIEW OF SYSTEMS CONSTITUTIONAL: Patient reports no recent fever or weight loss CARDIOVASCULAR: No chest pain, palpitations or ankle edema. RESPIRATORY: No wheezing, frequent cough or shortness of breath GENITOURINARY: See HPI HISTORIES PAST MEDICAL HISTORY Diagnosis Date Acute gastritis without mention of hemorrhage Arthritis Bladder infection Diaphragmatic hernia without mention of obstruction or gangrene Diverticulosis of colon (without mention of hemorrhage) colon cancer Essential hypertension, benign GERD (gastroesophageal reflux disease) High cholesterol Internal hemorrhoids without mention of complication Migraine, unspecified, without mention of intractable migraine without mention of status migrainosus Osteoarthrosis, unspecified whether generalized or localized, unspecified site Peripheral vertigo, unspecified Personal history of malignant neoplasm of large intestine Pure hypercholesterolemia Recurrent UTI Sacroiliitis, not elsewhere classified (HCC) Urge incontinence Urinary tract infection without hematuria FAMILY HISTORY Problem Relation Age of Onset Prostate Cancer Brother PAST SURGICAL HISTORY Procedure Laterality Date APPENDECTOMY 04/20/1956 COLONOSCOPY FLX DX W/COLLJ SPEC WHEN PFRMD 09/25/2005 Colonoscopy COLONOSCOPY FLX DX W/COLLJ SPEC WHEN PFRMD 10/28/2006 COLONOSCOPY FLX DX W/COLLJ SPEC WHEN PFRMD 11/08/2007 COLONOSCOPY FLX DX W/COLLJ SPEC WHEN PFRMD 11/09/2009 EGD TRANSORAL BIOPSY SINGLE/MULTIPLE 10/28/2006 ESOPHAGOGASTRODUODENOSCOPY TRANSORAL DIAGNOSTIC 08/27/2010 EGD LAPS SURG CHOLECYSTECTOMY W/CHOLANGIOGRAPHY 06/05/2010 LEFT HEART CATH,PERCUTANEOUS 06/03/2010 Cardiac cath, L heart no stents PAST SURGICAL HISTORY OF 07/20/2003 arthroscopic right knee PAST SURGICAL HISTORY OF 04/20/1946 T & A PAST SURGICAL HISTORY OF 04/20/1998 uvulectomy PAST SURGICAL HISTORY OF bladdar suspension PAST SURGICAL HISTORY OF 03/20/2007 bunionectomy S SLING BLADDER 2004 TOTAL ABDOMINAL HYSTERECT W/WO RMVL TUBE OVARY 04/20/1985 TOTAL KNEE REPLACEMENT Right 2010 URETHROPLASTY 01/21/2021 SOCIAL HISTORY Social History Tobacco Use Smoking status: Never Smokeless tobacco: Never Vaping Use Vaping Use: Never used Substance Use Topics Alcohol use: Yes Comment: rare occassion Drug use: No PHYSICAL EXAMINATION General appearance: Well appearing, alert, in no acute distress, well-hydrated, well nourished.. BACK: not examined. MUSCULOSKELETAL: Negative for joint pain or swelling. RESPIRATORY: Normal respiratory effort. SKIN: Normal color, no rash, no lesions.. ASSESSMENT/PLAN: 1. Recurrent UTI - ICD9: 599.0, ICD10: N39.0 -Standing order for urine cultures. -Continue Premarin cream and methenamine 1 time per day. -Continue Vesicare 10 mg daily. -Follow-up in 1 year. 2. Urge incontinence - ICD9: 788.31, ICD10: N39.41 3. Urgency of urination - ICD9: 788.63, ICD10: R39.15 Ana Laura Banks APRN.MEDICINE TECH documented in [facility]24 NoteHNO ID: [id number] Author: ANAL AURA BANKS APRN.CNP Service: ? Author Type: Nurse Practitioner Type: Progress Notes Filed: 05/14/2023 15:05 Note Text: ESTABLISHED PATIENT OFFICE VISIT HISTORY OF PRESENT ILLNESS Kiara Brenner is a 82 year old female who presents today in f/u. 10/30/22: Patient with a history of recurrent bladder infections, overactive bladder. She presents today in follow-up. Patient has not had any urinary tract infections in the past 9 months. She is currently using Premarin cream. Taking methenamine, probiotics. D-mannose and vitamin C as well. She denies any UTI symptoms today. No gross hematuria. No dysuria. No fever or chills. She continues to have urinary incontinence. She has been taking Myrbetriq for a year. Vesicare previously. She does not feel that the Myrbetriq is helping. Wearing 3-4 pads per day. She has rare urgency. Leaking on the way to the bathroom. Nocturnal enuresis nightly. We discussed Gemtesa. Discussed stopping Myrbetriq as well to see if her symptoms change. Today's note: Patient with a history of overactive bladder, urge incontinence, recurrent bladder infections. She presents today for follow-up. No UTIs in the past year. Patient is taking methenamine 2 times per day, probiotics, vitamin C. She is using Premarin cream 3 times per week. She denies any UTI symptoms today. No gross hematuria. No dysuria. No fever or chills. She continues to have urgency and frequency. Urge incontinence several times per day. Wearing 4 pads per day. Nocturnal enuresis nightly. Oxybutynin in the past caused severedry mouth. Currently taking Myrbetriq. We discussed a trial of Gemtesa, cost prohibitive. Will restart her Vesicare 10 mg daily. LAB RESULTS No results found for: CREAT No results found for: PSA No results found for: COLOR, CLARITY, UGLUC, UBILI, UKET, SPGR, UHB, UPH, UPROT, UROBILINOGEN, NITRITES, LEUKEST MEDICATIONS: Methenamine Hippurate (HIPREX) 1 gram tablet Take 1 tablet by mouth two times a day. mirabegron (MYRBETRIQ) 50 mg Tb24 Take 1 tablet by mouth once daily. conjugated estrogens (PREMARIN) vaginal cream Use 1 g vaginally three times a week. D-MANNOSE ORAL Take by mouth. Lactobac no.41/Bifidobact no.7 (PROBIOTIC-10 ORAL) Take 1 tablet by mouth once daily. Biotin 10,000 mcg cap Take 1 capsule by mouth once daily. Ascorbic Acid 500 mg cpER Take 1 capsule by mouth once daily. cholecalciferol (VITAMIN D3) 5,000 unit tab Take 5,000 Units by mouth once daily. metoprolol succinate ER (TOPROL XL) 25 mg 24 hr tablet Take 25 mg by mouth once daily. celecoxib (CELEBREX) 200 mg capsule Take 200 mg by mouth once daily. montelukast (SINGULAIR) 10 mg tablet Take 10 mg by mouth once daily. omeprazole (PRILOSEC) 40 mg capsule Take by mouth once daily. dy-go-ME-vit D-awbqw-vem-coQ10 (DAILY MULTIVITAMIN) 200-100-500 mcg cap Take by mouth. fexofenadine 60 mg ORAL tablet Take by mouth once daily. REVIEW OF SYSTEMS CONSTITUTIONAL: Patient reports no recent fever or weight loss CARDIOVASCULAR: No chest pain, palpitations or ankle edema. RESPIRATORY: No wheezing, frequent cough or shortness of breath GENITOURINARY: See HPI HISTORIES PAST MEDICAL HISTORY Diagnosis Date Acute gastritis without mention of hemorrhage Arthritis Bladder infection Diaphragmatic hernia without mention of obstruction or gangrene Diverticulosis of colon (without mention of hemorrhage) colon cancer Essential hypertension, benign GERD (gastroesophageal reflux disease) High cholesterol Internal hemorrhoids without mention of complication Migraine, unspecified, without mention of intractable migraine without mention of status migrainosus Osteoarthrosis, unspecified whether generalized or localized, unspecified site Peripheral vertigo, unspecified Personal history of malignant neoplasm of large intestine Pure hypercholesterolemia Recurrent UTI Sacroiliitis, not elsewhere classified (HCC) Urge incontinence Urinary tract infection without hematuria FAMILY HISTORY Problem Relation Age of Onset Prostate Cancer Brother PAST SURGICAL HISTORY Procedure Laterality Date APPENDECTOMY 04/20/1956 COLONOSCOPY FLX DX W/COLLJ SPEC WHEN PFRMD 09/25/2005 Colonoscopy COLONOSCOPY FLX DX W/COLLJ SPEC WHEN PFRMD 10/28/2006 COLONOSCOPY FLX DX W/COLLJ SPEC WHEN PFRMD 11/08/2007 COLONOSCOPY FLX DX W/COLLJ SPEC WHEN PFRMD 11/09/2009 EGD TRANSORAL BIOPSY SINGLE/MULTIPLE 10/28/2006 ESOPHAGOGASTRODUODENOSCOPY TRANSORAL DIAGNOSTIC 08/27/2010 EGD LAPS SURG CHOLECYSTECTOMY W/CHOLANGIOGRAPHY 06/05/2010 LEFT HEART CATH,PERCUTANEOUS 06/03/2010 Cardiac cath, L heart no stents PAST SURGICAL HISTORY OF 07/20/2003 arthroscopic right knee PAST SURGICAL HISTORY OF 04/20/1946 T AND A PAST SURGICAL HISTORY OF 04/20/1998 uvulectomy PAST SURGICAL HISTORY OF bladdar suspension PAST SURGICAL HISTORY OF 03/20/2007 bunionec (more content not included)...[facility]11-08-2023 Miscellaneous Notes* Telephone Encounter - Keisha Scott CMA - 02/25/2023 3:16 PM EST Pharmacy called requesting the following refill. Requested Prescriptions Pending Prescriptions Disp Refills Methenamine Hippurate (HIPREX) 1 gram tablet 60 tablet 11 Sig: Take 1 tablet by mouth two times a day. Patient last appointment: Visit date not found Patient Phone numbers: [phone] (home) Request is for script(s) to be escript to pharmacy. Keisha Scott CMA documented in this encounter[facility]23 NoteHNO ID: [id number] Author: Ana Laura Banks APRN.MEDICINE TECH Service: ? Author Type: Nurse Practitioner Type: Progress Notes Filed: 10/30/2022 11:43 AM Note Text: ESTABLISHED PATIENT OFFICE VISIT HISTORY OF PRESENT ILLNESS Kiara Brenner is a 81 year old female who presents today in f/u. Patient with a history of recurrent bladder infections, overactive bladder. She presents today in follow-up. Patient has not had any urinary tract infections in the past 9 months. She is currently using Premarin cream. Taking methenamine, probiotics. D-mannose and vitamin C as well. She denies any UTI symptoms today. No gross hematuria. No dysuria. No fever or chills. She continues to have urinary incontinence. She has been taking Myrbetriq for a year. Vesicare previously. She does not feel that the Myrbetriq is helping. Wearing 3-4 pads per day. She has rare urgency. Leaking on the way to the bathroom. Nocturnal enuresis nightly. We discussed Gemtesa. Discussed stopping Myrbetriq as well to see if her symptoms change. LAB RESULTS No results found for: CREAT No results found for: PSA No results found for: COLOR, CLARITY, UGLUC, UBILI, UKET, SPGR, UHB, UPH, UPROT, UROBILINOGEN, NITRITES, LEUKEST MEDICATIONS: mirabegron (MYRBETRIQ) 50 mg Tb24 Take 1 tablet by mouth once daily. conjugated estrogens (PREMARIN) vaginal cream Use 1 g vaginally three times a week. Methenamine Hippurate (HIPREX) 1 gram tablet Take 1 tablet by mouth twice daily. D-MANNOSE ORAL Take by mouth. Lactobac no.41/Bifidobact no.7 (PROBIOTIC-10 ORAL) Take 1 tablet by mouth once daily. Biotin 10,000 mcg cap Take 1 capsule by mouth once daily. Ascorbic Acid 500 mg cpER Take 1 capsule by mouth once daily. cholecalciferol (VITAMIN D3) 5,000 unit tab Take 5,000 Units by mouth once daily. metoprolol succinate ER (TOPROL XL) 25 mg 24 hr tablet Take 25 mg by mouth once daily. celecoxib (CELEBREX) 200 mg capsule Take 200 mg by mouth once daily. montelukast (SINGULAIR) 10 mg tablet Take 10 mg by mouth once daily. omeprazole (PRILOSEC) 40 mg capsule Take by mouth once daily. oo-jm-GN-vit M-secyg-ven-coQ10 (DAILY MULTIVITAMIN) 200-100-500 mcg cap Take by mouth. fexofenadine 60 mg ORAL tablet Take by mouth once daily. REVIEW OF SYSTEMS CONSTITUTIONAL: Patient reports no recent fever or weight loss CARDIOVASCULAR: No chest pain, palpitations or ankle edema. RESPIRATORY: No wheezing, frequent cough or shortness of breath GENITOURINARY: See HPI HISTORIES PAST MEDICAL HISTORY Diagnosis Date Acute gastritis without mention of hemorrhage Arthritis Bladder infection Diaphragmatic hernia without mention of obstruction or gangrene Diverticulosis of colon (without mention of hemorrhage) colon cancer Essential hypertension, benign GERD (gastroesophageal reflux disease) High cholesterol Internal hemorrhoids without mention of complication Migraine, unspecified, without mention of intractable migraine without mention of status migrainosus Osteoarthrosis, unspecified whether generalized or localized, unspecified site Peripheral vertigo, unspecified Personal history of malignant neoplasm of large intestine Pure hypercholesterolemia Recurrent UTI Sacroiliitis, not elsewhere classified (HCC) Urge incontinence Urinary tract infection without hematuria FAMILY HISTORY Problem Relation Age of Onset Prostate Cancer Brother PAST SURGICAL HISTORY Procedure Laterality Date APPENDECTOMY 04/20/1956 COLONOSCOPY FLX DX W/COLLJ SPEC WHEN PFRMD 09/25/2005 Colonoscopy COLONOSCOPY FLX DX W/COLLJ SPEC WHEN PFRMD 10/28/2006 COLONOSCOPY FLX DX W/COLLJ SPEC WHEN PFRMD 11/08/2007 COLONOSCOPY FLX DX W/COLLJ SPEC WHEN PFRMD 11/09/2009 EGD TRANSORAL BIOPSY SINGLE/MULTIPLE 10/28/2006 ESOPHAGOGASTRODUODENOSCOPY TRANSORAL DIAGNOSTIC 08/27/2010 EGD LAPS SURG CHOLECYSTECTOMY W/CHOLANGIOGRAPHY 06/05/2010 LEFT HEART CATH,PERCUTANEOUS 06/03/2010 Cardiac cath, L heart no stents PAST SURGICAL HISTORY OF 07/20/2003 arthroscopic right knee PAST SURGICAL HISTORY OF 04/20/1946 T AND A PAST SURGICAL HISTORY OF 04/20/1998 uvulectomy PAST SURGICAL HISTORY OF bladdar suspension PAST SURGICAL HISTORY OF 03/20/2007 bunionectomy S SLING BLADDER 2004 TOTAL ABDOMINAL HYSTERECT W/WO RMVL TUBE OVARY 04/20/1985 TOTAL KNEE REPLACEMENT Right 2010 URETHROPLASTY 01/21/2021 SOCIAL HISTORY Social History Tobacco Use Smoking status: Never Smokeless tobacco: Never Vaping Use Vaping Use: Never used Substance Use Topics Alcohol use: Yes Comment: rare occassion Drug use: No PHYSICAL EXAMINATION General appearance: Well appearing, alert, in no acute distress, well-hydrated, well nourished.. BACK: not examined. MUSCULOSKELETAL: Negative for joint pain or swelling. RESPIRATORY: Normal respiratory effort. SKIN: Normal color, no rash, no lesions.. ASSESSMENT/PLAN: 1. Recurrent UTI - IC (more content not included)...[facility] 10-30-2022 History of Present illness Narrative* Ana Laura Banks, ANYA.MEDICINE TECH - 10/30/2022 10:56 AM EDT ESTABLISHED PATIENT OFFICE VISIT HISTORY OF PRESENT ILLNESS Kiara Brenner is a 81 year old female who presents today in f/u. Patient with a history of recurrent bladder infections, overactive bladder. She presents today in follow-up. Patient has not had any urinary tract infections in the past 9 months. She is currently using Premarin cream. Taking methenamine, probiotics. D-mannose and vitamin C as well. She denies any UTI symptoms today. No gross hematuria. No dysuria. No fever or chills. She continues to have urinary incontinence. She has been taking Myrbetriq for a year. Vesicare previously. She does not feel that the Myrbetriq is helping. Wearing 3-4 pads per day. She has rare urgency. Leaking on the way to the bathroom. Nocturnal enuresis nightly. We discussed Gemtesa. Discussed stopping Myrbetriq as well to see if her symptoms change. LAB RESULTS No results found for: CREAT No results found for: PSA No results found for: COLOR, CLARITY, UGLUC, UBILI, UKET, SPGR, UHB, UPH, UPROT, UROBILINOGEN, NITRITES, LEUKEST MEDICATIONS: mirabegron (MYRBETRIQ) 50 mg Tb24 Take 1 tablet by mouth once daily. conjugated estrogens (PREMARIN) vaginal cream Use 1 g vaginally three times a week. Methenamine Hippurate (HIPREX) 1 gram tablet Take 1 tablet by mouth twice daily. D-MANNOSE ORAL Take by mouth. Lactobac no.41/Bifidobact no.7 (PROBIOTIC-10 ORAL) Take 1 tablet by mouth once daily. Biotin 10,000 mcg cap Take 1 capsule by mouth once daily. Ascorbic Acid 500 mg cpER Take 1 capsule by mouth once daily. cholecalciferol (VITAMIN D3) 5,000 unit tab Take 5,000 Units by mouth once daily. metoprolol succinate ER (TOPROL XL) 25 mg 24 hr tablet Take 25 mg by mouth once daily. celecoxib (CELEBREX) 200 mg capsule Take 200 mg by mouth once daily. montelukast (SINGULAIR) 10 mg tablet Take 10 mg by mouth once daily. omeprazole (PRILOSEC) 40 mg capsule Take by mouth once daily. nt-cj-KC-vit T-kizgh-iqk-coQ10 (DAILY MULTIVITAMIN) 200-100-500 mcg cap Take by mouth. fexofenadine 60 mg ORAL tablet Take by mouth once daily. REVIEW OF SYSTEMS CONSTITUTIONAL: Patient reports no recent fever or weight loss CARDIOVASCULAR: No chest pain, palpitations or ankle edema. RESPIRATORY: No wheezing, frequent cough or shortness of breath GENITOURINARY: See HPI HISTORIES PAST MEDICAL HISTORY Diagnosis Date Acute gastritis without mention of hemorrhage Arthritis Bladder infection Diaphragmatic hernia without mention of obstruction or gangrene Diverticulosis of colon (without mention of hemorrhage) colon cancer Essential hypertension, benign GERD (gastroesophageal reflux disease) High cholesterol Internal hemorrhoids without mention of complication Migraine, unspecified, without mention of intractable migraine without mention of status migrainosus Osteoarthrosis, unspecified whether generalized or localized, unspecified site Peripheral vertigo, unspecified Personal history of malignant neoplasm of large intestine Pure hypercholesterolemia Recurrent UTI Sacroiliitis, not elsewhere classified (HCC) Urge incontinence Urinary tract infection without hematuria FAMILY HISTORY Problem Relation Age of Onset Prostate Cancer Brother PAST SURGICAL HISTORY Procedure Laterality Date APPENDECTOMY 04/20/1956 COLONOSCOPY FLX DX W/COLLJ SPEC WHEN PFRMD 09/25/2005 Colonoscopy COLONOSCOPY FLX DX W/COLLJ SPEC WHEN PFRMD 10/28/2006 COLONOSCOPY FLX DX W/COLLJ SPEC WHEN PFRMD 11/08/2007 COLONOSCOPY FLX DX W/COLLJ SPEC WHEN PFRMD 11/09/2009 EGD TRANSORAL BIOPSY SINGLE/MULTIPLE 10/28/2006 ESOPHAGOGASTRODUODENOSCOPY TRANSORAL DIAGNOSTIC 08/27/2010 EGD LAPS SURG CHOLECYSTECTOMY W/CHOLANGIOGRAPHY 06/05/2010 LEFT HEART CATH,PERCUTANEOUS 06/03/2010 Cardiac cath, L heart no stents PAST SURGICAL HISTORY OF 07/20/2003 arthroscopic right knee PAST SURGICAL HISTORY OF 04/20/1946 T & A PAST SURGICAL HISTORY OF 04/20/1998 uvulectomy PAST SURGICAL HISTORY OF bladdar suspension PAST SURGICAL HISTORY OF 03/20/2007 bunionectomy S SLING BLADDER 2004 TOTAL ABDOMINAL HYSTERECT W/WO RMVL TUBE OVARY 04/20/1985 TOTAL KNEE REPLACEMENT Right 2010 URETHROPLASTY 01/21/2021 SOCIAL HISTORY Social History Tobacco Use Smoking status: Never Smokeless tobacco: Never Vaping Use Vaping Use: Never used Substance Use Topics Alcohol use: Yes Comment: rare occassion Drug use: No PHYSICAL EXAMINATION General appearance: Well appearing, alert, in no acute distress, well-hydrated, well nourished.. BACK: not examined. MUSCULOSKELETAL: Negative for joint pain or swelling. RESPIRATORY: Normal respiratory effort. SKIN: Normal color, no rash, no lesions.. ASSESSMENT/PLAN: 1. Recurrent UTI - ICD9: 599.0, ICD10: N39.0 -Continue Premarin cream and methenamine. -Continue probiotics, d-mannose and vitamin C. -Standing order for urine cultures. -Patient to call with any UTI issues. 2. Urge incontinence - ICD9: 788.31, ICD10: N39.41 -Stop Myrbetriq. If symptoms worsen, we will trial Gemtesa. -Patient is going to be seen in [facility] for follow-up due to location. She can follow-up with me as needed. Ana Laura Banks APRN.CNP documented in this [facility]01-09-2023 Miscellaneous Notes* Telephone Encounter - Ana Laura Banks APRN.CNP - 04/28/2022 1:39 PM EST Rx sent documented in this encounterSelect [facility]12-12-2022 Miscellaneous Notes* Telephone Encounter - Kathy Casey Cma - 03/31/2022 2:31 PM EST Pt advised of message below * Telephone Encounter - Ana Laura Banks APRN.CNP - 03/31/2022 1:38 PM EST Please call patient, urine culture is negative for infection. documented in this [facility]12-05-2022 Miscellaneous Notes* Telephone Encounter - Adela Horta Cma - 03/24/2022 11:31 AM EST Phon rang 8-10 times with out answer. No voice mail. Will keep trying. Adela Horta Cma * Telephone Encounter - Ana Laura Banks APRN.CNP - 03/24/2022 9:12 AM EST Please call patient, urine culture is negative for infection. documented in this encounterSelect [facility]11-04-2022 Miscellaneous Notes* Telephone Encounter - Shilpa Gutierrez Cma - 02/21/2022 1:27 PM EDT Called patient to advise of urine results. Patient stated she is doing much better. Shilparemy Gutierrez Cma * Telephone Encounter - Ana Laura Banks APRN.CNP - 02/21/2022 12:54 PM EDT Please call patient, her urine culture showed probable contamination. If she is symptomatic, can repeat culture. Thanks documented in this encounterSelect [facility]10-13-2022 Miscellaneous Notes* Telephone Encounter - Catie Santiago RN - 01/30/2022 2:11 PM EDT Spoke with patient. Gave information.Verbalized understanding Catie Santiago RN * Telephone Encounter - Ana Laura Banks APRN.CNP - 01/30/2022 1:06 PM EDT Please call patient, urine culture is (+) for infection. Antibiotic sent to pharmacy. documented in this encounterSelect [facility]09-29-2022 Miscellaneous Notes* Telephone Encounter - Ana Laura Banks APRN.CNP - 01/16/2022 4:25 PM EDT Please let patient know that urine culture showed probable contamination. If she is symptomatic, wecan repeat the culture. documented in this [facility]09-15-2022 Miscellaneous Notes* Telephone Encounter - Perlita Hartman Cma - 01/02/2022 4:30 PM EDT Patient notified Perlita Hartman Cma * Telephone Encounter - Ana Laura Banks APRN.CNP - 01/02/2022 4:11 PM EDT Please call patient, urine culture is (+) for infection. Antibiotic sent to pharmacy. documented in this encounterSelect [facility]08-29-2022 Miscellaneous Notes* Telephone Encounter - Adela Horta Cma - 12/16/2021 10:51 AM EDT Patient advised yes Keflex should cover. Patient agreed. Adela Horta Cma * Telephone Encounter - Ana Laura Banks APRN.CNP - 12/16/2021 9:16 AM EDT Yes keflex should cover. * Telephone Encounter - Kathy Casey Cma - 12/16/2021 8:24 AM EDT PT CALLED IN ASKING IF THE KEFLEX is the best rx for the bacteria please advise documented in this encounterSelect [facility]08-27-2022 Miscellaneous Notes* Telephone Encounter - Drew Yeh MD - 12/14/2021 3:20 PM EDT Rx called out per RN it systems analyst consultant. Pt instructed to update office this week. * Telephone Encounter - Gilda Stewart RN - 12/14/2021 2:37 PM EDT Reason for Call: UTI symptoms. Patient received her urinary culture results through [facility] today which should >100,000 Klebsiella, requesting an antibiotic be called in to pharmacy. Outcome: Recommended patient see a health care provider within 24 hours. call center operations manager provider paged. Spoke with Dr. Yeh for antibiotic order and recommended patient follow up with urologist on Thursday when office is open. Reason for Disposition [1] Can't control passage of urine (i.e., urinary incontinence) AND [2] new- onset (< 2 weeks) orworsening Answer Assessment - Initial Assessment Questions 1. SYMPTOM: Patient has been experiencing increasing incontinence issues, as well as generalized body symptoms. 2. ONSET: Symptoms started last Thursday, 12/08 3. PAIN: Denies pain 4. CAUSE: Patient believes she has a UTI 5. OTHER SYMPTOMS: Fatigue, decreased appetite, chills and body aches Protocols used: Urinary Pjpahosn-[id number] Allergies reviewed: Yes ALLERGIES Allergen Reactions Codeine GI Upset Nausea The following medications were verbally ordered by and read back to Dr. Yeh on 12/14/2021 at 3:03 PM by Gilda Stewart RN. Requested Prescriptions Signed Prescriptions Disp Refills cephALEXin (KEFLEX) 500 mg capsule 15 capsule 0 Sig: Take 1 capsule by mouth three times daily for 5 days. The prescription(s) were Escripted to [facility]; by Gilda Stewart RN. Patient/Family notified: Yes Gilda Stewart RN documented in this encounterSelect [facility]07-15-2022 Miscellaneous Notes* Telephone Encounter - Kristan Garza MA - 11/01/2021 12:58 PM EDT Pt called back and was notified. Kristan Garza MA * Telephone Encounter - Kristan Garza MA - 11/01/2021 12:47 PM EDT Left voicemail to call back. Kristan Garza MA * Telephone Encounter - Ana Laura Banks APRN.CNP - 11/01/2021 12:40 PM EDT Please call patient, urine culture showed probable contamination. If patient is symptomatic, we canrepeat. I will place orders. documented in this encounterSelect [facility]07-14-2022 Miscellaneous Notes* Telephone Encounter - Ana Laura Banks APRN.CNP - 2021 12:04 PM EDT Have her make appt, she can see Esme or me. documented in this encounterSelect [facility]06-27-2022 Miscellaneous Notes* Telephone Encounter - Pauline Zuniga Cma - 10/14/2021 9:01 AM EDT Can you please review and advise on pts culture results since Esme and Ana Laura are both out. Thanks! Pauline Zuniga Cma documented in this encounterSelect [facility]05-20-2022 Miscellaneous Notes* Telephone Encounter - Adela Horta Cma - 09/06/2021 2:55 PM EDT Patient advised. Per patient she states she is feeling the same. She is still having incontinence. Patient denies fever or chills at this time. Adela Horta Cma * Telephone Encounter - Esme Lyons APRN.CNP - 09/06/2021 2:41 PM EDT Please let pt know her urine culture was (+) for infection. Fosfomycin should cover. How is she feeling? documented in this encounterSelect [facility]05-16-2022 History of Present illness Narrative* Esme Lyons APRN.KAJAL - 09/02/2021 9:23 AM EDT ESTABLISHED PATIENT OFFICE VISIT HISTORY OF PRESENT ILLNESS Kiara Brenner is a 80 year old female with h/o urge incontinence s/p botox 08/09/21 who presents today for f/u. (+) ecoli infection 08/20 treated with Keflex without resolve. She does not have typical UTI symptoms. UA (+) today - will check culture Prevoid 200cc PVR 221cc today. Patient reports some leaking and incontinence. She is taking half dose Myrbetriq 25mg now She has standing urine culture will trial monurol and she will recheck urine in 3 weeks. LAB RESULTS No results found for: CREAT No results found for: PSA No results found for: COLOR, CLARITY, UGLUC, UBILI, UKET, SPGR, UHB, UPH, UPROT, UROBILINOGEN, NITRITES, LEUKEST MEDICATIONS: nitrofurantoin monohydrate and macrocrystal (MACROBID) 100 mg capsule Take 1 capsule by mouth twicedaily. mirabegron (MYRBETRIQ) 50 mg Tb24 Take 1 tablet by mouth once daily. conjugated estrogens (PREMARIN) vaginal cream Use 1 g vaginally three times a week. D-MANNOSE ORAL Take by mouth. solifenacin (VESICARE) 10 mg tablet Take 1 tablet by mouth once daily. Lactobac no.41/Bifidobact no.7 (PROBIOTIC-10 ORAL) Take 1 tablet by mouth once daily. Biotin 10,000 mcg cap Take 1 capsule by mouth once daily. Ascorbic Acid 500 mg cpER Take 1 capsule by mouth once daily. cholecalciferol (VITAMIN D-3) 5,000 unit tab Take 5,000 Units by mouth once daily. metoprolol succinate ER (TOPROL XL) 25 mg 24 hr tablet Take 25 mg by mouth once daily. celecoxib (CELEBREX) 200 mg capsule Take 200 mg by mouth once daily. montelukast (SINGULAIR) 10 mg tablet Take 10 mg by mouth once daily. omeprazole (PRILOSEC) 40 mg capsule Take by mouth once daily. hf-an-NU-vit P-ostqw-ywv-coQ10 (DAILY MULTIVITAMIN) 200-100-500 mcg cap Take by mouth. fexofenadine 60 mg ORAL tablet Take by mouth once daily. REVIEW OF SYSTEMS CONSTITUTIONAL: Patient reports no recent fever or weight loss CARDIOVASCULAR: No chest pain, palpitations or ankle edema. RESPIRATORY: No wheezing, frequent cough or shortness of breath GENITOURINARY: See HPI HISTORIES PAST MEDICAL HISTORY Diagnosis Date Acute gastritis without mention of hemorrhage Arthritis Bladder infection Diaphragmatic hernia without mention of obstruction or gangrene Diverticulosis of colon (without mention of hemorrhage) colon cancer Essential hypertension, benign GERD (gastroesophageal reflux disease) High cholesterol Internal hemorrhoids without mention of complication Migraine, unspecified, without mention of intractable migraine without mention of status migrainosus Osteoarthrosis, unspecified whether generalized or localized, unspecified site Peripheral vertigo, unspecified Personal history of malignant neoplasm of large intestine Pure hypercholesterolemia Recurrent UTI Sacroiliitis, not elsewhere classified (HCC) Urge incontinence Urinary tract infection without hematuria FAMILY HISTORY Problem Relation Age of Onset Prostate Cancer Brother PAST SURGICAL HISTORY Procedure Laterality Date APPENDECTOMY 04/20/1956 COLONOSCOPY FLX DX W/COLLJ SPEC WHEN PFRMD 09/25/2005 Colonoscopy COLONOSCOPY FLX DX W/COLLJ SPEC WHEN PFRMD 10/28/2006 COLONOSCOPY FLX DX W/COLLJ SPEC WHEN PFRMD 11/08/2007 COLONOSCOPY FLX DX W/COLLJ SPEC WHEN PFRMD 11/09/2009 EGD TRANSORAL BIOPSY SINGLE/MULTIPLE 10/28/2006 ESOPHAGOGASTRODUODENOSCOPY TRANSORAL DIAGNOSTIC 08/27/2010 EGD LAPS SURG CHOLECYSTECTOMY W/CHOLANGIOGRAPHY 06/05/2010 LEFT HEART CATH,PERCUTANEOUS 06/03/2010 Cardiac cath, L heart no stents PAST SURGICAL HISTORY OF 07/20/2003 arthroscopic right knee PAST SURGICAL HISTORY OF 04/20/1946 T & A PAST SURGICAL HISTORY OF 04/20/1998 uvulectomy PAST SURGICAL HISTORY OF bladdar suspension PAST SURGICAL HISTORY OF 03/20/2007 bunionectomy S SLING BLADDER 2004 TOTAL ABDOMINAL HYSTERECT W/WO RMVL TUBE OVARY 04/20/1985 TOTAL KNEE REPLACEMENT Right 2010 URETHROPLASTY 01/21/2021 SOCIAL HISTORY Social History Tobacco Use Smoking status: Never Smoker Smokeless tobacco: Never Used Vaping Use Vaping Use: Never used Substance Use Topics Alcohol use: Yes Comment: rare occassion Drug use: No PHYSICAL EXAMINATION General appearance: Well appearing, alert, in no acute distress, well-hydrated, well nourished.. BACK: no pain to palpation over spine or costovertebral angles. MUSCULOSKELETAL: Negative for joint pain or swelling. RESPIRATORY: Normal respiratory effort. SKIN: Normal color, no rash, no lesions. : See HPI Medical Decision Making: Problems: Moderate: 1+ chronic illnesses with change Data: Unique test(s) ordered: 1 Assessment requiring an independent historian(s) Risk: Minimal: Minimal risk from testing/treatment Moderate: Drug management Medical Decision Making Level: 4 - Moderate ASSESSMENT/PLAN: 1. Urge incontinence - ICD9: 788.31, ICD10: N39.41 (primary diagnosis) 2. Urinary tract infection without hematuria, site unspecified - ICD9: 599.0, ICD10: N39.0 - BLADDER SCAN - URINE CULTURE - Monurol - Recheck urine 3 weeks Esme Lyons APRN.CNP documented in this encounterSelect [facility]05-12-2022 Miscellaneous Notes* Telephone Encounter - Ana Laura Banks APRN.CNP - 08/29/2021 1:01 PM EDT Patient and I did not connect via vv. Please scheduled her for a visit with either on Thursday in [place] or with Esme on Thursday at [facility]. Needs urine culture and PVR s/p botox. Thanks * Telephone Encounter - Adela Horta Cma - 08/28/2021 8:10 AM EDT I see an open virtual visit from you yesterday. No plan in note. Please advise. Adela Horta Cma documented in this encounterSelect [facility]05-[facility] History of Present illness Narrative* Ana Laura Banks APRN.CNP - 08/29/2021 11:18 AM EDT Patient no showed. documented in this [facility]05-05-2022 Miscellaneous Notes* Telephone Encounter - Adela Horta Cma - 08/22/2021 1:49 PM EDT Patient advised urine culture positive for infection. Antibiotic sent to the pharmacy. Adela Horta Cma * Telephone Encounter - Ana Laura Banks APRN.CNP - 08/22/2021 1:46 PM EDT Please call patient, urine culture is (+) for infection. Antibiotic sent to pharmacy. documented in this [facility]04-22-2022 Nurse Note* Miryam Lovett RN - 08/09/2021 12:09 PM EDT Patient straight catheterized for 30 ml urine. Lidocaine 2%--100 ml instilled into bladder followedby Lidocaine 11 ml to urethra. Miryam Lovett RN [facility] History of Present illness Narrative* Mustapha Hagan MD - 08/09/2021 10:46 AM EDT OPERATIVE REPORT Botox Injection Preop Nurse: Miryam Lovett RN Preop Check List: Patient complied with pre-op instructions, Surgical site identified and confirmedby patient, Patient Identified, Patient consent obtained, Allergies confirmed with patient. UNIVERSAL PROTOCOL / SAFETY CHECKLIST Procedure to be Performed: cystoscopy and botox Sign In: A Moment of CARE was completed. Personnel directly involved with the procedure wore the appropriate PPE (Personal Protective Equipment). Patient/Surrogate Stated/Verified: PATIENT VERIFIED(optional for EMERGENT procedures): Patient name, Date of , Relevant allergies and The intended procedure Time Out Communication: Intended patient and procedure match the source documents. Consent documented and matches the intended procedure. Sign Out: SIGN OUT (optional for EMERGENT procedures): No specimen collected. Miryam Lovett RN Procedure: Cystoscopy and Intravesical Botox Injection FINDINGS AND PROCEDURE: The history, physical findings, current medications and indications were reviewed prior to the procedure. I discussed the procedure with the patient including possible complications. In the dorsal lithotomy position, cystoscopy was performed using the flexible/rigid cystoscope and 0.9% normal saline. Intra-procedural note: Vacuum-dried purified onabotulinumtoxinA (BOTOX) was reconstituted with 10mlof 0.9% non preserved saline solution per 100 units and mixed gently.100 units of reconstituted BOTOX. Intraservice: Local anesthesia of Lidocaine 2% 100ml was instilled into the bladder for 15 minutes.The bladder was then drained and instilled with 75ml of 0.9% normal saline to achieve adequate visualization for the injections by the physician. Prior to the start of injections, each needle was primed with approximately 1ml of reconstituted BOTOX to remove any air. A 4-mm needle was attached to the syringe and inserted through the working channel of the cystoscope to gain access to the bladder. The injection volume for 1 site-- 1mL -- was inserted approximately 2 mm into the detrusor. 1 mL injections were administered, spaced approximately 1 cm apart, avoiding the trigone. For the final injection, approximately 1 mL of 0.9% non-preserved saline was injected so the full 100 unit dose is delivered. At the end of the injection procedure, the 75 mL of saline used for bladder-wall visualization was drained, and the cystoscope was removed. The nurse assisted the physician throughout the procedure. Postservice: The injection materials and empty vial of onabotulinumatoxinA were disposed of by the nurse, consistent with locally applicable biohazard rules and procedures. The patient remained in the treatment room for 30 minutes following the procedure for observation. The nurse conducted a briefexamination of the patient and inquired whether the patient was experiencing any side effects from the injection. The physician returned to check on the patient and ordered the patient's discharge with follow-up immediately by telephone should the patient experience any side effects, or via emergency room for any serious adverse effects (although none were expected). A follow-up appointment was made. POSTOPERATIVE DIAGNOSIS: Urge incontinence (primary encounter diagnosis) Post-Operative Nursing Record Post Procedure Plan Instruction Sheet Given: Post Cystoscopy documented [facility] Miscellaneous Notes* Telephone Encounter - Adela Horta Cma - 07/26/2021 1:49 PM EDT Patient advised urine culture positive for infection. Antibiotic sent to the pharmacy. Adela Horta Cma * Telephone Encounter - Ana Laura Banks APRN.CNP - 07/26/2021 1:17 PM EDT Please call patient, urine culture is (+) for infection. Antibiotic sent to pharmacy. [facility]* Diagnosis Urge incontinence- Primary documented in this encounter [facility]* Diagnosis Urgency of urination- Primary documented in this encounter [facility] note* Diagnosis Urge incontinence- Primary Urinary tract infection without hematuria, site unspecified documented in this encounter [facility] note* Diagnosis Onset Date Resolution Status Recurrent UTI [facility] Work Phone: Evaluation note* Diagnosis Urinary tract infection without hematuria, site unspecified- Primary [facility]* Diagnosis Recurrent UTI- Primary Urinary tract infection, site not specified Urge incontinence documented in this encounter [facility] noteNo assessment information availableWC[facility] Work Phone: Evaluation note* Diagnosis Recurrent UTI- Primary Urinary tract infection, site not specified Urge incontinence Urgency of urination documented in this encounter [facility] note* Diagnosis Recurrent UTI- Primary Urinary tract infection, site not specified Urge incontinence documented in this [facility] Advance Directives No Advanced Directives Records FoundDocuments on File Type Date Recorded Patient Mid Level Developer Expl anation Advance Directive(s) 01/21/2021 9:21 AM Advance Directive(s) 01/21/2021 9:20 AM Advance Directive Response Recorded Date/ Time Living Will Yes April 05, 2 021 3:47pm Power of Construction Driver Yes April 05, 2021 3:47pm Documents on File Type Date Recorded Patient Mid Level Developer Expl anation Advance Directive(s) 01/21/2021 9:20 AM Advance Directive Response Recorded Date/ Time Living Will Yes April 05, 2 021 2:47pm Power of Construction Driver Yes April 05, 2021 2:47pm Medications Administered Section Inactive Administered Medications - up to 3 most recent administrations Medication Order MAR Action Action Date Dose Rate Site cephALEXin 500 mg cap(s) (KEFLEX) 500 mg, ORAL, ONCE (UP TO 30 DAYS AMB), 1 dose, On Thu08/09/21 at 1130, Please document the antimicrobial indication: Prophylaxis Given 08/09/2021 10:30 AM EDT 500 mg Oral lidocaine 20 mg/mL (2 %) 2,000 mg injection (XYLOCAINE) 2,000 mg (100 mL), OTHER, ONCE (UP TO 30 DAYS AMB), 1 dose, On Thu08/09/21 at 1130 Given 08/09/2021 10:30 AM EDT 2,000 mg Other lidocaine urojet 2 % 11 mL topical gel (XYLOCAINE, GLYDO) 11 mL, URETHRAL, ONCE (UP TO 30 DAYS AMB), 1 dose, On Thu08/09/21 at 1130, Prior to UDS procedure Given 08/09/2021 10:30 AM EDT 11 mL Other onabotulinum toxin type A 100 Units injection (BOTOX) 100 Units, INTRAMUSCULAR, ONCE (UP TO 30 DAYS AMB), 1 dose, On Thu08/09/21 at 1130, REFRIGERATE - Pharmaceutical Waste: Lab Pack - Given 08/09/2021 10:30 AM EDT 100 Units Other Summary Purpose Family History No Family History Records Found Relationship Condition Age at Onset Recorded Date/T josé miguel mother Arthritis Unknown Chief Complaint and Reason for Visit Chief Complaint CONCERN FOR UTI Reason for Visit Recurrent UTI Chief Complaint EORDER- FOOT AND ANK LE- left foot injury Chief Complaint EORDER- FOOT AND ANK LE- left foot injury Left knee pain Chief Complaint Admit Date RIGHT HIP August 01, 2024 2:5 2pm RM 1 August 01, 2024 3:0 8pm LABS August 25, 2024 7:38am A1C August 30, 2024 10:41 am Reason for Visit Admit Date Greater trochanteric bursitis of right h ip August 01, 2024 2:52pm Lumbar degenerative disc disease July 192024 2:52pm Chief Complaint Admit Date RIGHT HIP August 01, 2024 2:5 2pm RM 1 August 01, 2024 3:0 8pm LABS August 25, 2024 7:38am A1C August 30, 2024 10:41 am LUMBAR SPINE September 13, 2024 1:45p m Room 3 September 13, 2024 1:56p m Additional Source Comments Source Comments (unrecognize d section and content) In the event this informatio n is protected by the Federal Confidentiality of Alcohol and Drug Abuse Patient Records regulations: The Federal rules restrict any use of the information to criminally investigate or prosecute any alcohol or drug abuse patient.[facility] the event this information is protected by the Federal Confidentiality of Alcohol and Drug Abuse Patient Records regulations: The Federal rules restrict any use of the information to criminally investigate or prosecute any alcohol or drug abuse patient.[facility] the event this information is protected by the Federal Confidentiality of Alcohol and Drug Abuse Patient Records regulations: The Federal rules restrict any use of the information to criminally investigate or prosecute any alcohol or drug abuse patient.[facility] the event this information is protected by the Federal Confidentiality of Alcohol and Drug Abuse Patient Records regulations: The Federal rules restrict any use of the information to criminally investigate or prosecute any alcohol or drug abuse patient.[facility] the event this information is protected by the Federal Confidentiality of Alcohol and Drug Abuse Patient Records regulations: The Federal rules restrict any use of the information to criminally investigate or prosecute any alcohol or drug abuse patient.[facility] the event this information is protected by the Federal Confidentiality of Alcohol and Drug Abuse Patient Records regulations: The Federal rules restrict any use of the information to criminally investigate or prosecute any alcohol or drug abuse patient.[facility] the event this information is protected by the Federal Confidentiality of Alcohol and Drug Abuse Patient Records regulations: The Federal rules restrict any use of the information to criminally investigate or prosecute any alcohol or drug abuse patient.[facility] the event this information is protected by the Federal Confidentiality of Alcohol and Drug Abuse Patient Records regulations: The Federal rules restrict any use of the information to criminally investigate or prosecute any alcohol or drug abuse patient.[facility] the event this information is protected by the Federal Confidentiality of Alcohol and Drug Abuse Patient Records regulations: The Federal rules restrict any use of the information to criminally investigate or prosecute any alcohol or drug abuse patient.[facility] the event this information is protected by the Federal Confidentiality of Alcohol and Drug Abuse Patient Records regulations: The Federal rules restrict any use of the information to criminally investigate or prosecute any alcohol or drug abuse patient.[facility] the event this information is protected by the Federal Confidentiality of Alcohol and Drug Abuse Patient Records regulations: The Federal rules restrict any use of the information to criminally investigate or prosecute any alcohol or drug abuse patient.[facility] the event this information is protected by the Federal Confidentiality of Alcohol and Drug Abuse Patient Records regulations: The Federal rules restrict any use of the information to criminally investigate or prosecute any alcohol or drug abuse patient.[facility] the event this information is protected by the Federal Confidentiality of Alcohol and Drug Abuse Patient Records regulations: The Federal rules restrict any use of the information to criminally investigate or prosecute any alcohol or drug abuse patient.[facility] the event this information is protected by the Federal Confidentiality of Alcohol and Drug Abuse Patient Records regulations: The Federal rules restrict any use of the information to criminally investigate or prosecute any alcohol or drug abuse patient.[facility] the event this information is protected by the Federal Confidentiality of Alcohol and Drug Abuse Patient Records regulations: The Federal rules restrict any use of the information to criminally investigate or prosecute any alcohol or drug abuse patient.[facility]In the event this information is protected by the Federal Confidentiality of Alcohol and Drug Abuse Patient Records regulations: The Federal rules restrict any use of the information to criminally investigate or prosecute any alcohol or drug abuse patient.[facility] the event this information is protected by the Federal Confidentiality of Alcohol and Drug Abuse Patient Records regulations: The Federal rules restrict any use of the information to criminally investigate or prosecute any alcohol or drug abuse patient.[facility] the event this information is protected by the Federal Confidentiality of Alcohol and Drug Abuse Patient Records regulations: The Federal rules restrict any use of the information to criminally investigate or prosecute any alcohol or drug abuse patient.[facility] the event this information is protected by the Federal Confidentiality of Alcohol and Drug Abuse Patient Records regulations: The Federal rules restrict any use of the information to criminally investigate or prosecute any alcohol or drug abuse patient.[facility]In the event this information is protected by the Federal Confidentiality of Alcohol and Drug Abuse Patient Records regulations: The Federal rules restrict any use of the information to criminally investigate or prosecute any alcohol or drug abuse patient.[facility]In the event this information is protected by the Federal Confidentiality of Alcohol and Drug Abuse Patient Records regulations: The Federal rules restrict any use of the information to criminally investigate or prosecute any alcohol or drug abuse patient.[facility] the event this information is protected by the Federal Confidentiality of Alcohol and Drug Abuse Patient Records regulations: The Federal rules restrict any use of the information to criminally investigate or prosecute any alcohol or drug abuse patient.[facility]In the event this information is protected by the Federal Confidentiality of Alcohol and Drug Abuse Patient Records regulations: The Federal rules restrict any use of the information to criminally investigate or prosecute any alcohol or drug abuse patient.[facility]In the event this information is protected by the Federal Confidentiality of Alcohol and Drug Abuse Patient Records regulations: The Federal rules restrict any use of the information to criminally investigate or prosecute any alcohol or drug abuse patient.[facility] the event this information is protected by the Federal Confidentiality of Alcohol and Drug Abuse Patient Records regulations: The Federal rules restrict any use of the information to criminally investigate or prosecute any alcohol or drug abuse patient.[facility] the event this information is protected by the Federal Confidentiality of Alcohol and Drug Abuse Patient Records regulations: The Federal rules restrict any use of the information to criminally investigate or prosecute any alcohol or drug abuse patient.[facility]In the event this information is protected by the Federal Confidentiality of Alcohol and Drug Abuse Patient Records regulations: The Federal rules restrict any use of the information to criminally investigate or prosecute any alcohol or drug abuse patient.[facility]In the event this information is protected by the Federal Confidentiality of Alcohol and Drug Abuse Patient Records regulations: The Federal rules restrict any use of the information to criminally investigate or prosecute any alcohol or drug abuse patient.[facility] Reason for Visit (unrecogniz ed section and content) Reason Comments Results Reason Comments Cystoscopy-1 Reason Comments Urinary Urgency Reason Comments Urinary Frequency UTI Urinary Incontinence Reason Comments UTI Reason Comments Patient Question Reason Comments Orders Reason Comments Urinary Incontinence Reason Onset Date Comments Refill Request 02/25/2023 Reason Comments urgency incontinence Reason Comments Refill Request Reason Comments Follow Up 1 year follow up, no complaints Reason Comments Medication Problem Reason Comments Insurance Authorization Care Teams (unrecognized sec tion and content) Office Machine Inspector Relationship Specialty Start Date End Date Octaviano Almodovar DO [address] [facility] [address] [place] [address] PCP - General Family Practice 10/12/20 Office Machine Inspector Relationship Specialty Start Date End Date Octaviano Almodovar DO [address] [place] [address] PCP - General Family Practice 10/12/20 Office Machine Inspector Relationship Specialty Start Date End Date Octaviano Almodovar, DO [address] [facility] [address] [place] [address] PCP - General Family Practice 10/12/20 Office Machine Inspector Relationship Specialty Start Date End Date Nishi, Octaviano Vail, DO [address] [facility] [address] [place] [address] PCP - General Family Practice 10/12/20 Office Machine Inspector Relationship Specialty Start Date End Date Talya Brown MD [address] [place] [address] [place] [address] PCP - General Family Practice 09/02/21 Office Machine Inspector Relationship Specialty Start Date End Date Talya Brown MD [address] [place] [address] PCP - General Family Practice 09/02/21 Office Machine Inspector Relationship Specialty Start Date End Date Talya Brown MD [address] [place] [address] PCP - General Family Practice 09/02/21 Office Machine Inspector Relationship Specialty Start Date End Date Talya Brown MD [address] [place] [address] PCP - General Family Practice 09/02/21 Office Machine Inspector Relationship Specialty Start Date End Date Talya Brown MD [address] [place] [address] PCP - General Family Practice 09/02/21 Office Machine Inspector Relationship Specialty Start Date End Date Talya Brown MD [address] [place] [address] PCP - General Family Medicine 09/02/21 Office Machine Inspector Relationship Specialty Start Date End Date Talya Brown MD [address] [facility], [place] [id number] PCP - General Family Medicine 09/02/21 Office Machine Inspector Relationship Specialty Start Date End Date Talya Brown MD [address] [place], [place] [id number] PCP - General Family Medicine 09/02/21 Office Machine Inspector Relationship Specialty Start Date End Date Talya Brown MD [address] [facility], [place] [id number] PCP - General Family Medicine 09/02/21 Office Machine Inspector Relationship Specialty Start Date End Date Talya Brown MD [address] [place] [address], [place] [id number] PCP - General Family Medicine 09/02/21 Team Status: Active Member Role Status Dates Dr. Octaviano Almodovar MD Family Provider Active Kristie Brewster DO Primary Care Provider Active Team Status: Inactive Member Role Status Dates Lety Funez MD Attending Provider, Referring Provide r Active Kristie Brewster DO Primary Care Provider Active Office Machine Inspector Relationship Specialty Start Date End Date Talya Brown MD [address] [facility], [place] [id number] PCP - General Family Medicine 09/02/21 Team Status: Active Member Role Status Dates Dr. Octaviano Almodovar MD Family Provider Active Lety Funez MD Primary Care Provider Active Team Status: Inactive Member Role Status Dates Lety Funez MD Primary Care Provide r, Attending Provider, Referring Provider Active Office Machine Inspector Relationship Specialty Start Date End Date Talya Brown MD [address] [facility] [place] [id number] PCP - General Family Medicine 09/02/21 Office Machine Inspector Relationship Specialty Start Date End Date Talya Brown MD [address] [place], [place] [address] PCP - General Family Medicine 09/02/21 Office Machine Inspector Relationship Specialty Start Date End Date Talya Brown MD [address] [place] [address] PCP - General Family Medicine 09/02/21 Office Machine Inspector Relationship Specialty Start Date End Date Talya Brown MD [address] [place] [place], [place] [id number] PCP - General Family Medicine 09/02/21 Office Machine Inspector Relationship Specialty Start Date End Date Talya Brown MD [address] [place] [address] PCP - General Family Medicine 09/02/21 Team Status: Active Member Role Status Oscar Funez MD Primary Care Provider Active Team Status: Inactive Member Role Status Oscar Funez MD Primary Care Provider Active St art: August 01, 2024 End: August 01, 2024 Lety Funez MD Referring Provider Active Start : August 01, 2024 End: August 01, 2024 Dr. Logan Wright DO Attending Provider Active Start: August 01, 2024 End: August 01, 2024 Team Status: Inactive Member Role Status Oscar Funez MD Primary Care Provider Active St art: August 01, 2024 End: August 01, 2024 Dr. Karthikeyan Chavez MD Attending Provider Active S tart: August 01, 2024 End: August 01, 2024 Team Status: Inactive Member Role Status Oscar Funez MD Primary Care Provider Active St art: August 25, 2024 End: August 25, 2024 Lety Funez MD Attending Provider Active Start : August 25, 2024 End: August 25, 2024 Lety Funez MD Referring Provider Active Start : August 25, 2024 End: August 25, 2024 Team Status: Active Member Role Status Oscar Funez MD Primary Care Provider Active St art: August 30, 2024 Lety Funez MD Attending Provider Active Start : August 30, 2024 Lety Funez MD Referring Provider Active Start : August 30, 2024 Team Status: Inactive Member Role Status Oscar Funez MD Primary Care Provider Active St art: August 30, 2024 End: August 30, 2024 Lety Funez MD Attending Provider Active Start : August 30, 2024 End: August 30, 2024 Lety Funez MD Referring Provider Active Start : August 30, 2024 End: August 30, 2024 Team Status: Active Member Role Status Oscar Funez MD Primary Care Provider Active St art: September 13, 2024 Lety Funez MD Referring Provider Active Start : September 13, 2024 CELESTE Gonzalez Attending Provider Active Star t: September 13, 2024 Team Status: Inactive Member Role Status Oscar Funez MD Primary Care Provider Active St art: September 13, 2024 End: September 13, 2024 Dr. Karthikeyan Chavez MD Attending Provider Active S tart: September 13, 2024 End: September 13, 2024 Team Status: Inactive Member Role Status Oscar Funez MD Primary Care Provider Active St art: September 13, 2024 End: September 13, 2024 Lety Funez MD Referring Provider Active Start : September 13, 2024 End: September 13, 2024 CELESTE Gonzalez Attending Provider Active Star t: September 13, 2024 End: September 13, 2024 INFORMATION SOURCE (unrecogn ized section and content) DATE CREATED AUTHOR 10/03/2021 [facility] DATE CREATED AUTHOR AUTHOR'S ORGANIZ ATION 07/08/2023 [facility] DATE CREATED AUTHOR AUTHOR'S ORGANIZ ATION 08/24/2024 [facility] DATE CREATED AUTHOR AUTHOR'S ORGANIZ ATION 09/26/2024 [facility] Goals (unrecognized section and content) Goals may be documented in a n alternate sectionGoals may be documented in an alternate sectionGoals may be documented in an alternate sectionGoals may be documented in an alternate sectionGoals may be documented in an alternate sectionGoals may be documented in an alternate sectionGoals may be documented in an alternate section FOR RECORDS PERTAINING TO PATIENTS WHO ARE OR HAVE BEEN ENROLLED IN A CHEMICAL DEPENDENCY/SUBSTANCEABUSE PROGRAM, SOME INFORMATION MAY BE OMITTED. This clinical summary was aggregated from multiple sources. Caution should be exercised in using it in the provision of clinical care. This summary normalizes information from multiple sources, and as a consequence, information in this document may materially change the coding, format and clinical context of patient data. In addition, data may be omitted in some cases. CLINICAL DECISIONS SHOULD BE BASED ON THE PRIMARY CLINICAL RECORDS. [facility]. provides no warranty or guarantee of the accuracy or completeness of information in this document.
--- NOTE | 2024-09-27 07:15 | MRI_ITS ---
PROCEDURE: SPINE LUMBAR (ROUTINE) 09/27/2024 REASON FOR EXAM: PAIN, STENOSIS, DDD TECHNIQUE: Multiplanar and multisequence images were obtained without IV contrast administration. COMPARISON: Lumbar spine x-ray 09/13/2024. FINDINGS: Vertebrae: There are no compression fractures. Alignment: There is loss of the normal lumbar lordosis. Conus Medullaris: The conus medullaris terminates normally at the T12-L1 level. Lower thoracic spine: There is abnormal bone marrow signal on either side of the T10-11, T11-12 and T12-L1, consistent with endplate bone marrow edema (type 1 Modic change) T11-12: There is a broad-based central disc protrusion. There is bilateral facet arthropathy. There is central canal stenosis with the AP dimension of the spinal canal measuring 9 mm. There is mild lateral recess stenosis and moderate foraminal narrowing bilaterally. L1-2: There is a broad-based central disc protrusion. There is an anterior disc protrusion. There is a superimposed right central disc extrusion which extends 12 mm superiorly behind the L1 vertebral body and 6 mm inferiorly behind the L2 vertebral body. The extrusion measures 7 mm in transverse dimension and 6 mm in AP dimension. There is bilateral facet arthropathy with ligamentum flavum bulging. There is central canal stenosis with the AP dimension of the spinal canal measuring 5 mm. There is moderate lateral recess stenosis and foraminal narrowing bilaterally. There is abnormal bone marrow signal on either side of the L1-2 intervertebral disc, consistent with bone marrow edema (type 1 Modic change). There is 3 mm of degenerative anterolisthesis of L1 on L2. L2-3: There is almost complete loss of the intervertebral disc space. There is a broad-based central disc osteophyte complex. There is bilateral facet arthropathy with ligamentum flavum bulging. There is 6 mm of degenerative retrolisthesis of L2 on L3. There is central canal stenosis with the AP dimension of the spinal canal measuring 7 mm. There is moderate lateral recess stenosis and foraminal narrowing on the right. There is severe lateral recess stenosis and foraminal narrowing on the left. L3-4: There is complete ankylosis of L3-4. There is 6 mm of degenerative retrolisthesis of L3 on L4. There is bilateral facet arthropathy with ligamentum flavum bulging. There is central canal stenosis with the AP dimension of the spinal canal measuring 7 mm. There is mild lateral recess stenosis and moderate foraminal narrowing bilaterally. L4-5: There is a broad-based central disc protrusion. There is bilateral facet arthropathy with ligamentum flavum bulging. There is central canal stenosis with the AP dimension of spinal canal measuring 6 mm. There is moderate lateral recess stenosis and foraminal narrowing bilaterally. L5-S1: There is a broad-based central disc osteophyte complex. There is bilateral facet arthropathy with ligamentum flavum bulging. There is central canal stenosis with the AP dimension of the spinal canal measuring 8 mm. There is an osteophyte from the left facet joint, anteriorly, extending into the neural foramen. There is mild lateral recess stenosis and moderate foraminal narrowing bilaterally. Sacrum: There is a small sacral meningocele. Suspect a duodenal diverticulum. MRI/Spine Lumbar (Routine) IMPRESSION: 1. 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 2. There is diffuse facet arthropathy of the lumbar spine. 3. Right central disc extrusion at L1-2 as described. 4. Diffuse lumbar central canal stenosis. 5. Multilevel lateral recess stenosis and foraminal narrowing as described. 6. Other findings as noted. Reading Location: [place] [id number]
== END | disposition home or self-care (01) ==
LOC: OPMRI 07:08
PROVIDERS: PCP Family Medicine; Referring Provider Student in an Organized Health Care Education/Training Program; Visit Provider Student in an Organized Health Care Education/Training Program
DX: M43.16 Spondylolisthesis, lumbar region (principal); M48.061 Spinal stenosis, lumbar region without neurogenic claudication; M51.362 Other intervertebral disc degeneration, lumbar region with discogenic back pain and lower extremity pain
CPT/HCPCS: 72148

== ENCOUNTER → 2025-03-02 | Outpatient (CLI) | payer MEDICARE, OTHER, SELFPAY ==
[2025-03-02 13:03] LABS: Creatinine, Urine (random) 125.00 mg/dL (28.00-217.00); Microalbumin,Random Urine 34.2 mg/L (<20 mg/L)
== END | disposition home or self-care (01) ==
LOC: LABSPEC 11:22
PROVIDERS: PCP Family Medicine; Visit Provider Family Medicine
DX: I10 Essential (primary) hypertension (principal)
CPT/HCPCS: 82043; 82570